=== PATIENT | female | born 1950 | race Caucasian/White ===

== ENCOUNTER → 2016-07-14 | Outpatient (REF) | payer OTHER ==
[2016-07-14 12:09] LABS: BASO # 0.3 K/mm3 (0.0-0.2); BASO % 2.5 % (0.0-1.0); EOS # 0.1 K/mm3 (0.0-0.50); EOS % 1.4 % (0.0-3.0); LARGE UNSTAINED CELL # 0.3 K/mm3 (0.0-0.4); LARGE UNSTAINED CELL % 2.6 % (0.0-4.0); LYMPH % 16.5 % (24.0-44.0); MEAN CORPUSCULAR HEMOGLOBIN 31.7 pg (27.0-33.0); MEAN CORPUSCULAR VOLUME 93.3 fl (80.0-96.0); MONO # 0.6 K/mm3 (0.0-0.8); MONO % 5.8 % (0.0-5.0); NEUTROPHILS # 7.5 K/mm3 (1.8-7.7); NEUTROPHILS % 71.2 % (36.0-66.0); PLATELET COUNT, AUTOMATED 248 k/mm3 (150-450); RED CELL DISTRIBUTION WIDTH 14.2 % (11.5-14.5); WHITE BLOOD COUNT 10.6 K/mm3 (4.0-10.0)
[2016-07-14 12:31] LABS: ANION GAP 11 MEQ/L (8-16); BLOOD UREA NITROGEN 12 MG/DL (7-18); CARBON DIOXIDE LEVEL 27 MEQ/L (21-32); CHLORIDE LEVEL 92 MEQ/L (98-107); CREATININE FOR GFR 0.74 MG/DL (0.55-1.02); GLOMERULAR FILTRATION RATE > 60.0 (>45); GLUCOSE, FASTING 101 MG/DL (80-110); POTASSIUM SERUM 4.3 MEQ/L (3.5-5.1); SODIUM LEVEL 130 MEQ/L (136-145)
== END ==
LOC: M SFHCPLAZ 09:40
PROVIDERS: ATTEND Physician Assistant Medical
DX: R07.81 Pleurodynia (principal)

== ENCOUNTER → 2016-07-20 | Outpatient (CLI) | payer OTHER ==
--- NOTE | 2016-07-20 11:31 | REP ---
MR CERVICAL SPINE WITHOUT CONTRAST: HISTORY: Neck pain and arm numbness. COMPARISON: 04/19/2009 A disc bulge is present at the C3-4 level. There is mild effacement of the thecal sac without spinal cord compression. Uncinate process and facet hypertrophy are present on the left. These findings produce moderate narrowing of the left C3 neural foramen. The right C3 neural foramen is patent. A disc bulge is present at the C4-5 level. There is mild effacement of the thecal sac without spinal cord compression. Facet hypertrophy is present on the left. This produces minimal narrowing of the left C4 neural foramen. The right C4 neural foramen is patent. A disc bulge is present at the C5-6 level. There is moderate effacement of the thecal sac without spinal cord compression. Bilateral uncinate process hypertrophy is present. This produces mild and minimal narrowing of the right and left C5 neural foramina respectively. A disc bulge with associated osteophyte formation is present at the C6-7 level. There is moderate effacement of the thecal sac without spinal cord compression. Bilateral uncinate process hypertrophy is present. This produces minimal and moderate narrowing of the right and the left C6 neural foramina respectively. There is no other disc bulge or herniation. The remaining neural foramina are patent. The spinal cord is normal in signal intensity. There is no intradural extramedullary lesion. The C5-6 and C6-7 intervertebral discs are decreased in height consistent with disc degeneration. Normal signal intensity is present in the cervical vertebral bodies. IMPRESSION: There is cervical spondylosis at the C3-4 through C6-7 levels without spinal cord compression. Findings at the C3-4 through C5-6 levels are new. Signed by Alexander Brandt MD 07/20/2016 11:35 A
== END ==
LOC: M RAD 09:25
PROVIDERS: ATTEND Physician Assistant Medical
DX: M47.892 Other spondylosis, cervical region (principal)

== ENCOUNTER → 2016-07-31 | Outpatient (CLI) | payer OTHER ==
[~2016-07-31] MED LIST: ISOVUE-370 76% 100ML VIAL (Q9967) As Ordered ONE
--- NOTE | 2016-08-01 05:43 | REP ---
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 Technique: Axial contrast enhanced images from the thoracic inlet to the upper abdomen using 100 ml Isovue 370 intravenous contrast material with coronal and sagittal re-formations. Comparison: 06/30/2016. Findings: Linear plate-like atelectasis in the left mid lung zone represents a change from prior examination. Mild stable chronic changes are identified. No acute pulmonary parenchymal consolidation, nodule, or mass lesion otherwise appreciated. A small 6 mm noncalcified nodule in the right lower lobe (image 56) remains unchanged compared to 2007. No pleural effusion/reaction. No pneumothorax. Tracheobronchial tree is patent. No axillary, hilar or mediastinal adenopathy. Mediastinum demonstrates relatively normal heart/pericardium, thoracic aorta and pulmonary vasculature. Surrounding musculoskeletal structures intact without focal osseous abnormality. Limited evaluation of the upper abdomen with small stable left adrenal adenoma measuring approximately 12 mm and unchanged compared to 2007. Impression: 1. Acute plate-like atelectasis in the left mid lung zone. 2. No further acute mediastinal or pleuroparenchymal process. 3. No adenopathy. Signed by Saad Flaherty MD 08/01/2016 05:35 A
== END ==
LOC: M RAD 12:40
PROVIDERS: ATTEND Physician Assistant Medical
DX: E22.2 Syndrome of inappropriate secretion of antidiuretic hormone (principal); R91.8 Other nonspecific abnormal finding of lung field
CPT/HCPCS: 71260; Q9967

== ENCOUNTER → 2016-11-08 | Outpatient (REF) | payer OTHER ==
[2016-11-08 13:47] LABS: BASO % 0.5 % (0.0-1.0); EOS # 0.1 K/mm3 (0.0-0.50); EOS % 1.3 % (0.0-3.0); LARGE UNSTAINED CELL # 0.2 K/mm3 (0.0-0.4); LARGE UNSTAINED CELL % 2.6 % (0.0-4.0); LYMPH # 2.5 K/mm3 (1.5-4.5); MEAN CORPUSCULAR HEMOGLOBIN 32.6 pg (27.0-33.0); MEAN CORPUSCULAR HGB CONC 33.5 g/dl (32.0-36.5); MEAN CORPUSCULAR VOLUME 97.1 fl (80.0-96.0); MONO # 0.6 K/mm3 (0.0-0.8); MONO % 6.2 % (0.0-5.0); NEUTROPHILS # 5.7 K/mm3 (1.8-7.7); NEUTROPHILS % 63.5 % (36.0-66.0); PLATELET COUNT, AUTOMATED 207 k/mm3 (150-450); RED CELL DISTRIBUTION WIDTH 13.1 % (11.5-14.5)
[2016-11-08 14:00] LABS: ANION GAP 9 MEQ/L (8-16); BLOOD UREA NITROGEN 14 MG/DL (7-18); CALCIUM LEVEL 8.9 MG/DL (8.8-10.2); CARBON DIOXIDE LEVEL 28 MEQ/L (21-32); CHLORIDE LEVEL 96 MEQ/L (98-107); CREATININE FOR GFR 0.74 MG/DL (0.55-1.02); GLOMERULAR FILTRATION RATE > 60.0 (>45); GLUCOSE, FASTING 97 MG/DL (80-110); POTASSIUM SERUM 4.9 MEQ/L (3.5-5.1); SODIUM LEVEL 133 MEQ/L (136-145)
== END ==
LOC: M SFHCPLAZ 10:45
PROVIDERS: ATTEND Physician Assistant Medical
DX: J40 Bronchitis, not specified as acute or chronic (principal)

== ENCOUNTER → 2016-11-22 | Outpatient (REF) | payer OTHER | LOC: M SFHCPLAZ 12:13 | PROVIDERS: ATTEND Physician Assistant Medical | DX: R07.89 Other chest pain (principal) ==

== ENCOUNTER → 2017-01-17 | Outpatient (REF) | payer OTHER ==
[2017-01-17 19:23] LABS: BASO % 0.7 % (0.0-1.0); EOS # 0.2 K/mm3 (0.0-0.50); EOS % 3.2 % (0.0-3.0); LARGE UNSTAINED CELL # 0.2 K/mm3 (0.0-0.4); LARGE UNSTAINED CELL % 2.6 % (0.0-4.0); LYMPH # 2.5 K/mm3 (1.5-4.5); LYMPH % 33.2 % (24.0-44.0); MEAN CORPUSCULAR HGB CONC 33.7 g/dl (32.0-36.5); MEAN CORPUSCULAR VOLUME 98.1 fl (80.0-96.0); MONO # 0.4 K/mm3 (0.0-0.8); MONO % 5.9 % (0.0-5.0); NEUTROPHILS # 3.8 K/mm3 (1.8-7.7); NEUTROPHILS % 54.4 % (36.0-66.0); PLATELET COUNT, AUTOMATED 216 k/mm3 (150-450); RED CELL DISTRIBUTION WIDTH 13.9 % (11.5-14.5)
[2017-01-17 19:29] LABS: ANION GAP 7 MEQ/L (8-16); BLOOD UREA NITROGEN 18 MG/DL (7-18); CARBON DIOXIDE LEVEL 28 MEQ/L (21-32); CHLORIDE LEVEL 99 MEQ/L (98-107); CREATININE FOR GFR 0.85 MG/DL (0.55-1.02); GLOMERULAR FILTRATION RATE > 60.0 (>45); GLUCOSE, FASTING 109 MG/DL (80-110); MAGNESIUM LEVEL 2.2 MG/DL (1.8-2.4); POTASSIUM SERUM 4.6 MEQ/L (3.5-5.1); SODIUM LEVEL 134 MEQ/L (136-145)
== END ==
LOC: M SFHCPLAZ 15:31
PROVIDERS: ATTEND Physician Assistant Medical
DX: M79.602 Pain in left arm (principal); E22.2 Syndrome of inappropriate secretion of antidiuretic hormone

== ENCOUNTER → 2017-04-06 | Outpatient (REF) | payer OTHER ==
[2017-04-06 14:53] LABS: ANION GAP 9 MEQ/L (8-16); BLOOD UREA NITROGEN 15 MG/DL (7-18); CALCIUM LEVEL 8.8 MG/DL (8.8-10.2); CARBON DIOXIDE LEVEL 27 MEQ/L (21-32); CHLORIDE LEVEL 93 MEQ/L (98-107); CREATININE FOR GFR 0.71 MG/DL (0.55-1.02); GLOMERULAR FILTRATION RATE > 60.0 (>45); GLUCOSE, FASTING 87 MG/DL (80-110); POTASSIUM SERUM 4.7 MEQ/L (3.5-5.1); SODIUM LEVEL 129 MEQ/L (136-145)
== END ==
LOC: M SFHCPLAZ 12:26
PROVIDERS: ATTEND Physician Assistant Medical
DX: E87.5 Hyperkalemia (principal); I10 Essential (primary) hypertension

== ENCOUNTER → 2017-04-19 | Outpatient (REF) | payer OTHER | LOC: M SFHCPLAZ 10:35 | PROVIDERS: ATTEND Physician Assistant Medical | DX: J02.9 Acute pharyngitis, unspecified (principal); K52.9 Noninfective gastroenteritis and colitis, unspecified; Z53.9 Procedure and treatment not carried out, unspecified reason ==

== ENCOUNTER → 2017-05-21 | Outpatient (REF) | payer OTHER ==
[2017-05-21 12:24] LABS: BASO # 0.1 10^3/uL (0.0-0.2); BASO % 0.8 % (0.0-1.0); EOS # 0.4 10^3/uL (0.0-0.50); EOS % 3.6 % (0.0-3.0); IMMATURE GRANULOCYTE % 0.7 % (0-0); LYMPH # 3.6 10^3/uL (1.5-4.5); LYMPH % 34.5 % (24.0-44.0); MEAN CORPUSCULAR HEMOGLOBIN 31.6 pg (27.0-33.0); MEAN CORPUSCULAR HGB CONC 32.9 g/dl (32.0-36.5); MONO % 9.2 % (0.0-5.0); NEUTROPHILS # 5.4 10^3/uL (1.8-7.7); NEUTROPHILS % 51.2 % (36.0-66.0); PLATELET COUNT, AUTOMATED 238 10^3/uL (150-450); RED CELL DISTRIBUTION WIDTH 13.2 % (11.5-14.5); WHITE BLOOD COUNT 10.5 10^3/uL (4.0-10.0)
[2017-05-21 13:43] LABS: ALBUMIN 3.2 GM/DL (3.2-5.2); ALBUMIN/GLOBULIN RATIO 1.14 (1.00-1.93); ALKALINE PHOSPHATASE 84 U/L (45-117); ALT/SGPT 16 U/L (12-78); ANION GAP 6 MEQ/L (8-16); AST/SGOT 9 U/L (7-37); BILIRUBIN,TOTAL 0.2 MG/DL (0.2-1.0); BLOOD UREA NITROGEN 15 MG/DL (7-18); CALCIUM LEVEL 8.8 MG/DL (8.8-10.2); CARBON DIOXIDE LEVEL 29 MEQ/L (21-32); CHLORIDE LEVEL 99 MEQ/L (98-107); CREATININE FOR GFR 0.72 MG/DL (0.55-1.02); GLOMERULAR FILTRATION RATE > 60.0 (>45); GLUCOSE, FASTING 99 MG/DL (80-110); POTASSIUM SERUM 4.6 MEQ/L (3.5-5.1); SODIUM LEVEL 134 MEQ/L (136-145)
== END ==
LOC: M SFHCPLAZ 10:47
PROVIDERS: ATTEND Physician Assistant Medical
DX: E78.00 Pure hypercholesterolemia, unspecified (principal); J18.9 Pneumonia, unspecified organism; E22.2 Syndrome of inappropriate secretion of antidiuretic hormone

== ENCOUNTER → 2017-06-27 | Outpatient (CLI) | payer OTHER ==
[~2017-06-27] MED LIST changes: +GASTROGRAFIN SOLUTION 30ML (Q9963) As Ordered; +ISOVUE-370 76% 100ML VIAL (Q9967) As Ordered; -ISOVUE-370 76% 100ML VIAL (Q9967) As Ordered ONE
== END ==
LOC: M RAD 12:32
DX: E22.2 Syndrome of inappropriate secretion of antidiuretic hormone (principal)
CPT/HCPCS: Q9963

== ENCOUNTER → 2017-07-05 | Outpatient (REF) | payer OTHER ==
[2017-07-05 16:17] LABS: ANION GAP 6 MEQ/L (8-16); BLOOD UREA NITROGEN 22 MG/DL (7-18); CALCIUM LEVEL 8.9 MG/DL (8.8-10.2); CARBON DIOXIDE LEVEL 30 MEQ/L (21-32); CHLORIDE LEVEL 99 MEQ/L (98-107); CREATININE FOR GFR 0.73 MG/DL (0.55-1.02); GLOMERULAR FILTRATION RATE > 60.0 (>45); GLUCOSE, FASTING 99 MG/DL (80-110); POTASSIUM SERUM 4.5 MEQ/L (3.5-5.1); SODIUM LEVEL 135 MEQ/L (136-145)
== END ==
LOC: M SFHCPLAZ 12:01
DX: E22.2 Syndrome of inappropriate secretion of antidiuretic hormone (principal)

== ENCOUNTER → 2017-07-19 | Outpatient (CLI) | payer OTHER | LOC: M RAD 12:10 | DX: I67.82 Cerebral ischemia (principal); G81.94 Hemiplegia, unspecified affecting left nondominant side | CPT/HCPCS: 70551 ==

== ENCOUNTER → 2017-09-18 | Outpatient (REF) | payer MEDICARE, MEDICAID ==
[2017-09-18 17:42] LABS: HEMATOCRIT 40.3 % (36.0-47.0)
[2017-09-18 17:42] LABS: BASO # 0.1 10^3/uL (0.0-0.2); BASO % 0.7 % (0.0-1.0); EOS # 0.2 10^3/uL (0.0-0.50); EOS % 1.8 % (0.0-3.0); HEMATOCRIT 40.8 % (36.0-47.0); HEMOGLOBIN 13.8 g/dl (12.0-16.0); IMMATURE GRANULOCYTE % 0.5 % (0-3.0); LYMPH # 2.2 10^3/uL (1.5-4.5); LYMPH % 24.8 % (24.0-44.0); MEAN CORPUSCULAR HEMOGLOBIN 32.2 pg (27.0-33.0); MEAN CORPUSCULAR HGB CONC 33.8 g/dl (32.0-36.5); MEAN CORPUSCULAR VOLUME 95.3 fl (80.0-96.0); MONO # 0.7 10^3/uL (0.0-0.8); MONO % 7.6 % (0.0-5.0); NEUTROPHILS # 5.7 10^3/uL (1.8-7.7); NEUTROPHILS % 64.6 % (36.0-66.0); PLATELET COUNT, AUTOMATED 260 10^3/uL (150-450); RED BLOOD COUNT 4.28 10^6/uL (4.00-5.40); RED CELL DISTRIBUTION WIDTH 12.6 % (11.5-14.5); RETIC HEMOGLOBIN EQUIVALENT 36.3 pg (24-36); RETICULOCYTE # 61.2 10^9/L (17-77); RETICULOCYTE % 1.4 % (0.5-1.5); WHITE BLOOD COUNT 8.7 10^3/uL (4.0-10.0)
[2017-09-18 17:50] LABS: PTH INTACT 29.9 PG/ML (18.5-88.0); TOTAL 25(OH) VITAMIN D 65.4 NG/ML (30.0-100.0)
[2017-09-18 17:52] LABS: C REACTIVE PROTEIN QUANTITATIV 1.68 MG/DL (0.00-0.30); CHOLESTEROL LEVEL 159 MG/DL (<200); CHOLESTEROL RISK RATIO 3.697 (<5); CPK CREATINE PHOSPHOKINASE 141 U/L (26-192); FREE T4 0.68 NG/DL (0.76-1.46); HDL CHOLESTEROL 43 MG/DL (>40); LDL CHOLESTEROL 60.2 MG/DL (<100); NON-HDL-C 116 MG/DL; TOTAL PROTEIN 7.3 GM/DL (6.4-8.2); TRIGLYCERIDES LEVEL 279 MG/DL (<150)
[2017-09-18 18:23] LABS: ESTIMATED AVERAGE GLUCOSE 120 MG/DL (60-110); HEMOGLOBIN A1c 5.8 %
[2017-09-18 18:26] LABS: VITAMIN B12 LEVEL 666 PG/ML (247-911)
[2017-09-20 11:23] LABS: ALBUMIN % 57.2 % (55.8-66.1); ALPHA-1-GLOBULIN % 5.5 % (2.9-4.9); ALPHA-2-GLOBULINS % 13.7 % (7.1-11.8); BETA-1-GLOBULINS 0.53 GM/DL (0.28-0.60); BETA-1-GLOBULINS % 7.2 % (4.7-7.2); BETA-2-GLOBULINS 0.44 GM/DL (0.19-0.55); GAMMA GLOBULIN % 10.4 % (11.1-18.8); GAMMA GLOBULINS 0.76 GM/DL (0.65-1.58)
[2017-09-20 11:30] LABS: ALBUMIN 4.18 GM/DL (3.29-5.55)
[2017-09-21 11:19] LABS: PRETREATED FOLATE FOR RBCFOL 6.5 NG/ML; RBC FOLATE 338.7 NG/ML (280-791)
== END ==
LOC: M SFHCPLAZ 15:31
DX: D75.89 Other specified diseases of blood and blood-forming organs (principal); R73.01 Impaired fasting glucose; E78.2 Mixed hyperlipidemia; E22.2 Syndrome of inappropriate secretion of antidiuretic hormone; E55.9 Vitamin D deficiency, unspecified
CPT/HCPCS: 82550

== ENCOUNTER → 2017-10-01 | Outpatient (CLI) | payer MEDICARE, MEDICAID | LOC: M SLEEP HO 13:20 | DX: G47.33 Obstructive sleep apnea (adult) (pediatric) (principal) | CPT/HCPCS: G0399 ==

== ENCOUNTER → 2017-10-17 | Outpatient (REF) | payer MEDICARE, MEDICAID ==
[2017-10-17 18:15] LABS: ALBUMIN 3.4 GM/DL (3.2-5.2); ALBUMIN/GLOBULIN RATIO 0.92 (1.00-1.93); ALKALINE PHOSPHATASE 110 U/L (45-117); ALT/SGPT 21 U/L (12-78); ANION GAP 8 MEQ/L (8-16); AST/SGOT 19 U/L (7-37); BILIRUBIN,TOTAL 0.2 MG/DL (0.2-1.0); BLOOD UREA NITROGEN 17 MG/DL (7-18); CALCIUM LEVEL 9.2 MG/DL (8.8-10.2); CARBON DIOXIDE LEVEL 26 MEQ/L (21-32); CHLORIDE LEVEL 101 MEQ/L (98-107); CREATININE FOR GFR 0.75 MG/DL (0.55-1.30); GLOMERULAR FILTRATION RATE > 60.0 (>45); GLUCOSE, FASTING 98 MG/DL (70-100); MAGNESIUM LEVEL 1.9 MG/DL (1.8-2.4); POTASSIUM SERUM 4.7 MEQ/L (3.5-5.1); SODIUM LEVEL 135 MEQ/L (136-145); TOTAL PROTEIN 7.1 GM/DL (6.4-8.2)
[2017-10-17 18:49] LABS: BASO # 0.1 10^3/uL (0.0-0.2); BASO % 0.9 % (0.0-1.0); EOS # 0.2 10^3/uL (0.0-0.50); EOS % 2.6 % (0.0-3.0); HEMATOCRIT 41.8 % (36.0-47.0); HEMOGLOBIN 13.7 g/dl (12.0-15.5); IMMATURE GRANULOCYTE % 0.5 % (0-3.0); LYMPH # 2.7 10^3/uL (1.5-4.5); LYMPH % 29.2 % (24.0-44.0); MEAN CORPUSCULAR HEMOGLOBIN 31.1 pg (27.0-33.0); MEAN CORPUSCULAR HGB CONC 32.8 g/dl (32.0-36.5); MEAN CORPUSCULAR VOLUME 94.8 fl (80.0-96.0); MONO # 0.9 10^3/uL (0.0-0.8); MONO % 9.9 % (0.0-5.0); NEUTROPHILS # 5.2 10^3/uL (1.8-7.7); NEUTROPHILS % 56.9 % (36.0-66.0); PLATELET COUNT, AUTOMATED 296 10^3/uL (150-450); RED BLOOD COUNT 4.41 10^6/uL (4.00-5.40); RED CELL DISTRIBUTION WIDTH 13.2 % (11.5-14.5); WHITE BLOOD COUNT 9.2 10^3/uL (4.0-10.0)
== END ==
LOC: M SFHCPLAZ 14:46
DX: K52.9 Noninfective gastroenteritis and colitis, unspecified (principal)
CPT/HCPCS: 83735

== ENCOUNTER → 2017-10-19 | Outpatient (CLI) | payer MEDICARE, MEDICAID | LOC: M RAD 10:18 | DX: Z12.2 Encounter for screening for malignant neoplasm of respiratory organs (principal); F17.210 Nicotine dependence, cigarettes, uncomplicated | CPT/HCPCS: G0297 ==

== ENCOUNTER → 2017-11-05 | Outpatient (REF) | payer MEDICARE, MEDICAID | LOC: M SFHCPLAZ 11:34 | DX: K52.9 Noninfective gastroenteritis and colitis, unspecified (principal) | CPT/HCPCS: 87507 ==

== ENCOUNTER → 2017-11-19 | Outpatient (REF) | payer MEDICARE, MEDICAID | LOC: M SFHCPLAZ 15:24 | DX: J02.9 Acute pharyngitis, unspecified (principal) | CPT/HCPCS: 87070 ==

== ENCOUNTER → 2018-01-23 | Outpatient (CLI) | payer MEDICARE, MEDICAID | LOC: M PAIN 13:45 | DX: M47.816 Spondylosis without myelopathy or radiculopathy, lumbar region (principal); M46.96 Unspecified inflammatory spondylopathy, lumbar region; L98.9 Disorder of the skin and subcutaneous tissue, unspecified; E11.9 Type 2 diabetes mellitus without complications; J44.9 Chronic obstructive pulmonary disease, unspecified; K21.9 Gastro-esophageal reflux disease without esophagitis; G47.33 Obstructive sleep apnea (adult) (pediatric); E78.5 Hyperlipidemia, unspecified; I10 Essential (primary) hypertension; I44.7 Left bundle-branch block, unspecified; F25.9 Schizoaffective disorder, unspecified; F17.210 Nicotine dependence, cigarettes, uncomplicated; Z79.01 Long term (current) use of anticoagulants; Z79.51 Long term (current) use of inhaled steroids; Z79.82 Long term (current) use of aspirin; Z79.899 Other long term (current) drug therapy; Z88.1 Allergy status to other antibiotic agents; Z88.5 Allergy status to narcotic agent; Z88.8 Allergy status to other drugs, medicaments and biological substances; Z86.79 Personal history of other diseases of the circulatory system | CPT/HCPCS: G0463 ==

== ENCOUNTER → 2018-01-26 | Outpatient (CLI) | payer MEDICARE, MEDICAID | LOC: M RAD 09:50 | DX: M75.51 Bursitis of right shoulder (principal); M19.011 Primary osteoarthritis, right shoulder; M25.711 Osteophyte, right shoulder; M94.211 Chondromalacia, right shoulder | CPT/HCPCS: 73221 ==

== ENCOUNTER → 2018-01-26 | Outpatient (CLI) | payer MEDICARE, MEDICAID | LOC: M RAD 11:30 | DX: M51.26 Other intervertebral disc displacement, lumbar region (principal); M51.27 Other intervertebral disc displacement, lumbosacral region; M43.16 Spondylolisthesis, lumbar region; M43.17 Spondylolisthesis, lumbosacral region; M99.53 Intervertebral disc stenosis of neural canal of lumbar region | CPT/HCPCS: 72148 ==

== ENCOUNTER → 2018-02-14 | Outpatient (REF) | payer MEDICARE, MEDICAID ==
[2018-02-14 12:18] LABS: BASO # 0.1 10^3/uL (0.0-0.2); BASO % 0.9 % (0.0-1.0); EOS # 0.1 10^3/uL (0.0-0.50); EOS % 1.6 % (0.0-3.0); HEMOGLOBIN 13.9 g/dl (12.0-15.5); IMMATURE GRANULOCYTE % 0.6 % (0-3.0); LYMPH # 2.1 10^3/uL (1.5-4.5); LYMPH % 25.8 % (24.0-44.0); MEAN CORPUSCULAR HEMOGLOBIN 31.6 pg (27.0-33.0); MEAN CORPUSCULAR HGB CONC 33.1 g/dl (32.0-36.5); MEAN CORPUSCULAR VOLUME 95.5 fl (80.0-96.0); MONO # 0.8 10^3/uL (0.0-0.8); MONO % 10.3 % (0.0-5.0); NEUTROPHILS % 60.8 % (36.0-66.0); PLATELET COUNT, AUTOMATED 223 10^3/uL (150-450); RED CELL DISTRIBUTION WIDTH 13.8 % (11.5-14.5); WHITE BLOOD COUNT 8.1 10^3/uL (4.0-10.0)
[2018-02-14 12:43] LABS: ALBUMIN 3.3 GM/DL (3.2-5.2); ALBUMIN/GLOBULIN RATIO 0.89 (1.00-1.93); ALKALINE PHOSPHATASE 88 U/L (45-117); ALT/SGPT 28 U/L (12-78); ANION GAP 8 MEQ/L (8-16); AST/SGOT 29 U/L (7-37); BILIRUBIN,TOTAL 0.3 MG/DL (0.2-1.0); BLOOD UREA NITROGEN 10 MG/DL (7-18); CALCIUM LEVEL 8.8 MG/DL (8.8-10.2); CARBON DIOXIDE LEVEL 29 MEQ/L (21-32); CHLORIDE LEVEL 99 MEQ/L (98-107); CREATININE FOR GFR 0.86 MG/DL (0.55-1.30); GLOMERULAR FILTRATION RATE > 60.0 (>45); GLUCOSE, FASTING 97 MG/DL (70-100); POTASSIUM SERUM 4.5 MEQ/L (3.5-5.1); SODIUM LEVEL 136 MEQ/L (136-145)
[2018-02-15 09:55] LABS: HEPATITIS B SURFACE ANTIGEN NEGATIVE (NEGATIVE)
[2018-02-15 10:16] LABS: HEPATITIS C VIRUS ABY INDEX 0.1 INDEX (<0.8); HIV 1&2 SCREEN CENTAUR NEGATIVE (NEGATIVE)
== END ==
LOC: M SFHCPLAZ 10:27
DX: R19.7 Diarrhea, unspecified (principal); L98.1 Factitial dermatitis; E22.2 Syndrome of inappropriate secretion of antidiuretic hormone; I10 Essential (primary) hypertension; K21.9 Gastro-esophageal reflux disease without esophagitis; F31.9 Bipolar disorder, unspecified; F20.9 Schizophrenia, unspecified; M47.816 Spondylosis without myelopathy or radiculopathy, lumbar region
CPT/HCPCS: 80053

== ENCOUNTER → 2018-03-19 | Outpatient (CLI) | payer MEDICARE, MEDICAID ==
[~2018-03-19] MED LIST changes: +BUPIVACAINE HCL 0.25% 30 ML VIAL As Ordered; -GASTROGRAFIN SOLUTION 30ML (Q9963) As Ordered; -ISOVUE-370 76% 100ML VIAL (Q9967) As Ordered; +ISOVUE-M 300 61% 15ML VIAL (Q9967) As Ordered; +LIDOCAINE 1% SDV INJ 30 ML VIAL As Ordered; +TRIAMCINOLONE ACETONIDE SUSP 40 MG/ML VIAL (J3301) As Ordered; +diazePAM 5 MG TAB As Ordered
== END ==
LOC: M PAIN 10:15
DX: M47.816 Spondylosis without myelopathy or radiculopathy, lumbar region (principal); M47.817 Spondylosis without myelopathy or radiculopathy, lumbosacral region; R73.01 Impaired fasting glucose; J44.9 Chronic obstructive pulmonary disease, unspecified; K21.9 Gastro-esophageal reflux disease without esophagitis; K59.00 Constipation, unspecified; J30.9 Allergic rhinitis, unspecified; G47.33 Obstructive sleep apnea (adult) (pediatric); I10 Essential (primary) hypertension; N39.46 Mixed incontinence; F20.5 Residual schizophrenia; E87.1 Hypo-osmolality and hyponatremia; Z87.891 Personal history of nicotine dependence; Z79.82 Long term (current) use of aspirin; Z79.899 Other long term (current) drug therapy; Z90.49 Acquired absence of other specified parts of digestive tract; Z90.710 Acquired absence of both cervix and uterus; Z88.1 Allergy status to other antibiotic agents; Z88.5 Allergy status to narcotic agent; Z88.8 Allergy status to other drugs, medicaments and biological substances
CPT/HCPCS: J3301

== ENCOUNTER → 2018-11-23 | Outpatient (REF) ==
[2018-11-23 13:28] LABS: ALBUMIN 2.4 GM/DL (3.2-5.2); BILIRUBIN,TOTAL 0.3 MG/DL (0.2-1.0); CALCIUM LEVEL 8.3 MG/DL (8.8-10.2); CREATININE FOR GFR 2.03 MG/DL (0.55-1.30); GLOMERULAR FILTRATION RATE 26.1 (>45); POTASSIUM SERUM 4.1 MEQ/L (3.5-5.1); TOTAL PROTEIN 5.1 GM/DL (6.4-8.2)
== END ==
LOC: M LAB REF 06:43
DX: Z00.00 Encounter for general adult medical examination without abnormal findings (principal)

== ENCOUNTER → 2018-12-05 | Outpatient (REF) | payer MEDICARE, MEDICAID ==
[2018-12-05 18:05] LABS: PERCENT SATURATION 17.7 % (13.2-45.0)
[2018-12-05 18:16] LABS: POTASSIUM RANDOM URINE 43.2 MEQ/L
[2018-12-05 18:32] LABS: FOLATE 4.7 NG/ML
[2018-12-10 00:06] LABS: Methylmalonic Acid 187 nmol/L (0-378)
== END ==
LOC: M LAB REF 17:03
PROVIDERS: ATTEND Internal Medicine Nephrology
DX: D64.9 Anemia, unspecified (principal); N18.4 Chronic kidney disease, stage 4 (severe); I10 Essential (primary) hypertension; E87.1 Hypo-osmolality and hyponatremia

== ENCOUNTER 2019-03-25 11:45 | Emergency (ER) | payer MEDICARE, MEDICAID ==
[~2019-03-25] VITALS: Ht 152.4 cm; Wt 85.9 kg
[2019-03-25 12:21] LABS: BASO # 0.1 10^3/uL (0.0-0.2); BASO % 0.3 % (0.0-1.0); EOS # 0.1 10^3/uL (0.0-0.5); EOS % 0.5 % (0.0-3.0); HEMATOCRIT 27.5 % (36.0-47.0); HEMOGLOBIN 9.1 g/dl (12.0-15.5); LYMPH % 13.5 % (24.0-44.0); MEAN CORPUSCULAR HEMOGLOBIN 31.2 pg (27.0-33.0); MEAN CORPUSCULAR HGB CONC 33.1 g/dl (32.0-36.5); MEAN CORPUSCULAR VOLUME 94.2 fl (80.0-96.0); MONO # 1.3 10^3/uL (0.0-0.8); MONO % 8.9 % (0.0-5.0); NEUTROPHILS # 11.5 10^3/uL (1.5-8.5); NEUTROPHILS % 76.5 % (36.0-66.0); PLATELET COUNT, AUTOMATED 336 10^3/uL (150-450); RED BLOOD COUNT 2.92 10^6/uL (4.00-5.40)
[2019-03-25 12:31] LABS: INR 1.13; PROTHROMBIN TIME 14.2 SECONDS (11.8-14.0)
[2019-03-25] MEDS ORDERED: NS 1,000 ML IV ONE (12:45)
[2019-03-25 13:01] LABS: ALBUMIN 3.2 GM/DL (3.2-5.2); ALT/SGPT 20 U/L (12-78); BILIRUBIN,DIRECT 0.1 MG/DL (0.0-0.2); BILIRUBIN,TOTAL 0.3 MG/DL (0.2-1.0); CK-MB VALUE MASS < 1.0 NG/ML (<3.6); CPK CREATINE PHOSPHOKINASE 46 U/L (26-192); LIPASE 37 U/L (73-393); MB/CK RELATIVE INDEX 2.17 (< OR =4); TOTAL PROTEIN 6.7 GM/DL (6.4-8.2); TROPONIN I < 0.02 NG/ML (< 0.10)
[2019-03-25] MEDS ORDERED: PANT40TA3 PO (13:11)
[2019-03-25] MEDS ORDERED: DIVA250T7 PO (13:11)
[2019-03-25] MEDS ORDERED: CARV6.25 PO (13:11)
[2019-03-25] MEDS ORDERED: SODI1TAB6 PO (13:11)
[2019-03-25] MEDS ORDERED: ZIPR20CA13 PO (13:11)
[2019-03-25] MEDS ORDERED: OXYB5TAB10 PO (13:11)
[2019-03-25] MEDS ORDERED: ALL10TAB29 PO (13:11)
[2019-03-25] MEDS ORDERED: CYCL5TAB PO (13:11)
--- NOTE | 2019-03-25 15:11 | REP ---
CHEST, SINGLE VIEW: There is no evidence of acute infiltrate. No pleural effusion is seen. The heart is normal in size. The mediastinal silhouette is unremarkable. The visualized osseous structures are intact. IMPRESSION: No acute pulmonary disease. Electronically Signed by Sukh Ochoa MD 03/25/2019 03:59 P
[2019-03-25] MEDS ORDERED: GI COCKTAIL 50ML BTL(HYOSCYAMINE/MAALOX/LIDOCAINE VISCOUS)(1:3:1) PO ONE (16:30)
--- NOTE | 2019-03-25 17:47 | ECGEPIP ---
[facility] - ED Test Date: 2019-03-25 Pat Name: CK BYRD Department: Room: - Gender: Female Tobacco Weigher: TC : 1950 Requested By: Jaswinder Latham Order Number: [id number] Reading MD: Jessica Garcia Measurements Intervals [place] Rate: 67 P: 17 [place]: 188 QRS: -22 QRSD: 137 T: 97 QT: 427 QTc: 453 Interpretive Statements SINUS RHYTHM LEFT BUNDLE BRANCH BLOCK LAD SIMILAR 03/22/16 Electronically Signed on 03-25-2019 17:47:35 EDT by Jessica Garcia
[2019-03-25 18:19] LABS: CK-MB VALUE MASS < 1.0 NG/ML (<3.6); CPK CREATINE PHOSPHOKINASE 35 U/L (26-192); MB/CK RELATIVE INDEX 2.86 (< OR =4); TROPONIN I < 0.02 NG/ML (< 0.10)
[2019-03-25 19:30] VITALS: BP 141/66
--- NOTE | 2019-03-25 23:29 | ECGEPIP ---
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
--- NOTE | 2019-03-26 06:04 | REP ---
CT ABDOMEN AND PELVIS WITHOUT IV OR ORAL CONTRAST: HISTORY: Left upper quadrant pain. The patient reports previous cholecystectomy, hysterectomy, and appendectomy. Comparison CT study June 27, 2017. CT FINDINGS: Digital preliminary banking supervisor radiograph demonstrate that the patient is status post lumbar spine fusion with transpedicle screw and interconnecting shirin fixation from L3-S1 bilaterally. There is considerable spray artifact on axial images through this region. There is dorsal postoperative edema and paraspinal soft tissue fluid collection is seen in the subcutaneous and dorsal paraspinal soft tissues associated with spine fusion. This dorsal extra spinal fluid collection measures up to 11 cm in craniocaudal span x 4-5 cm anterior to posterior x up to 7.4 cm medial to lateral. Lumbar spine alignment is normal and vertebral body heights are preserved. The lung bases are clear. There are granulomatous calcifications scattered about the spleen. No focal hepatic or splenic lesion is observed. No adrenal lesion is observed. The kidneys are morphologically intact. No stone disease is seen. Urinary bladder appears intact. There is left colonic diverticulosis without CT evidence of diverticulitis. No pancreatic abnormality is observed. The right colon appears to be mesenteric cecum in the right mid abdomen. Uterus is surgically absent as is the gallbladder. No abdominal wall defect is observed. IMPRESSION: Postoperative changes including cholecystectomy, hysterectomy and appendectomy as well as L3-S1 bilateral lumbar spine fusion. Postoperative extra spinal hematoma/seroma associated with the lumbar spine fusion hardware. Granulomatous calcifications in the spleen. Left colonic diverticulosis. No acute intra-abdominal abnormality. Electronically Signed by Darryl Graham MD 03/26/2019 08:10 A
--- NOTE | 2019-03-26 06:08 | REP ---
CT CHEST WITHOUT IV CONTRAST: CT chest performed without IV contrast. Sagittal and coronal reconstruction images are performed. There are mild scattered fibroatelectatic changes in the lungs. A 5 mm nodular density in the posterior right lower lobe has remained stable since the CT of the chest 10/19/2017. There is no infiltrate in either lung. No axillary or mediastinal adenopathy is seen. There is atherosclerotic calcification of the thoracic aorta without aneurysm. The heart is not enlarged. There is no pleural or pericardial effusion. There are degenerative changes of the spine. IMPRESSION: No acute findings. Electronically Signed by Sukh Ochoa MD 03/26/2019 11:25 A
[2019-06-13] MEDS ORDERED: ASPI81TA85 PO (08:42)
[2019-06-13] MEDS ORDERED: FOLI1TAB11 PO (08:42)
[2019-06-13] MEDS ORDERED: ATOR1TAB21 PO (08:53)
[2019-06-13] MEDS ORDERED: SPIR12.9 INH (08:53)
[2019-06-13] MEDS ORDERED: CYAN100050 PO (08:53)
[2019-06-13] MEDS ORDERED: ONDA4TAB6 PO (08:53)
[2019-06-13] MEDS ORDERED: PEGPOW PO (08:53)
[2019-06-13] MEDS ORDERED: ALBU83IN INH (08:53)
[2019-06-13] MEDS ORDERED: BREO1INH INH (08:53)
== END 2019-03-25 19:52 | disposition home or self-care (01) ==
LOC: M ED 11:45
DX: R07.89 Other chest pain (principal); E86.0 Dehydration; I44.0 Atrioventricular block, first degree; I44.7 Left bundle-branch block, unspecified; I25.10 Atherosclerotic heart disease of native coronary artery without angina pectoris; I10 Essential (primary) hypertension; J44.9 Chronic obstructive pulmonary disease, unspecified; K21.9 Gastro-esophageal reflux disease without esophagitis; M50.30 Other cervical disc degeneration, unspecified cervical region; Z87.448 Personal history of other diseases of urinary system; I27.0 Primary pulmonary hypertension; F17.200 Nicotine dependence, unspecified, uncomplicated; K57.30 Diverticulosis of large intestine without perforation or abscess without bleeding; M43.26 Fusion of spine, lumbar region; Z79.899 Other long term (current) drug therapy; Z88.0 Allergy status to penicillin; Z88.1 Allergy status to other antibiotic agents; Z88.8 Allergy status to other drugs, medicaments and biological substances

== ENCOUNTER → 2019-04-24 | Outpatient (REF) | payer MEDICARE, MEDICAID ==
[~2019-04-24] MED LIST changes: +ALL10TAB29 PO; -BUPIVACAINE HCL 0.25% 30 ML VIAL As Ordered; +CARV6.25 PO; +CYCL5TAB PO; +DIVA250T7 PO; -ISOVUE-M 300 61% 15ML VIAL (Q9967) As Ordered; -LIDOCAINE 1% SDV INJ 30 ML VIAL As Ordered; +OXYB5TAB10 PO; +PANT40TA3 PO; +SODI1TAB6 PO; -TRIAMCINOLONE ACETONIDE SUSP 40 MG/ML VIAL (J3301) As Ordered; +ZIPR20CA13 PO; -diazePAM 5 MG TAB As Ordered
[2019-04-24 14:02] LABS: PERCENT SATURATION 15.6 % (13.2-45.0)
== END ==
LOC: M LAB REF 12:51
PROVIDERS: ATTEND Internal Medicine Nephrology
DX: D50.9 Iron deficiency anemia, unspecified (principal)

== ENCOUNTER 2019-05-01 09:32 | Outpatient (CLI) | payer MEDICARE, MEDICAID ==
[~2019-05-01] VITALS: Ht 152.4 cm; Wt 84.6 kg
[2019-05-01 09:40] VITALS: BP 146/68
[2019-05-01] MEDS ORDERED: FERRIC CARBOXYMALTOSE INJ 750 MG in NS 250 ML IV ONE (10:00)
[2019-05-01 10:20] VITALS: BP 156/68
[2019-05-01 10:35] VITALS: BP 151/68
[2019-05-01 11:30] VITALS: BP 139/65
[2019-05-01 11:50] VITALS: BP 137/63
== END 2019-05-01 12:00 | disposition home or self-care (01) ==
LOC: M INFU 09:32
PROVIDERS: ATTEND Internal Medicine Nephrology
DX: D50.9 Iron deficiency anemia, unspecified (principal); Z79.899 Other long term (current) drug therapy; Z88.1 Allergy status to other antibiotic agents; Z88.5 Allergy status to narcotic agent; Z88.2 Allergy status to sulfonamides; Z88.8 Allergy status to other drugs, medicaments and biological substances
CPT/HCPCS: 96365; J1439

== ENCOUNTER 2019-05-08 09:47 | Outpatient (CLI) | payer MEDICARE, MEDICAID ==
[~2019-05-08] VITALS: Ht 152.4 cm; Wt 84.5 kg
[2019-05-08 09:50] VITALS: BP 101/53
[2019-05-08] MEDS ORDERED: FERRIC CARBOXYMALTOSE INJ 750 MG in NS 250 ML IV ONE (10:15)
[2019-05-08] MEDS ORDERED: ZIPR40CA11 PO (11:07)
[2019-05-08 11:15] VITALS: BP 107/47
[2019-05-08 12:15] VITALS: BP 121/58
[2019-05-08 13:00] VITALS: BP 119/61
== END 2019-05-08 13:00 | disposition home or self-care (01) ==
LOC: M INFU 09:47
PROVIDERS: ATTEND Internal Medicine Nephrology
DX: D50.9 Iron deficiency anemia, unspecified (principal); Z88.0 Allergy status to penicillin; Z88.1 Allergy status to other antibiotic agents; Z88.5 Allergy status to narcotic agent; Z88.2 Allergy status to sulfonamides
CPT/HCPCS: 96365; 96366; J1439

== ENCOUNTER → 2019-06-17 | Outpatient (CLI) | payer MEDICARE, MEDICAID ==
[~2019-06-17] MED LIST changes: +ALBU83IN INH; +ASPI81TA85 PO; +ATOR1TAB21 PO; +BREO1INH INH; +CYAN100050 PO; +FOLI1TAB11 PO; +ONDA4TAB6 PO; +PEGPOW PO; +SPIR12.9 INH; +ZIPR40CA11 PO
--- NOTE | 2019-06-17 11:35 | REP ---
COMPLETE ABDOMINAL SONOGRAPHY: HISTORY: Evaluate liver and spleen. Declining hemoglobin. Comparison CT study. March 25, 2019. SONOGRAPHIC FINDINGS: Scanning through the right upper quadrant of the abdomen demonstrates normal sized homogeneous liver. Common bile duct is normal post cholecystectomy 0.7 cm. No focal liver lesion is seen. The spleen is normal in size measuring 10.6 cm in greatest diameter. Multiple echogenic foci consistent with splenic granulomata are seen scattered throughout the spleen parenchyma. No pancreatic abnormality is observed. No splenic mass lesion is seen. Normal caliber aorta is seen, 2.9 cm in greatest AP diameter. Renal cortical echogenicity pattern is normal, and contours are smooth. Right kidney measures 10.6 x 5.4 x 4.6 cm. Left renal dimensions are 10.8 x 5.4 x 5.4 cm. No hydronephrosis is seen. No renal masses observed. IMPRESSION: Splenic granulomatous calcifications. Otherwise, negative complete abdominal sonography. Post cholecystectomy. Electronically Signed by Darryl Graham MD 06/17/2019 03:29 P
== END ==
LOC: M RAD 07:26
PROVIDERS: ATTEND Internal Medicine Hematology
DX: R71.0 Precipitous drop in hematocrit (principal); Z90.49 Acquired absence of other specified parts of digestive tract; D73.89 Other diseases of spleen

== ENCOUNTER 2019-10-18 15:53 | Inpatient (IN) | payer MEDICARE, MEDICAID ==
[~2019-10-18] VITALS: Ht 152.4 cm; Wt 76.9 kg
[2019-10-18 17:19] VITALS: BP 166/88
[2019-10-18] MEDS ORDERED: MOM 30ML SUSPENSION UDC PO PRN (18:00)
--- NOTE | 2019-10-18 18:36 | REP ---
Portable chest x-ray: Single view. History: Syncope/near syncope. Kel chest x-ray March 25, 2019. Findings: Monitoring electrodes overlie the chest. Heart is not enlarged. The aorta somewhat tortuous. The lungs are well inflated and clear. Pleural angles are sharp. Pulmonary vasculature is not increased. No significant bony abnormality is seen. Impression: No active disease. Electronically Signed by Darryl Graham MD 10/18/2019 06:27 P
[2019-10-18 19:48] LABS: BASO % 0.4 % (0.0-1.0); EOS # 0.1 10^3/uL (0.0-0.5); EOS % 0.7 % (0.0-3.0); HEMATOCRIT 36.9 % (36.0-47.0); HEMOGLOBIN 12.4 g/dl (12.0-15.5); LYMPH # 1.9 10^3/uL (1.5-5.0); LYMPH % 18.4 % (24.0-44.0); MEAN CORPUSCULAR HEMOGLOBIN 32.6 pg (27.0-33.0); MEAN CORPUSCULAR HGB CONC 33.6 g/dl (32.0-36.5); MEAN CORPUSCULAR VOLUME 97.1 fl (80.0-96.0); MONO # 0.6 10^3/uL (0.0-0.8); MONO % 5.5 % (0.0-5.0); NEUTROPHILS # 7.6 10^3/uL (1.5-8.5); NEUTROPHILS % 74.5 % (36.0-66.0); PLATELET COUNT, AUTOMATED 223 10^3/uL (150-450); WHITE BLOOD COUNT 10.2 10^3/uL (4.0-10.0)
--- NOTE | 2019-10-18 19:56 | HPEPDOC ---
General Date of Admission Oct 18, 2019 at 17:19 Date of Service: Oct 18, 2019 Other Providers Cardio: Dr. Mendoza Nephro: Dr. Zhou Attending Physician: AMY SALMON MD Chief Complaint The patient is a 69-year-old female admitted with a reason for visit of Cardiogenic Syncope. History of Present Illness HPI: This is a 69-year-old female transferred from [facility] due to syncope. States she had 1 episode of syncope earlier this week on Sunday that led her to [facility]. She is limited historian due to poor medical insight. She is unsure what she was diagnosed with, but per transfer records, she was treated for CHF, syncope, and UTI, discharged home from [facility] just today, and returned to the hospital one-two hours later due to another syncopal episode. She reports she was going from sitting to standing at home, and her daughter noted she had passed out and called EMS. Patient is unsure if she had any seizure-like activity, but denies any prior history of seizures. She is unsure how long she was out for. She only recalls afterwards waking up in the hospital being told she had passed out. Per transfer records, she had no seizure-like activity and had no preceding symptoms, and episode reportedly lasted more than 30 mins and she did not hit her head or sustain any injuries. Head CT & CXR were negative. Her only complaint upon presentation was that she felt weak. Per records, she has reportedly had syncopal episodes multiple times in the past, and noted to have multiple ER visits in the past 1 month due to dizziness and weakness. Upong initial workup at [place]: WBC 11.5, nml H&H, vitals stable besides HR in 50s. EKG reportedly found 1st degree block, LBBB, nonscpecific st/t wave changes, nml e'lytes. D-dimer 0.5, troponin 0.1. She was transferred to [facility] by for higher level of care, and possible a PPM placement. When examined at bedside, her only complaint is of continued weakness and left flank pain ongoing for the past few days. States her weakness is ongoing for months, and left flank pain is sharp, nonradiating, constantly present, but worsened by urination. Also endorses dysuria & urgency & frequency. Otherwise noted to be resting well and denies all other symptoms. PMH: COPD on room air at baseline Dyslipidemia/CAD ?prior CA Hypertension Overactive bladder Iron defic anemia DJD Grade 1 diastolic dysfxn Tobacco use disorder Schizophrenia Sciatica SIADH Past Surgical Hx: Cholecystectomy 2012 Hysterectomy 1975 Appendectomy Family Hx: Father 50 years old from stroke Mother 73 years old, had Crohns Brother age 43 of CA Sister with type 2 diabetes Social Hx: Current fpc smoker. 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 Admits chills HEENT: Denies headache, dysphagia, blurred vision or auditory change Skin: Denies any rashes or lesions Pulmonary: Denies dyspnea, cough, wheezing Cardiac: Denies chest pain, palpitations, orthopnea, PND, edema, lightheadedness. Admits general weakness GI: Denies nausea, vomiting, abdominal pain, diarrhea, constipation, melena, hematochezia : Admits dysuria & urgency frequency. Denies hematuria, retention MSK: Denies new pains or weakness Neurologic: Denies new numbness/tingling PHYSICAL: General exam: A&Ox3, NAD, resting comfortably, appears older than stated age HEENT: NCAT, EOMI, dry mucous membranes, neck supple, patent airway Cardiac: RRR, normal S1 & S2, 2/6 systolic murmur heard best left sternal border, 1+ b/l LE edema Respiratory: minimal bibasilar crackles, otherwise clear throughout with good air exchange, no wheezing or rhonchi. Breathing comfy on room air Abdomen: soft, NT, ND, normoactive bowel sounds. Left CVA tenderness Extremity: 2+ radial and dorsalis pedis pulses, no calf tenderness Skin: [place], warm, dry, no visible rash Msk: strength 5/5 x4, normal tone Neuro: normal speech, no focal deficits, mototor & sensation intact Psych: Normal mood and affect LABORATORY DATA, MICROBIOLOGY: Please see below. IMAGING STUDIES: CXR pending ASSESSMENT AND PLAN: This is a 69-yo F with extensive PMH as noted above, direct transfer from [facility] for a syncopal espiode. Pt has reportedly had multiple ER visits for similar complaints over the past 1-2 months and most recently was hospitalized this Sunday through earlier today when she was discharged after treated for CHF exacerbation, syncope, & UTI. She reportedly experienced another syncopal episode within 1-2 hours of going home, and returned back to [place], from where she was transferred due to possible PPM requirement. Pt denies ever having preceding symptoms to the syncopal episodes, and only complains of weakness. 1. Recurrent syncopal episodes - pt has reportedly had them for 1+ month, unclear what prior w/u has been done - reportedly follows with Dr. Mendoza, but pt unsure why. Will obtain o/p records - Head CT reportedly negative at [place] - cardiac vs neurogenic vs vasovagal - monitor on tele, trend cardiac markers, echo, EKG, orthostatics - work with PT/OT 2. Dysuria, frequency, urgency, left CVA tenderness - pt s/p recent UTI tx at [place] this week; no records of which abx or cultures - no systemic signs of infection - await repeat UA & culture For the remainder of her chronic medical conditions, home meds will be reviewed and resumed once reconciled. DVT prophylaxis: mechanical, heparin sc CODE STATUS: discussed with pt in depth, states she wants FULL CODE. Daughter is active in her care. DISPOSITION: admit to Hospital, direct transfer from [place]. W/u pending. Signed out to night team. Home Medications Scheduled Aspirin (Aspir 81) 81 Mg Tablet., 81 MG PO DAILY, (Reported) Atorvastatin Calcium (Atorvastatin Calcium) 20 Mg Tablet, 20 MG PO QHS, (Reported) Cetirizine HCl (Cetirizine HCl) 10 Mg Tablet, 10 MG PO DAILY, (Reported) Cyanocobalamin (Vitamin B-12) (Vitamin B-12) 1,000 Mcg Tablet, 1,000 MCG PO DAILY, (Reported) Doxycycline Hyclate (Doxycycline Hyclate) 100 Mg Tablet, 100 MG PO BID, (Reported) STARTED 10/18/2019 Fluticasone/Vilanterol (Breo Ellipta 100-25 Mcg INH) 1 Each Blst.w.dev, 1 PUFF INH DAILY, (Reported) Folic Acid (Folic Acid) 1 Mg Tablet, 1 MG PO DAILY, (Reported) Furosemide (Furosemide) 20 Mg Tablet, 20 MG PO DAILY, (Reported) Isosorbide Mononitrate (Isosorbide Mononitrate ER) 60 Mg Tab.er.24h, 60 MG PO DAILY, (Reported) Lisinopril (Lisinopril) 2.5 Mg Tablet, 2.5 MG PO DAILY, (Reported) Magnesium Oxide (Magnesium Oxide) 400 Mg Tablet, 400 MG PO DAILY for constipation, (Reported) Ondansetron (Ondansetron Odt) 4 Mg Tab.rapdis, 4 MG PO Q6HP, (Reported) Oxybutynin Chloride (Oxybutynin Chloride) 5 Mg Tablet, 5 MG PO TID, (Reported) Pantoprazole Sodium (Pantoprazole Sodium) 40 Mg Tablet.dr, 40 MG PO DAILY, (Reported) Polyethylene Glycol 3350 (Polyethylene Glycol 3350) 510 Gm Powder, 17 GM PO BID, (Reported) Potassium Chloride (Potassium Chloride) 10 Meq Capsule.er, 10 MEQ PO DAILY, (Reported) Sodium Chloride (Sodium Chloride) 1 Gm Tablet, 1 GM PO BID, (Reported) Tiotropium [place] (Spiriva Respimat) 4 Gm Mist.inhal, 2 PUFF INH DAILY, (Reported) Valbenazine Tosylate (Ingrezza) 80 Mg Capsule, 80 MG PO DAILY, (Reported) Ziprasidone HCl (Ziprasidone HCl) 20 Mg Capsule, 20 MG PO QAM, (Reported) Ziprasidone HCl (Ziprasidone HCl) 40 Mg Capsule, 40 MG PO QHS, (Reported) Scheduled PRN Gabapentin (Gabapentin) 300 Mg Capsule, 300 MG PO DAILY PRN for PAIN, (Reported) Hydroxyzine HCl (Hydroxyzine HCl) 50 Mg Tablet, 1-2 TAB PO QHS PRN for ANXIETY, (Reported) Allergies Coded Allergies: amoxicillin (Verified Allergy, Unknown, unknown, 01/10/19) clavulanic acid (Verified Allergy, Unknown, unknown, 01/10/19) moxifloxacin (Verified Allergy, Unknown, unknown, 01/10/19) nitrofurantoin (Verified Allergy, Unknown, unknown, 01/10/19) prednisolone (Verified Allergy, Unknown, flippy feeling, 01/10/19) GME ATTESTATION My faculty preceptor for this patient encounter was physically present during the encounter and was fully available. All aspects of the patient interview, examination, medical decision making process, and medical care plan development were reviewed and approved by the faculty preceptor. The faculty preceptor is aware and concurs with the plan as stated in the body of this note and will attest to such by his/her cosignature. ATTENDING NOTE I, Amy Salmon, have independently examined this patient and performed my own physical exam, as well as reviewed the documentation and edited where necessary. I have discussed in detail with the resident / student the findings and plan of treatment as documented by the resident / student and edited their note. I agree with their findings and treatment plan and have edited their documentation. A-FIB/CHADSVASC A-FIB History Current/History of A-Fib/PAF?: No Current PO Anticoag Therapy: No Vital Signs Vital Signs Date Time Temp Pulse Resp B/P (MAP) Pulse Ox O2 Delivery O2 Flow Rate FiO2 10/18/19 17:19 98.2 54 17 166/88 (114) 100 Room Air Plan / VTE VTE Prophylaxis Ordered?: Yes AMBER BROWNING DO Oct 18, 2019 19:56 AMY SALMON MD Oct 19, 2019 14:34
[2019-10-18 19:58] LABS: INR 0.97; PROTHROMBIN TIME 12.6 SECONDS (11.8-14.0)
[2019-10-18 19:59] LABS: ALBUMIN 3.5 GM/DL (3.2-5.2); ALT/SGPT 16 U/L (12-78); BILIRUBIN,TOTAL 0.3 MG/DL (0.2-1.0); BLOOD UREA NITROGEN 7 MG/DL (7-18); CALCIUM LEVEL 8.9 MG/DL (8.8-10.2); CARBON DIOXIDE LEVEL 26 MEQ/L (21-32); CHLORIDE LEVEL 100 MEQ/L (98-107); CREATININE FOR GFR 0.92 MG/DL (0.55-1.30); GLOMERULAR FILTRATION RATE > 60.0 (>45); GLUCOSE, FASTING 133 MG/DL (70-100); MAGNESIUM LEVEL 2.1 MG/DL (1.8-2.4); POTASSIUM SERUM 4.1 MEQ/L (3.5-5.1); SODIUM LEVEL 134 MEQ/L (136-145)
[2019-10-18 20:00] LABS: CK-MB VALUE MASS 1.3 NG/ML (<3.6); CPK CREATINE PHOSPHOKINASE 48 U/L (26-192); MB/CK RELATIVE INDEX 2.71 (< OR =4); TROPONIN I < 0.02 NG/ML (< 0.10)
[2019-10-18] MEDS ORDERED: ISOS60TA2 PO (20:44)
[2019-10-18] MEDS ORDERED: SODI1TAB6 PO (20:44)
[2019-10-18] MEDS ORDERED: MAGN400T2 PO (20:44)
[2019-10-18] MEDS ORDERED: PANT-23 PO (20:44)
[2019-10-18] MEDS ORDERED: POTA10CA32 PO (20:44)
[2019-10-18] MEDS ORDERED: HYDR50TA70 PO (20:44)
[2019-10-18] MEDS ORDERED: DOXY100T PO (20:44)
[2019-10-18] MEDS ORDERED: INGR80CA PO (20:44)
[2019-10-18] MEDS ORDERED: LISI-1046 PO (20:44)
[2019-10-18] MEDS ORDERED: FURO20TA2 PO (20:44)
[2019-10-18] MEDS ORDERED: GABA-843 PO (20:44)
[2019-10-18] MEDS ORDERED: hydrOXYzine 50 MG TAB PO PRN (20:45)
[2019-10-18] MEDS ORDERED: ONDANSETRON 4 MG ORAL DISINTEGRATING TAB (Q0162 PER 1MG) PO PRN (20:45)
[2019-10-18] MEDS ORDERED: POLYETHYLENE GLYCOL (MIRALAX) 238GM BOTTLE PO SCH (21:00)
[2019-10-18] MEDS ORDERED: BACTRIM 160MG/800MG DS TAB PO SCH (21:00)
[2019-10-18] MEDS: HEPARIN SOD (PORCINE) 5000UNITS/ML VIAL (J1644 PER 1000UNITS) SQ SCH (21:00)
[2019-10-18] MEDS: ATORVASTATIN 20 MG TAB PO SCH (21:18)
[2019-10-18] MEDS: GABAPENTIN 300 MG CAP PO PRN (21:18)
[2019-10-18] MEDS: oxyBUTYnin 5 MG TAB PO SCH (21:18)
[2019-10-18] MEDS: ZIPRASIDONE 20MG CAPSULE (GEODON) PO SCH (21:31)
[2019-10-18] MEDS: SODIUM CHLORIDE 1 GM TAB PO SCH (21:31)
[2019-10-18] MEDS: MIRALAX *UNIT DOSE* 17GM PACKET PO SCH (21:38)
[2019-10-18 22:00] VITALS: BP_SYST 125; BP_SYST 159; BP_SYST 163; BP_SYST 169; BP_DIAS 80; BP_DIAS 81; BP_DIAS 87
[2019-10-19 00:32] LABS: CK-MB VALUE MASS 1.2 NG/ML (<3.6); CPK CREATINE PHOSPHOKINASE 39 U/L (26-192); MB/CK RELATIVE INDEX 3.08 (< OR =4); TROPONIN I < 0.02 NG/ML (< 0.10)
[2019-10-19] MEDS: cefTRIAXone SOD 1 GM in D5W MINI-BAG PLUS 50 ML IV SCH (00:44)
[2019-10-19] MEDS: ACETAMINOPHEN TAB 650MG DOSE (2X325MG) PO PRN (05:22)
[2019-10-19 05:37] LABS: HEMATOCRIT 35.5 % (36.0-47.0); MEAN CORPUSCULAR HGB CONC 33.8 g/dl (32.0-36.5); MEAN CORPUSCULAR VOLUME 97.5 fl (80.0-96.0); PLATELET COUNT, AUTOMATED 212 10^3/uL (150-450); RED BLOOD COUNT 3.64 10^6/uL (4.00-5.40); WHITE BLOOD COUNT 9.9 10^3/uL (4.0-10.0)
[2019-10-19 06:00] VITALS: BP_SYST 132; BP_SYST 142; BP_SYST 147; BP_SYST 149; BP_DIAS 77; BP_DIAS 78; BP_DIAS 79
[2019-10-19 06:04] LABS: BLOOD UREA NITROGEN 8 MG/DL (7-18); CARBON DIOXIDE LEVEL 27 MEQ/L (21-32); CHLORIDE LEVEL 102 MEQ/L (98-107); CPK CREATINE PHOSPHOKINASE 56 U/L (26-192); CREATININE FOR GFR 0.87 MG/DL (0.55-1.30); GLOMERULAR FILTRATION RATE > 60.0 (>45); GLUCOSE, FASTING 93 MG/DL (70-100); MB/CK RELATIVE INDEX 1.79 (< OR =4); POTASSIUM SERUM 4.1 MEQ/L (3.5-5.1); SODIUM LEVEL 134 MEQ/L (136-145); TROPONIN I < 0.02 NG/ML (< 0.10)
[2019-10-19] MEDS: TIOTROPIUM INHALER/CAPSULE (SPIRIVA) INH SCH (07:11)
[2019-10-19] MEDS: HEPARIN SOD (PORCINE) 5000UNITS/ML VIAL (J1644 PER 1000UNITS) SQ SCH ×2 (07:41→20:59)
[2019-10-19] MEDS ORDERED: TIOTROPIUM INHALER/CAPSULE (SPIRIVA) INH SCH (08:00)
[2019-10-19] MEDS ORDERED: POTASSIUM CHLORIDE 10 MEQ SR TABLET PO SCH (09:00)
[2019-10-19] MEDS ORDERED: ENTER DRUG NAME HERE (PATIENT'S OWN MED) PO SCH (09:00)
[2019-10-19] MEDS ORDERED: FUROSEMIDE 20 MG TAB PO SCH (09:00)
[2019-10-19] MEDS: PANTOPRAZOLE 40MG TAB (PROTONIX) PO SCH (09:02)
[2019-10-19] MEDS: oxyBUTYnin 5 MG TAB PO SCH ×3 (09:02→20:59)
[2019-10-19] MEDS: MIRALAX *UNIT DOSE* 17GM PACKET PO SCH ×2 (09:02→21:00)
[2019-10-19] MEDS: CETIRIZINE (ZyrTEC) 10 MG TAB PO SCH (09:02)
[2019-10-19] MEDS: FOLIC ACID 1 MG TAB PO SCH (09:02)
[2019-10-19] MEDS: MAGNESIUM OXIDE 400 MG TAB (MAG-OX) PO SCH (09:02)
[2019-10-19] MEDS: ASPIRIN 81 MG ENTERIC TAB PO SCH (09:02)
[2019-10-19] MEDS: ZIPRASIDONE 20MG CAPSULE (GEODON) PO SCH ×2 (09:05→21:00)
[2019-10-19] MEDS: SODIUM CHLORIDE 1 GM TAB PO SCH ×2 (09:05→21:00)
[2019-10-19 14:00] VITALS: BP 134/65
--- NOTE | 2019-10-19 17:14 | IPNPDOC ---
Text Note Date of Service The patient was seen on 10/19/19. NOTE Subjective: -Feels ok this morning, however reports poor sleep and feels "funny" when she walked to the bathroom Objective General exam: A&Ox3, NAD, resting comfortably, appears much older than stated age HEENT: NCAT, EOMI, dry mucous membranes, neck supple Cardiac: RRR, normal S1 & S2, 2/6 systolic murmur heard best left sternal border, trace b/l LE edema Respiratory: trace bibasilar crackles, otherwise clear throughout without wheezing or rhonchi. Abdomen: soft, NT, ND, obese, normoactive bowel sounds, no CVA tenderness Extremity: 2+ radial and dorsalis pedis pulses, no calf tenderness Skin: [place], warm, dry, no rashes Msk: strength 5/5 x4, normal tone Neuro: normal speech, no focal deficits, motor & sensation intact, normal gait Psych: Normal mood and affect LABORATORY DATA: K and Mag wnl MICROBIOLOGY: Pending UCx and BCx IMAGING STUDIES: CXR wnl ASSESSMENT AND PLAN: 69-yo W with extensive history who was transferred from [facility] for a syncopal espiode a few hours after discharge from [place] where she had been admitted for CHF exacerbation, syncope, & UTI. She reportedly experienced a syncopal episode within 1-2 hours of getting home and w as returned back to [place], from where she was transferred to [facility] to evaluation for possible PPM after noted first degree heart block? with mild baseline bradycardia. 1. Recurrent syncopal episodes - pt has reportedly had them for 1+ month, unclear what prior w/u has been done - reportedly follows with Dr. Mendoza, but pt unsure why. Will speak with Dr. Mendoza tomorrow AM - Head CT was negative at [place] - cardiac vs neurogenic vs vasovagal - monitor on tele thus far remains in 1st degree HB with stable ekaterina to 50s, negative cardiac markers and orthostatics were negative - pending PT/OT -pending TTE 2. Dysuria, frequency, urgency, left CVA tenderness - pt s/p recent UTI tx at [place] this week; was discharged on doxy but culture data not available - no systemic signs of infection - repeat UA was positive, so empirically placed on ceftriaxone at this time, with pending culture Otherwise resumed home meds DVT prophylaxis: mechanical, heparin sc CODE STATUS: full code DISPOSITION: pending TTE, to speak with Dr. Mendoza about the degree of cardiac work up we should do without re-inventing the wheel. VS,Fishbone, I+O VS, Fishbone, I+O Laboratory Tests 10/18/19 19:28 10/19/19 05:26 Vital Signs Date Time Temp Pulse Resp B/P (MAP) Pulse Ox O2 Delivery O2 Flow Rate FiO2 10/19/19 14:00 97.3 55 18 134/65 (88) 100 Room Air I&O- Last 24 Hours up to 6 AM 10/19/19 06:00 Intake Total 350 ml Output Total 900 ml Balance -550 ml TILA SALMON MD Oct 19, 2019 17:14
[2019-10-19] MEDS: ATORVASTATIN 20 MG TAB PO SCH (20:59)
[2019-10-19 22:00] VITALS: BP 146/74
[2019-10-19 22:15] VITALS: BP_SYST 164; BP_SYST 177; BP_SYST 184; BP_DIAS 71; BP_DIAS 89; BP_DIAS 92
[2019-10-20] MEDS: cefTRIAXone SOD 1 GM in D5W MINI-BAG PLUS 50 ML IV SCH (00:47)
[2019-10-20 06:00] VITALS: BP_SYST 146; BP_SYST 176; BP_SYST 178; BP_SYST 182; BP_DIAS 68; BP_DIAS 74; BP_DIAS 93; BP_DIAS 97
[2019-10-20 06:09] LABS: HEMATOCRIT 35.3 % (36.0-47.0); HEMOGLOBIN 11.9 g/dl (12.0-15.5); MEAN CORPUSCULAR HEMOGLOBIN 32.6 pg (27.0-33.0); MEAN CORPUSCULAR HGB CONC 33.7 g/dl (32.0-36.5); MEAN CORPUSCULAR VOLUME 96.7 fl (80.0-96.0); PLATELET COUNT, AUTOMATED 186 10^3/uL (150-450); RED BLOOD COUNT 3.65 10^6/uL (4.00-5.40); WHITE BLOOD COUNT 9.4 10^3/uL (4.0-10.0)
[2019-10-20 06:29] LABS: BLOOD UREA NITROGEN 10 MG/DL (7-18); CALCIUM LEVEL 8.9 MG/DL (8.8-10.2); CARBON DIOXIDE LEVEL 26 MEQ/L (21-32); CHLORIDE LEVEL 98 MEQ/L (98-107); CREATININE FOR GFR 0.88 MG/DL (0.55-1.30); GLOMERULAR FILTRATION RATE > 60.0 (>45); GLUCOSE, FASTING 100 MG/DL (70-100); POTASSIUM SERUM 4.3 MEQ/L (3.5-5.1); SODIUM LEVEL 132 MEQ/L (136-145)
[2019-10-20] MEDS: GABAPENTIN 300 MG CAP PO PRN (06:31)
[2019-10-20 06:50] VITALS: BP 150/82
[2019-10-20] MEDS: TIOTROPIUM INHALER/CAPSULE (SPIRIVA) INH SCH (07:38)
--- NOTE | 2019-10-20 07:45 | ECGEPIP ---
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
[2019-10-20] MEDS: PANTOPRAZOLE 40MG TAB (PROTONIX) PO SCH (08:47)
[2019-10-20] MEDS: ZIPRASIDONE 20MG CAPSULE (GEODON) PO SCH ×2 (08:47→20:44)
[2019-10-20] MEDS: oxyBUTYnin 5 MG TAB PO SCH ×3 (08:47→20:44)
[2019-10-20] MEDS: MAGNESIUM OXIDE 400 MG TAB (MAG-OX) PO SCH (08:47)
[2019-10-20] MEDS: CETIRIZINE (ZyrTEC) 10 MG TAB PO SCH (08:47)
[2019-10-20] MEDS: FOLIC ACID 1 MG TAB PO SCH (08:47)
[2019-10-20] MEDS: ASPIRIN 81 MG ENTERIC TAB PO SCH (08:47)
[2019-10-20] MEDS: MIRALAX *UNIT DOSE* 17GM PACKET PO SCH ×2 (08:48→20:43)
[2019-10-20] MEDS: HEPARIN SOD (PORCINE) 5000UNITS/ML VIAL (J1644 PER 1000UNITS) SQ SCH ×2 (08:50→20:47)
[2019-10-20] MEDS: lisinopriL 5 MG TAB PO SCH ×2 (10:37→20:47)
[2019-10-20] MEDS: SODIUM CHLORIDE 1 GM TAB PO SCH ×2 (10:37→20:44)
--- NOTE | 2019-10-20 10:54 | IPNPDOC ---
Text Note Date of Service The patient was seen on 10/20/19. NOTE Subjective: -No complaints this morning Objective General exam: A&Ox3, NAD, appears much older than stated age, sitting up in chair, working with OT HEENT: NCAT, EOMI, dry mucous membranes, neck supple Cardiac: RRR, normal S1 & S2, 2/6 systolic murmur heard best left sternal border, trace b/l LE edema Respiratory: trace bibasilar crackles, otherwise clear throughout without wheezing or rhonchi. Abdomen: soft, NT, ND, obese, normoactive bowel sounds, no CVA tenderness Extremity: 2+ radial and dorsalis pedis pulses, no calf tenderness Skin: [place], warm, dry, no rashes Msk: strength 5/5 x4, normal tone Neuro: normal speech, no focal deficits, motor & sensation intact, normal gait Psych: Normal mood and affect LABORATORY DATA: Na 132, K 4.3, Cr 0.88, WBC 9.4, hgb 11.9 MICROBIOLOGY: Pending UCx and BCx IMAGING STUDIES: CXR wnl ASSESSMENT AND PLAN: 69-yo W with extensive history who was transferred from [facility] for a syncopal espiode a few hours after discharge from [place] where she had been admitted for CHF exacerbation, syncope, & UTI. She reportedly experienced a syncopal episode within 1-2 hours of getting home and was returned back to [place], from where she was transferred to [facility] to evaluation for possible PPM after noted first degree heart block? with mild asymptomatic baseline bradycardia. 1. Recurrent syncopal episodes - pt has reportedly had them for 1+ month - reportedly follows with Dr. Mendoza, but pt unsure why. On speaking with Dr. Mendoza she was on ACEi and no diuretics. Now she came in on ACEi, imdur, lasix. He is recommending stopping the diuretics and imdur and continuing her ACEi at 5mg BID from what had recently been 2.5 daily. Monitoring her today with these changes and if stable to discharge her home tomorrow with close cardiology follow up. There is no indication for treatment of her stable first degree heart block. - Head CT was negative at [place] - cardiac vs neurogenic vs vasovagal - monitor on tele thus far remains in 1st degree HB with stable ekaterina to 50s, negative cardiac markers and orthostatics were negative - follow up PT/OT recs - pending TTE 2. Dysuria, frequency, urgency, left CVA tenderness - pt s/p recent UTI tx at [place] this week; was discharged on doxy but culture data not available - no systemic signs of infection - repeat UA was positive, so empirically placed on ceftriaxone at this time, day 3, with pending culture Otherwise resumed home meds: with the following changes -stopped PRN gabapentin? and switched to 200mg at bedtime for neuropathy DVT prophylaxis: mechanical, heparin sc CODE STATUS: full code DISPOSITION: pending TTE, ongoing med optimization, likely discharge home tomorrow VS,Fishbone, I+O VS, Fishbone, I+O Laboratory Tests 10/20/19 05:24 Vital Signs Date Time Temp Pulse Resp B/P (MAP) Pulse Ox O2 Delivery O2 Flow Rate FiO2 10/20/19 06:50 150/82 (104) 10/20/19 06:00 50 54 61 10/20/19 06:00 97.0 16 99 Room Air I&O- Last 24 Hours up to 6 AM0 10/20/19 05:59 Intake Total 2070 ml Output Total 2150 ml Balance -80 ml TILA SALMON MD Oct 20, 2019 08:50
[2019-10-20] MEDS: ACETAMINOPHEN TAB 650MG DOSE (2X325MG) PO PRN (15:19)
[2019-10-20] MEDS: ATORVASTATIN 20 MG TAB PO SCH (20:44)
[2019-10-20] MEDS ORDERED: GABAPENTIN 300 MG CAP PO SCH (21:00)
[2019-10-20 22:00] VITALS: BP 160/72
[2019-10-21] MEDS: cefTRIAXone SOD 1 GM in D5W MINI-BAG PLUS 50 ML IV SCH (00:14)
[2019-10-21 06:00] VITALS: BP 152/73
[2019-10-21 06:42] LABS: HEMATOCRIT 36.1 % (36.0-47.0); HEMOGLOBIN 12.2 g/dl (12.0-15.5); MEAN CORPUSCULAR HEMOGLOBIN 33.1 pg (27.0-33.0); MEAN CORPUSCULAR HGB CONC 33.8 g/dl (32.0-36.5); MEAN CORPUSCULAR VOLUME 97.8 fl (80.0-96.0); PLATELET COUNT, AUTOMATED 212 10^3/uL (150-450); RED BLOOD COUNT 3.69 10^6/uL (4.00-5.40); WHITE BLOOD COUNT 8.7 10^3/uL (4.0-10.0)
[2019-10-21 07:04] LABS: BLOOD UREA NITROGEN 8 MG/DL (7-18); CALCIUM LEVEL 8.5 MG/DL (8.8-10.2); CARBON DIOXIDE LEVEL 27 MEQ/L (21-32); CHLORIDE LEVEL 99 MEQ/L (98-107); CREATININE FOR GFR 0.82 MG/DL (0.55-1.30); GLOMERULAR FILTRATION RATE > 60.0 (>45); GLUCOSE, FASTING 99 MG/DL (70-100); POTASSIUM SERUM 4.2 MEQ/L (3.5-5.1); SODIUM LEVEL 133 MEQ/L (136-145)
[2019-10-21] MEDS: TIOTROPIUM INHALER/CAPSULE (SPIRIVA) INH SCH (07:39)
[2019-10-21] MEDS: ASPIRIN 81 MG ENTERIC TAB PO SCH (08:06)
[2019-10-21] MEDS: ZIPRASIDONE 20MG CAPSULE (GEODON) PO SCH (08:06)
[2019-10-21] MEDS: SODIUM CHLORIDE 1 GM TAB PO SCH (08:06)
[2019-10-21 08:07] VITALS: BP 152/73
[2019-10-21] MEDS: PANTOPRAZOLE 40MG TAB (PROTONIX) PO SCH (08:07)
[2019-10-21] MEDS: FOLIC ACID 1 MG TAB PO SCH (08:07)
[2019-10-21] MEDS: oxyBUTYnin 5 MG TAB PO SCH (08:07)
[2019-10-21] MEDS: MAGNESIUM OXIDE 400 MG TAB (MAG-OX) PO SCH (08:07)
[2019-10-21] MEDS: CETIRIZINE (ZyrTEC) 10 MG TAB PO SCH (08:07)
[2019-10-21] MEDS: HEPARIN SOD (PORCINE) 5000UNITS/ML VIAL (J1644 PER 1000UNITS) SQ SCH (08:07)
[2019-10-21] MEDS: lisinopriL 5 MG TAB PO SCH (08:07)
[2019-10-21] MEDS: MIRALAX *UNIT DOSE* 17GM PACKET PO SCH (08:08)
[2019-10-21] MEDS ORDERED: LISI-542 PO (12:03)
--- NOTE | 2019-10-21 12:13 | DS.PDOC ---
Discharge Summary General Date of Admission Oct 18, 2019 at 17:19 Date of Discharge Discharge Summary PROCEDURES PERFORMED DURING STAY: [None]. ADMITTING DIAGNOSES: 1. Syncope DISCHARGE DIAGNOSES: 1. Syncope due to medication side effect (BP meds) COMPLICATIONS/CHIEF COMPLAINT: Cardiogenic Syncope. HISTORY OF PRESENT ILLNESS: This is a 69-year-old female transferred from [facility] due to syncope. States she had 1 episode of syncope earlier this week on Sunday that led her to [facility]. She is limited historian due to poor medical insight. She is unsure what she was diagnosed with, but per transfer records, she was treated for CHF, syncope, and UTI, discharged home from [facility] just today, and returned to the hospital one-two hours later due to another syncopal episode. She reports she was going from sitting to standing at home, and her daughter noted she had passed out and called EMS. Patient is unsure if she had any seizure-like activity, but denies any prior history of seizures. She is unsure how long she was out for. She only recalls afterwards waking up in the hospital being told she had passed out. Per transfer records, she had no seizure-like activity and had no preceding symptoms, and episode reportedly lasted more than 30 mins and she did not hit her head or sustain any injuries. Head CT & CXR were negative. Her only complaint upon presentation was that she felt weak. Per records, she has reportedly had syncopal episodes multiple times in the past, and noted to have multiple ER visits in the past 1 month due to dizziness and weakness. Upong initial workup at [place]: WBC 11.5, nml H&H, vitals stable besides HR in 50s. EKG reportedly found 1st degree block, LBBB, nonscpecific st/t wave changes, nml e'lytes. D-dimer 0.5, troponin 0.1. She was transferred to [facility] by for higher level of care, and possible a PPM placement. When examined at bedside, her only complaint is of continued weakness and left flank pain ongoing for the past few days. States her weakness is ongoing for months, and left fla nk pain is sharp, nonradiating, constantly present, but worsened by urination. Also endorses dysuria & urgency & frequency. Otherwise noted to be resting well and denies all other symptoms. HOSPITAL COURSE: Patient was admitted to the medical floor for further management. Upon review medications, patient was found to have been placed on multiple new blood pressure medications by her PCP. As per discussion with cardiology, syncope was likely due to medication side effect and medications were discontinued. Patient had her lisinopril dose increased to help with her blood pressure control. Blood pressure remained stable between 140s and 150s systolic during her stay. She had no further episodes of syncope and telemetrymonitoring did not reveal any new arrhythmias. Patient does have known first-degree heart block but is unlikely the cause of her syncope at this time. Appointment was made for outpatient follow-up with cardiology prior to discharge. Patient to follow-up on November 02 at 12:30 PM. DISCHARGE MEDICATIONS: Please see below. ALLERGIES: Please see below. General exam: A&Ox3, NAD, resting comfortably, appears older than stated age HEENT: NCAT, EOMI, dry mucous membranes, neck supple, patent airway Cardiac: RRR, normal S1 & S2, 2/6 systolic murmur heard best left sternal border, 1+ b/l LE edema Respiratory: minimal bibasilar crackles, otherwise clear throughout with good air exchange, no wheezing or rhonchi. Breathing comfy on room air Abdomen: soft, NT, ND, normoactive bowel sounds. Left CVA tenderness Extremity: 2+ radial and dorsalis pedis pulses, no calf tenderness Skin: [place], warm, dry, no visible rash Msk: strength 5/5 x4, normal tone Neuro: normal speech, no focal deficits, mototor & sensation intact Psych: Normal mood and affect LABORATORY DATA: Please see below. IMAGING: CXR - Findings: Monitoring electrodes overlie the chest. Heart is not enlarged. The aorta somewhat tortuous. The lungs are well inflated and clear. Pleural angles are sharp. Pulmonary vasculature is not increased. No significant bony abnormality is seen. Impression: No active disease. PROGNOSIS: good ACTIVITY: As tolerated. DIET: Cardiac diet DISCHARGE PLAN: Home no services. Patient instructed to follow-up with cardiology and discontinue her new medications. Only blood pressure medication should be lisinopril 5 mg twice a day. DISPOSITION: Home no services DISCHARGE INSTRUCTIONS: 1. Continue with lisinopril 5 mg twice a day. 2. Follow-up with cardiology appointment on November 02 at 12:30 PM 3. Discontinue Imdur, Coreg ITEMS TO FOLLOWUP ON ON OUTPATIENT: 1. Blood pressure DISCHARGE CONDITION: Is stable to discharge. TIME SPENT ON DISCHARGE: 30 minutes Vital Signs/I&Os Vital Signs Date Time Temp Pulse Resp B/P (MAP) Pulse Ox O2 Delivery O2 Flow Rate FiO2 10/21/19 08:07 152/73 10/21/19 06:00 97.1 50 18 99 Room Air I&O- Last 24 Hours up to 6 AM 10/21/19 06:00 Intake Total 890 ml Output Total 1172 ml Balance -282 ml Laboratory Data Labs 24H Laboratory Tests 2 10/21/19 05:39: Nucleated Red Blood Cells % (auto) 0.0, Anion Gap 7L, Glomerular Filtration Rate > 60.0, Calcium Level 8.5L CBC/BMP Laboratory Tests 10/21/19 05:39 Microbiology Microbiology 10/18/19 Urine Culture - Final, Complete Escherichia Coli 10/18/19 Blood Culture - Preliminary, Resulted No Growth after 48 hours. All Specime... 10/18/19 Blood Culture - Preliminary, Resulted No Growth after 48 hours. All Specime... Discharge Medications Scheduled Aspirin (Aspir 81) 81 Mg Tablet.dr, 81 MG PO DAILY, (Reported) Atorvastatin Calcium (Atorvastatin Calcium) 20 Mg Tablet, 20 MG PO QHS, (Reported) Cetirizine HCl (Cetirizine HCl) 10 Mg Tablet, 10 MG PO DAILY, (Reported) Cyanocobalamin (Vitamin B-12) (Vitamin B-12) 1,000 Mcg Tablet, 1,000 MCG PO DAILY, (Reported) Doxycycline Hyclate (Doxycycline Hyclate) 100 Mg Tablet, 100 MG PO BID, (Reported) STARTED 10/18/2019 Fluticasone/Vilanterol (Breo Ellipta 100-25 Mcg INH) 1 Each Blst.w.dev, 1 PUFF INH DAILY, (Reported) Folic Acid (Folic Acid) 1 Mg Tablet, 1 MG PO DAILY, (Reported) Lisinopril (Lisinopril) 5 Mg Tablet, 5 MG PO BID Ondansetron (Ondansetron Odt) 4 Mg Tab.rapdis, 4 MG PO Q6HP, (Reported) Oxybutynin Chloride (Oxybutynin Chloride) 5 Mg Tablet, 5 MG PO TID, (Reported) Pantoprazole Sodium (Pantoprazole Sodium) 40 Mg Tablet.dr, 40 MG PO DAILY, (Reported) Polyethylene Glycol 3350 (Polyethylene Glycol 3350) 510 Gm Powder, 17 GM PO BID, (Reported) Potassium Chloride (Potassium Chloride) 10 Meq Capsule.er, 10 MEQ PO DAILY, (Reported) Tiotropium [place] (Spiriva Respimat) 4 Gm Mist.inhal, 2 PUFF INH DAILY, (Reported) Valbenazine Tosylate (Ingrezza) 80 Mg Capsule, 80 MG PO DAILY, (Reported) Ziprasidone HCl (Ziprasidone HCl) 20 Mg Capsule, 20 MG PO QAM, (Reported) Ziprasidone HCl (Ziprasidone HCl) 40 Mg Capsule, 40 MG PO QHS, (Reported) Scheduled PRN Gabapentin (Gabapentin) 300 Mg Capsule, 300 MG PO DAILY PRN for PAIN, (Reported) Hydroxyzine HCl (Hydroxyzine HCl) 50 Mg Tablet, 1-2 TAB PO QHS PRN for ANXIETY, (Reported) Allergies Coded Allergies: amoxicillin (Verified Allergy, Unknown, unknown, 01/10/19) clavulanic acid (Verified Allergy, Unknown, unknown, 01/10/19) moxifloxacin (Verified Allergy, Unknown, unknown, 01/10/19) nitrofurantoin (Verified Allergy, Unknown, unknown, 01/10/19) prednisolone (Verified Allergy, Unknown, flippy feeling, 01/10/19) ANAY MCKENZIE MD Oct 21, 2019 12:13
--- NOTE | 2019-10-21 20:09 | ECHO ---
DATE OF PROCEDURE: 10/20/2019 Date of : 1950 Age: 69 Gender: Female Height: 60 inches Weight: 169 pounds Body surface area: 1.74 meters squared Inpatient: [address] [place] [id number], room 4233 REFERRING PHYSICIAN: Dr. Loki Oconnor INDICATION: Syncope. MEASUREMENTS: 2D Measurements: RV: 3.2 cm LV: 4.7 cm Septum: 1.2 cm Posterior wall: 1.2 cm Aortic root: 3.1 cm LA: 3.8 cm LVEF: 45% Doppler Measurements: AV: 2.15 meters per second LVOT: 0.81 meters per second LVOT diameter: 1.9 cm Mean AV systolic gradient: 10 mmHg Dimensionless index: 0.38 MV-E: 94, A: 110, E/A ratio: 0.9 Early mitral deceleration time: 235 milliseconds E prime medial: 5.8, A prime medial: 7.7, E prime lateral: 7.2. Average E/E prime ratio: 14.5 Pulmonary capillary wedge pressure: 19.8 mmHg PV: 0.8 meters per second PASP: 28 mmHg IVC: 1.3 cm COMMENTS: Sinus bradycardia at 52 beats per minute (bpm) with first-degree atrioventricular (AV) block and left bundle branch block. M-mode and two-dimensional echocardiography was performed with pulsed, continuous wave, color flow and tissue Doppler studies. Borderline left ventricular hypertrophy with septal and apical akinesis associated with left bundle branch block and at least mild impairment of global resting systolic function. Left atrial size upper limits of normal to slightly dilated with grade 1 left ventricular (LV) diastolic dysfunction and at least mildly elevated estimated mean left atrial pressure. Normal right heart chamber sizes and motion and estimated pulmonary arterial pressure. Normal inferior vena cava (IVC) size and collapse against an elevated central venous pressure. Normal aortic dimensions. Mild calcific aortic stenosis with trace insufficiency. Mild degenerative changes of the mitral valvular apparatus with normal leaflet excursion and no posterior systolic buckling. No more than trace mitral insufficiency. Normal appearing tricuspid valve with trace insufficiency. No apparent intracardiac mass or pericardial effusion.
== END 2019-10-21 13:40 | disposition home or self-care (01) | DRG 312 ==
LOC: M MSPAV 17:19
PROVIDERS: ADMIT Internal Medicine; ATTEND Internal Medicine
DX: R55 Syncope and collapse (principal); I44.0 Atrioventricular block, first degree; R00.1 Bradycardia, unspecified; Z79.82 Long term (current) use of aspirin; Z79.899 Other long term (current) drug therapy; Z88.0 Allergy status to penicillin; Z88.8 Allergy status to other drugs, medicaments and biological substances; I50.9 Heart failure, unspecified; J44.9 Chronic obstructive pulmonary disease, unspecified; E78.5 Hyperlipidemia, unspecified; I25.2 Old myocardial infarction; D50.9 Iron deficiency anemia, unspecified; F17.200 Nicotine dependence, unspecified, uncomplicated; F20.9 Schizophrenia, unspecified

== ENCOUNTER 2019-11-01 14:48 | Emergency (ER) | payer MEDICARE, MEDICAID ==
[~2019-11-01] VITALS: Ht 152.4 cm; Wt 73.8 kg
[~2019-11-01 14:48] MED LIST changes: +DOXY100T PO; +FURO20TA2 PO; +GABA-843 PO; +HYDR50TA70 PO; +INGR80CA PO; +ISOS60TA2 PO; +LISI-542 PO; +LISI2.5T2 PO; +MAGN400T2 PO; +PANT-23 PO; +POTA10CA32 PO
[2019-11-01 16:42] LABS: HEMATOCRIT 38.6 % (36.0-47.0); HEMOGLOBIN 13.9 g/dl (12.0-15.5); MEAN CORPUSCULAR HEMOGLOBIN 33.9 pg (27.0-33.0); MEAN CORPUSCULAR VOLUME 94.1 fl (80.0-96.0); PLATELET COUNT, AUTOMATED 273 10^3/uL (150-450); WHITE BLOOD COUNT 15.2 10^3/uL (4.0-10.0)
[2019-11-01 17:14] LABS: ACETAMINOPHEN LEVEL < 2.0 UG/ML (10.0-30.0); ALBUMIN 3.9 GM/DL (3.2-5.2); ALT/SGPT 24 U/L (12-78); BILIRUBIN,DIRECT 0.1 MG/DL (0.0-0.2); BILIRUBIN,TOTAL 0.4 MG/DL (0.2-1.0); BLOOD UREA NITROGEN 12 MG/DL (7-18); CALCIUM LEVEL 9.2 MG/DL (8.8-10.2); CARBON DIOXIDE LEVEL 23 MEQ/L (21-32); CHLORIDE LEVEL 95 MEQ/L (98-107); CREATININE FOR GFR 0.94 MG/DL (0.55-1.30); ETHYL ALCOHOL (ETHANOL) < 0.003 % (0.000-0.010); GLOMERULAR FILTRATION RATE > 60.0 (>45); GLUCOSE, FASTING 131 MG/DL (70-100); POTASSIUM SERUM 4.5 MEQ/L (3.5-5.1); SALICYLATE LEVEL 2.7 MG/DL (5.0-30.0); SODIUM LEVEL 127 MEQ/L (136-145); THYROID STIMULATING HORMONE 0.974 uIU/ML (0.358-3.740)
[2019-11-01 18:20] LABS: AMPHETAMINES LEVEL URINE NEGATIVE (NEGATIVE); BARBITURATES URINE NEGATIVE (NEGATIVE); BENZODIAZEPINES URINE NEGATIVE (NEGATIVE); CANNABINOIDS URINE NEGATIVE (NEGATIVE); COCAINE METABOLITE URINE NEGATIVE (NEGATIVE); METHADONE URINE NEGATIVE (NEGATIVE); OPIATES URINE NEGATIVE (NEGATIVE); PHENCYCLIDINE URINE NEGATIVE (NEGATIVE)
[2019-11-01] MEDS ORDERED: GI COCKTAIL 50ML BTL(HYOSCYAMINE/MAALOX/LIDOCAINE VISCOUS)(1:3:1) PO ONE (19:15)
[2019-11-01] MEDS ORDERED: NAPROXEN 250 MG TAB PO ONE (19:15)
--- NOTE | 2019-11-01 19:42 | ECGEPIP ---
[facility] - ED Test Date: 2019-11-01 Pat Name: CK BYRD Department: Room: - Gender: Female Acid Cutter: : 1950 Requested By: BRY DORANTES Order Number: [id number] Reading MD: Sierra Dumas Measurements Intervals [place] Rate: 79 P: 64 [place]: 185 QRS: 24 QRSD: 141 T: 126 QT: 425 QTc: 488 Interpretive Statements SINUS RHYTHM POSSIBLE LEFT ATRIAL ENLARGEMENT LEFT BUNDLE BRANCH BLOCK NONSPECIFIC ST T WAVE CHANGES CW 10/18/[address] T WAVE CHANGES - TO CONSIDER ISCHEMIA Electronically Signed on 11-01-2019 19:41:41 EDT by Sierra Dumas
[2019-11-01] MEDS ORDERED: LevoFLOXacin 500 MG TABLET PO ONE (20:45)
[2019-11-01] MEDS ORDERED: FOSFOMYCIN TROMETHAMINE 3 GM POWDER PACKET (MONUROL) PO ONE (20:45)
[2019-11-01] MEDS ORDERED: hydrOXYzine 50 MG TAB PO STA (22:49)
[2019-11-02] MEDS ORDERED: PANTOPRAZOLE 40MG TAB (PROTONIX) PO ONE (03:00)
[2019-11-02] MEDS ORDERED: SUCRALFATE 1 GM TAB PO ONE (05:15)
[2019-11-02] MEDS ORDERED: hydrOXYzine 25 MG TAB PO ONE (06:30)
[2019-11-02 06:45] VITALS: BP 190/96
[2019-11-02] MEDS ORDERED: IBUPROFEN 600 MG TAB PO ONE (06:45)
[2019-11-02] MEDS ORDERED: lisinopriL 5 MG TAB PO ONE (06:45)
[2019-11-02] MEDS ORDERED: LISI-542 PO (07:46)
[2019-11-02] MEDS ORDERED: ONDA-195 PO (07:46)
[2019-11-02] MEDS ORDERED: GABAPENTIN 300 MG CAP PO ONE (08:30)
[2019-11-02] MEDS ORDERED: TIOTROPIUM INHALER/CAPSULE (SPIRIVA) INH ONE (08:30)
[2019-11-02] MEDS ORDERED: FOLIC ACID 1 MG TAB PO ONE (08:30)
[2019-11-02] MEDS ORDERED: ATORVASTATIN 20 MG TAB PO ONE (08:30)
[2019-11-02] MEDS ORDERED: oxyBUTYnin 5 MG TAB PO ONE (08:30)
[2019-11-02] MEDS ORDERED: POTASSIUM CHLORIDE 10 MEQ SR TABLET PO ONE (08:30)
[2019-11-02] MEDS ORDERED: CETIRIZINE (ZyrTEC) 10 MG TAB PO ONE (08:30)
[2019-11-02] MEDS ORDERED: ASPIRIN 81 MG CHEW TABLET PO ONE (08:30)
[2019-11-02] MEDS ORDERED: ONDANSETRON 4 MG TAB PO ONE (08:30)
[2019-11-02 08:47] VITALS: BP 180/82
== END 2019-11-02 08:50 ==
LOC: M ED 14:48
DX: F25.9 Schizoaffective disorder, unspecified (principal); E87.1 Hypo-osmolality and hyponatremia; G47.00 Insomnia, unspecified; R63.0 Anorexia; R51 Headache; R12 Heartburn; I10 Essential (primary) hypertension; J44.9 Chronic obstructive pulmonary disease, unspecified; E78.00 Pure hypercholesterolemia, unspecified; D64.9 Anemia, unspecified; Z87.440 Personal history of urinary (tract) infections; F17.200 Nicotine dependence, unspecified, uncomplicated
CPT/HCPCS: 80048; 80076; 81001; 84443; 85027; 93005; 99284; G0480

== ENCOUNTER 2020-01-16 20:35 | Emergency (ER) | payer OTHER, MEDICAID ==
[~2020-01-16] VITALS: Ht 152.4 cm; Wt 69.5 kg
[~2020-01-16 20:35] MED LIST changes: +ONDA-195 PO
[2020-01-16] MEDS ORDERED: CARV6.25 PO (20:52)
[2020-01-16] MEDS ORDERED: AMAN100T PO (20:52)
[2020-01-16] MEDS ORDERED: QUET1TAB10 PO (20:52)
[2020-01-16] MEDS ORDERED: ATIV1TAB10 PO (20:52)
[2020-01-16] MEDS ORDERED: FLUO20CA22 PO (20:52)
[2020-01-16 21:25] LABS: BASO # 0.1 10^3/uL (0.0-0.2); BASO % 0.6 % (0.0-1.0); EOS # 0.2 10^3/uL (0.0-0.5); EOS % 1.6 % (0.0-3.0); HEMATOCRIT 40.5 % (36.0-47.0); HEMOGLOBIN 13.5 g/dl (12.0-15.5); LYMPH # 2.4 10^3/uL (1.5-5.0); LYMPH % 19.7 % (24.0-44.0); MEAN CORPUSCULAR HEMOGLOBIN 32.5 pg (27.0-33.0); MEAN CORPUSCULAR HGB CONC 33.3 g/dl (32.0-36.5); MEAN CORPUSCULAR VOLUME 97.4 fl (80.0-96.0); MONO # 0.8 10^3/uL (0.0-0.8); MONO % 6.6 % (0.0-5.0); NEUTROPHILS # 8.7 10^3/uL (1.5-8.5); NEUTROPHILS % 71.2 % (36.0-66.0); PLATELET COUNT, AUTOMATED 221 10^3/uL (150-450); RED BLOOD COUNT 4.16 10^6/uL (4.00-5.40); WHITE BLOOD COUNT 12.2 10^3/uL (4.0-10.0)
[2020-01-16 21:41] LABS: INR 0.88; PROTHROMBIN TIME 11.6 SECONDS (11.8-14.0)
[2020-01-16 21:42] LABS: PARTIAL THROMBOPLASTIN TIME 28.1 SECONDS (25.0-38.4)
[2020-01-16 21:59] LABS: BLOOD UREA NITROGEN 9 MG/DL (7-18); CALCIUM LEVEL 8.5 MG/DL (8.8-10.2); CARBON DIOXIDE LEVEL 27 MEQ/L (21-32); CHLORIDE LEVEL 99 MEQ/L (98-107); CK-MB VALUE MASS < 1.0 NG/ML (<3.6); CPK CREATINE PHOSPHOKINASE 73 U/L (26-192); CREATININE FOR GFR 1.05 MG/DL (0.55-1.30); GLOMERULAR FILTRATION RATE 55.7 (>45); GLUCOSE, FASTING 115 MG/DL (70-100); MAGNESIUM LEVEL 2.3 MG/DL (1.8-2.4); MB/CK RELATIVE INDEX 1.36 (< OR =4); POTASSIUM SERUM 4.5 MEQ/L (3.5-5.1); SODIUM LEVEL 133 MEQ/L (136-145); TROPONIN I < 0.02 NG/ML (< 0.10)
[2020-01-16] MEDS ORDERED: ISOVUE-370 76% 100ML VIAL As Ordered ONE (22:07)
[2020-01-16] MEDS ORDERED: NS 500 ML IV ONE (22:15)
[2020-01-16] MEDS ORDERED: CARVedilol 6.25 MG TAB PO ONE (22:30)
--- NOTE | 2020-01-16 22:44 | REPVR ---
PROCEDURE INFORMATION: Exam: CT Angiography Chest With Contrast Exam date and time: 01/16/2020 10:19 PM Age: 69 years old Clinical indication: Chest pain; Additional info: Cp TECHNIQUE: Imaging protocol: Computed tomographic angiography of the chest with intravenous contrast. 3D rendering: MIP and/or 3D reconstructed images were created by the technologist. Radiation optimization: All CT scans at this facility use at least one of these dose optimization techniques: automated exposure control; mA and/or kV adjustment per patient size (includes targeted exams where dose is matched to clinical indication); or iterative reconstruction. Contrast material: ISOVUE 370; Contrast volume: 75 ml; Contrast route: INTRAVENOUS (IV); COMPARISON: CT ANGIO CHEST 2016-03-22 09:19 FINDINGS: Pulmonary arteries: No filling defects in the pulmonary arteries to suggest pulmonary emboli. Aorta: Unremarkable. No aortic aneurysm. No aortic dissection. Lungs: Minimal patchy lung opacities, most prominent in the right lower lobe, correlate for infection. Pleural space: Unremarkable. No pneumothorax. No pleural effusion. Heart: Unremarkable. No cardiomegaly. No pericardial effusion. Lymph nodes: Unremarkable. No enlarged lymph nodes. Liver: There is a mild, expected degree of intrahepatic and common bile duct dilation. Gallbladder and bile ducts: Cholecystectomy clips in the right upper quadrant. Spleen: The spleen demonstrates punctate calcifications, consistent with remote granulomatous organism exposure. Adrenals: 1 cm unchanged left adrenal adenoma. Bones/joints: Unremarkable. No acute fracture. Soft tissues: Unremarkable. IMPRESSION: 1. No filling defects in the pulmonary arteries to suggest pulmonary emboli. 2. Minimal patchy lung opacities, most prominent in the right lower lobe, correlate for infection. Electronically signed by: Kunal Oliva On 01/16/2020 22:43:48 PM
[2020-01-16] MEDS ORDERED: KETOROLAC 30 MG/ML 1ML VIAL IV ONE (23:00)
[2020-01-16] MEDS ORDERED: cloNIDine 0.2 MG TAB PO ONE (23:30)
[2020-01-17] MEDS ORDERED: hydrALAZINE 20MG/ML 1ML VIAL (J0360 PER 20MG) IV STA (00:25)
[2020-01-17 00:31] VITALS: BP 210/95
[2020-01-17 00:36] LABS: CK-MB VALUE MASS 1.2 NG/ML (<3.6); MB/CK RELATIVE INDEX 2.61 (< OR =4); TROPONIN I 0.03 NG/ML (< 0.10)
[2020-01-17 01:00] VITALS: BP 148/66
--- NOTE | 2020-01-17 09:36 | REP ---
CHEST: REASON: Chest pain. COMPARISON: 10/18/2019 FINDINGS: The technique utilized in obtaining the radiograph has magnified the cardiac silhouette and accentuated the interstitial markings. The superior mediastinal structures are midline. The cardiac silhouette is unremarkable in size, shape, and position. The diaphragmatic surfaces of the lungs are regular, and the costophrenic angles are clear. The pulmonary sosa are clear. The imaged osseous structures are intact. IMPRESSION: There is no acute cardiopulmonary disease. No significant change. Electronically Signed by Erick Paulson DO 01/17/2020 09:57 A
--- NOTE | 2020-01-17 09:48 | ECGEPIP ---
[facility] - ED Test Date: 2020-01-16 Pat Name: CK BYRD Department: Room: - Gender: Female Aboriginal Liaison Officer: ramona : 1950 Requested By: YESSY UGALDE Order Number: [id number] Reading MD: Jaswinder Arechiga Measurements Intervals [place] Rate: 60 P: 58 NE: 194 QRS: -30 QRSD: 146 T: 137 QT: 484 QTc: 485 Interpretive Statements SINUS RHYTHM LEFT BUNDLE BRANCH BLOCK SIMILAR TO PRIOR ON SAME DATE Electronically Signed on 01-17-2020 9:48:52 EDT by Jaswinder Arechiga
--- NOTE | 2020-01-17 09:48 | ECGEPIP ---
[facility] - ED Test Date: 2020-01-16 Pat Name: CK BYRD Department: Room: - Gender: Female Accounting Advisory Services Manager: ramona : 1950 Requested By: YESSY UGALDE Order Number: [id number] Reading MD: Jaswinder Arechiga Measurements Intervals [place] Rate: 73 P: 42 MA: 170 QRS: -33 QRSD: 140 T: 104 QT: 468 QTc: 519 Interpretive Statements SINUS RHYTHM LEFT AXIS DEVIATION LEFT BUNDLE BRANCH BLOCK SIMILAR TO 11/01/19 Electronically Signed on 01-17-2020 9:48:09 EDT by Jaswinder Arechiga
== END 2020-01-17 01:39 | disposition home or self-care (01) ==
LOC: M ED 20:35
DX: R07.89 Other chest pain (principal); I10 Essential (primary) hypertension; I44.7 Left bundle-branch block, unspecified; J44.9 Chronic obstructive pulmonary disease, unspecified; D50.9 Iron deficiency anemia, unspecified; G89.29 Other chronic pain; M54.5 Low back pain; M19.90 Unspecified osteoarthritis, unspecified site; F20.81 Schizophreniform disorder; Z72.0 Tobacco use; Z79.899 Other long term (current) drug therapy; Z88.8 Allergy status to other drugs, medicaments and biological substances; Z88.2 Allergy status to sulfonamides; Z88.6 Allergy status to analgesic agent; Z88.0 Allergy status to penicillin; Z88.5 Allergy status to narcotic agent

== ENCOUNTER 2020-01-18 22:31 | Emergency (ER) | payer OTHER, MEDICAID ==
[~2020-01-18] VITALS: Ht 152.4 cm; Wt 70.5 kg
[~2020-01-18 22:31] MED LIST changes: +AMAN100T PO; +ATIV1TAB10 PO; +FLUO20CA22 PO; +QUET1TAB10 PO
[2020-01-18 23:39] LABS: HEMATOCRIT 39.8 % (36.0-47.0); HEMOGLOBIN 13.5 g/dl (12.0-15.5); MEAN CORPUSCULAR HEMOGLOBIN 32.8 pg (27.0-33.0); MEAN CORPUSCULAR HGB CONC 33.9 g/dl (32.0-36.5); MEAN CORPUSCULAR VOLUME 96.6 fl (80.0-96.0); PLATELET COUNT, AUTOMATED 213 10^3/uL (150-450); RED BLOOD COUNT 4.12 10^6/uL (4.00-5.40)
--- NOTE | 2020-01-18 23:54 | REPVR ---
PROCEDURE INFORMATION: Exam: CT Cervical Spine Without Contrast Exam date and time: 01/18/2020 11:45 PM Age: 69 years old Clinical indication: Injury or trauma; Fall; Initial encounter; Blunt trauma TECHNIQUE: Imaging protocol: Computed tomography images of the cervical spine without contrast. Radiation optimization: All CT scans at this facility use at least one of these dose optimization techniques: automated exposure control; mA and/or kV adjustment per patient size (includes targeted exams where dose is matched to clinical indication); or iterative reconstruction. COMPARISON: MRI-Spine,Cervical without con 2016-07-20 10:03 FINDINGS: Vertebrae: Minimal degenerative alignment abnormalities with minimal C2-C3 and C4-C5 anterolisthesis. Mild motion artifact limitation. Discs/Spinal canal/Neural foramina: Diffuse degenerative disc space loss with degenerative disc osteophyte complexes, facet arthropathy, and ligamentum flavum thickening causes up to moderate spinal and foraminal stenosis greatest at C4-C6. Soft tissues: Unremarkable. Lungs: Lung apices are normal. IMPRESSION: No acute findings. Electronically signed by: Kunal Oliva On 01/18/2020 23:53:52 PM
--- NOTE | 2020-01-18 23:55 | REPVR ---
PROCEDURE INFORMATION: Exam: CT Head Without Contrast Exam date and time: 01/18/2020 11:45 PM Age: 69 years old Clinical indication: Injury or trauma; Fall; Initial encounter; Blunt trauma (contusions or hematomas) TECHNIQUE: Imaging protocol: Computed tomography of the head without contrast. Radiation optimization: All CT scans at this facility use at least one of these dose optimization techniques: automated exposure control; mA and/or kV adjustment per patient size (includes targeted exams where dose is matched to clinical indication); or iterative reconstruction. COMPARISON: MRI-Brain without Contrast 2017-07-19 13:33 FINDINGS: Brain: Diffuse moderate cerebral age related volume loss. Moderate patchy low attenuation in the white matter compatible with moderate chronic small vessel ischemic disease. No midline shift, mass, fluid collection, or evidence of hemorrhage. Ventricles: Ventricular enlargement proportional to volume loss. Bones/joints: Unremarkable. No acute fracture. Sinuses: Visualized sinuses are unremarkable. No fluid levels. Mastoid air cells: Visualized mastoid air cells are well aerated. Soft tissues: Unremarkable. IMPRESSION: Moderate involutional changes, no acute intracranial abnormality. Electronically signed by: Kunal Oliva On 01/18/2020 23:55:36 PM
[2020-01-19 00:22] LABS: ALBUMIN 3.2 GM/DL (3.2-5.2); ALT/SGPT 20 U/L (12-78); BILIRUBIN,DIRECT 0.1 MG/DL (0.0-0.2); BILIRUBIN,TOTAL 0.3 MG/DL (0.2-1.0); BLOOD UREA NITROGEN 12 MG/DL (7-18); CALCIUM LEVEL 8.8 MG/DL (8.8-10.2); CARBON DIOXIDE LEVEL 25 MEQ/L (21-32); CHLORIDE LEVEL 101 MEQ/L (98-107); CK-MB VALUE MASS 1.4 NG/ML (<3.6); CPK CREATINE PHOSPHOKINASE 69 U/L (26-192); CREATININE FOR GFR 0.97 MG/DL (0.55-1.30); GLOMERULAR FILTRATION RATE > 60.0 (>45); GLUCOSE, FASTING 123 MG/DL (70-100); MB/CK RELATIVE INDEX 2.03 (< OR =4); POTASSIUM SERUM 4.3 MEQ/L (3.5-5.1); SODIUM LEVEL 136 MEQ/L (136-145); TOTAL PROTEIN 6.8 GM/DL (6.4-8.2); TROPONIN I 0.02 NG/ML (< 0.10)
[2020-01-19 01:00] VITALS: BP 180/82
--- NOTE | 2020-01-19 08:30 | REP ---
Clinical: Trauma. Fall. Technique: AP, lateral, swimmers views of the thoracic spine. Findings: Age-related osteopenia and moderate multilevel degenerative changes. Alignment and kyphosis maintained. No acute fracture / compression injury or subluxation. Impression: Osteopenia and degenerative changes. No acute fracture. Electronically Signed by Saad Flaherty MD 01/19/2020 08:22 A
--- NOTE | 2020-01-19 08:33 | REP ---
Clinical: Trauma. Fall. Technique: AP, lateral, bilateral oblique and coned-down views of the lumbosacral spine. Findings: Evidence of prior laminectomy and posterior fixation spanning L3 - S1. Chronic-appearing anterolisthesis at L5-L1 is suggested. Underlying osteopenia and multilevel degenerative changes noted. No acute fracture / compression injury or acute subluxation identified. Extensive atherosclerotic changes to the visualized aorta and iliac arteries noted. Impression: Chronic and postsurgical changes along with osteopenia and degenerative change. No obvious acute fracture / compression injury or acute subluxation. Electronically Signed by Saad Flaherty MD 01/19/2020 08:23 A
[2020-01-19] MEDS ORDERED: OXYB-54 PO (17:19)
[2020-01-19] MEDS ORDERED: SODI1TAB12 PO (17:21)
--- NOTE | 2020-01-20 07:03 | ECGEPIP ---
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
[2020-01-20] MEDS ORDERED: CARA1TAB6 PO (17:06)
== END 2020-01-19 01:36 | disposition home or self-care (01) ==
LOC: M ED 22:31
DX: I44.7 Left bundle-branch block, unspecified (principal); S09.90XA Unspecified injury of head, initial encounter; W01.10XA Fall on same level from slipping, tripping and stumbling with subsequent striking against unspecified object, initial encounter; Y92.099 Unspecified place in other non-institutional residence as the place of occurrence of the external cause; Y93.9 Activity, unspecified; Y99.9 Unspecified external cause status; I51.9 Heart disease, unspecified; I10 Essential (primary) hypertension; J44.9 Chronic obstructive pulmonary disease, unspecified; Z72.0 Tobacco use; M85.88 Other specified disorders of bone density and structure, other site; M51.34 Other intervertebral disc degeneration, thoracic region; Z79.899 Other long term (current) drug therapy; Z88.2 Allergy status to sulfonamides; Z88.6 Allergy status to analgesic agent; Z88.0 Allergy status to penicillin; Z88.5 Allergy status to narcotic agent; Z88.8 Allergy status to other drugs, medicaments and biological substances

== ENCOUNTER 2020-01-19 10:43 | Inpatient (IN) | payer OTHER, MEDICAID ==
[~2020-01-19] VITALS: Ht 152.4 cm; Wt 69.8 kg
--- NOTE | 2020-01-19 13:12 | REP ---
Clinical: Weakness. Chest pain . Comparison: 01/16/2020 . Findings: The mediastinum and cardiac silhouette are stable and within normal limits for portable technique. The lung sosa are clear without acute consolidation, effusion, or pneumothorax. Skeletal structures are intact. Impression: No acute cardiopulmonary process appreciated. Electronically Signed by Saad Flaherty MD 01/19/2020 01:03 P
[2020-01-19 13:20] LABS: HEMATOCRIT 32.2 % (36.0-47.0); HEMOGLOBIN 10.1 g/dl (12.0-15.5); MEAN CORPUSCULAR HEMOGLOBIN 29.4 pg (27.0-33.0); MEAN CORPUSCULAR HGB CONC 31.4 g/dl (32.0-36.5); MEAN CORPUSCULAR VOLUME 93.6 fl (80.0-96.0); PLATELET COUNT, AUTOMATED 193 10^3/uL (150-450); RED BLOOD COUNT 3.44 10^6/uL (4.00-5.40); WHITE BLOOD COUNT 3.6 10^3/uL (4.0-10.0)
[2020-01-19 13:52] LABS: ACETAMINOPHEN LEVEL 10.1 UG/ML (10.0-30.0); ALBUMIN 3.7 GM/DL (3.2-5.2); ALT/SGPT 21 U/L (12-78); BILIRUBIN,DIRECT < 0.1 MG/DL (0.0-0.2); BILIRUBIN,TOTAL 0.4 MG/DL (0.2-1.0); BLOOD UREA NITROGEN 31 MG/DL (7-18); CALCIUM LEVEL 8.9 MG/DL (8.8-10.2); CARBON DIOXIDE LEVEL 27 MEQ/L (21-32); CHLORIDE LEVEL 109 MEQ/L (98-107); CREATININE FOR GFR 1.14 MG/DL (0.55-1.30); ETHYL ALCOHOL (ETHANOL) < 0.003 % (0.000-0.010); GLOMERULAR FILTRATION RATE 50.6 (>45); GLUCOSE, FASTING 67 MG/DL (70-100); POTASSIUM SERUM 4.7 MEQ/L (3.5-5.1); SALICYLATE LEVEL < 1.7 MG/DL (5.0-30.0); SODIUM LEVEL 142 MEQ/L (136-145); TOTAL PROTEIN 7.3 GM/DL (6.4-8.2)
[2020-01-19] MEDS ORDERED: ISOVUE-370 76% 100ML VIAL As Ordered ONE (14:26)
--- NOTE | 2020-01-19 15:48 | REP ---
Clinical: Left-sided abdominal pain. Technique: Axial contrast enhanced images from the lung bases to the pubic symphysis using oral (per protocol) and 100 ml Isovue 370 intravenous contrast material with coronal and sagittal re-formations. Comparison: 03/25/2019. Findings: Lung bases are clear. Visualized heart and pericardium normal. Liver, spleen, pancreas, right adrenal gland and bilateral kidneys are normal. Splenic calcifications consistent with prior granulomas disease. 1.2 cm low density left adrenal nodule consistent with adenoma. Evidence of prior cholecystectomy noted. The enteric system is without obstruction or acute inflammatory process. Scattered colonic and sigmoid diverticula noted without acute diverticulitis. Pelvis demonstrates normal bladder and evidence for prior hysterectomy. No pelvic fluid or ascites. No free air. No adenopathy. Abdominal aorta without aneurysm or dissection. Musculoskeletal structures demonstrate prior lumbar laminectomy and posterior fixation without acute osseous process. Impression: 1. No acute abdominopelvic pathology appreciated. 2. Stable left adrenal adenoma. 3. Scattered colonic diverticula without acute diverticulitis. 4. Evidence of prior cholecystectomy, hysterectomy, and lumbar laminectomy/posterior fixation. Electronically Signed by Saad Flaherty MD 01/19/2020 03:40 P
[2020-01-19] MEDS ORDERED: oxyBUTYnin 5 MG TAB PO SCH (16:00)
[2020-01-19] MEDS ORDERED: PANTOPRAZOLE 40MG VIAL (C9113 PER 1) IV ONE (16:00)
[2020-01-19] MEDS ORDERED: OXYB-54 PO (17:19)
[2020-01-19] MEDS ORDERED: SODI1TAB12 PO (17:21)
[2020-01-19] MEDS: PANTOPRAZOLE SODIUM 40 MG in D5W 50 ML IV SCH ×2 (17:22→20:38)
[2020-01-19 17:30] VITALS: BP 160/98
[2020-01-19] MEDS ORDERED: MIRALAX *UNIT DOSE* 17GM PACKET PO PRN (17:45)
[2020-01-19] MEDS ORDERED: ALBUTEROL SULFATE 2.5 MG/0.5 ML INH NEB SOLN NEB PRN (18:00)
[2020-01-19] MEDS: SUCRALFATE SUSP 1GM/10ML UD PO SCH ×2 (18:10→20:31)
[2020-01-19 18:42] LABS: HEMATOCRIT 39.2 % (36.0-47.0)
[2020-01-19 18:49] LABS: HEMOGLOBIN 13.1 g/dl (12.0-15.5)
[2020-01-19] MEDS: amLODIPine 5 MG TAB PO SCH (18:49)
[2020-01-19 19:50] VITALS: BP_SYST 176; BP_SYST 178; BP_SYST 200; BP_DIAS 92; BP_DIAS 94
--- NOTE | 2020-01-19 20:07 | HPE ---
DATE OF ADMISSION: 01/19/2020 CHIEF COMPLAINT: "I'm hearing voices." HISTORY OF PRESENTING ILLNESS: Obtained from both the patient and her daughter, Jenn, . This is a 69-year-old female with a history of schizophrenia, on chronic psychiatric medications managed by her outpatient psychiatrist, coronary artery disease, myocardial infarction (KS), dyslipidemia, chronic obstructive pulmonary disease (COPD), on room air at baseline, not oxygen or steroid dependent, overactive bladder, hypertension, iron deficiency anemia, congestive heart failure with grade 1 diastolic dysfunction, degenerative joint disease, tobacco abuse, schizophrenia, sciatica, and syndrome of inappropriate secretion of antidiuretic hormone (SIADH). She was in her usual state of health until October, according to the daughter, when she was admitted to the [facility] for depression and her medications were changed. At that time, she was then sent to [facility] for followup, who has done telemedicine all the way through December and has changed her medications from last Sunday to this weekend. Patient has been increasingly weak and has had significant gait imbalance, had a fall twice at home that was evaluated at [facility] Room where she presented with weakness and dizziness, and felt faint. At that time, she was transferred to [facility] for further evaluation, was admitted under hospitalist service and admitted for cardiogenic syncope. Workup at that time included head CT and chest x-ray, which were all negative. She has had multiple visits for dizziness and weakness. She has a chronic first-degree atrioventricular (AV) block on EKG, and chronic left bundle branch block, and nonspecific changes. She follows with Dr. Palafox as an outpatient, hob grinder. She has had no seizure-like activity and was subsequently discharged home. Her syncope was mostly likely related to her medications; her lisinopril dose was changed. She was supposed to followup 11/03/2019 with her hob grinder for further changes. This time around on Sunday, the patient had another fall at home where she felt faint and dizzy. She was walking, and she felt like her legs went out from under her, and she landed on a wooden floor and hit the back of her head on the left side on the air conditioner as she fell backwards. She had no loss of consciousness, no laceration. Her grandson helped her to go downstairs and present to the emergency room at [facility]. On 01/18/2020, evaluation included cervical spine CT, CT of the head, lumbar and thoracic x-rays, which were all negative. She was subsequently then sent home. She then presents today because "my mind won't calm down." Patient says that she has to get her medications back "It's not fair, I have to sit here for 3 days. I need to shut my eyes and go to sleep and the voices won't let me." Patient was brought into the emergency room today with complaint of worsening schizophrenic voices without any suicidal or homicidal tendency. On evaluation, CBC showed a drop in hemoglobin from 13 on Sunday to 10 today with heme positive stool, Hospitalist was asked to admit the patient for possible gastrointestinal (GI) bleed. Her aspirin has been held and otherwise she is hemodynamically stable. According to the daughter, Jenn, they have not noticed any hematemesis, bright red blood per rectum, melena, black tarry stools or coffee-ground emesis. No prior history of upper or lower gastrointestinal (GI) bleed in the past, and no history of recent nonsteroidal anti-inflammatory drug (NSAID) use aside from the aspirin. The patient had a known history of reflux with prior esophagogastroduodenoscopy (EGD) by Dr. Vinson in 2002 showing gastroesophageal reflux and acute on chronic gastritis with ulceration, and rare H. pylori like microorganisms were seen on Giemsa stain. Patient is admitted to the medical service for possible acute GI bleed from gastritis and possible H. pylori infection. Psychiatrist, Dr. Nelson, has been consulted for adjustment of her schizophrenic medications and Dr. Sukh Oates, General Surgery, has been alerted that should the patient have any overt GI bleeding into the night, he will know the case, but he is currently not formally consulted. PAST MEDICAL HISTORY: Schizophrenia. Tardive dyskinesia with lip smacking. Recurrent falls. Cardiogenic syncope. Coronary artery disease. Myocardial infarction (KS). Dyslipidemia. Hypertension. COPD, not oxygen or steroid dependent. Overactive bladder. Iron deficiency anemia. Degenerative joint disease. Grade 1 diastolic dysfunction. Tobacco abuse. Sciatica. SIADH. Acute on chronic gastritis with H. pylori like organism on Giemsa stain, [address] Vinson. Left adrenal adenoma. Diverticulosis. PAST SURGICAL HISTORY: Cholecystectomy 2011. Hysterectomy in 1974. Appendectomy. section. Lumbar laminectomy and posterior fixation. FAMILY HISTORY: Father from CVA, mother from Crohn's, brother with coronary artery disease/KS at the age of 43, sister with type 2 diabetes. SOCIAL HISTORY: Previously smoked cigarettes. 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 Daughter is the healthcare proxy, name is Jenn; phone number is [phone]. She would like to be informed of all medical changes, procedures that need to be done. HOME MEDICATIONS: - amantadine 100 mg nightly - aspirin 81 mg daily - Lipitor 20 mg nightly - cetirizine 10 mg daily - fluoxetine 20 mg three times a day - folic acid 1 mg daily - Ativan 0.5 mg nightly - oxybutynin 5 mg daily - Protonix 40 mg daily - polyethylene glycol 17 grams daily as needed for constipation - potassium 10 mEq daily - Seroquel 300 mg nightly - Spiriva two puffs inhaled daily - sodium chloride one gram by mouth twice a day ALLERGIES: QUINOLONES, SULFA, ACETAMINOPHEN, AMOXICILLIN, CEPHALEXIN, CLAVULANIC, MOXIFLOXACIN, NITROFURANTOIN, OXYCODONE, PREDNISOLONE. SOCIAL HISTORY: Lives at home with her children. Healthcare proxy is Jenn; phone number is [phone]. No alcohol or recreational drug use. REVIEW OF SYSTEMS: Per history of the present illness. Twelve point system otherwise negative. PHYSICAL EXAMINATION: Temperature 97.2, pulse 63, respiratory rate 18, blood pressure 177/88, 100% on room air. Generally, patient is awake, alert, oriented to herself, answers questions appropriately. She has significant tardive dyskinesia with lip smacking. Appears older than her stated age. Moist mucous membranes. Neck is supple. No jugular venous distention (JVD), thyromegaly, or cervical lymphadenopathy. Lungs are clear to auscultation. No wheezing, rales or rhonchi. Heart: S1, S2, sinus bradycardia, displaced point of maximum impulse. No dry heaves. No pericardial friction rub noted. No murmurs or gallops. Abdomen is soft, nontender, nondistended. Positive bowel sounds. Extremities: No cyanosis or clubbing. Skin: Warm, dry, well perfused. Patient has areas of white patches of skin bilateral upper and lower extremities, chest. EKG: Sinus rhythm, ventricular rate of 66, left axis deviation, and chronic left bundle branch block, P interval 186, premature ventricular complexes, QT of 458, QTc of 472. LABORATORY DATA: White count 3.6, hemoglobin 10, hematocrit 32, platelet count of 193. Sodium 142, potassium 4.7, chloride 109, bicarbonate 27, BUN 31, creatinine 1.14, glucose 67, calcium 8.9, total bilirubin 0.4, direct bilirubin less than 0.1, AST 26, ALT 21, alkaline phosphatase 108, total protein 7.3, albumin 3.7, TSH 5.35. IMAGING STUDY: Chest x-ray: No acute cardiopulmonary process. CT abdomen and pelvis: No acute abdominopelvic pathology, stable left adrenal adenoma, scattered colonic diverticula without acute diverticulitis, evidence of prior cholecystectomy, hysterectomy, lumbar laminectomy, and posterior fixation. ASSESSMENT AND PLAN: This is a 69-year-old female with a history of schizophrenia, chronic obstructive pulmonary disease, not oxygen or steroid dependent, coronary artery disease, myocardial infarction, dyslipidemia, hypertension, overactive bladder, iron deficiency anemia, degenerative joint disease, grade 1 diastolic dysfunction, tobacco abuse, schizophrenia, sciatica, and SIADH, on chronic sodium tablets twice a day, cardiogenic syncope, chronic left bundle branch block, first-degree AV block, left axis deviation. Latest echo read by Dr. Woody Mendoza on 10/21/2019. IMPRESSION: 1. Schizophrenia, uncontrolled. Patient's chief complaint is hearing voices, unable to sleep. Dr. Nelson has been consulted to adjust the patient's psychiatric medications. She is resumed on her home medications. Defer to psychiatrist to adjust accordingly. 2. Recurrent falls. May be due to symptomatic anemia, although patient has not had any overt GI bleed. Denies hematemesis, coffee-ground emesis, bright red blood per rectum, melena or black tarry stools. She did have a heme positive stool with drop in hemoglobin from 13 on Sunday to 10 today on Sunday. Both the patient and the patient's daughter, Jenn, have not noticed any blood at home, but she did have an EGD done in [address] Sergio Vinson showing a history of acute on chronic gastritis and is chronically on aspirin. She denies any other nonsteroidal anti-inflammatory use, but at that time, she also had possible H. pylori on Giemsa stain. Therefore, the patient will be kept on clear liquids. General surgery has been alerted. Should the patient have an active GI bleed, he will know her case but not formally consulted as she is currently hemodynamically stable. Her hemoglobin is stable, not requiring any blood transfusion. She tells me that she is not lightheaded, dizzy, short of breath. She denies any chest pain, pressure, tightness. She is, however, weak on her legs and says that on Sunday, she had left arm pain. At this time, her aspirin will be held. She has been placed on a clear liquid diet with Protonix intravenous drip, as well as Carafate. We will check serology for H. pylori. If stable over the next 24-48 hours with stable hemoglobin and no signs of active GI bleed, patient will be sent to GI or general surgery for EGD as outpatient. If the patient should have a decrease in hemoglobin, she will be scoped during this admission either by general surgery or, if available, gastroenterology. Avoid NSAIDs and continue with hemoglobin and hematocrit monitoring every 6 hours. 3. Overactive bladder. Resume home dose of oxybutynin. 4. History of coronary artery disease, KS and dyslipidemia. Resume home dose of Lipitor, Coreg. Will hold off on aspirin due to heme positive stool and anemia. 5. COPD. Currently has no shortness of breath. Will give DuoNebs as needed. No active wheezing on examination. Saturating 100% on room air. 6. History of cardiogenic syncope. Patient follows up with her hob grinder. Monitor for fall precautions. Check orthostasis and assistive ambulation only. 7. Deep vein thrombosis (DVT) prophylaxis with compression stockings. 8. Hypertension. Resume on home dose of Coreg. Add Norvasc, if needed, 5 mg twice a day for better blood pressure control. Patient's healthcare proxy is Jenn, patient's daughter. She would like to be informed of all changes in management. Phone number is [phone]. Patient is currently a FULL CODE.
[2020-01-19] MEDS: FLUoxetine 20 MG CAP PO SCH (20:30)
[2020-01-19] MEDS: CARVedilol 6.25 MG TAB PO SCH (20:31)
[2020-01-19] MEDS ORDERED: ATORVASTATIN 20 MG TAB PO SCH (21:00)
[2020-01-19] MEDS ORDERED: AMANTADINE 100MG TABLET PO SCH (21:00)
[2020-01-19] MEDS ORDERED: QUEtiapine FUMARATE 100 MG TAB PO SCH (21:00)
[2020-01-19] MEDS ORDERED: LORazepam 0.5 MG TAB PO SCH (21:00)
[2020-01-19] MEDS ORDERED: SODIUM CHLORIDE 1 GM TAB PO SCH (21:00)
[2020-01-19] MEDS ORDERED: LIDOCAINE 5% (LIDODERM) PATCH TD SCH (21:00)
[2020-01-19] MEDS: IPRATROPIUM 0.5MG/ALBUTEROL 2.5MG INH SOL UD 3ML (DUONEB) NEB SCH ×2 (21:11→23:24)
[2020-01-19 21:35] VITALS: BP 172/88
[2020-01-20 00:08] LABS: HEMATOCRIT 36.4 % (36.0-47.0); HEMOGLOBIN 12.1 g/dl (12.0-15.5)
[2020-01-20] MEDS: PANTOPRAZOLE SODIUM 40 MG in D5W 50 ML IV SCH ×2 (02:03→06:41)
[2020-01-20] MEDS: IPRATROPIUM 0.5MG/ALBUTEROL 2.5MG INH SOL UD 3ML (DUONEB) NEB SCH ×3 (04:00→11:16)
[2020-01-20 06:00] VITALS: BP 135/68
[2020-01-20 06:06] LABS: HEMOGLOBIN 11.9 g/dl (12.0-15.5); MEAN CORPUSCULAR HEMOGLOBIN 32.9 pg (27.0-33.0); MEAN CORPUSCULAR HGB CONC 33.1 g/dl (32.0-36.5); MEAN CORPUSCULAR VOLUME 99.4 fl (80.0-96.0); PLATELET COUNT, AUTOMATED 184 10^3/uL (150-450); RED BLOOD COUNT 3.62 10^6/uL (4.00-5.40); WHITE BLOOD COUNT 8.9 10^3/uL (4.0-10.0)
[2020-01-20 06:44] LABS: BLOOD UREA NITROGEN 8 MG/DL (7-18); CALCIUM LEVEL 8.4 MG/DL (8.8-10.2); CARBON DIOXIDE LEVEL 26 MEQ/L (21-32); CHLORIDE LEVEL 100 MEQ/L (98-107); CREATININE FOR GFR 0.83 MG/DL (0.55-1.30); FREE THYROXINE INDEX 1.8 % (1.3-4.8); GLOMERULAR FILTRATION RATE > 60.0 (>45); GLUCOSE, FASTING 98 MG/DL (70-100); POTASSIUM SERUM 4.1 MEQ/L (3.5-5.1); SODIUM LEVEL 130 MEQ/L (136-145); T UPTAKE 36 % (30-39); THYROXINE (T4) 5.1 UG/DL (4.5-12.0)
--- NOTE | 2020-01-20 07:50 | ECGEPIP ---
[facility] - ED Test Date: 2020-01-19 Pat Name: CK YBRD Department: Room: - Gender: Female Drawer Maker: bill marie : 1950 Requested By: KUNAL DORANTES Order Number: [id number] Reading MD: Kunal Hall Measurements Intervals [place] Rate: 66 P: 22 NH: 186 QRS: -44 QRSD: 142 T: 107 QT: 458 QTc: 483 Interpretive Statements SINUS RHYTHM WITH OCCASIONAL VENTRICULAR PREMATURE COMPLEXES LEFT BUNDLE BRANCH BLOCK Similar to tracing done 01-19-20 at 00:19 Electronically Signed on 01-20-2020 7:49:47 EDT by Kunal Hall
--- NOTE | 2020-01-20 08:13 | MHCRPDOC ---
[facility] Consultation Consultation DATE OF CONSULTATION: 01/20/20 HPI: Pamela, who has a history of schizophrenia, presents today for concerns regarding issues with her head. Patient states that she is experiencing some type of auditory hallucinations. She reports that she has gone a week without sleeping. Pamela denies engagement in impulsive activities. She admits to having some suicidal tendencies by overdoing on medications. MEDICATIONS: She is currently taking Seroquel. Pamela reports that she is also taking Prozac. MEDICAL HISTORY: Patient was previously checked for Gastrointestinal bleeding. FAMILY HISTORY: She reports that her older sister also has a history history of depression. SOCIAL HISTORY - LIVING SITUATION: Patient lives with her grandson. SOCIAL HISTORY - SUBSTANCE USE: She admits to occasional alcohol consumption. Objective Appearance: Well groomed. Appears to be stated age. Well nourished. appearing to talk to unseen others when entering the room. Mood:depressed, restricted Speech: Normal volume. Normal rate. Spontaneous and Fluid. Insight: Fair insight. Assessment F33.3 Major depressive disorder, recurrent, severe with psychotic symptoms Plan Admit to in-patient unit once a bed is available. Vital Signs Vital Signs Date Time Temp Pulse Resp B/P (MAP) Pulse Ox O2 Delivery O2 Flow Rate FiO2 01/20/20 06:00 98.0 56 18 135/68 (90) 100 Room Air Laboratory Data 24H Labs Laboratory Tests 2 01/19/20 11:21: Nucleated Red Blood Cells % (auto) 0.0, Anion Gap 6L, Glomerular Filtration Rate 50.6, Calcium Level 8.9, Total Bilirubin 0.4, Direct Bilirubin < 0.1, Aspartate Amino Transf (AST/SGOT) 26, Alanine Aminotransferase (ALT/SGPT) 21, Alkaline Phosphatase 108, Total Protein 7.3, Albumin 3.7, Albumin/Globulin Ratio 1.0L, Thyroid Stimulating Hormone (TSH) 5.350H, Salicylates Level < 1.7L, Acetaminophen Level 10.1, Ethyl Alcohol Level < 0.003 01/19/20 18:17: 01/20/20 05:47: Nucleated Red Blood Cells % (auto) 0.0, Anion Gap 4L, Glomerular Filtration Rate > 60.0, Calcium Level 8.4L, Thyroid Stimulating Hormone (TSH) 3.110, Free Thyroxine Index 1.8, Thyroxine (T4) 5.1, Triiodothyronine (T3) Uptake 36 Home Medications Current Medications Current Medications Medications (Trade) Dose Ordered Sig/Sonia Route PRN Reason Start Time Stop Time Status Last Admin Dose Admin Albuterol Sulfate (Proventil Neb) 2.5 mg Q2HP PRN NEB SOB/WHEEZING 01/19/20 18:00 Albuterol/ Ipratropium (Duoneb (Ipr 0.5mg/Alb 2.5mg)) 3 ml RQ4H NEB 01/19/20 20:00 01/20/20 07:32 Amantadine HCl (Symmetrel) 100 mg QHS PO 01/19/20 21:00 01/19/20 20:31 Amlodipine Besylate (Norvasc) 5 mg BID PO 01/19/20 18:15 01/19/20 18:49 Atorvastatin Calcium (Lipitor) 20 mg QHS PO 01/19/20 21:00 01/19/20 20:31 Carvedilol (COReg) 6.25 mg BID PO 01/19/20 21:00 01/19/20 20:31 Carvedilol (COReg) 6.25 mg DAILY PO 01/20/20 09:00 01/19/20 17:36 DC Cetirizine HCl (ZyrTEC) 10 mg DAILY PO 01/20/20 09:00 Fluoxetine HCl (PROzac) 20 mg DAILY PO 01/20/20 09:00 01/19/20 17:46 DC Fluoxetine HCl (PROzac) 20 mg TID PO 01/19/20 21:00 01/19/20 20:30 Folic Acid (Folic Acid) 1 mg DAILY PO 01/20/20 09:00 Home Med (Med Rec Complete!) ASDIRECTED XX 01/19/20 17:30 01/19/20 17:32 DC Lidocaine (Lidoderm Patch) 1 patch QHS TD 01/19/20 21:00 01/19/20 22:10 Lorazepam (Ativan) 0.5 mg QHS PO 01/19/20 21:00 01/19/20 20:31 Non-Formulary Medication ( See Comment Field Below ) REMOVE LIDODERM PATCH DAILY@0900 XX 01/20/20 09:00 Oxybutynin Chloride (Ditropan Xl) 5 mg DAILY PO 01/20/20 09:00 Oxybutynin Chloride (Ditropan) 5 mg TID PO 01/19/20 16:00 01/19/20 17:46 DC Pantoprazole Sodium 40 mg/ Dextrose 50 ml @ 10 mls/hr Q5H IV 01/19/20 16:00 01/20/20 07:00 DC 01/20/20 06:41 Polyethylene Glycol (Miralax) 1 pkt DAILY PRN PO CONSTIPATION 01/19/20 17:45 Potassium Chloride (Micro-K Extencaps) 10 meq DAILY PO 01/20/20 09:00 Quetiapine Fumarate (SEROquel) 300 mg QHS PO 01/19/20 21:00 01/19/20 20:30 Sodium Chloride (Sodium Chloride) 1 gm BID PO 01/19/20 21:00 01/19/20 18:03 DC Sucralfate (Carafate Suspension) 1 gm ACHS PO 01/19/20 17:30 01/19/20 20:31 Scheduled Amantadine HCl (Amantadine) 100 Mg Tablet, 100 MG PO QHS, (Reported) Atorvastatin Calcium (Atorvastatin Calcium) 20 Mg Tablet, 20 MG PO QHS, (Reported) Carvedilol (Carvedilol) 6.25 Mg Tablet, 6.25 MG PO BID, (Reported) Cetirizine HCl (Cetirizine HCl) 10 Mg Tablet, 10 MG PO DAILY, (Reported) Fluoxetine Hcl (Fluoxetine HCl) 20 Mg Capsule, 20 MG PO TID, (Reported) Folic Acid (Folic Acid) 1 Mg Tablet, 1 MG PO DAILY, (Reported) Lorazepam (Ativan) 0.5 Mg Tablet, 0.5 MG PO QHS, (Reported) Oxybutynin Chloride (Oxybutynin Chloride ER) 5 Mg Tab.er.24, 5 MG PO DAILY, (Reported) DAUGHTER STATES THAT DUE TO INTOLERANCE, THE OXYBUTYNIN HAS BEEN ADJUSTED AT HOME FROM TID, TO BID, AND NOW DAILY Pantoprazole Sodium (Pantoprazole Sodium) 40 Mg Tablet.dr, 40 MG PO DAILY, (Reported) Potassium Chloride (Potassium Chloride) 10 Meq Capsule.er, 10 MEQ PO DAILY, (Reported) Quetiapine Fumarate (Quetiapine Fumarate) 300 Mg Tablet, 300 MG PO QHS, (Reported) Sodium Chloride (Sodium Chloride) 1 Gm Tablet, 1 GM PO BID, (Reported) DAUGHTER STATES PT HAS BEEN ON 1GM BID SINCE OCTOBER'S DISCHARGE FROM [facility]. PCP DIDN'T WANT TO CONTINUE; SO SINCE 01/15 HAS BEEN TAKING 0.5MG DAILY. RECENTLY EXHAUSTED SUPPLY Tiotropium Java (Spiriva Respimat) 4 Gm Mist.inhal, 2 PUFF INH DAILY, (Reported) Scheduled PRN Polyethylene Glycol 3350 (Polyethylene Glycol 3350) 510 Gm Powder, 17 GM PO DAILY PRN for CONSTIPATION, (Reported) Allergies Coded Allergies: cephalexin (Verified Allergy, Mild, HIVES, 11/02/19) Quinolones (Verified Allergy, Unknown, 11/01/19) hives Sulfa (Sulfonamide Antibiotics) (Verified Allergy, Unknown, 11/01/19) anaph acetaminophen (Verified Allergy, Unknown, 11/01/19) amoxicillin (Verified Allergy, Unknown, unknown, 01/10/19) clavulanic acid (Verified Allergy, Unknown, unknown, 01/10/19) moxifloxacin (Verified Allergy, Unknown, unknown, 01/10/19) nitrofurantoin (Verified Allergy, Unknown, unknown, 01/10/19) oxycodone (Verified Allergy, Unknown, AMS, 11/02/19) prednisolone (Verified Allergy, Unknown, flippy feeling, 01/10/19) BROCK WOLF DO Jan 20, 2020 08:13
[2020-01-20] MEDS: SUCRALFATE SUSP 1GM/10ML UD PO SCH ×2 (08:38→13:01)
[2020-01-20 08:40] VITALS: BP 150/68
[2020-01-20] MEDS: CARVedilol 6.25 MG TAB PO SCH (08:40)
[2020-01-20] MEDS: FLUoxetine 20 MG CAP PO SCH (08:40)
[2020-01-20] MEDS: amLODIPine 5 MG TAB PO SCH (08:41)
[2020-01-20] MEDS ORDERED: FLUoxetine 20 MG CAP PO SCH (09:00)
[2020-01-20] MEDS ORDERED: FOLIC ACID 1 MG TAB PO SCH (09:00)
[2020-01-20] MEDS ORDERED: POTASSIUM CHLORIDE 10 MEQ SR TABLET PO SCH (09:00)
[2020-01-20] MEDS ORDERED: CETIRIZINE (ZyrTEC) 10 MG TAB PO SCH (09:00)
[2020-01-20] MEDS ORDERED: oxyBUTYnin *DITROPAN XL* 5 MG TABCR PO SCH (09:00)
[2020-01-20] MEDS ORDERED: **NOTE PATIENT COMMENT** MISC XX SCH (09:00)
[2020-01-20] MEDS ORDERED: CARVedilol 6.25 MG TAB PO SCH (09:00)
[2020-01-20] MEDS ORDERED: IBUPROFEN 400 MG TAB PO PRN (12:30)
[2020-01-20] MEDS ORDERED: IBUPROFEN 400 MG TAB PO ONE (12:30)
[2020-01-20] MEDS ORDERED: ANALGESIC BALM CRM 120 GM TOP SCH (13:00)
[2020-01-20 13:12] LABS: H PYLORI QUALITATIVE IgG NEGATIVE (NEGATIVE)
[2020-01-20 14:00] VITALS: BP 120/82
[2020-01-20] MEDS ORDERED: CARA1TAB6 PO (17:06)
[2020-01-21 17:07] LABS: H PYLORI SERUM QUANT IGA <9.0 units (0.0-8.9); H PYLORI SERUM QUANT IGM <9.0 units (0.0-8.9)
== END 2020-01-20 14:41 | DRG 812 ==
LOC: M ED 10:43 → M ED INP 15:54 → ENRESERV 16:33 → M MSPAV 17:31
PROVIDERS: ADMIT General Practice; ATTEND General Practice
DX: D50.9 Iron deficiency anemia, unspecified (principal); F33.3 Major depressive disorder, recurrent, severe with psychotic symptoms; I50.32 Chronic diastolic (congestive) heart failure; I11.0 Hypertensive heart disease with heart failure; J44.9 Chronic obstructive pulmonary disease, unspecified; Z79.899 Other long term (current) drug therapy; Z88.8 Allergy status to other drugs, medicaments and biological substances; Z88.2 Allergy status to sulfonamides; Z88.5 Allergy status to narcotic agent; M51.34 Other intervertebral disc degeneration, thoracic region; R29.6 Repeated falls; F20.9 Schizophrenia, unspecified; I25.10 Atherosclerotic heart disease of native coronary artery without angina pectoris; I25.2 Old myocardial infarction; E78.5 Hyperlipidemia, unspecified; F17.200 Nicotine dependence, unspecified, uncomplicated; Z79.82 Long term (current) use of aspirin; I44.0 Atrioventricular block, first degree

== ENCOUNTER 2020-01-30 10:30 | Inpatient (IN) | payer OTHER, MEDICAID ==
[~2020-01-30 10:30] MED LIST changes: -ALL10TAB29 PO; -ASPI81TA85 PO; +ASPI81TA86 PO; +CARA1TAB6 PO; +CETI-24 PO; +OXYB-54 PO; +PANT40TA29 PO; -PANT40TA3 PO; +SODI1TAB12 PO
[2020-01-30] MEDS ORDERED: MEROPENEM 1GM IN NACL 0.9% 50ML IVBAG (J2185 PER 100MG) ONE (12:59)
[2020-01-30] MEDS ORDERED: MEROPENEM 1GM IN NACL 0.9% 50ML IVBAG (J2185 PER 100MG) As Ordered ONE (12:59)
[2020-01-30] MEDS ORDERED: methylPREDNISolone 125MG 2ML VIAL As Ordered ONE (12:59)
[2020-01-30] MEDS ORDERED: methylPREDNISolone 125MG 2ML VIAL ONE (12:59)
[2020-01-30] MEDS ORDERED: QUEtiapine FUMARATE 100 MG TAB ONE (21:00)
[2020-01-30] MEDS ORDERED: AMANTADINE 100MG TABLET ONE (21:00)
[2020-01-31] MEDS ORDERED: DOCUSATE SODIUM 100 MG CAP ONE ×6 (02:02→20:51)
[2020-01-31] MEDS ORDERED: ATORVASTATIN 20 MG TAB As Ordered ONE ×2 (02:02→20:51)
[2020-01-31] MEDS ORDERED: MIRALAX *UNIT DOSE* 17GM PACKET ONE ×6 (02:02→20:51)
[2020-01-31] MEDS ORDERED: DOCUSATE SODIUM 100 MG CAP As Ordered ONE ×3 (02:02→20:51)
[2020-01-31] MEDS ORDERED: DOXYCYCLINE HYCLATE 100MG TABLET ONE ×4 (02:02→08:41)
[2020-01-31] MEDS ORDERED: CARVedilol 6.25 MG TAB ONE ×6 (02:02→20:51)
[2020-01-31] MEDS ORDERED: ATORVASTATIN 20 MG TAB ONE ×4 (02:02→20:51)
[2020-01-31] MEDS ORDERED: CARVedilol 6.25 MG TAB As Ordered ONE ×3 (02:03→20:52)
[2020-01-31] MEDS ORDERED: MIRALAX *UNIT DOSE* 17GM PACKET As Ordered ONE ×3 (02:03→20:52)
[2020-01-31] MEDS ORDERED: DOXYCYCLINE HYCLATE 100MG TABLET As Ordered ONE ×2 (02:04→08:45)
[2020-01-31] MEDS ORDERED: FLUoxetine 20 MG CAP As Ordered ONE ×3 (04:32→20:52)
[2020-01-31] MEDS ORDERED: oxyBUTYnin 5 MG TAB ONE ×6 (04:32→20:51)
[2020-01-31] MEDS ORDERED: oxyBUTYnin 5 MG TAB As Ordered ONE ×3 (04:32→20:52)
[2020-01-31] MEDS ORDERED: FLUoxetine 20 MG CAP ONE ×6 (04:32→20:51)
[2020-01-31] MEDS ORDERED: MEROPENEM 1GM IN NACL 0.9% 50ML IVBAG (J2185 PER 100MG) ONE ×2 (05:07→19:12)
[2020-01-31] MEDS ORDERED: MEROPENEM 1GM IN NACL 0.9% 50ML IVBAG (J2185 PER 100MG) As Ordered ONE ×2 (05:07→19:12)
[2020-01-31] MEDS ORDERED: NICOTINE 21MG/24HR 1 EA TRANSDERMAL ONE ×2 (08:41)
[2020-01-31] MEDS ORDERED: PANTOPRAZOLE 40MG TAB (PROTONIX) As Ordered ONE (08:41)
[2020-01-31] MEDS ORDERED: ASPIRIN 81 MG ENTERIC TAB ONE ×2 (08:41)
[2020-01-31] MEDS ORDERED: FOLIC ACID 1 MG TAB ONE ×2 (08:41)
[2020-01-31] MEDS ORDERED: PANTOPRAZOLE 40MG TAB (PROTONIX) ONE ×2 (08:41)
[2020-01-31] MEDS ORDERED: ENOXAPARIN 40MG/0.4ML SYRINGE (J1650 PER 10MG) ONE ×2 (08:41)
[2020-01-31] MEDS ORDERED: GABAPENTIN 300 MG CAP ONE ×2 (08:41)
[2020-01-31] MEDS ORDERED: CYANOCOBALAMIN 500 MCG TAB ONE ×2 (08:41)
[2020-01-31] MEDS ORDERED: GABAPENTIN 300 MG CAP As Ordered ONE (08:42)
[2020-01-31] MEDS ORDERED: NICOTINE 21MG/24HR 1 EA TRANSDERMAL As Ordered ONE (08:43)
[2020-01-31] MEDS ORDERED: FOLIC ACID 1 MG TAB As Ordered ONE (08:43)
[2020-01-31] MEDS ORDERED: ENOXAPARIN 40MG/0.4ML SYRINGE (J1650 PER 10MG) As Ordered ONE (08:43)
[2020-01-31] MEDS ORDERED: ASPIRIN 81 MG ENTERIC TAB As Ordered ONE (08:44)
[2020-01-31] MEDS ORDERED: CYANOCOBALAMIN 500 MCG TAB As Ordered ONE (08:44)
[2020-01-31] MEDS ORDERED: TIOTROPIUM INHALER/CAPSULE (SPIRIVA) ONE (09:00)
[2020-01-31] MEDS ORDERED: ADVAIR HFA 115/21MCG INHALER ONE (09:00)
[2020-01-31] MEDS ORDERED: VANCOMYCIN 1000MG/20ML VIAL ONE ×2 (17:39)
[2020-01-31] MEDS ORDERED: POTASSIUM CHLORIDE 10% LIQ 20 MEQ/15 ML UDC ONE (17:39)
[2020-01-31] MEDS ORDERED: POTASSIUM CHLORIDE 10 MEQ SR TABLET ONE (17:39)
[2020-01-31] MEDS ORDERED: VANCOMYCIN 1000MG/20ML VIAL As Ordered ONE (17:39)
[2020-01-31] MEDS ORDERED: POTASSIUM CHLORIDE 10 MEQ SR TABLET As Ordered ONE (17:40)
[2020-02-01] MEDS ORDERED: FLUoxetine 20 MG CAP ONE ×6 (04:54→22:55)
[2020-02-01] MEDS ORDERED: MEROPENEM 1GM IN NACL 0.9% 50ML IVBAG (J2185 PER 100MG) ONE ×3 (04:54→18:09)
[2020-02-01] MEDS ORDERED: oxyBUTYnin 5 MG TAB As Ordered ONE ×3 (04:54→22:56)
[2020-02-01] MEDS ORDERED: FLUoxetine 20 MG CAP As Ordered ONE ×3 (04:54→22:56)
[2020-02-01] MEDS ORDERED: oxyBUTYnin 5 MG TAB ONE ×6 (04:54→22:55)
[2020-02-01] MEDS ORDERED: MEROPENEM 1GM IN NACL 0.9% 50ML IVBAG (J2185 PER 100MG) As Ordered ONE ×2 (04:58→18:09)
[2020-02-01] MEDS ORDERED: ADVAIR HFA 115/21MCG INHALER ONE (09:00)
[2020-02-01] MEDS ORDERED: AMANTADINE 100MG TABLET ONE (09:00)
[2020-02-01] MEDS ORDERED: TIOTROPIUM INHALER/CAPSULE (SPIRIVA) ONE (09:00)
[2020-02-01] MEDS ORDERED: GABAPENTIN 300 MG CAP ONE ×2 (09:14)
[2020-02-01] MEDS ORDERED: CYANOCOBALAMIN 500 MCG TAB ONE ×2 (09:14)
[2020-02-01] MEDS ORDERED: DOCUSATE SODIUM 100 MG CAP ONE ×4 (09:14→22:55)
[2020-02-01] MEDS ORDERED: CARVedilol 6.25 MG TAB ONE ×4 (09:14→22:55)
[2020-02-01] MEDS ORDERED: FOLIC ACID 1 MG TAB ONE ×2 (09:14)
[2020-02-01] MEDS ORDERED: DOCUSATE SODIUM 100 MG CAP As Ordered ONE ×2 (09:14→22:55)
[2020-02-01] MEDS ORDERED: CARVedilol 6.25 MG TAB As Ordered ONE ×2 (09:14→22:56)
[2020-02-01] MEDS ORDERED: MIRALAX *UNIT DOSE* 17GM PACKET ONE ×4 (09:14→22:55)
[2020-02-01] MEDS ORDERED: ASPIRIN 81 MG ENTERIC TAB ONE ×2 (09:14)
[2020-02-01] MEDS ORDERED: ENOXAPARIN 40MG/0.4ML SYRINGE (J1650 PER 10MG) ONE ×2 (09:14)
[2020-02-01] MEDS ORDERED: PANTOPRAZOLE 40MG TAB (PROTONIX) ONE ×2 (09:14)
[2020-02-01] MEDS ORDERED: PANTOPRAZOLE 40MG TAB (PROTONIX) As Ordered ONE (09:14)
[2020-02-01] MEDS ORDERED: ENOXAPARIN 40MG/0.4ML SYRINGE (J1650 PER 10MG) As Ordered ONE (09:15)
[2020-02-01] MEDS ORDERED: FOLIC ACID 1 MG TAB As Ordered ONE (09:15)
[2020-02-01] MEDS ORDERED: GABAPENTIN 300 MG CAP As Ordered ONE (09:15)
[2020-02-01] MEDS ORDERED: CYANOCOBALAMIN 500 MCG TAB As Ordered ONE (09:16)
[2020-02-01] MEDS ORDERED: MIRALAX *UNIT DOSE* 17GM PACKET As Ordered ONE ×2 (09:16→22:55)
[2020-02-01] MEDS ORDERED: ASPIRIN 81 MG ENTERIC TAB As Ordered ONE (09:17)
[2020-02-01] MEDS ORDERED: VANCOMYCIN 750MG/25ML VIAL ONE (18:09)
[2020-02-01] MEDS ORDERED: VANCOMYCIN 750MG/25ML VIAL As Ordered ONE (18:18)
[2020-02-01] MEDS ORDERED: QUEtiapine FUMARATE 50 MG TAB ONE ×2 (22:55)
[2020-02-01] MEDS ORDERED: ATORVASTATIN 20 MG TAB ONE ×2 (22:55)
[2020-02-01] MEDS ORDERED: ATORVASTATIN 20 MG TAB As Ordered ONE (22:55)
[2020-02-01] MEDS ORDERED: QUEtiapine FUMARATE 50 MG TAB As Ordered ONE (22:56)
[2020-02-02] MEDS ORDERED: LORazepam 2 MG/ML VIAL ONE ×2 (00:43→21:50)
[2020-02-02] MEDS ORDERED: MEROPENEM 1GM IN NACL 0.9% 50ML IVBAG (J2185 PER 100MG) As Ordered ONE ×3 (06:25→16:54)
[2020-02-02] MEDS ORDERED: MEROPENEM 1GM IN NACL 0.9% 50ML IVBAG (J2185 PER 100MG) ONE ×5 (06:25→18:25)
[2020-02-02] MEDS ORDERED: ENOXAPARIN 40MG/0.4ML SYRINGE (J1650 PER 10MG) ONE ×2 (08:47→20:47)
[2020-02-02] MEDS ORDERED: PANTOPRAZOLE 40MG TAB (PROTONIX) ONE ×2 (08:47→20:47)
[2020-02-02] MEDS ORDERED: DOCUSATE SODIUM 100 MG CAP As Ordered ONE ×2 (08:47→20:59)
[2020-02-02] MEDS ORDERED: NICOTINE 21MG/24HR 1 EA TRANSDERMAL ONE ×2 (08:47→20:47)
[2020-02-02] MEDS ORDERED: MIRALAX *UNIT DOSE* 17GM PACKET As Ordered ONE ×2 (08:47→21:44)
[2020-02-02] MEDS ORDERED: CYANOCOBALAMIN 500 MCG TAB ONE ×2 (08:47→20:47)
[2020-02-02] MEDS ORDERED: DOCUSATE SODIUM 100 MG CAP ONE ×4 (08:47→20:59)
[2020-02-02] MEDS ORDERED: NICOTINE 21MG/24HR 1 EA TRANSDERMAL As Ordered ONE (08:47)
[2020-02-02] MEDS ORDERED: ASPIRIN 81 MG ENTERIC TAB ONE (08:47)
[2020-02-02] MEDS ORDERED: FLUoxetine 20 MG CAP ONE ×6 (08:47→20:59)
[2020-02-02] MEDS ORDERED: CARVedilol 6.25 MG TAB ONE ×4 (08:47→20:59)
[2020-02-02] MEDS ORDERED: oxyBUTYnin 5 MG TAB ONE ×6 (08:47→20:59)
[2020-02-02] MEDS ORDERED: FOLIC ACID 1 MG TAB ONE ×2 (08:47→20:47)
[2020-02-02] MEDS ORDERED: MIRALAX *UNIT DOSE* 17GM PACKET ONE ×4 (08:47→21:44)
[2020-02-02] MEDS ORDERED: GABAPENTIN 300 MG CAP ONE ×2 (08:47→20:47)
[2020-02-02] MEDS ORDERED: PANTOPRAZOLE 40MG TAB (PROTONIX) As Ordered ONE (08:48)
[2020-02-02] MEDS ORDERED: ASPIRIN 81 MG CHEW TABLET As Ordered ONE (08:48)
[2020-02-02] MEDS ORDERED: CARVedilol 6.25 MG TAB As Ordered ONE ×2 (08:49→20:59)
[2020-02-02] MEDS ORDERED: FOLIC ACID 1 MG TAB As Ordered ONE (08:49)
[2020-02-02] MEDS ORDERED: CYANOCOBALAMIN 500 MCG TAB As Ordered ONE (08:49)
[2020-02-02] MEDS ORDERED: GABAPENTIN 300 MG CAP As Ordered ONE (08:49)
[2020-02-02] MEDS ORDERED: FLUoxetine 20 MG CAP As Ordered ONE ×3 (08:49→20:59)
[2020-02-02] MEDS ORDERED: oxyBUTYnin 5 MG TAB As Ordered ONE ×3 (08:49→20:59)
[2020-02-02] MEDS ORDERED: ENOXAPARIN 40MG/0.4ML SYRINGE (J1650 PER 10MG) As Ordered ONE (08:50)
[2020-02-02] MEDS ORDERED: TIOTROPIUM INHALER/CAPSULE (SPIRIVA) ONE (09:00)
[2020-02-02] MEDS ORDERED: ADVAIR HFA 115/21MCG INHALER ONE (09:00)
[2020-02-02] MEDS ORDERED: AMANTADINE 100MG TABLET ONE (13:00)
[2020-02-02] MEDS ORDERED: QUEtiapine FUMARATE 100 MG TAB ONE (13:00)
[2020-02-02] MEDS ORDERED: VANCOMYCIN 750MG/25ML VIAL As Ordered ONE (18:09)
[2020-02-02] MEDS ORDERED: VANCOMYCIN 750MG/25ML VIAL ONE ×2 (18:09)
[2020-02-02] MEDS ORDERED: ASPIRIN 81 MG CHEW TABLET ONE (20:47)
[2020-02-02] MEDS ORDERED: ATORVASTATIN 20 MG TAB ONE ×2 (20:59)
[2020-02-02] MEDS ORDERED: QUEtiapine FUMARATE 50 MG TAB ONE ×2 (20:59)
[2020-02-02] MEDS ORDERED: QUEtiapine FUMARATE 50 MG TAB As Ordered ONE (20:59)
[2020-02-02] MEDS ORDERED: ATORVASTATIN 20 MG TAB As Ordered ONE (20:59)
[2020-02-02] MEDS ORDERED: LORazepam 2 MG/ML VIAL As Ordered ONE (21:50)
[2020-02-02] MEDS ORDERED: ISOVUE-370 76% 100ML VIAL ONE ×2 (23:33)
[2020-02-02] MEDS ORDERED: ISOVUE-370 76% 100ML VIAL As Ordered ONE (23:33)
[2020-02-03] MEDS ORDERED: CARVedilol 6.25 MG TAB ONE ×6 (01:21→20:50)
[2020-02-03] MEDS ORDERED: CARVedilol 6.25 MG TAB As Ordered ONE ×3 (01:21→20:50)
[2020-02-03] MEDS ORDERED: POTASSIUM CHLORIDE 10% LIQ 20 MEQ/15 ML UDC As Ordered ONE (01:50)
[2020-02-03] MEDS ORDERED: MAGNESIUM SULFATE 1GM/100ML D5W BAG (10MG/ML) ONE ×2 (01:50)
[2020-02-03] MEDS ORDERED: MAGNESIUM SULFATE 1GM/100ML D5W BAG (10MG/ML) As Ordered ONE (01:50)
[2020-02-03] MEDS ORDERED: POTASSIUM CHLORIDE 10% LIQ 20 MEQ/15 ML UDC ONE ×2 (01:50)
[2020-02-03] MEDS ORDERED: ATORVASTATIN 20 MG TAB ONE ×4 (08:57→20:50)
[2020-02-03] MEDS ORDERED: NICOTINE 21MG/24HR 1 EA TRANSDERMAL ONE ×2 (08:57)
[2020-02-03] MEDS ORDERED: DOCUSATE SODIUM 100 MG CAP ONE ×4 (08:57→20:50)
[2020-02-03] MEDS ORDERED: PANTOPRAZOLE 40MG TAB (PROTONIX) ONE ×2 (08:57)
[2020-02-03] MEDS ORDERED: FLUoxetine 20 MG CAP ONE ×6 (08:57→20:50)
[2020-02-03] MEDS ORDERED: ASPIRIN 81 MG ENTERIC TAB ONE ×2 (08:57)
[2020-02-03] MEDS ORDERED: CYANOCOBALAMIN 500 MCG TAB ONE ×2 (08:57)
[2020-02-03] MEDS ORDERED: MIRALAX *UNIT DOSE* 17GM PACKET As Ordered ONE (08:57)
[2020-02-03] MEDS ORDERED: GABAPENTIN 300 MG CAP ONE ×2 (08:57)
[2020-02-03] MEDS ORDERED: ENOXAPARIN 40MG/0.4ML SYRINGE (J1650 PER 10MG) ONE ×2 (08:57)
[2020-02-03] MEDS ORDERED: MIRALAX *UNIT DOSE* 17GM PACKET ONE ×2 (08:57)
[2020-02-03] MEDS ORDERED: PANTOPRAZOLE 40MG TAB (PROTONIX) As Ordered ONE (08:57)
[2020-02-03] MEDS ORDERED: FOLIC ACID 1 MG TAB ONE ×2 (08:57)
[2020-02-03] MEDS ORDERED: ATORVASTATIN 20 MG TAB As Ordered ONE ×2 (08:57→20:50)
[2020-02-03] MEDS ORDERED: DOCUSATE SODIUM 100 MG CAP As Ordered ONE ×2 (08:57→20:50)
[2020-02-03] MEDS ORDERED: NICOTINE 21MG/24HR 1 EA TRANSDERMAL As Ordered ONE (08:57)
[2020-02-03] MEDS ORDERED: GABAPENTIN 300 MG CAP As Ordered ONE (08:58)
[2020-02-03] MEDS ORDERED: ENOXAPARIN 40MG/0.4ML SYRINGE (J1650 PER 10MG) As Ordered ONE (08:58)
[2020-02-03] MEDS ORDERED: CYANOCOBALAMIN 500 MCG TAB As Ordered ONE (08:58)
[2020-02-03] MEDS ORDERED: FLUoxetine 20 MG CAP As Ordered ONE ×3 (08:58→20:51)
[2020-02-03] MEDS ORDERED: FOLIC ACID 1 MG TAB As Ordered ONE (08:59)
[2020-02-03] MEDS ORDERED: ASPIRIN 81 MG ENTERIC TAB As Ordered ONE (08:59)
[2020-02-03] MEDS ORDERED: TIOTROPIUM INHALER/CAPSULE (SPIRIVA) ONE (09:00)
[2020-02-03] MEDS ORDERED: ADVAIR HFA 115/21MCG INHALER ONE (09:00)
[2020-02-03] MEDS ORDERED: AMANTADINE 100MG TABLET ONE (13:00)
[2020-02-03] MEDS ORDERED: oxyBUTYnin *DITROPAN XL* 5 MG TABCR ONE (13:00)
[2020-02-03] MEDS ORDERED: VANCOMYCIN 750MG/25ML VIAL As Ordered ONE (13:43)
[2020-02-03] MEDS ORDERED: VANCOMYCIN 750MG/25ML VIAL ONE ×2 (13:43)
[2020-02-03] MEDS ORDERED: oxyBUTYnin 5 MG TAB ONE ×4 (15:50→20:50)
[2020-02-03] MEDS ORDERED: levETIRAcetam 500 MG/5 ML VIAL (KEPPRA IV)(J1953) ONE ×2 (15:50)
[2020-02-03] MEDS ORDERED: levETIRAcetam 500 MG/5 ML VIAL (KEPPRA IV)(J1953) As Ordered ONE (15:50)
[2020-02-03] MEDS ORDERED: oxyBUTYnin 5 MG TAB As Ordered ONE ×2 (15:56→20:51)
[2020-02-03] MEDS ORDERED: QUEtiapine FUMARATE 100 MG TAB ONE ×2 (20:50)
[2020-02-03] MEDS ORDERED: QUEtiapine FUMARATE 100 MG TAB As Ordered ONE (20:51)
[2020-02-04] MEDS ORDERED: VANCOMYCIN 750MG/25ML VIAL As Ordered ONE ×2 (00:02→12:59)
[2020-02-04] MEDS ORDERED: levETIRAcetam 250MG TABLET (KEPPRA) As Ordered ONE ×2 (00:07→13:45)
[2020-02-04] MEDS ORDERED: ADVAIR HFA 115/21MCG INHALER ONE (09:00)
[2020-02-04] MEDS ORDERED: TIOTROPIUM INHALER/CAPSULE (SPIRIVA) ONE (09:00)
[2020-02-04] MEDS ORDERED: ASCORBIC ACID 500 MG TAB ONE ×3 (10:11→22:47)
[2020-02-04] MEDS ORDERED: GABAPENTIN 300 MG CAP As Ordered ONE (10:11)
[2020-02-04] MEDS ORDERED: FOLIC ACID 1 MG TAB ONE ×2 (10:11→22:11)
[2020-02-04] MEDS ORDERED: oxyBUTYnin 5 MG TAB ONE ×4 (10:11→22:11)
[2020-02-04] MEDS ORDERED: DOCUSATE SODIUM 100 MG CAP As Ordered ONE ×2 (10:11→20:39)
[2020-02-04] MEDS ORDERED: MIRALAX *UNIT DOSE* 17GM PACKET ONE ×4 (10:11→22:11)
[2020-02-04] MEDS ORDERED: CARVedilol 6.25 MG TAB ONE ×4 (10:11→22:11)
[2020-02-04] MEDS ORDERED: GABAPENTIN 300 MG CAP ONE ×2 (10:11→22:11)
[2020-02-04] MEDS ORDERED: ASPIRIN 81 MG ENTERIC TAB ONE ×2 (10:11→22:11)
[2020-02-04] MEDS ORDERED: NICOTINE 21MG/24HR 1 EA TRANSDERMAL As Ordered ONE (10:11)
[2020-02-04] MEDS ORDERED: ENOXAPARIN 40MG/0.4ML SYRINGE (J1650 PER 10MG) ONE ×2 (10:11→22:11)
[2020-02-04] MEDS ORDERED: DOCUSATE SODIUM 100 MG CAP ONE ×4 (10:11→22:11)
[2020-02-04] MEDS ORDERED: PANTOPRAZOLE 40MG TAB (PROTONIX) ONE ×2 (10:11→22:11)
[2020-02-04] MEDS ORDERED: NICOTINE 21MG/24HR 1 EA TRANSDERMAL ONE ×2 (10:11→22:11)
[2020-02-04] MEDS ORDERED: FLUoxetine 20 MG CAP ONE ×6 (10:11→22:11)
[2020-02-04] MEDS ORDERED: oxyBUTYnin 5 MG TAB As Ordered ONE ×2 (10:12→17:47)
[2020-02-04] MEDS ORDERED: PANTOPRAZOLE 40MG TAB (PROTONIX) As Ordered ONE (10:12)
[2020-02-04] MEDS ORDERED: ASCORBIC ACID 500 MG TAB As Ordered ONE (10:12)
[2020-02-04] MEDS ORDERED: CARVedilol 6.25 MG TAB As Ordered ONE ×2 (10:12→20:42)
[2020-02-04] MEDS ORDERED: FOLIC ACID 1 MG TAB As Ordered ONE (10:12)
[2020-02-04] MEDS ORDERED: ENOXAPARIN 40MG/0.4ML SYRINGE (J1650 PER 10MG) As Ordered ONE (10:13)
[2020-02-04] MEDS ORDERED: ASPIRIN 81 MG ENTERIC TAB As Ordered ONE (10:13)
[2020-02-04] MEDS ORDERED: FLUoxetine 20 MG CAP As Ordered ONE ×3 (10:13→20:42)
[2020-02-04] MEDS ORDERED: MIRALAX *UNIT DOSE* 17GM PACKET As Ordered ONE ×2 (10:17→20:42)
[2020-02-04] MEDS ORDERED: CYANOCOBALAMIN 500 MCG TAB As Ordered ONE (10:48)
[2020-02-04] MEDS ORDERED: CYANOCOBALAMIN 500 MCG TAB ONE ×2 (10:48→22:47)
[2020-02-04] MEDS ORDERED: VANCOMYCIN 750MG/25ML VIAL ONE ×4 (12:02→22:11)
[2020-02-04] MEDS ORDERED: levETIRAcetam 250MG TABLET (KEPPRA) ONE ×4 (12:02→22:11)
[2020-02-04] MEDS ORDERED: AMANTADINE 100MG TABLET ONE (13:00)
[2020-02-04] MEDS ORDERED: ATORVASTATIN 20 MG TAB ONE ×2 (20:53)
[2020-02-04] MEDS ORDERED: ATORVASTATIN 20 MG TAB As Ordered ONE (20:53)
[2020-02-05] MEDS ORDERED: CEPHALEXIN 500 MG CAP As Ordered ONE (00:25)
[2020-02-05] MEDS ORDERED: CEPHALEXIN 500 MG CAP ONE (00:25)
[2020-02-05] MEDS ORDERED: LevoFLOXacin 750 MG TABLET ONE ×2 (06:11)
[2020-02-05] MEDS ORDERED: LevoFLOXacin 750 MG TABLET As Ordered ONE (06:11)
[2020-02-05] MEDS ORDERED: CARVedilol 6.25 MG TAB ONE ×2 (08:13)
[2020-02-05] MEDS ORDERED: NICOTINE 21MG/24HR 1 EA TRANSDERMAL As Ordered ONE (08:13)
[2020-02-05] MEDS ORDERED: oxyBUTYnin 5 MG TAB ONE ×3 (08:13→16:09)
[2020-02-05] MEDS ORDERED: ASPIRIN 81 MG ENTERIC TAB ONE ×2 (08:13)
[2020-02-05] MEDS ORDERED: MIRALAX *UNIT DOSE* 17GM PACKET ONE ×3 (08:13→19:32)
[2020-02-05] MEDS ORDERED: PANTOPRAZOLE 40MG TAB (PROTONIX) ONE ×2 (08:13)
[2020-02-05] MEDS ORDERED: GABAPENTIN 300 MG CAP ONE ×2 (08:13)
[2020-02-05] MEDS ORDERED: FLUoxetine 20 MG CAP ONE ×4 (08:13→16:10)
[2020-02-05] MEDS ORDERED: ENOXAPARIN 40MG/0.4ML SYRINGE (J1650 PER 10MG) ONE ×2 (08:13→08:16)
[2020-02-05] MEDS ORDERED: CYANOCOBALAMIN 500 MCG TAB ONE ×2 (08:13)
[2020-02-05] MEDS ORDERED: FOLIC ACID 1 MG TAB ONE ×2 (08:13)
[2020-02-05] MEDS ORDERED: oxyBUTYnin *DITROPAN XL* 5 MG TABCR ONE (08:13)
[2020-02-05] MEDS ORDERED: NICOTINE 21MG/24HR 1 EA TRANSDERMAL ONE ×2 (08:13)
[2020-02-05] MEDS ORDERED: DOCUSATE SODIUM 100 MG CAP ONE ×2 (08:13)
[2020-02-05] MEDS ORDERED: GABAPENTIN 300 MG CAP As Ordered ONE (08:14)
[2020-02-05] MEDS ORDERED: MIRALAX *UNIT DOSE* 17GM PACKET As Ordered ONE ×2 (08:14→19:32)
[2020-02-05] MEDS ORDERED: DOCUSATE SODIUM 100 MG CAP As Ordered ONE (08:14)
[2020-02-05] MEDS ORDERED: PANTOPRAZOLE 40MG TAB (PROTONIX) As Ordered ONE (08:14)
[2020-02-05] MEDS ORDERED: CARVedilol 6.25 MG TAB As Ordered ONE (08:15)
[2020-02-05] MEDS ORDERED: CYANOCOBALAMIN 500 MCG TAB As Ordered ONE (08:15)
[2020-02-05] MEDS ORDERED: oxyBUTYnin 5 MG TAB As Ordered ONE ×2 (08:15→16:09)
[2020-02-05] MEDS ORDERED: FOLIC ACID 1 MG TAB As Ordered ONE (08:15)
[2020-02-05] MEDS ORDERED: FLUoxetine 20 MG CAP As Ordered ONE ×2 (08:16→16:10)
[2020-02-05] MEDS ORDERED: ASPIRIN 81 MG ENTERIC TAB As Ordered ONE (08:16)
[2020-02-05] MEDS ORDERED: ENOXAPARIN 40MG/0.4ML SYRINGE (J1650 PER 10MG) As Ordered ONE (08:16)
[2020-02-05] MEDS ORDERED: ADVAIR HFA 115/21MCG INHALER ONE (09:00)
[2020-02-05] MEDS ORDERED: TIOTROPIUM INHALER/CAPSULE (SPIRIVA) ONE (09:00)
[2020-02-05] MEDS ORDERED: levETIRAcetam 250MG TABLET (KEPPRA) ONE ×2 (12:39)
[2020-02-05] MEDS ORDERED: levETIRAcetam 250MG TABLET (KEPPRA) As Ordered ONE (12:39)
--- NOTE | 2020-03-04 08:16 | MHCR ---
DATE: 01/31/2020 The entire [facility] system is down. There are no records that are available to us on this patient. REASON FOR CONSULTATION: I was asked to see this patient by the hospitalist, and I was informed that this a 69-year-old lady with a history of schizophrenia who see in [facility], and she was sent to the hospital and appears to be pretty psychotic. HISTORY OF PRESENT ILLNESS: I was told that the patient stated that she had arrived in a jet, that birds were kicking her butt. So basically, that she appeared to be pretty psychotic. The patient was found to have bilateral pneumonia, but apparently the white count is only minimally elevated. She had a CT scan of her head, which was normal. When I went to see the patient today, I was able to see a history and physical exam that was dictated on 01/19/2020, at [facility]. Apparently, she was admitted that day and the chief complaint was that she was hearing voices. According to that record, the patient in October, according to the daughter, was admitted to [facility] for depression and her medications were changed. Then in her outpatient, apparently all the way through December, she had some further medication changes. Then, the patient was admitted on 01/19/2020, complaining of hearing voices. Apparently, her medications have been changed and she was psychotic again. It says that she was seen by the psychiatrist, Dr. Nelson, at the time of that consult to help adjust her psychiatric medications, but I do not have access to that record. Currently, the patient is on Seroquel 300 mg at bedtime, Prozac 20 mg b.i.d., and amantadine 100 mg at bedtime. Today when I went to see the patient I saw the Hospitalist, Dr. Powell, who advised me that the patient did appear to be less confused today. She no longer thought that she arrived to the hospital in an airplane for example, but that she came in an ambulance, but she is still confused. When I went to see the patient for example, she tended to ramble on about her family. I would ask her some questions and she would go off on a tangent on something else. I asked her for example for the date, she was able to tell me January, and then it looked like she was trying to look at what the date was in the hospital chart; but then, she would not even tell me what the year was. She was able to tell me that this was [facility]. The patient was difficult to interview because as I said, she tended to just ramble on. She told me that she was not hearing voices at one point, but it just was not clear. PAST PSYCHIATRIC HISTORY: Other than the fact that she has been admitted to the psychiatric unit before, I am not really able to obtain any information on this patient. Therefore, I do not know if there is any history of suicidal attempts; although when I asked the patient, she denied it; but I do not know how reliable she is. FAMILY HISTORY: Unable to obtain. REVIEW OF SYSTEMS: Unable to obtain. SOCIAL HISTORY: Unable to obtain. PAST MEDICAL HISTORY: Patient does have a lot of significant medical problems, including a history of coronary artery disease, myocardial infarction, dyslipidemia, hypertension, COPD, overactive bladder, iron deficiency anemia, degenerative joint disease. MENTAL STATUS EXAMINATION: The patient is alert and oriented to person and place, but not to time. Eye contact was very good. Psychomotor activity was decreased. She does tend to ramble on about different topics and family, at times difficult to redirect her. She says her mood is not good. Affect is appropriate. She is not suicidal or homicidal. It seems that she is possibly still having some delusions since the patient was noted to be talking about coming in a jet for example yesterday. The patients insight and judgment are poor. Concentration is poor. She would not cooperate with a mental status exam. DIAGNOSES: Schizophrenia. Tardive dyskinesia (lip smacking). TREATMENT PLAN: At this point, we will further evaluate this patient. My recommendation at this point is that the patient be continued on all of her same psychiatric medications of Seroquel 300 mg at bedtime, Prozac 20 mg t.i.d., and amantadine 10 mg at bedtime; as it seems as though patient possibly may not have been taking her medications. BRIANNAD
[2020-03-05 03:31] LABS: BASO # 0.1 10^3/uL (0.0-0.2); BASO % 0.5 % (0.0-1.0); EOS % 0.2 % (0.0-3.0); HEMATOCRIT 34.6 % (36.0-47.0); HEMOGLOBIN 11.2 g/dl (12.0-15.5); LYMPH # 1.1 10^3/uL (1.5-5.0); LYMPH % 8.4 % (24.0-44.0); MEAN CORPUSCULAR HEMOGLOBIN 32.7 pg (27.0-33.0); MEAN CORPUSCULAR HGB CONC 32.4 g/dl (32.0-36.5); MEAN CORPUSCULAR VOLUME 101.2 fl (80.0-96.0); MONO # 0.7 10^3/uL (0.0-0.8); MONO % 5.5 % (0.0-5.0); NEUTROPHILS # 11.1 10^3/uL (1.5-8.5); NEUTROPHILS % 84.9 % (36.0-66.0); PLATELET COUNT, AUTOMATED 235 10^3/uL (150-450); RED BLOOD COUNT 3.42 10^6/uL (4.00-5.40)
--- NOTE | 2020-03-18 17:38 | ECGEPIP ---
SINUS RHYTHM WITH OCCASIONAL PVC LAD LBBB SEE SCANNED DOWNTIME REPORT MTDD
--- NOTE | 2020-03-19 07:49 | REP ---
CT OF THE HEAD WITHOUT CONTRAST: HISTORY: Change in mental status. TECHNIQUE: Axial noncontrast images from the skull base to the vertex with coronal reformations. FINDINGS: The ventricles, sulci and cisterns are prominent, suggesting mild age related atrophy. Ochoa-white differentiation is maintained. No acute intracranial hemorrhage, mass or mass effect. No extra-axial fluid collection. The calvarium is intact. The paranasal sinuses and mastoid air cells are clear. IMPRESSION: Age related atrophy. No acute intracranial pathology or trauma/injury. MTDD
--- NOTE | 2020-03-19 07:55 | REP ---
SINGLE-VIEW CHEST X-RAY: HISTORY: Change in mental status. COMPARISON: Chest x-ray 01/30/2020. This report was delayed due to a malware attack on this facility. FINDINGS: Monitoring electrode is seen. There are clips in the right upper quadrant of the abdomen. There are scattered bilateral upper lobe distribution perihilar infiltrates. The right upper lobe infiltrate appears a little more prominent than on the 01/30/2020 study. The left upper lobe infiltrates are new. Cardiomediastinal silhouette is unchanged. IMPRESSION: Patchy bilateral infiltrates. MTDD
--- NOTE | 2020-03-19 08:30 | EEG ---
DATE OF STUDY: 02/03/2020 DIAGNOSIS: Altered mental status. EEG# [id number]. REFERRING PHYSICIAN: Dr. Kirkpatrick. HISTORY: Patient is a 69-year-old man who was admitted at [facility] due to altered mental status. She has a history of schizophrenia, bipolar disorder, congestive heart failure, chronic obstructive pulmonary disease (COPD), etc. A list of her current medications was not provided. TECHNICAL DESCRIPTION: This baseline EEG was recorded by a 21-scalp, ear, and two EKG electrodes and was reviewed in bipolar and referential montages following reformatting in 10-20 international electrode placement system. INTERPRETATION: Patient was noted to be in awake and drowsy states during this EEG. Resting and awake background rhythm consisted of well-formed posterior dominant rhythm with anterior-posterior gradient comprising of 10 Hz alpha activity measuring 15-40 microvolts in amplitude, which was symmetric and reactive to eye opening. Attenuation of posterior dominant rhythm was seen during transition to drowsiness. Stage 1 and 2 sleep were reviewed and were symmetric bilaterally. Hyperventilation could not be performed. Photic stimulation remained unremarkable. EKG revealed a left bundle branch block pattern with sinus rhythm, No focal, lateralizing, or epileptiform abnormalities were seen. No relevant clinical activity was noted. CONCLUSION: This EEG in awake, drowsy states, stage 1 and 2 sleep is within normal limits. [facility]
[2020-03-21 21:12] LABS: ALBUMIN 3.2 GM/DL (3.2-5.2); ALT/SGPT 26 U/L (12-78); AMPHETAMINES LEVEL URINE NEGATIVE (NEGATIVE); BARBITURATES URINE NEGATIVE (NEGATIVE); BENZODIAZEPINES URINE NEGATIVE (NEGATIVE); BILIRUBIN,DIRECT 0.2 MG/DL (0.0-0.2); BILIRUBIN,TOTAL 0.6 MG/DL (0.2-1.0); BLOOD UREA NITROGEN 29 MG/DL (7-18); CALCIUM LEVEL 8.9 MG/DL (8.8-10.2); CANNABINOIDS URINE NEGATIVE (NEGATIVE); CARBON DIOXIDE LEVEL 23 MEQ/L (21-32); CHLORIDE LEVEL 109 MEQ/L (98-107); COCAINE METABOLITE URINE NEGATIVE (NEGATIVE); CPK CREATINE PHOSPHOKINASE 398 U/L (26-192); CREATININE FOR GFR 1.14 MG/DL (0.55-1.30); ETHYL ALCOHOL (ETHANOL) < 0.003 % (0.000-0.010); GLOMERULAR FILTRATION RATE 50.6 (>45); GLUCOSE, FASTING 105 MG/DL (70-100); MB/CK RELATIVE INDEX 1.26 (< OR =4); METHADONE URINE NEGATIVE (NEGATIVE); OPIATES URINE NEGATIVE (NEGATIVE); PHENCYCLIDINE URINE NEGATIVE (NEGATIVE); POTASSIUM SERUM 3.5 MEQ/L (3.5-5.1); SALICYLATE LEVEL 3.2 MG/DL (5.0-30.0); SODIUM LEVEL 143 MEQ/L (136-145); TOTAL PROTEIN 6.7 GM/DL (6.4-8.2)
[2020-03-22 14:27] LABS: HEMATOCRIT 33.3 % (36.0-47.0); MEAN CORPUSCULAR HEMOGLOBIN 32.9 pg (27.0-33.0); MEAN CORPUSCULAR VOLUME 99.7 fl (80.0-96.0); PLATELET COUNT, AUTOMATED 232 10^3/uL (150-450); RED BLOOD COUNT 3.34 10^6/uL (4.00-5.40); WHITE BLOOD COUNT 10.7 10^3/uL (4.0-10.0)
[2020-03-23 11:08] LABS: NT-PRO BNP 1747 PG/ML (<125); TROPONIN I < 0.02 NG/ML (< 0.10)
[2020-03-24 08:47] LABS: APPEARANCE, URINE CLEAR (CLEAR); BACTERIA, URINE AUTO 1+ (NEGATIVE); BILIRUBIN, URINE AUTO NEGATIVE (NEGATIVE); BLOOD, URINE BLOOD NEGATIVE (NEGATIVE); COLOR, URINE YELLOW (YELLOW); GLUCOSE, URINE (UA) AUTO NEGATIVE (NEGATIVE); KETONE, URINE AUTO NEGATIVE (NEGATIVE); LEUKOCYTE ESTERASE, URINE AUTO NEGATIVE (NEGATIVE); MUCUS, URINE SMALL (NEGATIVE); NITRITE, URINE AUTO NEGATIVE (NEGATIVE); PROTEIN, URINE AUTO NEGATIVE (NEGATIVE); RBC, URINE AUTO 3 /HPF (0-3); SQUAMOUS EPITHELIAL CELL UR AU 2 /HPF (0-6); WBC, URINE AUTO 4 /HPF (0-3)
[2020-03-24 09:14] LABS: HEMOGLOBIN 10.6 g/dl (12.0-15.5); MEAN CORPUSCULAR HEMOGLOBIN 33.3 pg (27.0-33.0); MEAN CORPUSCULAR HGB CONC 33.1 g/dl (32.0-36.5); MEAN CORPUSCULAR VOLUME 100.6 fl (80.0-96.0); PLATELET COUNT, AUTOMATED 222 10^3/uL (150-450); RED BLOOD COUNT 3.18 10^6/uL (4.00-5.40)
[2020-03-24 09:35] LABS: HEMATOCRIT 32.2 % (36.0-47.0); HEMOGLOBIN 10.4 g/dl (12.0-15.5); MEAN CORPUSCULAR HEMOGLOBIN 32.7 pg (27.0-33.0); MEAN CORPUSCULAR HGB CONC 32.3 g/dl (32.0-36.5); MEAN CORPUSCULAR VOLUME 101.3 fl (80.0-96.0); PLATELET COUNT, AUTOMATED 216 10^3/uL (150-450); RED BLOOD COUNT 3.18 10^6/uL (4.00-5.40); WHITE BLOOD COUNT 8.1 10^3/uL (4.0-10.0)
[2020-03-24 20:44] LABS: HEMOGLOBIN 10.2 g/dl (12.0-15.5); RED BLOOD COUNT 3.12 10^6/uL (4.00-5.40); WHITE BLOOD COUNT 10.1 10^3/uL (4.0-10.0)
[2020-03-24 20:45] LABS: HEMATOCRIT 31.4 % (36.0-47.0); MEAN CORPUSCULAR HEMOGLOBIN 32.7 pg (27.0-33.0); MEAN CORPUSCULAR HGB CONC 32.5 g/dl (32.0-36.5); MEAN CORPUSCULAR VOLUME 100.6 fl (80.0-96.0); PLATELET COUNT, AUTOMATED 274 10^3/uL (150-450)
--- NOTE | 2020-03-25 13:46 | ECGEPIP ---
[facility] Test Date: 2020-02-03 Pat Name: CK BYRD Department: Room: [place] [address] Gender: Female Stroke Coordinator: MALU : 1950 Requested By: KRISTEN LOGAN Order Number: [id number] Reading MD: David Franklin Measurements Intervals [place] Rate: 81 P: 17 WA: 176 QRS: 0 QRSD: 145 T: 62 QT: 456 QTc: 531 Interpretive Statements NORMAL SINUS RHYTHM WITH PVC'S INCLUDING COUPLET LEFT BUNDLE BRANCH BLOCK INCREASED ECTOPY VS 01:43 THIS DATE. SEE SCANNED DOWNTIME REPORT
--- NOTE | 2020-03-30 12:17 | ECGEPIP ---
NORMAL SINUS RHYTHM WITH PVCS LBBB COMPARISON NOT AVAILABLE SEE SCANNED DOWNTIME REPORT MTDD
[2020-04-03 08:47] LABS: HEMATOCRIT 34.2 % (36.0-47.0); MEAN CORPUSCULAR HEMOGLOBIN 32.8 pg (27.0-33.0); MEAN CORPUSCULAR HGB CONC 32.2 g/dl (32.0-36.5); MEAN CORPUSCULAR VOLUME 102.1 fl (80.0-96.0); PLATELET COUNT, AUTOMATED 230 10^3/uL (150-450); RED BLOOD COUNT 3.35 10^6/uL (4.00-5.40); WHITE BLOOD COUNT 9.2 10^3/uL (4.0-10.0)
[2020-04-03 11:17] LABS: HEMATOCRIT 29.3 % (36.0-47.0); HEMOGLOBIN 9.5 g/dl (12.0-15.5); MEAN CORPUSCULAR HEMOGLOBIN 32.8 pg (27.0-33.0); MEAN CORPUSCULAR HGB CONC 32.4 g/dl (32.0-36.5); PLATELET COUNT, AUTOMATED 220 10^3/uL (150-450)
[2020-04-10 11:11] LABS: ABG BASE EXCESS -3.3 (-2.0-2.0); ABG HCO3 19.3 MEQ/L (22.0-26.0); ABG O2 SATURATION 97.4 % (95.0-99.0); ABG PARTIAL PRESSURE CO2 27.5 mmHg (35.0-45.0); ABG PARTIAL PRESSURE O2 90.5 mmHg (75.0-100.0); ABG STANDARD HCO3 21.7 MEQ/L (22.0-26.0); ABG TOTAL CO2 20.2 MEQ/L (23.0-31.0); ABG pH (ARTERIAL) 7.465 UNITS (7.350-7.450)
[2020-04-10 11:14] LABS: NT-PRO BNP 1747 PG/ML (<125); TROPONIN I < 0.02 NG/ML (< 0.10)
[2020-04-11 14:35] LABS: HEMATOCRIT 32.5 % (36.0-47.0); HEMOGLOBIN 10.7 g/dl (12.0-15.5); MEAN CORPUSCULAR HEMOGLOBIN 32.4 pg (27.0-33.0); MEAN CORPUSCULAR HGB CONC 32.9 g/dl (32.0-36.5); MEAN CORPUSCULAR VOLUME 98.5 fl (80.0-96.0); PLATELET COUNT, AUTOMATED 214 10^3/uL (150-450); WHITE BLOOD COUNT 8.7 10^3/uL (4.0-10.0)
[2020-04-25 13:35] LABS: ALBUMIN 2.7 GM/DL (3.2-5.2); ALT/SGPT 22 U/L (12-78); BILIRUBIN,TOTAL 0.4 MG/DL (0.2-1.0); BLOOD UREA NITROGEN 25 MG/DL (7-18); CALCIUM LEVEL 8.7 MG/DL (8.8-10.2); CARBON DIOXIDE LEVEL 25 MEQ/L (21-32); CHLORIDE LEVEL 107 MEQ/L (98-107); CREATININE FOR GFR 0.91 MG/DL (0.55-1.30); GLOMERULAR FILTRATION RATE > 60.0 (>45); GLUCOSE, FASTING 190 MG/DL (70-100); POTASSIUM SERUM 3.3 MEQ/L (3.5-5.1); SODIUM LEVEL 140 MEQ/L (136-145); TOTAL PROTEIN 6.3 GM/DL (6.4-8.2)
[2020-04-26 16:41] LABS: ALBUMIN 2.3 GM/DL (3.2-5.2); ALT/SGPT 15 U/L (12-78); BILIRUBIN,TOTAL 0.2 MG/DL (0.2-1.0); BLOOD UREA NITROGEN 7 MG/DL (7-18); CALCIUM LEVEL 8.5 MG/DL (8.8-10.2); CARBON DIOXIDE LEVEL 30 MEQ/L (21-32); CHLORIDE LEVEL 104 MEQ/L (98-107); CREATININE FOR GFR 0.74 MG/DL (0.55-1.30); GLOMERULAR FILTRATION RATE > 60.0 (>45); GLUCOSE, FASTING 115 MG/DL (70-100); POTASSIUM SERUM 3.9 MEQ/L (3.5-5.1); SODIUM LEVEL 139 MEQ/L (136-145); TOTAL PROTEIN 5.5 GM/DL (6.4-8.2)
[2020-04-27 10:02] LABS: BLOOD UREA NITROGEN 17 MG/DL (7-18); GLUCOSE, FASTING 102 MG/DL (70-100)
[2020-04-27 10:03] LABS: ALBUMIN 2.5 GM/DL (3.2-5.2); ALT/SGPT 21 U/L (12-78); BILIRUBIN,TOTAL 0.4 MG/DL (0.2-1.0); CALCIUM LEVEL 8.8 MG/DL (8.8-10.2); CARBON DIOXIDE LEVEL 28 MEQ/L (21-32); CHLORIDE LEVEL 106 MEQ/L (98-107); CREATININE FOR GFR 0.76 MG/DL (0.55-1.30); GLOMERULAR FILTRATION RATE > 60.0 (>45); POTASSIUM SERUM 3.7 MEQ/L (3.5-5.1); SODIUM LEVEL 139 MEQ/L (136-145); TOTAL PROTEIN 5.9 GM/DL (6.4-8.2)
[2020-04-27 10:03] LABS: ALT/SGPT 24 U/L (12-78); BILIRUBIN,TOTAL 0.5 MG/DL (0.2-1.0); BLOOD UREA NITROGEN 12 MG/DL (7-18); CARBON DIOXIDE LEVEL 20 MEQ/L (21-32); CHLORIDE LEVEL 102 MEQ/L (98-107); CK-MB VALUE MASS 1.5 NG/ML (<3.6); CPK CREATINE PHOSPHOKINASE 72 U/L (26-192); CREATININE FOR GFR 0.98 MG/DL (0.55-1.30); GLOMERULAR FILTRATION RATE > 60.0 (>45); GLUCOSE, FASTING 118 MG/DL (70-100); MAGNESIUM LEVEL 1.7 MG/DL (1.8-2.4); MB/CK RELATIVE INDEX 2.08 (< OR =4); PHOSPHORUS LEVEL 3.2 MG/DL (2.5-4.9); POTASSIUM SERUM 3.7 MEQ/L (3.5-5.1); SODIUM LEVEL 138 MEQ/L (136-145); TOTAL PROTEIN 7.1 GM/DL (6.4-8.2)
[2020-04-27 10:24] LABS: VENOUS BASE EXCESS -12.1 (-2.0-2.0); VENOUS HCO3 16.4 MEQ/L (23.0-27.0); VENOUS O2 SATURATION 94.6 % (60.0-80.0); VENOUS PARTIAL PRESSURE CO2 47.2 mmHg (38.0-50.0); VENOUS PARTIAL PRESSURE O2 90.3 mmHg (30.0-50.0); VENOUS PH 7.158 UNITS (7.330-7.430); VENOUS TOTAL CO2 17.8 MEQ/L (24.0-28.0); VENOUS VENT MODE R/A
[2020-04-27 11:08] LABS: CALCIUM LEVEL 7.7 MG/DL (8.8-10.2); FREE T4 1.03 NG/DL (0.76-1.46); MAGNESIUM LEVEL 1.8 MG/DL (1.8-2.4); PHOSPHORUS LEVEL 2.4 MG/DL (2.5-4.9); POTASSIUM SERUM 3.8 MEQ/L (3.5-5.1); TROPONIN I < 0.02 NG/ML (< 0.10)
[2020-04-27 11:08] LABS: ALBUMIN 2.5 GM/DL (3.2-5.2); ALT/SGPT 17 U/L (12-78); BILIRUBIN,TOTAL 0.3 MG/DL (0.2-1.0); BLOOD UREA NITROGEN 8 MG/DL (7-18); CALCIUM LEVEL 8.3 MG/DL (8.8-10.2); CARBON DIOXIDE LEVEL 28 MEQ/L (21-32); CHLORIDE LEVEL 106 MEQ/L (98-107); GLOMERULAR FILTRATION RATE > 60.0 (>45); GLUCOSE, FASTING 99 MG/DL (70-100); MAGNESIUM LEVEL 2.2 MG/DL (1.8-2.4); NT-PRO BNP 3047 PG/ML (<125); POTASSIUM SERUM 4.7 MEQ/L (3.5-5.1); SODIUM LEVEL 139 MEQ/L (136-145); TOTAL PROTEIN 5.9 GM/DL (6.4-8.2)
[2020-04-28 20:46] LABS: BLOOD UREA NITROGEN 7 MG/DL (7-18); CALCIUM LEVEL 8.5 MG/DL (8.8-10.2); CARBON DIOXIDE LEVEL 27 MEQ/L (21-32); CHLORIDE LEVEL 105 MEQ/L (98-107); CREATININE FOR GFR 0.62 MG/DL (0.55-1.30); GLOMERULAR FILTRATION RATE > 60.0 (>45); GLUCOSE, FASTING 80 MG/DL (70-100); POTASSIUM SERUM 4.1 MEQ/L (3.5-5.1); SODIUM LEVEL 136 MEQ/L (136-145)
[2020-04-28 20:47] LABS: ALBUMIN 2.4 GM/DL (3.2-5.2); ALT/SGPT 21 U/L (12-78); BILIRUBIN,TOTAL 0.3 MG/DL (0.2-1.0); TOTAL PROTEIN 5.8 GM/DL (6.4-8.2)
[2020-04-29 23:01] LABS: BASO # 0.1 10^3/uL (0.0-0.2); BASO % 0.6 % (0.0-1.0); EOS # 0.3 10^3/uL (0.0-0.5); EOS % 2.5 % (0.0-3.0); HEMATOCRIT 38.3 % (36.0-47.0); HEMOGLOBIN 12.1 g/dl (12.0-15.5); LYMPH # 3.5 10^3/uL (1.5-5.0); LYMPH % 26.6 % (24.0-44.0); MEAN CORPUSCULAR HEMOGLOBIN 32.6 pg (27.0-33.0); MEAN CORPUSCULAR HGB CONC 31.6 g/dl (32.0-36.5); MEAN CORPUSCULAR VOLUME 103.2 fl (80.0-96.0); MONO # 1.1 10^3/uL (0.0-0.8); MONO % 8.3 % (0.0-5.0); NEUTROPHILS # 8.1 10^3/uL (1.5-8.5); NEUTROPHILS % 61.4 % (36.0-66.0); PLATELET COUNT, AUTOMATED 306 10^3/uL (150-450); RED BLOOD COUNT 3.71 10^6/uL (4.00-5.40); WHITE BLOOD COUNT 13.3 10^3/uL (4.0-10.0)
[2020-04-30 06:50] LABS: ALBUMIN 2.4 GM/DL (3.2-5.2); BILIRUBIN,TOTAL 0.5 MG/DL (0.2-1.0); CALCIUM LEVEL 8.3 MG/DL (8.8-10.2); CREATININE FOR GFR 1.01 MG/DL (0.55-1.30); GLOMERULAR FILTRATION RATE 58.2 (>45); TOTAL PROTEIN 5.7 GM/DL (6.4-8.2)
== END 2020-02-05 16:20 | DRG 194 ==
LOC: M ED 10:30 → UNDOADMOB 10:31 → M PCU 10:31 → M MS5PR 14:28 → M MSPAV 14:28 → UNDOADMIN 14:28 → M MS5PR 14:28 → UNDOADMOB 14:28 → INTOOBSV 23:30 → OBSVTOIN 23:30 → INTOOBSV 01-31 11:30 → OBSVTOIN 01-31 11:30 → M MSPAV 01-31 11:30 → M ED 02-01 10:30 → M ICU 02-02 22:39 → M 4MAIN 02-03 11:40 → M MS5PR 02-03 15:46 → M PCU 02-03 15:46 → UNDODISIN 02-05 16:20 → UNDODISOB 02-05 16:20
PROVIDERS: ADMIT Internal Medicine; ATTEND Internal Medicine
DX: J18.9 Pneumonia, unspecified organism (principal); I50.32 Chronic diastolic (congestive) heart failure; R78.81 Bacteremia; R41.82 Altered mental status, unspecified; Z91.14 Patient's other noncompliance with medication regimen; F20.9 Schizophrenia, unspecified; F31.9 Bipolar disorder, unspecified; E87.6 Hypokalemia; I11.0 Hypertensive heart disease with heart failure; J44.9 Chronic obstructive pulmonary disease, unspecified; K21.9 Gastro-esophageal reflux disease without esophagitis; R56.9 Unspecified convulsions; Z79.899 Other long term (current) drug therapy; Z88.2 Allergy status to sulfonamides; Z88.8 Allergy status to other drugs, medicaments and biological substances; Z79.82 Long term (current) use of aspirin; G24.01 Drug induced subacute dyskinesia

== ENCOUNTER 2020-02-09 19:25 | Inpatient (IN) | payer OTHER, MEDICAID ==
[~2020-02-09] VITALS: Ht 154.9 cm; Wt 66.8 kg
[~2020-02-09 19:25] MED LIST changes: +AMANTADINE 100MG TABLET ONE; +ASPIRIN 81 MG ENTERIC TAB ONE; +CARVedilol 6.25 MG TAB ONE; +CYANOCOBALAMIN 500 MCG TAB ONE; +DOXYCYCLINE HYCLATE 100MG TABLET ONE; +ENOXAPARIN 40MG/0.4ML SYRINGE (J1650 PER 10MG) ONE; +FLUoxetine 20 MG CAP ONE; +FOLIC ACID 1 MG TAB ONE; +GABAPENTIN 300 MG CAP ONE; +HALOPERIDOL 5MG/ML VIAL (J1630 PER 1) ONE; +LORazepam 2 MG/ML VIAL ONE; +METOPROLOL TART 25 MG TABLET ONE; +MIRALAX *UNIT DOSE* 17GM PACKET ONE; +PANTOPRAZOLE 40MG TAB (PROTONIX) ONE; +levETIRAcetam 250MG TABLET (KEPPRA) ONE; +oxyBUTYnin 5 MG TAB ONE
[2020-02-09] MEDS ORDERED: QUEtiapine FUMARATE 100 MG TAB ONE (22:36)
[2020-02-09] MEDS ORDERED: levETIRAcetam 250MG TABLET (KEPPRA) ONE (22:36)
[2020-02-09] MEDS ORDERED: FLUoxetine 20 MG CAP ONE (22:36)
[2020-02-09] MEDS ORDERED: ATORVASTATIN 20 MG TAB ONE (22:36)
[2020-02-09] MEDS ORDERED: QUEtiapine FUMARATE 200 MG TAB ONE (22:36)
[2020-02-09] MEDS ORDERED: METOPROLOL TART 25 MG TABLET ONE (22:36)
[2020-02-09] MEDS ORDERED: traZODone 50 MG TAB ONE (22:36)
[2020-02-09] MEDS ORDERED: DOXYCYCLINE HYCLATE 100MG TABLET ONE (22:42)
[2020-02-10] MEDS ORDERED: METOPROLOL TART 25 MG TABLET ONE ×2 (09:18→21:20)
[2020-02-10] MEDS ORDERED: DOXYCYCLINE HYCLATE 100MG TABLET ONE ×2 (09:18→21:20)
[2020-02-10] MEDS ORDERED: FOLIC ACID 1 MG TAB ONE (09:18)
[2020-02-10] MEDS ORDERED: MIRALAX *UNIT DOSE* 17GM PACKET ONE (09:18)
[2020-02-10] MEDS ORDERED: GABAPENTIN 300 MG CAP ONE (09:18)
[2020-02-10] MEDS ORDERED: ASPIRIN 81 MG ENTERIC TAB ONE (09:18)
[2020-02-10] MEDS ORDERED: DOCUSATE SODIUM 100 MG CAP ONE ×2 (09:18→21:20)
[2020-02-10] MEDS ORDERED: PANTOPRAZOLE 20 MG TAB ONE (09:18)
[2020-02-10] MEDS ORDERED: FLUoxetine 20 MG CAP ONE ×2 (09:18→21:20)
[2020-02-10] MEDS ORDERED: levETIRAcetam 250MG TABLET (KEPPRA) ONE ×2 (09:18→21:21)
[2020-02-10] MEDS ORDERED: CYANOCOBALAMIN 500 MCG TAB ONE ×2 (09:18→21:33)
[2020-02-10] MEDS ORDERED: QUEtiapine FUMARATE 100 MG TAB ONE (21:20)
[2020-02-10] MEDS ORDERED: ATORVASTATIN 20 MG TAB ONE (21:20)
[2020-02-10] MEDS ORDERED: traZODone 50 MG TAB ONE (21:33)
[2020-02-11] MEDS ORDERED: CYANOCOBALAMIN 500 MCG TAB ONE (09:45)
[2020-02-11] MEDS ORDERED: GABAPENTIN 300 MG CAP ONE (10:02)
[2020-02-11] MEDS ORDERED: FOLIC ACID 1 MG TAB ONE (10:02)
[2020-02-11] MEDS ORDERED: ASPIRIN 81 MG CHEW TABLET ONE (10:02)
[2020-02-11] MEDS ORDERED: PANTOPRAZOLE 40MG TAB (PROTONIX) ONE (10:02)
[2020-02-11] MEDS ORDERED: levETIRAcetam 250MG TABLET (KEPPRA) ONE ×2 (10:02→20:13)
[2020-02-11] MEDS ORDERED: MIRALAX *UNIT DOSE* 17GM PACKET ONE (10:02)
[2020-02-11] MEDS ORDERED: FLUoxetine 20 MG CAP ONE ×3 (10:02→20:14)
[2020-02-11] MEDS ORDERED: DOCUSATE SODIUM 100 MG CAP ONE (10:02)
[2020-02-11] MEDS ORDERED: DOXYCYCLINE HYCLATE 100MG TABLET ONE ×3 (10:02→20:13)
[2020-02-11] MEDS ORDERED: oxyBUTYnin 5 MG TAB ONE (13:00)
[2020-02-11] MEDS ORDERED: CARVedilol 6.25 MG TAB ONE (13:00)
[2020-02-11] MEDS ORDERED: AMANTADINE 100MG TABLET ONE (13:00)
[2020-02-11] MEDS ORDERED: METOPROLOL TART 25 MG TABLET ONE ×2 (20:13→20:14)
[2020-02-11] MEDS ORDERED: QUEtiapine FUMARATE 100 MG TAB ONE (20:13)
[2020-02-11] MEDS ORDERED: ATORVASTATIN 20 MG TAB ONE (20:14)
[2020-02-12] MEDS ORDERED: ACETAMINOPHEN TAB 650MG DOSE (2X325MG) ONE (04:38)
[2020-02-12] MEDS ORDERED: FLUoxetine 20 MG CAP ONE ×2 (08:20→20:48)
[2020-02-12] MEDS ORDERED: CYANOCOBALAMIN 500 MCG TAB ONE (08:20)
[2020-02-12] MEDS ORDERED: GABAPENTIN 300 MG CAP ONE (08:20)
[2020-02-12] MEDS ORDERED: MIRALAX *UNIT DOSE* 17GM PACKET ONE (08:20)
[2020-02-12] MEDS ORDERED: levETIRAcetam 250MG TABLET (KEPPRA) ONE ×2 (08:20→20:48)
[2020-02-12] MEDS ORDERED: PANTOPRAZOLE 40MG TAB (PROTONIX) ONE (08:20)
[2020-02-12] MEDS ORDERED: DOCUSATE SODIUM 100 MG CAP ONE ×2 (08:20→20:48)
[2020-02-12] MEDS ORDERED: FOLIC ACID 1 MG TAB ONE (08:20)
[2020-02-12] MEDS ORDERED: METOPROLOL TART 25 MG TABLET ONE ×2 (08:20→20:48)
[2020-02-12] MEDS ORDERED: ASPIRIN 81 MG CHEW TABLET ONE (08:33)
[2020-02-12] MEDS ORDERED: risperiDONE 0.25 MG TAB ONE (20:48)
[2020-02-12] MEDS ORDERED: ATORVASTATIN 20 MG TAB ONE (20:48)
[2020-02-13] MEDS ORDERED: traZODone 50 MG TAB ONE ×2 (02:28→21:04)
[2020-02-13] MEDS ORDERED: OLANZapine ORAL DISINTEGRATING TAB 5MG ONE ×2 (03:02→03:45)
[2020-02-13] MEDS ORDERED: ASPIRIN 81 MG ENTERIC TAB ONE (09:04)
[2020-02-13] MEDS ORDERED: FOLIC ACID 1 MG TAB ONE (09:10)
[2020-02-13] MEDS ORDERED: DOCUSATE SODIUM 100 MG CAP ONE ×2 (09:10→21:04)
[2020-02-13] MEDS ORDERED: FLUoxetine 20 MG CAP ONE ×2 (09:10→21:04)
[2020-02-13] MEDS ORDERED: MIRALAX *UNIT DOSE* 17GM PACKET ONE (09:10)
[2020-02-13] MEDS ORDERED: levETIRAcetam 250MG TABLET (KEPPRA) ONE ×2 (09:10→21:04)
[2020-02-13] MEDS ORDERED: risperiDONE 0.25 MG TAB ONE ×2 (09:10→21:04)
[2020-02-13] MEDS ORDERED: PANTOPRAZOLE 40MG TAB (PROTONIX) ONE (09:10)
[2020-02-13] MEDS ORDERED: GABAPENTIN 300 MG CAP ONE (09:10)
[2020-02-13] MEDS ORDERED: CYANOCOBALAMIN 500 MCG TAB ONE (09:10)
[2020-02-13] MEDS ORDERED: ATORVASTATIN 20 MG TAB ONE (21:04)
[2020-02-14] MEDS ORDERED: amLODIPine 10 MG TAB ONE (00:02)
[2020-02-14] MEDS ORDERED: CYANOCOBALAMIN 500 MCG TAB ONE (08:58)
[2020-02-14] MEDS ORDERED: MIRALAX *UNIT DOSE* 17GM PACKET ONE (08:58)
[2020-02-14] MEDS ORDERED: risperiDONE 0.25 MG TAB ONE ×2 (08:58→22:17)
[2020-02-14] MEDS ORDERED: GABAPENTIN 300 MG CAP ONE (08:58)
[2020-02-14] MEDS ORDERED: levETIRAcetam 250MG TABLET (KEPPRA) ONE ×2 (08:58→23:48)
[2020-02-14] MEDS ORDERED: FLUoxetine 20 MG CAP ONE ×3 (08:59→22:19)
[2020-02-14] MEDS ORDERED: DOCUSATE SODIUM 100 MG CAP ONE ×2 (08:59→22:19)
[2020-02-14] MEDS ORDERED: PANTOPRAZOLE 40MG TAB (PROTONIX) ONE (08:59)
[2020-02-14] MEDS ORDERED: ASPIRIN 81 MG ENTERIC TAB ONE (08:59)
[2020-02-14] MEDS ORDERED: FOLIC ACID 1 MG TAB ONE (08:59)
[2020-02-14] MEDS ORDERED: ACETAMINOPHEN 500 MG TAB ONE (15:11)
[2020-02-14] MEDS ORDERED: TOPIRAMATE (TopAMAX) 25 MG TAB ONE (15:48)
[2020-02-14] MEDS ORDERED: traMADol 50 MG TAB ONE (22:17)
[2020-02-14] MEDS ORDERED: GABAPENTIN 100 MG CAP ONE (22:17)
[2020-02-14] MEDS ORDERED: ATORVASTATIN 20 MG TAB ONE (22:17)
[2020-02-14] MEDS ORDERED: traZODone 50 MG TAB ONE (22:19)
[2020-02-15] MEDS ORDERED: CYANOCOBALAMIN 500 MCG TAB ONE (08:44)
[2020-02-15] MEDS ORDERED: levETIRAcetam 250MG TABLET (KEPPRA) ONE ×2 (08:44→21:31)
[2020-02-15] MEDS ORDERED: traMADol 50 MG TAB ONE ×3 (08:44→21:31)
[2020-02-15] MEDS ORDERED: FLUoxetine 20 MG CAP ONE ×3 (08:45→21:32)
[2020-02-15] MEDS ORDERED: GABAPENTIN 300 MG CAP ONE (08:45)
[2020-02-15] MEDS ORDERED: amLODIPine 5 MG TAB ONE ×2 (08:45→21:32)
[2020-02-15] MEDS ORDERED: PANTOPRAZOLE 40MG TAB (PROTONIX) ONE (08:45)
[2020-02-15] MEDS ORDERED: ASPIRIN 81 MG ENTERIC TAB ONE (08:45)
[2020-02-15] MEDS ORDERED: ACETAMINOPHEN 500 MG TAB ONE ×2 (08:45→21:31)
[2020-02-15] MEDS ORDERED: DOCUSATE SODIUM 100 MG CAP ONE ×2 (08:45→21:32)
[2020-02-15] MEDS ORDERED: risperiDONE 0.25 MG TAB ONE ×2 (08:45→21:31)
[2020-02-15] MEDS ORDERED: FOLIC ACID 1 MG TAB ONE (08:45)
[2020-02-15] MEDS ORDERED: GABAPENTIN 100 MG CAP ONE (21:32)
[2020-02-15] MEDS ORDERED: ATORVASTATIN 20 MG TAB ONE (21:32)
[2020-02-15] MEDS ORDERED: traZODone 50 MG TAB ONE (23:09)
[2020-02-16] MEDS ORDERED: traMADol 50 MG TAB ONE (09:45)
[2020-02-16] MEDS ORDERED: CYANOCOBALAMIN 500 MCG TAB ONE (09:45)
[2020-02-16] MEDS ORDERED: risperiDONE 0.25 MG TAB ONE (09:45)
[2020-02-16] MEDS ORDERED: ACETAMINOPHEN 500 MG TAB ONE ×2 (09:45→19:45)
[2020-02-16] MEDS ORDERED: levETIRAcetam 250MG TABLET (KEPPRA) ONE ×2 (09:45→19:45)
[2020-02-16] MEDS ORDERED: GABAPENTIN 300 MG CAP ONE (09:47)
[2020-02-16] MEDS ORDERED: DOCUSATE SODIUM 100 MG CAP ONE ×2 (09:47→19:45)
[2020-02-16] MEDS ORDERED: FOLIC ACID 1 MG TAB ONE (09:47)
[2020-02-16] MEDS ORDERED: MIRALAX *UNIT DOSE* 17GM PACKET ONE (09:47)
[2020-02-16] MEDS ORDERED: ASPIRIN 81 MG CHEW TABLET ONE (09:47)
[2020-02-16] MEDS ORDERED: FLUoxetine 20 MG CAP ONE (09:47)
[2020-02-16] MEDS ORDERED: PANTOPRAZOLE 40MG TAB (PROTONIX) ONE (09:47)
[2020-02-16] MEDS ORDERED: amLODIPine 5 MG TAB ONE ×2 (10:05→19:45)
[2020-02-16] MEDS ORDERED: risperiDONE 1 MG TAB ONE ×2 (11:42→19:45)
[2020-02-16] MEDS ORDERED: AMANTADINE 100MG TABLET ONE (13:00)
[2020-02-16] MEDS ORDERED: oxyBUTYnin *DITROPAN XL* 5 MG TABCR ONE (13:00)
[2020-02-16] MEDS ORDERED: ATORVASTATIN 20 MG TAB ONE (19:45)
[2020-02-16] MEDS ORDERED: GABAPENTIN 100 MG CAP ONE (19:45)
[2020-02-16] MEDS ORDERED: traZODone 50 MG TAB ONE (19:45)
[2020-02-17] MEDS ORDERED: DOCUSATE SODIUM 100 MG CAP ONE (09:06)
[2020-02-17] MEDS ORDERED: amLODIPine 5 MG TAB ONE (09:06)
[2020-02-17] MEDS ORDERED: GABAPENTIN 300 MG CAP ONE (09:06)
[2020-02-17] MEDS ORDERED: PANTOPRAZOLE 40MG TAB (PROTONIX) ONE (09:06)
[2020-02-17] MEDS ORDERED: FOLIC ACID 1 MG TAB ONE (09:06)
[2020-02-17] MEDS ORDERED: ACETAMINOPHEN 500 MG TAB ONE ×2 (09:06→21:07)
[2020-02-17] MEDS ORDERED: levETIRAcetam 250MG TABLET (KEPPRA) ONE (09:06)
[2020-02-17] MEDS ORDERED: CYANOCOBALAMIN 500 MCG TAB ONE (09:06)
[2020-02-17] MEDS ORDERED: MIRALAX *UNIT DOSE* 17GM PACKET ONE (09:06)
[2020-02-17] MEDS ORDERED: LORazepam 0.5 MG TAB ONE ×2 (09:06→17:15)
[2020-02-17] MEDS ORDERED: ASPIRIN 81 MG CHEW TABLET ONE (09:09)
[2020-02-17] MEDS ORDERED: ACETAMINOPHEN TAB 650MG DOSE (2X325MG) PO PRN ×2 (17:45→18:55)
[2020-02-17] MEDS ORDERED: MAALOX 30 ML SUSP *UDC PO PRN (17:45)
[2020-02-17] MEDS ORDERED: MOM 30ML SUSPENSION UDC PO PRN (17:45)
[2020-02-17] MEDS ORDERED: OMEP-221 PO (19:18)
[2020-02-17] MEDS ORDERED: AMLO1TAB24 PO (19:18)
[2020-02-17] MEDS ORDERED: ASPI81TA27 PO (19:18)
[2020-02-17] MEDS ORDERED: CYAN100050 PO (19:18)
[2020-02-17] MEDS ORDERED: OXYB5TAB10 PO (19:18)
[2020-02-17] MEDS ORDERED: ABIL10TA9 PO (19:18)
[2020-02-17] MEDS ORDERED: HYDR10TAB PO (19:18)
[2020-02-17] MEDS: ADVAIR HFA 115/21MCG INHALER INH SCH (20:00)
[2020-02-17] MEDS ORDERED: risperiDONE 1 MG TAB PO SCH (21:00)
[2020-02-17] MEDS: DOCUSATE SODIUM 100 MG CAP PO SCH (21:00)
[2020-02-17] MEDS: levETIRAcetam 250MG TABLET (KEPPRA) PO SCH (21:08)
[2020-02-17] MEDS: oxyBUTYnin 5 MG TAB PO SCH (21:08)
[2020-02-17] MEDS: amLODIPine 5 MG TAB PO SCH (21:09)
[2020-02-17] MEDS: ATORVASTATIN 20 MG TAB PO SCH (21:09)
[2020-02-17] MEDS: ACETAMINOPHEN 500 MG TAB PO SCH (21:09)
[2020-02-17] MEDS: traZODone 50 MG TAB PO PRN (21:10)
[2020-02-17] MEDS: GABAPENTIN 100 MG CAP PO SCH (21:10)
[2020-02-18] MEDS: OLANZapine ORAL DISINTEGRATING TAB 5MG SL PRN (02:44)
[2020-02-18] MEDS: TIOTROPIUM INHALER/CAPSULE (SPIRIVA) INH SCH (07:59)
[2020-02-18] MEDS: ADVAIR HFA 115/21MCG INHALER INH SCH ×2 (07:59→20:00)
--- NOTE | 2020-02-18 08:40 | MHIPNPDOC ---
[facility] Progress Note Progress Note DATE OF SERVICE: 02/17/20 Subjective HPI: The patient was attempted to be met with, however, shes quite bizarre, walking in and around of her room, making unusual gestures, stating shes naked while being fully clothed. Shes been on a one-to-one sitter, bizarre and increasingly problematic. Objective Behavior: Multiple stereotypical motions back and forth in a bizarre fashion. Speech: Incoherent. mumbling about various different things. 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 Im curious to see whether the increased Risperidone is actually making her worse which would be considered Catatonia. If she gets worse with the Ativan, that would likely lead to delirium being present. However, an EEG can be arranged, however, medicine is involved, will likely need an urinalysis as she could have a UTI that could be causing delirium. Its unclear. However, will monitor closely. Continue 1-to-1. Vital Signs Vital Signs Date Time Temp Pulse Resp B/P (MAP) Pulse Ox O2 Delivery O2 Flow Rate FiO2 02/17/20 21:09 88 134/75 Laboratory Data 24H Labs Laboratory Tests 2 02/17/20 15:05: Urine Color YELLOW, Urine Appearance CLOUDYH, Urine pH 6.0, Urine Specific [place] 1.005, Urine Protein NEGATIVE, Urine Glucose (UA) NEGATIVE, Urine Ketones NEGATIVE, Urine Blood 1+H, Urine Nitrite NEGATIVE, Urine Bilirubin NEGATIVE, Urine Urobilinogen 0.2, Urine Leukocyte Esterase 2+H, Urine WBC (Auto) 16H, Urine RBC (Auto) 8H, Urine Hyaline Casts (Auto) 0, Urine Bacteria (Auto) 1+H, Urine Squamous Epithelial Cells 10, Urine Mucus (Auto) SMALL, Urine Yeast- Like Cells (Auto) MODERATEH, Urine Sperm (Auto) Current Medications Current Medications Medications (Trade) Dose Ordered Sig/Sonia Route PRN Reason Start Time Stop Time Status Last Admin Dose Admin Acetaminophen (Tylenol Tab) 650 mg Q4HP PRN PO HEADACHE/DISCOMFORT 02/17/20 17:45 02/17/20 18:55 DC Acetaminophen (Tylenol Tab) 650 mg Q6HP PRN PO HEADACHE/DISCOMFORT 02/17/20 18:55 Acetaminophen (Tylenol Tab) 1,000 mg BID PO 02/17/20 21:00 02/17/20 21:09 Al Hydrox/Mg Hydrox/Simethicone (Mylanta) 30 ml Q4HP PRN PO HEARTBURN/INDIGESTION 02/17/20 17:45 Amantadine HCl (Symmetrel) 100 mg DAILY PO 02/18/20 09:00 Amlodipine Besylate (Norvasc) 5 mg BID PO 02/17/20 21:00 02/17/20 21:09 Aspirin (Aspirin Chewable) 81 mg DAILY PO 02/18/20 09:00 Atorvastatin Calcium (Lipitor) 20 mg QHS PO 02/17/20 21:00 02/17/20 21:09 Cyanocobalamin (Vitamin B12) 1,000 mcg DAILY PO 02/18/20 09:00 Docusate Sodium (Colace) 100 mg BID PO 02/17/20 21:00 Folic Acid (Folic Acid) 1 mg DAILY PO 02/18/20 09:00 Gabapentin (Neurontin) 200 mg QHS PO 02/17/20 21:00 02/17/20 21:10 Gabapentin (Neurontin) 300 mg DAILY PO 02/18/20 09:00 Home Med (Med Rec Complete!) ASDIRECTED XX 02/17/20 19:30 02/17/20 19:19 DC Levetiracetam (Keppra) 500 mg BID PO 02/17/20 21:00 02/17/20 21:08 Lorazepam (Ativan) 0.25 mg BID@0900,1800 PO 02/18/20 09:00 Magnesium Hydroxide (Milk Of Magnesia) 30 ml DAILYPRN PRN PO CONSTIPATION 02/17/20 17:45 Olanzapine (ZyPREXA ZYDIS) 5 mg Q4HP PRN SL ANXIETY/AGITATION 02/17/20 17:45 02/18/20 02:44 Oxybutynin Chloride (Ditropan) 5 mg BID PO 02/17/20 21:00 02/17/20 21:08 Pantoprazole Sodium (Protonix) 40 mg DAILY PO 02/18/20 09:00 Polyethylene Glycol (Miralax) 1 pkt DAILY PO 02/18/20 09:00 Risperidone (RisperDAL) 1 mg BID PO 02/17/20 21:00 02/17/20 18:54 DC Salmeterol Xinafoate/ Fluticasone (Advair Hfa 115/ 21) 1 puff RBID INH 02/17/20 20:00 02/18/20 07:59 Tiotropium Matheny (Spiriva Handihaler) 1 inhalation DAILY@08 INH 02/18/20 08:00 02/18/20 07:59 Tramadol HCl (Ultram) 25 mg TIDP PRN PO PAIN 02/17/20 17:45 Trazodone HCl (Desyrel) 50 mg QHS PRN PO INSOMNIA 02/17/20 17:45 02/17/20 21:10 Allergies Coded Allergies: Sulfa (Sulfonamide Antibiotics) (Verified Allergy, Severe, ANAPYLAXIS, 01/20/20) Quinolones (Verified Allergy, Intermediate, HIVES, 01/20/20) cephalexin (Verified Allergy, Mild, HIVES, 11/02/19) amoxicillin (Verified Allergy, Unknown, unknown, 01/10/19) clavulanic acid (Verified Allergy, Unknown, unknown, 01/10/19) moxifloxacin (Verified Allergy, Unknown, unknown, 01/10/19) nitrofurantoin (Verified Allergy, Unknown, unknown, 01/10/19) oxycodone (Verified Adverse Reaction, Intermediate, AMS, 01/20/20) prednisolone (Verified Adverse Reaction, Mild, flippy feeling, 01/20/20) BROCK OWLF DO Feb 18, 2020 08:40
--- NOTE | 2020-02-18 08:44 | MHIPNPDOC ---
[facility] Progress Note Progress Note DATE OF SERVICE: 02/18/20 Subjective HPI: Pamela presents today for concerns regarding her current hospitalization.She is still acting very bizarre and unable to have any conversation, she is generally incoherent LABS: Urine tests show UTI. Objective Speech: Repetitive statements with stereotypical actions. Normal volume. Normal rate. Cognition: Confused. Judgement: Poor judgement. Insight: Poor insight. 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 Urine test came back positive so defer to hospital for further treatment Discuss potential need for EEG if patients condition does not improve significantly. Continue one-to-one interaction. Vital Signs Vital Signs Date Time Temp Pulse Resp B/P (MAP) Pulse Ox O2 Delivery O2 Flow Rate FiO2 02/17/20 21:09 88 134/75 Laboratory Data 24H Labs Laboratory Tests 2 02/17/20 15:05: Urine Color YELLOW, Urine Appearance CLOUDYH, Urine pH 6.0, Urine Specific [place] 1.005, Urine Protein NEGATIVE, Urine Glucose (UA) NEGATIVE, Urine Ketones NEGATIVE, Urine Blood 1+H, Urine Nitrite NEGATIVE, Urine Bilirubin NEGATIVE, Urine Urobilinogen 0.2, Urine Leukocyte Esterase 2+H, Urine WBC (Auto) 16H, Urine RBC (Auto) 8H, Urine Hyaline Casts (Auto) 0, Urine Bacteria (Auto) 1+H, Urine Squamous Epithelial Cells 10, Urine Mucus (Auto) SMALL, Urine Yeast- Like Cells (Auto) MODERATEH, Urine Sperm (Auto) Current Medications Current Medications Medications (Trade) Dose Ordered Sig/Sonia Route PRN Reason Start Time Stop Time Status Last Admin Dose Admin Acetaminophen (Tylenol Tab) 650 mg Q4HP PRN PO HEADACHE/DISCOMFORT 02/17/20 17:45 02/17/20 18:55 DC Acetaminophen (Tylenol Tab) 650 mg Q6HP PRN PO HEADACHE/DISCOMFORT 02/17/20 18:55 Acetaminophen (Tylenol Tab) 1,000 mg BID PO 02/17/20 21:00 02/17/20 21:09 Al Hydrox/Mg Hydrox/Simethicone (Mylanta) 30 ml Q4HP PRN PO HEARTBURN/INDIGESTION 02/17/20 17:45 Amantadine HCl (Symmetrel) 100 mg DAILY PO 02/18/20 09:00 Amlodipine Besylate (Norvasc) 5 mg BID PO 02/17/20 21:00 02/17/20 21:09 Aspirin (Aspirin Chewable) 81 mg DAILY PO 02/18/20 09:00 Atorvastatin Calcium (Lipitor) 20 mg QHS PO 02/17/20 21:00 02/17/20 21:09 Cyanocobalamin (Vitamin B12) 1,000 mcg DAILY PO 02/18/20 09:00 Docusate Sodium (Colace) 100 mg BID PO 02/17/20 21:00 Folic Acid (Folic Acid) 1 mg DAILY PO 02/18/20 09:00 Gabapentin (Neurontin) 200 mg QHS PO 02/17/20 21:00 02/17/20 21:10 Gabapentin (Neurontin) 300 mg DAILY PO 02/18/20 09:00 Home Med (Med Rec Complete!) ASDIRECTED XX 02/17/20 19:30 02/17/20 19:19 DC Levetiracetam (Keppra) 500 mg BID PO 02/17/20 21:00 02/17/20 21:08 Lorazepam (Ativan) 0.25 mg BID@0900,1800 PO 02/18/20 09:00 Magnesium Hydroxide (Milk Of Magnesia) 30 ml DAILYPRN PRN PO CONSTIPATION 02/17/20 17:45 Olanzapine (ZyPREXA ZYDIS) 5 mg Q4HP PRN SL ANXIETY/AGITATION 02/17/20 17:45 02/18/20 02:44 Oxybutynin Chloride (Ditropan) 5 mg BID PO 02/17/20 21:00 02/17/20 21:08 Pantoprazole Sodium (Protonix) 40 mg DAILY PO 02/18/20 09:00 Polyethylene Glycol (Miralax) 1 pkt DAILY PO 02/18/20 09:00 Risperidone (RisperDAL) 1 mg BID PO 02/17/20 21:00 02/17/20 18:54 DC Salmeterol Xinafoate/ Fluticasone (Advair Hfa 115/ 21) 1 puff RBID INH 02/17/20 20:00 02/18/20 07:59 Tiotropium [place] (Spiriva Handihaler) 1 inhalation DAILY@08 INH 02/18/20 08:00 02/18/20 07:59 Tramadol HCl (Ultram) 25 mg TIDP PRN PO PAIN 02/17/20 17:45 Trazodone HCl (Desyrel) 50 mg QHS PRN PO INSOMNIA 02/17/20 17:45 02/17/20 21:10 Allergies Coded Allergies: Sulfa (Sulfonamide Antibiotics) (Verified Allergy, Severe, ANAPYLAXIS, 01/20/20) Quinolones (Verified Allergy, Intermediate, HIVES, 01/20/20) cephalexin (Verified Allergy, Mild, HIVES, 11/02/19) amoxicillin (Verified Allergy, Unknown, unknown, 01/10/19) clavulanic acid (Verified Allergy, Unknown, unknown, 01/10/19) moxifloxacin (Verified Allergy, Unknown, unknown, 01/10/19) nitrofurantoin (Verified Allergy, Unknown, unknown, 01/10/19) oxycodone (Verified Adverse Reaction, Intermediate, AMS, 01/20/20) prednisolone (Verified Adverse Reaction, Mild, flippy feeling, 01/20/20) BROCK WOLF DO Feb 18, 2020 08:44
[2020-02-18] MEDS: MIRALAX *UNIT DOSE* 17GM PACKET PO SCH (09:00)
[2020-02-18] MEDS: DOCUSATE SODIUM 100 MG CAP PO SCH ×2 (09:43→20:00)
[2020-02-18] MEDS: ASPIRIN 81 MG CHEW TABLET PO SCH (09:43)
[2020-02-18] MEDS: CYANOCOBALAMIN 500 MCG TAB PO SCH (09:44)
[2020-02-18] MEDS: amLODIPine 5 MG TAB PO SCH ×2 (09:44→20:12)
[2020-02-18] MEDS: GABAPENTIN 300 MG CAP PO SCH (09:44)
[2020-02-18] MEDS: PANTOPRAZOLE 40MG TAB (PROTONIX) PO SCH (09:44)
[2020-02-18] MEDS: FOLIC ACID 1 MG TAB PO SCH (09:44)
[2020-02-18] MEDS: AMANTADINE 100MG TABLET PO SCH (09:45)
[2020-02-18] MEDS: oxyBUTYnin 5 MG TAB PO SCH ×2 (09:45→20:01)
[2020-02-18] MEDS: levETIRAcetam 250MG TABLET (KEPPRA) PO SCH ×2 (09:45→20:01)
[2020-02-18] MEDS: ACETAMINOPHEN 500 MG TAB PO SCH ×2 (09:45→20:00)
[2020-02-18] MEDS: LORazepam 0.5 MG TAB PO SCH ×2 (09:46→17:19)
[2020-02-18 09:55] VITALS: BP 150/70
[2020-02-18 16:52] VITALS: BP 126/70
[2020-02-18] MEDS: PILL CUTTER 1 EACH XX PRN (17:20)
[2020-02-18] MEDS: ATORVASTATIN 20 MG TAB PO SCH (20:01)
[2020-02-18] MEDS: GABAPENTIN 100 MG CAP PO SCH (20:01)
[2020-02-19] MEDS: ADVAIR HFA 115/21MCG INHALER INH SCH ×2 (08:00→23:34)
[2020-02-19] MEDS: TIOTROPIUM INHALER/CAPSULE (SPIRIVA) INH SCH (08:00)
[2020-02-19] MEDS: ASPIRIN 81 MG CHEW TABLET PO SCH (09:00)
[2020-02-19] MEDS: levETIRAcetam 250MG TABLET (KEPPRA) PO SCH ×2 (09:00→23:35)
[2020-02-19] MEDS: DOCUSATE SODIUM 100 MG CAP PO SCH ×2 (09:00→23:35)
[2020-02-19] MEDS: ACETAMINOPHEN 500 MG TAB PO SCH ×2 (09:00→21:00)
[2020-02-19] MEDS: oxyBUTYnin 5 MG TAB PO SCH ×2 (09:00→23:34)
[2020-02-19] MEDS: PANTOPRAZOLE 40MG TAB (PROTONIX) PO SCH (09:00)
[2020-02-19] MEDS: amLODIPine 5 MG TAB PO SCH ×2 (09:00→23:35)
[2020-02-19] MEDS: AMANTADINE 100MG TABLET PO SCH (09:00)
[2020-02-19] MEDS: CYANOCOBALAMIN 500 MCG TAB PO SCH (09:00)
[2020-02-19] MEDS: MIRALAX *UNIT DOSE* 17GM PACKET PO SCH (09:00)
[2020-02-19] MEDS: FOLIC ACID 1 MG TAB PO SCH (09:00)
[2020-02-19] MEDS: GABAPENTIN 300 MG CAP PO SCH (09:00)
--- NOTE | 2020-02-19 11:33 | HPEPDOC ---
[facility] Medical History & Physical Date of Admission Feb 18, 2020 Date of Service: Feb 19, 2020 History and Physical CHIEF COMPLAINT: Medical H&P for [facility]. HISTORY OF PRESENT ILLNESS: Patient seen at bedside. Refuses examination. Not co-operative with questioning. PAST MEDICAL HISTORY: Schizophrenia. Tardive dyskinesia with lip smacking. Recurrent falls. Cardiogenic syncope. Coronary artery disease. Myocardial infarction (NM). Dyslipidemia. Hypertension. COPD, not oxygen or steroid dependent. Overactive bladder. Iron deficiency anemia. Degenerative joint disease. Grade 1 diastolic dysfunction. Tobacco abuse. Sciatica. SIADH. Acute on chronic gastritis with H. pylori like organism on Giemsa stain, [address] Vinson. Left adrenal adenoma. Diverticulosis. ALLERGIES: Please see below. REVIEW OF SYSTEMS: Unable to assess. HOME MEDICATIONS: Please see below. PHYSICAL EXAMINATION: Refuses. LABORATORY DATA: See below. MICROBIOLOGY: Please see below. ASSESSMENT: 69 yo female admitted to [facility], patient is not co-operative, refusing examination, and not answering questions with any useful information. Nursing staff report poor oral intake. #AMS? - check labs - consider imaging - likely related to underlying psych pathology Vital Signs Vital Signs Date Time Temp Pulse Resp B/P (MAP) Pulse Ox O2 Delivery O2 Flow Rate FiO2 02/18/20 20:12 67 158/84 02/18/20 16:52 97.8 18 Laboratory Data Microbiology Microbiology 02/17/20 Urine Culture - Final, Complete Home Medications Scheduled Amantadine HCl (Amantadine) 100 Mg Tablet, 100 MG PO BID for . Amlodipine Besylate (Amlodipine Besylate) 5 Mg Tablet, 5 MG PO BID for . Aripiprazole (Abilify) 10 Mg Tablet, 10 MG PO QHS for . Aspirin (Aspirin EC) 81 Mg Tablet.dr, 81 MG PO DAILY for . Atorvastatin Calcium (Atorvastatin Calcium) 20 Mg Tablet, 20 MG PO DAILY for . Carvedilol (Carvedilol) 6.25 Mg Tablet, 6.25 MG PO BID for . Cetirizine HCl (Cetirizine HCl) 10 Mg Tablet, 10 MG PO DAILY for . Cyanocobalamin (Vitamin B-12) (Vitamin B-12) 1,000 Mcg Tablet, 1,000 MCG PO CELSA LY for . Fluoxetine Hcl (Fluoxetine HCl) 20 Mg Capsule, 20 MG PO TID for . Folic Acid (Folic Acid) 1 Mg Tablet, 1 MG PO DAILY for . Hydralazine HCl (Hydralazine HCl) 10 Mg Tablet, 10 MG PO TID for . Omeprazole (Omeprazole) 40 Mg Capsule.dr, 40 MG PO DAILY for . Oxybutynin Chloride (Oxybutynin Chloride) 5 Mg Tablet, 5 MG PO TID for . Potassium Chloride (Potassium Chloride) 10 Meq Capsule.er, 10 MEQ PO DAILY for . Quetiapine Fumarate (Quetiapine Fumarate) 300 Mg Tablet, 300 MG PO QHS for . Tiotropium [place] (Spiriva Respimat) 4 Gm Mist.inhal, 2 PUFF INH DAILY for . Scheduled PRN Lorazepam (Ativan) 0.5 Mg Tablet, 0.5 MG PO QHS PRN for SLEEP/ANXIETY Allergies Coded Allergies: Sulfa (Sulfonamide Antibiotics) (Verified Allergy, Severe, ANAPYLAXIS, 01/20/20) Quinolones (Verified Allergy, Intermediate, HIVES, 01/20/20) cephalexin (Verified Allergy, Mild, HIVES, 11/02/19) amoxicillin (Verified Allergy, Unknown, unknown, 01/10/19) clavulanic acid (Verified Allergy, Unknown, unknown, 01/10/19) moxifloxacin (Verified Allergy, Unknown, unknown, 01/10/19) nitrofurantoin (Verified Allergy, Unknown, unknown, 01/10/19) oxycodone (Verified Adverse Reaction, Intermediate, AMS, 01/20/20) prednisolone (Verified Adverse Reaction, Mild, flippy feeling, 01/20/20) A-FIB/CHADSVASC A-FIB History Current/History of A-Fib/PAF?: No DALE COLON MD Feb 19, 2020 11:33
--- NOTE | 2020-02-19 11:49 | MHIPNPDOC ---
[facility] Progress Note Progress Note DATE OF SERVICE: 02/19/20 Subjective HPI: Pamela presents today for concerns regarding her treatment. The patients met with today, however, she is highly disorganized and unable to reason any parts of her treatment. Shes incoherent, babbling, does not appear to be improving on the Ativan and continues to need a one-to-one sitter as she is nearly delirious. Medicine is currently following. Objective confused and agitated, speech incoherent Assessment delirium Plan Medicine to follow up, will reach out as I'm very concerned for a medical cause for her current state Vital Signs Vital Signs Date Time Temp Pulse Resp B/P (MAP) Pulse Ox O2 Delivery O2 Flow Rate FiO2 02/18/20 20:12 67 158/84 02/18/20 16:52 97.8 18 Current Medications Current Medications Medications (Trade) Dose Ordered Sig/Sonia Route PRN Reason Start Time Stop Time Status Last Admin Dose Admin Acetaminophen (Tylenol Tab) 650 mg Q4HP PRN PO HEADACHE/DISCOMFORT 02/17/20 17:45 02/17/20 18:55 DC Acetaminophen (Tylenol Tab) 650 mg Q6HP PRN PO HEADACHE/DISCOMFORT 02/17/20 18:55 Acetaminophen (Tylenol Tab) 1,000 mg BID PO 02/17/20 21:00 02/18/20 20:00 Al Hydrox/Mg Hydrox/Simethicone (Mylanta) 30 ml Q4HP PRN PO HEARTBURN/INDIGESTION 02/17/20 17:45 Amantadine HCl (Symmetrel) 100 mg DAILY PO 02/18/20 09:00 02/18/20 09:45 Amlodipine Besylate (Norvasc) 5 mg BID PO 02/17/20 21:00 02/18/20 20:12 Aspirin (Aspirin Chewable) 81 mg DAILY PO 02/18/20 09:00 02/18/20 09:43 Atorvastatin Calcium (Lipitor) 20 mg QHS PO 02/17/20 21:00 02/18/20 20:01 Cyanocobalamin (Vitamin B12) 1,000 mcg DAILY PO 02/18/20 09:00 02/18/20 09:44 Docusate Sodium (Colace) 100 mg BID PO 02/17/20 21:00 02/18/20 20:00 Folic Acid (Folic Acid) 1 mg DAILY PO 02/18/20 09:00 02/18/20 09:44 Gabapentin (Neurontin) 200 mg QHS PO 02/17/20 21:00 02/18/20 20:01 Gabapentin (Neurontin) 300 mg DAILY PO 02/18/20 09:00 02/18/20 09:44 Home Med (Med Rec Complete!) ASDIRECTED XX 02/17/20 19:30 02/17/20 19:19 DC Levetiracetam (Keppra) 500 mg BID PO 02/17/20 21:00 02/18/20 20:01 Lorazepam (Ativan) 0.25 mg BID@0900,1800 PO 02/18/20 09:00 02/18/20 17:19 Magnesium Hydroxide (Milk Of Magnesia) 30 ml DAILYPRN PRN PO CONSTIPATION 02/17/20 17:45 Olanzapine (ZyPREXA ZYDIS) 5 mg Q4HP PRN SL ANXIETY/AGITATION 02/17/20 17:45 02/18/20 02:44 Oxybutynin Chloride (Ditropan) 5 mg BID PO 02/17/20 21:00 02/18/20 20:01 Pantoprazole Sodium (Protonix) 40 mg DAILY PO 02/18/20 09:00 02/18/20 09:44 Polyethylene Glycol (Miralax) 1 pkt DAILY PO 02/18/20 09:00 Risperidone (RisperDAL) 1 mg BID PO 02/17/20 21:00 02/17/20 18:54 DC Salmeterol Xinafoate/ Fluticasone (Advair Hfa 115/ 21) 1 puff RBID INH 02/17/20 20:00 02/18/20 20:00 Tiotropium [place] (Spiriva Handihaler) 1 inhalation DAILY@08 INH 02/18/20 08:00 02/18/20 07:59 Tramadol HCl (Ultram) 25 mg TIDP PRN PO PAIN 02/17/20 17:45 Trazodone HCl (Desyrel) 50 mg QHS PRN PO INSOMNIA 02/17/20 17:45 02/17/20 21:10 Allergies Coded Allergies: Sulfa (Sulfonamide Antibiotics) (Verified Allergy, Severe, ANAPYLAXIS, 01/20/20) Quinolones (Verified Allergy, Intermediate, HIVES, 01/20/20) cephalexin (Verified Allergy, Mild, HIVES, 11/02/19) amoxicillin (Verified Allergy, Unknown, unknown, 01/10/19) clavulanic acid (Verified Allergy, Unknown, unknown, 01/10/19) moxifloxacin (Verified Allergy, Unknown, unknown, 01/10/19) nitrofurantoin (Verified Allergy, Unknown, unknown, 01/10/19) oxycodone (Verified Adverse Reaction, Intermediate, AMS, 01/20/20) prednisolone (Verified Adverse Reaction, Mild, flippy feeling, 01/20/20) BROCK WOLF DO Feb 19, 2020 11:49
[2020-02-19 13:01] LABS: BASO # 0.1 10^3/uL (0.0-0.2); EOS # 0.2 10^3/uL (0.0-0.5); EOS % 1.8 % (0.0-3.0); HEMATOCRIT 29.3 % (36.0-47.0); HEMOGLOBIN 9.6 g/dl (12.0-15.5); LYMPH # 2.4 10^3/uL (1.5-5.0); LYMPH % 22.8 % (24.0-44.0); MEAN CORPUSCULAR HEMOGLOBIN 33.1 pg (27.0-33.0); MEAN CORPUSCULAR HGB CONC 32.8 g/dl (32.0-36.5); MONO # 0.9 10^3/uL (0.0-0.8); MONO % 8.8 % (0.0-5.0); NEUTROPHILS # 6.8 10^3/uL (1.5-8.5); NEUTROPHILS % 65.4 % (36.0-66.0); PLATELET COUNT, AUTOMATED 247 10^3/uL (150-450); WHITE BLOOD COUNT 10.4 10^3/uL (4.0-10.0)
[2020-02-19 15:43] LABS: BASO # 0.1 10^3/uL (0.0-0.2); BASO % 0.8 % (0.0-1.0); EOS # 0.3 10^3/uL (0.0-0.5); EOS % 2.7 % (0.0-3.0); HEMATOCRIT 27.9 % (36.0-47.0); HEMOGLOBIN 9.2 g/dl (12.0-15.5); LYMPH # 1.9 10^3/uL (1.5-5.0); LYMPH % 20.2 % (24.0-44.0); MONO # 0.6 10^3/uL (0.0-0.8); MONO % 6.6 % (0.0-5.0); NEUTROPHILS # 6.4 10^3/uL (1.5-8.5); NEUTROPHILS % 69.4 % (36.0-66.0); PLATELET COUNT, AUTOMATED 171 10^3/uL (150-450); RED BLOOD COUNT 2.79 10^6/uL (4.00-5.40); WHITE BLOOD COUNT 9.2 10^3/uL (4.0-10.0)
[2020-02-19 16:15] LABS: ALT/SGPT 28 U/L (12-78); BILIRUBIN,TOTAL 0.7 MG/DL (0.2-1.0); BLOOD UREA NITROGEN 14 MG/DL (7-18); CALCIUM LEVEL 8.9 MG/DL (8.8-10.2); CARBON DIOXIDE LEVEL 29 MEQ/L (21-32); CHLORIDE LEVEL 106 MEQ/L (98-107); FREE THYROXINE INDEX 2.4 % (1.3-4.8); GLOMERULAR FILTRATION RATE > 60.0 (>45); GLUCOSE, FASTING 68 MG/DL (70-100); POTASSIUM SERUM 4.1 MEQ/L (3.5-5.1); SODIUM LEVEL 140 MEQ/L (136-145); T UPTAKE 33 % (30-39); THYROXINE (T4) 7.3 UG/DL (4.5-12.0); TOTAL PROTEIN 5.9 GM/DL (6.4-8.2)
[2020-02-19] MEDS: GABAPENTIN 100 MG CAP PO SCH (23:34)
[2020-02-19] MEDS: ATORVASTATIN 20 MG TAB PO SCH (23:35)
[2020-02-19] MEDS: OLANZapine ORAL DISINTEGRATING TAB 5MG SL PRN (23:38)
[2020-02-20 07:27] VITALS: BP 170/73
[2020-02-20] MEDS: ADVAIR HFA 115/21MCG INHALER INH SCH ×2 (08:00→20:38)
[2020-02-20] MEDS: TIOTROPIUM INHALER/CAPSULE (SPIRIVA) INH SCH (08:00)
--- NOTE | 2020-02-20 08:04 | MHIPNPDOC ---
[facility] Progress Note Progress Note DATE OF SERVICE: 02/20/20 Subjective HPI: The patient is attempting to be met with, however, she still thinks its 1974 and is quite distorted, confused. Medicine has seen the patient, however, she has not been taking much by mouth and has been increasingly unable to eat. Takes significant prompting, but she appears to be increasingly problematic laying in bed for most part. Highly confused. Medicine reportedly will try an antibiotic, however, they are concerned that she is delirious. Objective Cognition: Confused. Delirious. Thought Form: Tangential and incoherent. Judgement: Poor. Insight: Poor. 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 Continue to advocate for medicine to perhaps take her for rehydration and treatment as she increasingly seems to have an inability to feed herself, of which Im concerned is not a psychotic process but a delirious process in nature as she is confused, which is not common across psychotic disorders. Well convert her to PC as shes approaching day 12 at this time. Vital Signs Vital Signs Date Time Temp Pulse Resp B/P (MAP) Pulse Ox O2 Delivery O2 Flow Rate FiO2 02/20/20 07:27 97.7 72 18 170/73 (105) 98 Room Air Laboratory Data 24H Labs Laboratory Tests 2 02/19/20 14:35: Immature Granulocyte % (Auto) 0.3, Neutrophils (%) (Auto) 69.4H, Lymphocytes (%) (Auto) 20.2L, Monocytes (%) (Auto) 6.6H, Eosinophils (%) (Auto) 2.7, Basophils (%) (Auto) 0.8, Neutrophils # (Auto) 6.4, Lymphocytes # (Auto) 1.9, Monocytes # (Auto) 0.6, Eosinophils # (Auto) 0.3, Basophils # (Auto) 0.1, Nucleated Red Blood Cells % (auto) 0.0, Anion Gap 5L, Glomerular Filtration Rate > 60.0, Calcium Level 8.9, Total Bilirubin 0.7, Aspartate Amino Transf (AST/SGOT) 32, Alanine Aminotransferase (ALT/SGPT) 28, Alkaline Phosphatase 130H, Total Protein 5.9L, Albumin 3.0L, Albumin/Globulin Ratio 1.0L, Thyroid Stimulating Hormone (TSH) 1.360, Free Thyroxine Index 2.4, Thyroxine (T4) 7.3, Triiodothyronine (T3) Uptake 33 02/19/20 15:00: Urine Color YELLOW, Urine Appearance CLOUDYH, Urine pH 5.0, Urine Specific [place] 1.012, Urine Protein NEGATIVE, Urine Glucose (UA) NEGATIVE, Urine K etones TRACEH, Urine Blood 1+H, Urine Nitrite NEGATIVE, Urine Bilirubin NEGATIVE, Urine Urobilinogen 0.2, Urine Leukocyte Esterase 2+H, Urine WBC (Auto) 49H, Urine RBC (Auto) 9H, Urine Hyaline Casts (Auto) 2, Urine Bacteria (Auto) 2+H, Urine Squamous Epithelial Cells 7, Urine Mucus (Auto) SMALL, Urine Yeast- Like Cells (Auto) LARGEH, Urine Sperm (Auto) CBC/BMP Laboratory Tests 02/19/20 14:35 Current Medications Current Medications Medications (Trade) Dose Ordered Sig/Sonia Route PRN Reason Start Time Stop Time Status Last Admin Dose Admin Acetaminophen (Tylenol Tab) 650 mg Q4HP PRN PO HEADACHE/DISCOMFORT 02/17/20 17:45 02/17/20 18:55 DC Acetaminophen (Tylenol Tab) 650 mg Q6HP PRN PO HEADACHE/DISCOMFORT 02/17/20 18:55 02/19/20 23:37 Acetaminophen (Tylenol Tab) 1,000 mg BID PO 02/17/20 21:00 02/18/20 20:00 Al Hydrox/Mg Hydrox/Simethicone (Mylanta) 30 ml Q4HP PRN PO HEARTBURN/INDIGESTION 02/17/20 17:45 Amantadine HCl (Symmetrel) 100 mg DAILY PO 02/18/20 09:00 02/18/20 09:45 Amlodipine Besylate (Norvasc) 5 mg BID PO 02/17/20 21:00 02/19/20 23:35 Aspirin (Aspirin Chewable) 81 mg DAILY PO 02/18/20 09:00 02/18/20 09:43 Atorvastatin Calcium (Lipitor) 20 mg QHS PO 02/17/20 21:00 02/19/20 23:35 Cyanocobalamin (Vitamin B12) 1,000 mcg DAILY PO 02/18/20 09:00 02/18/20 09:44 Docusate Sodium (Colace) 100 mg BID PO 02/17/20 21:00 02/19/20 23:35 Ferrous Sulfate (Ferrous Sulfate) 325 mg DAILY PO 02/20/20 09:00 Folic Acid (Folic Acid) 1 mg DAILY PO 02/18/20 09:00 02/18/20 09:44 Gabapentin (Neurontin) 200 mg QHS PO 02/17/20 21:00 02/19/20 23:34 Gabapentin (Neurontin) 300 mg DAILY PO 02/18/20 09:00 02/18/20 09:44 Home Med (Med Rec Complete!) ASDIRECTED XX 02/17/20 19:30 02/17/20 19:19 DC Levetiracetam (Keppra) 500 mg BID PO 02/17/20 21:00 02/19/20 23:35 Lorazepam (Ativan) 0.25 mg BID@0900,1800 PO 02/18/20 09:00 02/19/20 12:51 DC 02/18/20 17:19 Magnesium Hydroxide (Milk Of Magnesia) 30 ml DAILYPRN PRN PO CONSTIPATION 02/17/20 17:45 Olanzapine (ZyPREXA ZYDIS) 5 mg Q4HP PRN SL ANXIETY/AGITATION 02/17/20 17:45 02/19/20 23:38 Oxybutynin Chloride (Ditropan) 5 mg BID PO 02/17/20 21:00 02/19/20 23:34 Pantoprazole Sodium (Protonix) 40 mg DAILY PO 02/18/20 09:00 02/18/20 09:44 Polyethylene Glycol (Miralax) 1 pkt DAILY PO 02/18/20 09:00 Risperidone (RisperDAL) 1 mg BID PO 02/17/20 21:00 02/17/20 18:54 DC Salmeterol Xinafoate/ Fluticasone (Advair Hfa 115/ 21) 1 puff RBID INH 02/17/20 20:00 02/19/20 23:34 Tiotropium [place] (Spiriva Handihaler) 1 inhalation DAILY@08 INH 02/18/20 08:00 02/18/20 07:59 Tramadol HCl (Ultram) 25 mg TIDP PRN PO PAIN 02/17/20 17:45 Trazodone HCl (Desyrel) 50 mg QHS PRN PO INSOMNIA 02/17/20 17:45 02/17/20 21:10 Allergies Coded Allergies: Sulfa (Sulfonamide Antibiotics) (Verified Allergy, Severe, ANAPYLAXIS, 01/20/20) Quinolones (Verified Allergy, Intermediate, HIVES, 01/20/20) cephalexin (Verified Allergy, Mild, HIVES, 11/02/19) amoxicillin (Verified Allergy, Unknown, unknown, 01/10/19) clavulanic acid (Verified Allergy, Unknown, unknown, 01/10/19) moxifloxacin (Verified Allergy, Unknown, unknown, 01/10/19) nitrofurantoin (Verified Allergy, Unknown, unknown, 01/10/19) oxycodone (Verified Adverse Reaction, Intermediate, AMS, 01/20/20) prednisolone (Verified Adverse Reaction, Mild, flippy feeling, 01/20/20) BROCK WOLF DO Feb 20, 2020 08:04
[2020-02-20] MEDS: AMANTADINE 100MG TABLET PO SCH (09:00)
[2020-02-20] MEDS: DOCUSATE SODIUM 100 MG CAP PO SCH ×2 (09:00→20:40)
[2020-02-20] MEDS: levETIRAcetam 250MG TABLET (KEPPRA) PO SCH ×3 (09:00→20:39)
[2020-02-20] MEDS: FERROUS SULFATE 325MG TAB PO SCH (09:00)
[2020-02-20] MEDS: amLODIPine 5 MG TAB PO SCH ×3 (09:00→20:41)
[2020-02-20] MEDS: ASPIRIN 81 MG CHEW TABLET PO SCH (09:00)
[2020-02-20] MEDS: CYANOCOBALAMIN 500 MCG TAB PO SCH (09:00)
[2020-02-20] MEDS: FOLIC ACID 1 MG TAB PO SCH (09:00)
[2020-02-20] MEDS: GABAPENTIN 300 MG CAP PO SCH (09:00)
[2020-02-20] MEDS: MIRALAX *UNIT DOSE* 17GM PACKET PO SCH (09:00)
[2020-02-20] MEDS: PANTOPRAZOLE 40MG TAB (PROTONIX) PO SCH (09:00)
[2020-02-20] MEDS: ACETAMINOPHEN 500 MG TAB PO SCH ×2 (09:00→20:51)
[2020-02-20] MEDS: oxyBUTYnin 5 MG TAB PO SCH ×2 (09:00→20:39)
[2020-02-20 16:00] VITALS: BP 141/63
[2020-02-20] MEDS ORDERED: FOSFOMYCIN TROMETHAMINE 3 GM POWDER PACKET (MONUROL) PO ONE (17:00)
[2020-02-20] MEDS: ATORVASTATIN 20 MG TAB PO SCH (20:40)
[2020-02-20] MEDS: GABAPENTIN 100 MG CAP PO SCH (20:41)
[2020-02-20] MEDS: traZODone 50 MG TAB PO PRN (20:41)
[2020-02-21 06:33] VITALS: BP 139/73
[2020-02-21] MEDS: TIOTROPIUM INHALER/CAPSULE (SPIRIVA) INH SCH (08:08)
[2020-02-21] MEDS: ADVAIR HFA 115/21MCG INHALER INH SCH ×2 (08:08→20:00)
[2020-02-21] MEDS: MIRALAX *UNIT DOSE* 17GM PACKET PO SCH (09:00)
[2020-02-21] MEDS: FERROUS SULFATE 325MG TAB PO SCH (09:26)
[2020-02-21] MEDS: levETIRAcetam 250MG TABLET (KEPPRA) PO SCH ×2 (09:26→22:59)
[2020-02-21] MEDS: DOCUSATE SODIUM 100 MG CAP PO SCH (09:26)
[2020-02-21] MEDS: AMANTADINE 100MG TABLET PO SCH (09:26)
[2020-02-21] MEDS: CYANOCOBALAMIN 500 MCG TAB PO SCH (09:26)
[2020-02-21] MEDS: amLODIPine 5 MG TAB PO SCH ×2 (09:27→23:00)
[2020-02-21] MEDS: GABAPENTIN 300 MG CAP PO SCH (09:27)
[2020-02-21] MEDS: FOLIC ACID 1 MG TAB PO SCH (09:27)
[2020-02-21] MEDS: oxyBUTYnin 5 MG TAB PO SCH ×2 (09:27→22:59)
[2020-02-21] MEDS: PANTOPRAZOLE 40MG TAB (PROTONIX) PO SCH (09:27)
[2020-02-21] MEDS: ASPIRIN 81 MG CHEW TABLET PO SCH (09:27)
[2020-02-21] MEDS: ACETAMINOPHEN 500 MG TAB PO SCH ×2 (09:28→20:16)
[2020-02-21 16:15] VITALS: BP 118/56
[2020-02-21 20:10] VITALS: BP 162/72
--- NOTE | 2020-02-21 21:02 | IPNPDOC ---
Date Seen The patient was seen on 02/21/20. Progress Note Called regarding patient's complaint of chest pain in the evening. On arrival, patient complains of pain everywhere. Does not want to be touched and states that it hurts when she is touch anywhere on her body even with light touch. Does not answer majority of questions. tardive dyskinesia. Patient does have history of schizophrenia but may have a hard time getting her to take her medications. Mental status hard to ascertain whether psychiatric or medical in etiology. Do not appreciate any obvious signs of infection based on vital signs and previous blood work. I ordered a troponin and EKG stat. Based on presentation, looks like her pain is diffuse and not localized to her chest. I ordered repeat CMP and CBC to screen for any potential changes. If suspicious, I may consider doing a infectious workup including repeating UA and blood cultures, although I do not have a suspicion for a medical cause leading to her current mental status at this time. VS, I&O, 24H, Fishbone Vital Signs/I&O Vital Signs Date Time Temp Pulse Resp B/P (MAP) Pulse Ox O2 Delivery O2 Flow Rate FiO2 02/21/20 16:15 98.0 67 16 118/56 (76) 02/21/20 06:33 Room Air 02/20/20 07:27 98 Laboratory Data 24H LABS Laboratory Tests 2 02/21/20 20:30: Microbiology Microbiology 02/19/20 Urine Culture, Received Pending 02/17/20 Urine Culture - Final, Complete ZHANNA FISH MD Feb 21, 2020 21:02
[2020-02-21] MEDS: GABAPENTIN 100 MG CAP PO SCH (22:59)
[2020-02-21] MEDS: ATORVASTATIN 20 MG TAB PO SCH (22:59)
[2020-02-21] MEDS: PILL CUTTER 1 EACH XX PRN (23:00)
[2020-02-21] MEDS: traMADol 50 MG TAB PO PRN (23:01)
[2020-02-22 06:40] VITALS: BP 128/72
[2020-02-22] MEDS: ADVAIR HFA 115/21MCG INHALER INH SCH ×2 (08:00→20:00)
[2020-02-22] MEDS: amLODIPine 5 MG TAB PO SCH ×2 (09:00→22:30)
[2020-02-22] MEDS: TIOTROPIUM INHALER/CAPSULE (SPIRIVA) INH SCH (09:02)
[2020-02-22] MEDS: CYANOCOBALAMIN 500 MCG TAB PO SCH (09:03)
[2020-02-22] MEDS: FERROUS SULFATE 325MG TAB PO SCH (09:03)
[2020-02-22] MEDS: ASPIRIN 81 MG CHEW TABLET PO SCH (09:03)
[2020-02-22] MEDS: levETIRAcetam 250MG TABLET (KEPPRA) PO SCH ×2 (09:03→22:13)
[2020-02-22] MEDS: ACETAMINOPHEN 500 MG TAB PO SCH ×2 (09:03→22:14)
[2020-02-22] MEDS: GABAPENTIN 300 MG CAP PO SCH (09:04)
[2020-02-22] MEDS: PANTOPRAZOLE 40MG TAB (PROTONIX) PO SCH (09:04)
[2020-02-22] MEDS: FOLIC ACID 1 MG TAB PO SCH (09:04)
[2020-02-22] MEDS: AMANTADINE 100MG TABLET PO SCH (09:04)
[2020-02-22] MEDS: oxyBUTYnin 5 MG TAB PO SCH ×2 (09:04→22:14)
[2020-02-22 10:18] LABS: HEMATOCRIT 31.4 % (36.0-47.0); HEMOGLOBIN 10.1 g/dl (12.0-15.5); MEAN CORPUSCULAR HEMOGLOBIN 32.5 pg (27.0-33.0); MEAN CORPUSCULAR HGB CONC 32.2 g/dl (32.0-36.5); PLATELET COUNT, AUTOMATED 177 10^3/uL (150-450); RED BLOOD COUNT 3.11 10^6/uL (4.00-5.40); WHITE BLOOD COUNT 6.4 10^3/uL (4.0-10.0)
[2020-02-22 10:27] LABS: ALBUMIN 2.7 GM/DL (3.2-5.2); ALT/SGPT 24 U/L (12-78); BILIRUBIN,TOTAL 0.4 MG/DL (0.2-1.0); BLOOD UREA NITROGEN 21 MG/DL (7-18); CALCIUM LEVEL 8.5 MG/DL (8.8-10.2); CARBON DIOXIDE LEVEL 28 MEQ/L (21-32); CHLORIDE LEVEL 108 MEQ/L (98-107); CREATININE FOR GFR 0.95 MG/DL (0.55-1.30); GLOMERULAR FILTRATION RATE > 60.0 (>45); GLUCOSE, FASTING 87 MG/DL (70-100); SODIUM LEVEL 142 MEQ/L (136-145); TOTAL PROTEIN 5.6 GM/DL (6.4-8.2)
[2020-02-22 16:32] VITALS: BP 110/58
--- NOTE | 2020-02-22 19:25 | IPNPDOC ---
Date Seen The patient was seen on 02/22/20. Progress Note SUBJECTIVE: called to assess patient on [facility] by RN. Concern over 2 days of diarrhea and a shallow wound on lateral surface of R leg. Patient was seen yesterday for chest pain, and refused exam. Trop < 0.02. Today, she refuses exam as well. OBJECTIVE PHYSICAL EXAMINATION: VITAL SIGNS: Please see below. GENERAL: not in acute distress HEENT: [place]ERRLA CARDIOVASCULAR: not examined, patient refused RESPIRATORY: not examined patient refused. ABDOMINAL: refused EXTREMITIES: no deformities SKIN: shallow 1.5 x 1.5 excoriated area on R lateral leg. Healing. No weeping. No wheals. NEUROLOGICAL: no focal neuro deficits, tardive dyskinesia noted PSYCHOLOGICAL: withdrawn, refused exam LABORATORY DATA, IMAGING STUDIES, MICROBIOLOGY: Please see below. ASSESSMENT AND PLAN: This is a 69 yo F with a hx of schizophrenia, admitted to [facility]. Hospitalist service recently consulted for recent UTI, treated with fosfomycin. Repeat urine cultures are pending. Re-consulted for 2 days hx of diarrhea and reduced fluid intake, as well as a R leg excoriation. PROBLEMS: 1. Diarrhea: ~5-7 times per day, non foul smelling loose stools. No hx of prolonged abx use. Received one dose of fosfomycin on 02/20/20. Low suspicion for c diff. Likely diarrhea induced by antibiotic itself. Monitor. Encourage PO intake. 2. UTI: treated on 02/19 with fosfomycin. Repeat cultures pending. 3. R leg excoriation/abrasion: unclear if due to prior infection, injury or self inflicted. Per sitter, patient has not agitated the area. Apply bacitracin/polymixin BID, dry dressing. Thank you for the consult. Please re-consult if diarrhea does not improve or patient continues to have reduced PO intake. VS, I&O, 24H, Maxbone Vital Signs/I&O Vital Signs Date Time Temp Pulse Resp B/P (MAP) Pulse Ox O2 Delivery O2 Flow Rate FiO2 02/22/20 16:32 98.4 54 16 110/58 (75) 02/21/20 20:10 96 Room Air Laboratory Data 24H LABS Laboratory Tests 2 02/21/20 20:30: Troponin I < 0.02 02/22/20 09:48: Nucleated Red Blood Cells % (auto) 0.0, Anion Gap 6L, Glomerular Filtration Rate > 60.0, Calcium Level 8.5L, Total Bilirubin 0.4, Aspartate Amino Transf (AST/SGOT) 21, Alanine Aminotransferase (ALT/SGPT) 24, Alkaline Phosphatase 115, Total Protein 5.6L, Albumin 2.7L, Albumin/Globulin Ratio 0.9L CBC/BMP Laboratory Tests 02/22/20 09:48 Microbiology Microbiology 02/19/20 Urine Culture, Received Pending 02/17/20 Urine Culture - Final, Complete XENIA HAAS MD Feb 22, 2020 19:25
[2020-02-22] MEDS: ATORVASTATIN 20 MG TAB PO SCH (22:12)
[2020-02-22] MEDS: GABAPENTIN 100 MG CAP PO SCH (22:15)
[2020-02-22] MEDS: POLYSPORIN TOPICAL OINTMENT 15GM TOP SCH (22:15)
[2020-02-22 23:30] VITALS: BP 150/72
[2020-02-23] MEDS: traMADol 50 MG TAB PO PRN ×2 (00:27→09:40)
[2020-02-23] MEDS: traZODone 50 MG TAB PO PRN (00:28)
[2020-02-23 06:21] VITALS: BP 138/86
[2020-02-23] MEDS: GABAPENTIN 300 MG CAP PO SCH (08:41)
[2020-02-23] MEDS: AMANTADINE 100MG TABLET PO SCH (08:41)
[2020-02-23] MEDS: CYANOCOBALAMIN 500 MCG TAB PO SCH (08:41)
[2020-02-23] MEDS: ADVAIR HFA 115/21MCG INHALER INH SCH (08:41)
[2020-02-23] MEDS: oxyBUTYnin 5 MG TAB PO SCH (08:41)
[2020-02-23] MEDS: FERROUS SULFATE 325MG TAB PO SCH (08:41)
[2020-02-23] MEDS: TIOTROPIUM INHALER/CAPSULE (SPIRIVA) INH SCH (08:41)
[2020-02-23 08:42] VITALS: BP 138/86
[2020-02-23] MEDS: amLODIPine 5 MG TAB PO SCH (08:42)
[2020-02-23] MEDS: PANTOPRAZOLE 40MG TAB (PROTONIX) PO SCH (08:43)
[2020-02-23] MEDS: levETIRAcetam 250MG TABLET (KEPPRA) PO SCH (08:43)
[2020-02-23] MEDS: FOLIC ACID 1 MG TAB PO SCH (08:43)
[2020-02-23] MEDS: ACETAMINOPHEN 500 MG TAB PO SCH (08:43)
[2020-02-23] MEDS: POLYSPORIN TOPICAL OINTMENT 15GM TOP SCH (08:43)
[2020-02-23] MEDS: ASPIRIN 81 MG CHEW TABLET PO SCH (08:44)
--- NOTE | 2020-02-23 11:42 | MHIPNPDOC ---
[facility] Progress Note Progress Note DATE OF SERVICE: 02/23/20 HISTORY: . VITAL SIGNS: See below. NEW TEST RESULTS: . CURRENT MEDICATIONS: See below. MENTAL STATUS EXAMINATION: Patient is a -year old female, who is . Speech: Is . Language skills are . Thought processes including: . Thought content: . Abstract reasoning, and computation: . Description of asso ciations: . Description of abnormal or psychotic thoughts: . Judgment: . Insight: [very limited, good, fair. poor]. Orientation: . Recent and remote memory: . Attention span and concentration: . Language: . Fund of knowledge: . Mood: . Affect: . DIAGNOSES: 1. . 2. . 3. . ASSESSMENT: MANAGEMENT PLAN: . TIME SPENT: minutes. Vital Signs Vital Signs Date Time Temp Pulse Resp B/P (MAP) Pulse Ox O2 Delivery O2 Flow Rate FiO2 02/23/20 10:10 20 02/23/20 08:42 63 138/86 02/23/20 06:21 96.7 02/21/20 20:10 96 Room Air Current Medications Current Medications Medications (Trade) Dose Ordered Sig/Sonia Route PRN Reason Start Time Stop Time Status Last Admin Dose Admin Acetaminophen (Tylenol Tab) 650 mg Q4HP PRN PO HEADACHE/DISCOMFORT 02/17/20 17:45 02/17/20 18:55 DC Acetaminophen (Tylenol Tab) 650 mg Q6HP PRN PO HEADACHE/DISCOMFORT 02/17/20 18:55 02/19/20 23:37 Acetaminophen (Tylenol Tab) 1,000 mg BID PO 02/17/20 21:00 02/23/20 08:43 Al Hydrox/Mg Hydrox/Simethicone (Mylanta) 30 ml Q4HP PRN PO HEARTBURN/INDIGESTION 02/17/20 17:45 Amantadine HCl (Symmetrel) 100 mg DAILY PO 02/18/20 09:00 02/23/20 08:41 Amlodipine Besylate (Norvasc) 5 mg BID PO 02/17/20 21:00 02/23/20 08:42 Aspirin (Aspirin Chewable) 81 mg DAILY PO 02/18/20 09:00 02/23/20 08:44 Atorvastatin Calcium (Lipitor) 20 mg QHS PO 02/17/20 21:00 02/22/20 22:12 Bacitracin/ Polymyxin B Sulfate (Polysporin Top Oint) APPLY TO RIGHT LEG WOUND BID TOP 02/22/20 21:00 02/23/20 08:43 Cyanocobalamin (Vitamin B12) 1,000 mcg DAILY PO 02/18/20 09:00 02/23/20 08:41 Docusate Sodium (Colace) 100 mg BID PO 02/17/20 21:00 02/21/20 22:29 DC 02/21/20 09:26 Ferrous Sulfate (Ferrous Sulfate) 325 mg DAILY PO 02/20/20 09:00 02/23/20 08:41 Folic Acid (Folic Acid) 1 mg DAILY PO 02/18/20 09:00 02/23/20 08:43 Gabapentin (Neurontin) 200 mg QHS PO 02/17/20 21:00 02/22/20 22:15 Gabapentin (Neurontin) 300 mg DAILY PO 02/18/20 09:00 02/23/20 08:41 Home Med (Med Rec Complete!) ASDIRECTED XX 02/17/20 19:30 02/17/20 19:19 DC Levetiracetam (Keppra) 500 mg BID PO 02/17/20 21:00 02/23/20 08:43 Lorazepam (Ativan) 0.25 mg BID@0900,1800 PO 02/18/20 09:00 02/19/20 12:51 DC 02/18/20 17:19 Magnesium Hydroxide (Milk Of Magnesia) 30 ml DAILYPRN PRN PO CONSTIPATION 02/17/20 17:45 02/22/20 19:14 DC Olanzapine (ZyPREXA ZYDIS) 5 mg Q4HP PRN SL ANXIETY/AGITATION 02/17/20 17:45 02/19/20 23:38 Oxybutynin Chloride (Ditropan) 5 mg BID PO 02/17/20 21:00 02/23/20 08:41 Pantoprazole Sodium (Protonix) 40 mg DAILY PO 02/18/20 09:00 02/23/20 08:43 Polyethylene Glycol (Miralax) 1 pkt DAILY PO 02/18/20 09:00 02/21/20 22:29 DC Risperidone (RisperDAL) 1 mg BID PO 02/17/20 21:00 02/17/20 18:54 DC Salmeterol Xinafoate/ Fluticasone (Advair Hfa 115/ 21) 1 puff RBID INH 02/17/20 20:00 02/23/20 08:41 Tiotropium [place] (Spiriva Handihaler) 1 inhalation DAILY@08 INH 02/18/20 08:00 02/23/20 08:41 Tramadol HCl (Ultram) 25 mg TIDP PRN PO PAIN 02/17/20 17:45 02/23/20 09:40 Trazodone HCl (Desyrel) 50 mg QHS PRN PO INSOMNIA 02/17/20 17:45 02/23/20 00:28 Allergies Coded Allergies: Sulfa (Sulfonamide Antibiotics) (Verified Allergy, Severe, ANAPYLAXIS, 01/20/20) Quinolones (Verified Allergy, Intermediate, HIVES, 01/20/20) cephalexin (Verified Allergy, Mild, HIVES, 11/02/19) amoxicillin (Verified Allergy, Unknown, unknown, 01/10/19) clavulanic acid (Verified Allergy, Unknown, unknown, 01/10/19) moxifloxacin (Verified Allergy, Unknown, unknown, 01/10/19) nitrofurantoin (Verified Allergy, Unknown, unknown, 01/10/19) oxycodone (Verified Adverse Reaction, Intermediate, AMS, 01/20/20) prednisolone (Verified Adverse Reaction, Mild, flippy feeling, 01/20/20) BROCK WOLF DO Feb 23, 2020 11:42
[2020-02-23] MEDS ORDERED: NS 1,000 ML IV ONE (12:30)
--- NOTE | 2020-02-23 12:34 | HPEPDOC ---
[facility] Medical History & Physical History and Physical CHIEF COMPLAINT: HISTORY OF PRESENT ILLNESS: PAST MEDICAL HISTORY: 1. . 2. . 3. . PAST SURGICAL HISTORY: 1. . 2. . 3. . SOCIAL HISTORY: Marital status: . Resides in: Children: Employment: Tobacco use: ETOH: Illicit drug use: Tattoos done unprofessionally: . IV drug use: Other relevant social factors: FAMILY HISTORY: Father: Mother: Siblings: Children: Hereditary Diseases: Unexpected deaths due to medical reasons: ALLERGIES: Please see below. REVIEW OF SYSTEMS: CONSTITUTIONAL: . HEENT: . CARDIOVASCULAR: . RESPIRATORY: . GASTROINTESTINAL: . GENITOURINARY: . SKIN: . MUSCULOSKELETAL: . NEUROLOGICAL: . PSYCHIATRIC: . ENDOCRINE: . HEMATOLOGIC/LYMPHATIC: . HOME MEDICATIONS: Please see below. PHYSICAL EXAMINATION: VITAL SIGNS: Temperature , pulse , respiratory rate , blood pressure , pulse oximetry % on room air. GENERAL APPEARANCE: . HEENT: . CARDIOVASCULAR: . LUNGS: . ABDOMEN: . MUSCULOSKELETAL: . EXTREMITIES: . NEUROLOGICAL: . PSYCHIATRIC: . LABORATORY DATA: See below. IMAGING: MICROBIOLOGY: Please see below. ASSESSMENT: . . PLAN: 1. . Vital Signs Vital Signs Date Time Temp Pulse Resp B/P (MAP) Pulse Ox O2 Delivery O2 Flow Rate FiO2 02/23/20 10:10 20 02/23/20 08:42 63 138/86 02/23/20 06:21 96.7 02/21/20 20:10 96 Room Air Laboratory Data Microbiology Microbiology 02/19/20 Urine Culture, Received Pending 02/17/20 Urine Culture - Final, Complete Home Medications Scheduled Amantadine HCl (Amantadine) 100 Mg Tablet, 100 MG PO BID for . Amlodipine Besylate (Amlodipine Besylate) 5 Mg Tablet, 5 MG PO BID for . Aspirin (Aspirin EC) 81 Mg Tablet.dr, 81 MG PO DAILY for . Atorvastatin Calcium (Atorvastatin Calcium) 20 Mg Tablet, 20 MG PO DAILY for . Carvedilol (Carvedilol) 6.25 Mg Tablet, 6.25 MG PO BID for . Cetirizine HCl (Cetirizine HCl) 10 Mg Tablet, 10 MG PO DAILY for . Cyanocobalamin (Vitamin B-12) (Vitamin B-12) 1,000 Mcg Tablet, 1,000 MCG PO DAILY for . Folic Acid (Folic Acid) 1 Mg Tablet, 1 MG PO DAILY for . Hydralazine HCl (Hydralazine HCl) 10 Mg Tablet, 10 MG PO TID for . Omeprazole (Omeprazole) 40 Mg Capsule.dr, 40 MG PO DAILY for . Oxybutynin Chloride (Oxybutynin Chloride) 5 Mg Tablet, 5 MG PO TID for . Potassium Chloride (Potassium Chloride) 10 Meq Capsule.er, 10 MEQ PO DAILY for . Tiotropium [place] (Spiriva Respimat) 4 Gm Mist.inhal, 2 PUFF INH DAILY for . Allergies Coded Allergies: Sulfa (Sulfonamide Antibiotics) (Verified Allergy, Severe, ANAPYLAXIS, 01/20/20) Quinolones (Verified Allergy, Intermediate, HIVES, 01/20/20) cephalexin (Verified Allergy, Mild, HIVES, 11/02/19) amoxicillin (Verified Allergy, Unknown, unknown, 01/10/19) clavulanic acid (Verified Allergy, Unknown, unknown, 01/10/19) moxifloxacin (Verified Allergy, Unknown, unknown, 01/10/19) nitrofurantoin (Verified Allergy, Unknown, unknown, 01/10/19) oxycodone (Verified Adverse Reaction, Intermediate, AMS, 01/20/20) prednisolone (Verified Adverse Reaction, Mild, flippy feeling, 01/20/20) XENIA HAAS MD Feb 23, 2020 12:34
--- NOTE | 2020-02-23 12:35 | MHDSPDOC ---
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 She was distorted and reportedly psychotic. She presented quite b izarre and unusual. She was tried on some neuroleptics increased to 1 mg Risperidone BID with little to no effect. She was confused and delirious. She was tried on a small dose of Ativan to see if this might improve as she could have been catatonic. However, this only made the situation worse. She continued to have increasing medical problems and poor PO intake. She was found to have a UTI and treated with one dose of Fosfomycin 3 g with some mild improvement. She continued to have hydration problems and lowering blood cell count. She was transferred to medicine for medical treatment and stabilization before being released and getting reassessed by psychiatry. Patient will need a psychiatry consult when she is medically stable. DISCHARGE ASSESSMENT[unchanged] MENTAL STATUS EXAMINATION ON DISCHARGE: distorted and tangential, nearly incoherent, not oritentated to time or place PLAN/FOLLOWUP ARRANGEMENTS: Follow up psychiatry consult The amount of time spent in the coordination of care for this patient was approximately 30 minutes. Vital Signs/I&Os Vital Signs Date Time Temp Pulse Resp B/P (MAP) Pulse Ox O2 Delivery O2 Flow Rate FiO2 02/23/20 10:10 20 02/23/20 08:42 63 138/86 02/23/20 06:21 96.7 02/21/20 20:10 96 Room Air I&O- Last 24 Hours up to 6 AM 02/23/20 06:00 Intake Total 300 ml Balance 300 ml Laboratory Data Microbiology Microbiology 02/19/20 Urine Culture, Received Pending 02/17/20 Urine Culture - Final, Complete Medications Scheduled Acetaminophen (Acetaminophen) 500 Mg Tablet, 1,000 MG PO BID, #30 Amantadine HCl (Amantadine) 100 Mg Tablet, 100 MG PO BID for . , (Reported) Amlodipine Besylate (Amlodipine Besylate) 5 Mg Tablet, 5 MG PO BID for . , (Reported) Aspirin (Aspirin EC) 81 Mg Tablet.dr, 81 MG PO DAILY for . , (Reported) Atorvastatin Calcium (Atorvastatin Calcium) 20 Mg Tablet, 20 MG PO DAILY for . , (Reported) Carvedilol (Carvedilol) 6.25 Mg Tablet, 6.25 MG PO BID for . , (Reported) Cetirizine HCl (Cetirizine HCl) 10 Mg Tablet, 10 MG PO DAILY for . , (Reported) Cyanocobalamin (Vitamin B-12) (Vitamin B-12) 1,000 Mcg Tablet, 1,000 MCG PO DAILY for . , (Reported) Folic Acid (Folic Acid) 1 Mg Tablet, 1 MG PO DAILY for . , (Reported) Levetiracetam (Keppra) 250 Mg Tablet, 500 MG PO BID, #30 Omeprazole (Omeprazole) 40 Mg Capsule.dr, 40 MG PO DAILY for . , (Reported) Oxybutynin Chloride (Oxybutynin Chloride) 5 Mg Tablet, 5 MG PO BID, #30 Potassium Chloride (Potassium Chloride) 10 Meq Capsule.er, 10 MEQ PO DAILY for . , (Reported) Tiotropium [place] (Spiriva Respimat) 4 Gm Mist.inhal, 2 PUFF INH DAILY for . , (Reported) Allergies Coded Allergies: Sulfa (Sulfonamide Antibiotics) (Verified Allergy, Severe, ANAPYLAXIS, 01/20/20) Quinolones (Verified Allergy, Intermediate, HIVES, 01/20/20) cephalexin (Verified Allergy, Mild, HIVES, 11/02/19) amoxicillin (Verified Allergy, Unknown, unknown, 01/10/19) clavulanic acid (Verified Allergy, Unknown, unknown, 01/10/19) moxifloxacin (Verified Allergy, Unknown, unknown, 01/10/19) nitrofurantoin (Verified Allergy, Unknown, unknown, 01/10/19) oxycodone (Verified Adverse Reaction, Intermediate, AMS, 01/20/20) prednisolone (Verified Adverse Reaction, Mild, flippy feeling, 01/20/20) BROCK WOLF DO Feb 23, 2020 12:35
[2020-02-23] MEDS ORDERED: NS 1,000 ML IV SCH (14:00)
[2020-02-23] MEDS ORDERED: traZODone 50 MG TAB ONE (22:17)
[2020-02-23] MEDS ORDERED: risperiDONE 0.25 MG TAB ONE (22:17)
[2020-02-23] MEDS ORDERED: DOCUSATE SODIUM 100 MG CAP ONE (22:17)
[2020-02-23] MEDS ORDERED: traMADol 50 MG TAB ONE (22:17)
[2020-02-23] MEDS ORDERED: amLODIPine 5 MG TAB ONE (22:17)
[2020-02-23] MEDS ORDERED: GABAPENTIN 300 MG CAP ONE (22:17)
[2020-02-23] MEDS ORDERED: ATORVASTATIN 20 MG TAB ONE (22:17)
[2020-02-23] MEDS ORDERED: ACETAMINOPHEN 500 MG TAB ONE (22:17)
[2020-02-23] MEDS ORDERED: FLUoxetine 20 MG CAP ONE (22:17)
[2020-02-24] MEDS ORDERED: ENOXAPARIN 40MG/0.4ML SYRINGE (J1650 PER 10MG) SC SCH (09:00)
[2020-02-24] MEDS ORDERED: OXYB5TAB10 PO (15:54)
[2020-02-24] MEDS ORDERED: KEPP250T5 PO (15:54)
[2020-02-24] MEDS ORDERED: ACET-683 PO (15:54)
--- NOTE | 2020-03-18 14:04 | ECGEPIP ---
[facility] Test Date: 2020-02-21 Pat Name: CK BYRD Department: Room: [place] [address] Gender: Female Collar Runner: MALU RYDER : 1950 Requested By: ZHANNA Chung Order Number: [id number] Reading MD: Wodoy Mendoza Measurements Intervals [place] Rate: 63 P: 64 LA: 193 QRS: -10 QRSD: 142 T: 74 QT: 479 QTc: 493 Interpretive Statements SINUS RHYTHM, LA CONDUCTION DISTURBANCE LEFT BUNDLE BRANCH BLOCK ABNORMAL ECG SEE SCANNED DOWNTIME REPORT
--- NOTE | 2020-04-05 13:28 | MHHPE ---
DATE OF ADMISSION: 02/09/2020 DATE OF EVALUATION: 02/10/2020 HISTORY OF PRESENT ILLNESS: The patient is a 63-year-old woman who was transferred from the medical service. Apparently, the patient had been in the Inpatient Mental Health Unit at [facility] but then she had some complaint of chest pain and she was transferred to the medical service. She was medically cleared. The patient apparently became verbally aggressive and they had to call a code and she was given some Haldol and Ativan by the hospitalist. When I went to see her, the patient was fast asleep, she would awaken only momentarily. Today, the patient is noted to be rambling on, thoughts are very disorganized, I am not able to get any further history from the patient. I do want to clarify that the entire computer system at [facility] is down and so I am not able to access any prior records. I cannot see the records from when she was just in the inpatient mental health unit and why she was admitted then. PAST PSYCHIATRIC HISTORY: Unable to obtain. FAMILY HISTORY: Unable to obtain. MEDICAL HISTORY: According to the medical chart, the patient has a history of coronary artery disease, myocardial infarction, dyslipidemia, hypertension, chronic obstructive pulmonary disease (COPD), iron deficiency anemia, degenerative joint disease, grade 1 diastolic dysfunction. MENTAL STATUS EXAMINATION: Unable to complete. DIAGNOSIS: Schizophrenia. TREATMENT PLAN: At this point, we will continue to monitor the patient for acute psychotic symptoms. We will titrate her medications as indicated. We will continue her Prozac 20 mg twice a day, Seroquel 300 mg nightly, and we may need to further adjust this, and she is on amantadine 100 mg twice a day. [facility]
--- NOTE | 2020-04-07 11:44 | MHCR ---
DATE: 02/09/2020 NOTE: The entire computer system at [facility] has been down and so I am not able to add any records from this patient. HISTORY OF PRESENT ILLNESS: I was advised by the hospitalist that the patient had been in [facility] inpatient mental health unit complaining of some chest pain and was transferred to the medical service. She has been medically cleared now; however, she became agitated and verbally aggressive, and she was given some Haldol 5 mg and Ativan 0.5 mg IV and when I went to see the patient, she was fast asleep. She would arouse briefly, but fall right back asleep. I am not able to obtain any information from the patient. PAST PSYCHIATRIC HISTORY: I do seem to recall because I had seen the patient, I believe sometime last week, that she has a history of schizophrenia, but she was very psychotic and not able to give much history either. It seems that this patient has been on Seroquel 300 mg at bedtime, amantadine 100 mg b.i.d., and Prozac 20 mg t.i.d. Past psychiatric history unable to obtain any further information. FAMILY HISTORY: Unknown. PAST MEDICAL HISTORY: The patient has a history of coronary artery disease, myocardial infarction, dyslipidemia, hypertension, chronic obstructive pulmonary disease (COPD), iron deficiency anemia, degenerative joint disease. All this information is obtained from the medical chart. PAST MEDICAL HISTORY: Unknown. SUBSTANCE ABUSE HISTORY Unknown. MENTAL STATUS EXAMINATION: Unable to complete. DIAGNOSIS: Schizophrenia. TREATMENT PLAN: At this point, we are going to transfer the patient back to [facility] inpatient mental health unit for further evaluation and treatment. DANNA
--- NOTE | 2020-04-10 07:13 | MHIPN ---
DATE: 02/11/2020 NOTE: The entire [facility] computer system is down. HISTORY: Staff report that the patient is noted to be talking to herself most of the time, but seems to be less irritable today. The patient just rambled on when I saw her and no matter what I asked her, she just continued to ramble on. MENTAL STATUS EXAMINATION: Unable to complete. DIAGNOSIS: Schizophrenia. TREATMENT PLAN: At this point, we will continue to monitor the patient for psychotic symptoms and to titrate her medications as indicated. DANNA
--- NOTE | 2020-04-10 07:15 | MHIPN ---
DATE: 02/22/2020 SUBJECTIVE: She is on one-on-one observation, does not interact much, but possibly a bit more than yesterday. Says slept well. Is lying down. A bit more engaged, but cannot hold her attention for long. Oriented to self, unclear if she is oriented to time or place. Initially thought that she was in her own apartment. Affect is very restricted in range. Insight and judgment are poor. The possibility of delirium needs to be considered, given her presentation. Is being seen by the hospitalist and I understand urine cultures awaited. Meanwhile, continue current care and observation. It is possible she may require further medical intervention or transfer to the medical floor depending on the clinical situation. She will be seen by the assigned clinician tomorrow. VITAL SIGNS: Blood pressure 108/72, pulse 56, temperature 97.7. MTDD
--- NOTE | 2020-04-10 11:40 | MHIPN ---
DATE: 02/16/2020 The patient was not seen today. The patient was too agitated and uncooperative at the time. It seems that according to the nursing the patient has continued to become increasingly disorganized and has admitted that she hears voices, has voiced some homicidal thoughts towards her . The Hospitalist did see the patient today and ordered some blood tests to rule out any underlying medical condition. MENTAL STATUS EXAM: UNABLE TO COMPLETE DID NOT SEE PATIENT DIAGNOSIS: Schizophrenia. TREATMENT PLAN: I did want to clarify that I decided to discontinue the Prozac 20 mg three times a day that apparently the patient has been reported being on for awhile now since admission. I want to try cut back on as much medications as possible to see if this helps her thinking to become clear again. In the meantime it seems that she has been placed on Risperdal 0.25 mg twice a day. I am going to go ahead and increase the dose to 1 mg twice a day. The Seroquel 300 mg was apparently discontinued by the other provider. MTDD
[2020-04-21 16:20] LABS: CK-MB VALUE MASS 1.3 NG/ML (<3.6); CPK CREATINE PHOSPHOKINASE 70 U/L (26-192); MB/CK RELATIVE INDEX 1.86 (< OR =4); TROPONIN I < 0.02 NG/ML (< 0.10)
[2020-05-09 05:00] LABS: CK-MB VALUE MASS 1.3 NG/ML (<3.6); CPK CREATINE PHOSPHOKINASE 70 U/L (26-192); MB/CK RELATIVE INDEX 1.86 (< OR =4); TROPONIN I < 0.02 NG/ML (< 0.10)
[2020-05-09 13:02] LABS: ALBUMIN 3.1 GM/DL (3.2-5.2); BILIRUBIN,TOTAL 0.3 MG/DL (0.2-1.0); CALCIUM LEVEL 9.1 MG/DL (8.8-10.2); CREATININE FOR GFR 1.22 MG/DL (0.55-1.30); GLOMERULAR FILTRATION RATE 46.8 (>45); POTASSIUM SERUM 4.5 MEQ/L (3.5-5.1); TOTAL PROTEIN 6.3 GM/DL (6.4-8.2)
== END 2020-02-23 14:00 | disposition short-term general hospital (02) | DRG 948 ==
LOC: M PSY 19:25
PROVIDERS: ADMIT Psychiatry & Neurology Psychiatry; ATTEND Psychiatry & Neurology Addiction Medicine
DX: R41.0 Disorientation, unspecified (principal); F06.2 Psychotic disorder with delusions due to known physiological condition; F33.9 Major depressive disorder, recurrent, unspecified; E22.2 Syndrome of inappropriate secretion of antidiuretic hormone; N39.0 Urinary tract infection, site not specified; I10 Essential (primary) hypertension; D50.9 Iron deficiency anemia, unspecified; F17.200 Nicotine dependence, unspecified, uncomplicated; I25.2 Old myocardial infarction; E78.5 Hyperlipidemia, unspecified; R19.7 Diarrhea, unspecified; R29.6 Repeated falls; I25.10 Atherosclerotic heart disease of native coronary artery without angina pectoris; N32.81 Overactive bladder; J44.9 Chronic obstructive pulmonary disease, unspecified; G24.01 Drug induced subacute dyskinesia; Z79.899 Other long term (current) drug therapy; Z88.2 Allergy status to sulfonamides; Z88.1 Allergy status to other antibiotic agents; Z88.0 Allergy status to penicillin; Z88.5 Allergy status to narcotic agent; Z88.8 Allergy status to other drugs, medicaments and biological substances

== ENCOUNTER 2020-02-23 11:47 | Inpatient (IN) | payer OTHER, MEDICAID ==
[~2020-02-23] VITALS: Ht 162.6 cm; Wt 32.7 kg
[~2020-02-23 11:47] MED LIST changes: +ABIL10TA9 PO; -AMANTADINE 100MG TABLET ONE; +AMLO1TAB24 PO; +ASPI81TA27 PO; -ASPIRIN 81 MG ENTERIC TAB ONE; -CARVedilol 6.25 MG TAB ONE; -CYANOCOBALAMIN 500 MCG TAB ONE; -DOXYCYCLINE HYCLATE 100MG TABLET ONE; -ENOXAPARIN 40MG/0.4ML SYRINGE (J1650 PER 10MG) ONE; -FLUoxetine 20 MG CAP ONE; -FOLIC ACID 1 MG TAB ONE; -GABAPENTIN 300 MG CAP ONE; -HALOPERIDOL 5MG/ML VIAL (J1630 PER 1) ONE; +HYDR10TAB PO; -LORazepam 2 MG/ML VIAL ONE; -METOPROLOL TART 25 MG TABLET ONE; -MIRALAX *UNIT DOSE* 17GM PACKET ONE; +OMEP-221 PO; -PANTOPRAZOLE 40MG TAB (PROTONIX) ONE; -levETIRAcetam 250MG TABLET (KEPPRA) ONE; -oxyBUTYnin 5 MG TAB ONE
[2020-02-23] MEDS: NS 1,000 ML IV SCH ×2 (12:45→21:31)
[2020-02-23] MEDS ORDERED: NS 1,000 ML IV ONE (12:45)
[2020-02-23] MEDS ORDERED: ACETAMINOPHEN 500 MG TAB PO PRN (13:00)
[2020-02-23] MEDS ORDERED: traZODone 50 MG TAB PO PRN (13:00)
--- NOTE | 2020-02-23 13:23 | HPEPDOC ---
[facility] Medical History & Physical Date of Admission Feb 23, 2020 Date of Service: Feb 23, 2020 Primary Care Physician: Raquel Matson Attending Physician: XENIA HAAS MD History and Physical CHIEF COMPLAINT: Reduced PO intake HISTORY OF PRESENT ILLNESS: 69 yo F with a history of depression, admitted to [facility], with reduced PO intake. She was recently treated for a UTI with fosfomycin on 02/21/20. She subsequently developed diarrhea for 2 days, having approximately 5 loose non foul smelling stools per day. Staff became concerned for dehydration, as patient took in only ~1500 mL of water in 2 and a half days. Patient is calm during examination but is not forthcoming with history and ROS. She further permitted a limited exam. Collateral records used for medical history and medication recrods. PAST MEDICAL HISTORY: Depression. HTN HLD COPD Seizure disorder Schizophrenia Tardive dyskinesia with lip smacking Recurrent falls Cardiogenic syncope Coronary artery disease Myocardial infarction (VA) Dyslipidemia Hypertension COPD, not oxygen or steroid dependent Overactive bladder Iron deficiency anemia Degenerative joint disease Grade 1 diastolic dysfunction Tobacco abuse Sciatica SIADH Acute on chronic gastritis with H. pylori like organism on Giemsa stain, [address] Vinson. Left adrenal adenoma Diverticulosis PAST SURGICAL HISTORY: Unknown, patient unable to share. SOCIAL HISTORY: smoker ALLERGIES: Please see below. REVIEW OF SYSTEMS: unable to assess. HOME MEDICATIONS: Please see below. PHYSICAL EXAMINATION: VITAL SIGNS: please see below GENERAL APPEARANCE: alert, lip smacking, not forthcoming. HEENT: dry mucous membranes. CARDIOVASCULAR: RRR, normal S1, S2 LUNGS: . ABDOMEN: not examined. MUSCULOSKELETAL: not examined SKIN: dry skin, mild reduced skin turgor. EXTREMITIES: Cap refill ~3 sec NEUROLOGICAL: no focal neuro deficits identified PSYCHIATRIC: tangential, calm, cooperative LABORATORY DATA: See below MICROBIOLOGY: Please see below. ASSESSMENT: 69 yo F admitted from [facility] due to reduced PO intake leading to dehydration. Admitted to Med/Surg unit for IV hydration. . PLAN: 1. Reduced PO intake: to give 1L NS bolus. Maintenance fluids at 125 cc/hr of NS. Encourage PO hydration to 2L/day. Check CBC, CMP. Check ekg. 2. Diarrhea: improved, no BM today per sitter 3. UTI: UA suggestive on 02/19/20. Patient was treated with one time fosfomycin. Repeat cultures pending. 2. HTN: obtain vitals, hold BP meds if SBP< 110 mmHg. Amlodipine 5 mg daily if BP permits. 3. COPD: spiriva, advair 4. neuropathy: gabapentin 200 mg qhs 5. Schizophrenia: sitter. C/w psychiatric medications. Olanzapine 5 mg q4h prn SL, Trazodone 50 mg qhs prn. Will hold olanzapine given tardive dyskinesia. 6. Overactive bladder: home med oxybutinin 7. Tardive dyskenesia: amantadine 8. CAD: ASA/lipitor DVT PPX: sil kent Dispo: transfer to [facility] once medically cleared. Home Medications Scheduled Amantadine HCl (Amantadine) 100 Mg Tablet, 100 MG PO BID for . Amlodipine Besylate (Amlodipine Besylate) 5 Mg Tablet, 5 MG PO BID for . Aspirin (Aspirin EC) 81 Mg Tablet.dr, 81 MG PO DAILY for . Atorvastatin Calcium (Atorvastatin Calcium) 20 Mg Tablet, 20 MG PO DAILY for . Carvedilol (Carvedilol) 6.25 Mg Tablet, 6.25 MG PO BID for . Cetirizine HCl (Cetirizine HCl) 10 Mg Tablet, 10 MG PO DAILY for . Cyanocobalamin (Vitamin B-12) (Vitamin B-12) 1,000 Mcg Tablet, 1,000 MCG PO SYD Y for . Folic Acid (Folic Acid) 1 Mg Tablet, 1 MG PO DAILY for . Hydralazine HCl (Hydralazine HCl) 10 Mg Tablet, 10 MG PO TID for . Omeprazole (Omeprazole) 40 Mg Capsule.dr, 40 MG PO DAILY for . Oxybutynin Chloride (Oxybutynin Chloride) 5 Mg Tablet, 5 MG PO TID for . Potassium Chloride (Potassium Chloride) 10 Meq Capsule.er, 10 MEQ PO DAILY for . Tiotropium [place] (Spiriva Respimat) 4 Gm Mist.inhal, 2 PUFF INH DAILY for . Allergies Coded Allergies: Sulfa (Sulfonamide Antibiotics) (Verified Allergy, Severe, ANAPYLAXIS, 01/20/20) Quinolones (Verified Allergy, Intermediate, HIVES, 01/20/20) cephalexin (Verified Allergy, Mild, HIVES, 11/02/19) amoxicillin (Verified Allergy, Unknown, unknown, 01/10/19) clavulanic acid (Verified Allergy, Unknown, unknown, 01/10/19) moxifloxacin (Verified Allergy, Unknown, unknown, 01/10/19) nitrofurantoin (Verified Allergy, Unknown, unknown, 01/10/19) oxycodone (Verified Adverse Reaction, Intermediate, AMS, 01/20/20) prednisolone (Verified Adverse Reaction, Mild, flippy feeling, 01/20/20) A-FIB/CHADSVASC A-FIB History Current/History of A-Fib/PAF?: No Current PO Anticoag Therapy: No XENIA HAAS MD Feb 23, 2020 13:23
[2020-02-23 14:00] VITALS: BP 124/80
[2020-02-23] MEDS ORDERED: OLANZapine ORAL DISINTEGRATING TAB 5MG PO PRN (14:00)
[2020-02-23] MEDS ORDERED: ATORVASTATIN 20 MG TAB PO SCH (21:00)
[2020-02-23] MEDS: levETIRAcetam 250MG TABLET (KEPPRA) PO SCH (21:30)
[2020-02-23] MEDS: oxyBUTYnin 5 MG TAB PO SCH (21:31)
[2020-02-23 22:00] VITALS: BP 145/70
[2020-02-24] MEDS: NS 1,000 ML IV SCH (05:44)
[2020-02-24 06:00] VITALS: BP 149/83
[2020-02-24 06:41] LABS: BASO % 0.7 % (0.0-1.0); EOS # 0.3 10^3/uL (0.0-0.5); EOS % 5.2 % (0.0-3.0); HEMATOCRIT 30.7 % (36.0-47.0); HEMOGLOBIN 10.3 g/dl (12.0-15.5); LYMPH # 1.6 10^3/uL (1.5-5.0); LYMPH % 29.5 % (24.0-44.0); MEAN CORPUSCULAR HEMOGLOBIN 33.4 pg (27.0-33.0); MEAN CORPUSCULAR HGB CONC 33.6 g/dl (32.0-36.5); MEAN CORPUSCULAR VOLUME 99.7 fl (80.0-96.0); MONO # 0.5 10^3/uL (0.0-0.8); MONO % 9.1 % (0.0-5.0); NEUTROPHILS % 55.3 % (36.0-66.0); PLATELET COUNT, AUTOMATED 168 10^3/uL (150-450); RED BLOOD COUNT 3.08 10^6/uL (4.00-5.40); WHITE BLOOD COUNT 5.4 10^3/uL (4.0-10.0)
[2020-02-24 07:19] LABS: ALBUMIN 2.9 GM/DL (3.2-5.2); ALT/SGPT 22 U/L (12-78); BILIRUBIN,TOTAL 0.4 MG/DL (0.2-1.0); BLOOD UREA NITROGEN 10 MG/DL (7-18); CALCIUM LEVEL 8.3 MG/DL (8.8-10.2); CARBON DIOXIDE LEVEL 28 MEQ/L (21-32); CHLORIDE LEVEL 109 MEQ/L (98-107); CREATININE FOR GFR 0.67 MG/DL (0.55-1.30); GLOMERULAR FILTRATION RATE > 60.0 (>45); GLUCOSE, FASTING 88 MG/DL (70-100); POTASSIUM SERUM 3.7 MEQ/L (3.5-5.1); SODIUM LEVEL 141 MEQ/L (136-145); TOTAL PROTEIN 5.7 GM/DL (6.4-8.2)
[2020-02-24] MEDS: oxyBUTYnin 5 MG TAB PO SCH (08:00)
[2020-02-24] MEDS ORDERED: TIOTROPIUM INHALER/CAPSULE (SPIRIVA) INH SCH (08:00)
[2020-02-24] MEDS: levETIRAcetam 250MG TABLET (KEPPRA) PO SCH (08:00)
[2020-02-24] MEDS ORDERED: AMANTADINE 100MG TABLET PO SCH (09:00)
[2020-02-24] MEDS ORDERED: ASPIRIN 81 MG ENTERIC TAB PO SCH (09:00)
[2020-02-24] MEDS ORDERED: LORazepam 0.5 MG TAB PO SCH (09:00)
[2020-02-24] MEDS ORDERED: FOLIC ACID 1 MG TAB PO SCH (09:00)
[2020-02-24] MEDS ORDERED: ENOXAPARIN 40MG/0.4ML SYRINGE (J1650 PER 10MG) SC SCH (09:00)
[2020-02-24] MEDS ORDERED: CETIRIZINE (ZyrTEC) 10 MG TAB PO SCH (09:00)
[2020-02-24] MEDS ORDERED: CARVedilol 6.25 MG TAB PO SCH (09:00)
[2020-02-24 09:41] VITALS: BP 149/83
[2020-02-24] MEDS ORDERED: ACETAMINOPHEN 500 MG TAB PO PRN (12:30)
[2020-02-24 14:00] VITALS: BP 161/90
[2020-02-24] MEDS ORDERED: OXYB5TAB10 PO (15:54)
[2020-02-24] MEDS ORDERED: ACET-683 PO (15:54)
[2020-02-24] MEDS ORDERED: KEPP250T5 PO (15:54)
[2020-02-24] MEDS ORDERED: NS 1,000 ML IV SCH (17:30)
--- NOTE | 2020-02-25 11:39 | DS.PDOC ---
Discharge Summary General Date of Admission Feb 23, 2020 at 14:00 Date of Discharge 02/24/20 Discharge Summary PROCEDURES PERFORMED DURING STAY: [None]. DISCHARGE DIAGNOSES: Dehydration Musculoskeletal chest pain Uncontrolled schizophrenia Secondary diagnosis: COPD Seizure disorder New diagnosed in January 2020 Schizophrenia Tardive dyskinesia with lip smacking Recurrent falls Coronary artery disease Myocardial infarction (VA) Dyslipidemia Hypertension Overactive bladder Iron deficiency anemia Degenerative joint disease Grade 1 diastolic dysfunction Sciatica SIADH Acute on chronic gastritis with H. pylori like organism on Giemsa stain, [address] Vinson. Left adrenal adenoma Diverticulosis COMPLICATIONS/CHIEF COMPLAINT: Dehydration. HOSPITAL COURSE: 69 year old female with schizophrenia, chronic chest pain has been worked up several times in the past month for ACS which has been negative felt to be musculoskeletal in nature has been in the hospital from January 18 has been bouncing back and forth from Inpatient medicine to [facility] for different complaints. Initially she was admitted on January 18 for GIB due to drop in HH with negative work up , then she went to [facility] for control of her schizophrenia, Came back to medicine for possible Seizure was started on antiepileptic med and had chest pain/ ACS work up which was negative was sent back to [facility] for continued uncontrolled schizophrenia symptoms. She was readmitted to Medicine on 02/23/20 for dehydration as patient was not eating or drinking much for 2 to 3 days and had one day of diarrhea after treatment with fosphomycin for Possible UTI as UA was dirty. However urine culture was negative. It just showed contamin ation so she did not have UTI so further antibiotics were not given. She received IVF, her labs were within normal limits. She continued to have severe schizophrenia symptoms not sleeping constantly talking to herself however she was drinking fluids appropriately and did eat part of her meals. She was discharged back to [facility] for control of her schizophrenia. All her psych meds wer e stopped as per the recommendation of the psychiatrist. DISCHARGE MEDICATIONS: Please see below. ALLERGIES: Please see below. PHYSICAL EXAMINATION ON DISCHARGE: VITAL SIGNS: Please see below. GENERAL APPEARANCE: alert, lip smacking, not forthcoming, talking to herself tangentially. HEENT: Normocephalic, atruamatic ,moist mucous membranes, anicteric eyes. CARDIOVASCULAR: RRR, normal S1, S2 LUNGS: Clear to auscultation, diminished air entry. ABDOMEN: Soft nontender, BS normal EXTREMITIES: Cap refill ~3 sec, no edema NEUROLOGICAL: no focal neuro deficits identified PSYCHIATRIC: tangential, constantly talking cannot sit still. LABORATORY DATA: Please see below. ACTIVITY: [As tolerated]. DIET: Regular DISPOSITION: 67 [facility]. DISCHARGE CONDITION: [Stable]. TIME SPENT ON DISCHARGE:35 minutes. Vital Signs/I&Os Vital Signs Date Time Temp Pulse Resp B/P (MAP) Pulse Ox O2 Delivery O2 Flow Rate FiO2 02/24/20 14:00 98.2 64 20 161/90 (113) 100 Room Air I&O- Last 24 Hours up to 6 AM 02/25/20 06:00 Intake Total 1270 ml Balance 1270 ml Discharge Medications Scheduled Acetaminophen (Acetaminophen) 500 Mg Tablet, 1,000 MG PO BID Amantadine HCl (Amantadine) 100 Mg Tablet, 100 MG PO BID for . , (Reported) Amlodipine Besylate (Amlodipine Besylate) 5 Mg Tablet, 5 MG PO BID for . , (Reported) Aspirin (Aspirin EC) 81 Mg Tablet.dr, 81 MG PO DAILY for . , (Reported) Atorvastatin Calcium (Atorvastatin Calcium) 20 Mg Tablet, 20 MG PO DAILY for . , (Reported) Carvedilol (Carvedilol) 6.25 Mg Tablet, 6.25 MG PO BID for . , (Reported) Cetirizine HCl (Cetirizine HCl) 10 Mg Tablet, 10 MG PO DAILY for . , (Reported) Cyanocobalamin (Vitamin B-12) (Vitamin B-12) 1,000 Mcg Tablet, 1,000 MCG PO DAILY for . , (Reported) Folic Acid (Folic Acid) 1 Mg Tablet, 1 MG PO DAILY for . , (Reported) Levetiracetam (Keppra) 250 Mg Tablet, 500 MG PO BID Omeprazole (Omeprazole) 40 Mg Capsule.dr, 40 MG PO DAILY for . , (Reported) Oxybutynin Chloride (Oxybutynin Chloride) 5 Mg Tablet, 5 MG PO BID Potassium Chloride (Potassium Chloride) 10 Meq Capsule.er, 10 MEQ PO DAILY for . , (Reported) Tiotropium [place] (Spiriva Respimat) 4 Gm Mist.inhal, 2 PUFF INH DAILY for . , (Reported) Allergies Coded Allergies: Sulfa (Sulfonamide Antibiotics) (Verified Allergy, Severe, ANAPYLAXIS, 01/20/20) Quinolones (Verified Allergy, Intermediate, HIVES, 01/20/20) cephalexin (Verified Allergy, Mild, HIVES, 11/02/19) amoxicillin (Verified Allergy, Unknown, unknown, 01/10/19) clavulanic acid (Verified Allergy, Unknown, unknown, 01/10/19) moxifloxacin (Verified Allergy, Unknown, unknown, 01/10/19) nitrofurantoin (Verified Allergy, Unknown, unknown, 01/10/19) oxycodone (Verified Adverse Reaction, Intermediate, AMS, 01/20/20) prednisolone (Verified Adverse Reaction, Mild, flippy feeling, 01/20/20) BERE LEA MD Feb 25, 2020 11:39
--- NOTE | 2020-03-19 17:18 | ECGEPIP ---
[facility] Test Date: 2020-02-23 Pat Name: CK BYRD Department: Room: [place] [address] Gender: Female Data Control Assistant: : 1950 Requested By: XENIA HAAS Order Number: [id number] Reading MD: Shawna Head Measurements Intervals [place] Rate: 57 P: 53 MS: 202 QRS: -24 QRSD: 149 T: 103 QT: 509 QTc: 496 Interpretive Statements SINUS BRADYCARDIA FIRST DEGREE BLOCK LEFT BUNDLE BRANCH BLOCK ABNORMAL ECG PROLONGED QTC SEE SCANNED DOWNTIME REPORT
== END 2020-02-24 18:28 | DRG 641 ==
LOC: M MS5PR 14:00
PROVIDERS: ADMIT Family Medicine; ATTEND Internal Medicine Nephrology
DX: E86.0 Dehydration (principal); E22.2 Syndrome of inappropriate secretion of antidiuretic hormone; G40.909 Epilepsy, unspecified, not intractable, without status epilepticus; J44.9 Chronic obstructive pulmonary disease, unspecified; R29.6 Repeated falls; I25.2 Old myocardial infarction; E78.5 Hyperlipidemia, unspecified; I10 Essential (primary) hypertension; G24.01 Drug induced subacute dyskinesia; D50.9 Iron deficiency anemia, unspecified; N32.81 Overactive bladder; I25.10 Atherosclerotic heart disease of native coronary artery without angina pectoris; K57.30 Diverticulosis of large intestine without perforation or abscess without bleeding; F20.9 Schizophrenia, unspecified; Z79.899 Other long term (current) drug therapy; Z79.82 Long term (current) use of aspirin; Z88.2 Allergy status to sulfonamides; Z88.0 Allergy status to penicillin; Z88.8 Allergy status to other drugs, medicaments and biological substances; Z88.5 Allergy status to narcotic agent; F25.1 Schizoaffective disorder, depressive type; H02.402 Unspecified ptosis of left eyelid

== ENCOUNTER 2020-02-24 18:30 | Inpatient (IN) | payer OTHER, MEDICAID ==
[~2020-02-24] VITALS: Ht 162.6 cm; Wt 63.8 kg
[~2020-02-24 18:30] MED LIST changes: +ACET-683 PO; +KEPP250T5 PO
[2020-02-24 18:40] VITALS: BP 182/96
[2020-02-24] MEDS ORDERED: MAALOX 30 ML SUSP *UDC PO PRN (20:15)
[2020-02-24] MEDS ORDERED: MOM 30ML SUSPENSION UDC PO PRN (20:15)
[2020-02-24] MEDS ORDERED: CARVedilol 6.25 MG TAB PO SCH (21:00)
[2020-02-24] MEDS ORDERED: amLODIPine 5 MG TAB PO SCH (21:00)
[2020-02-24] MEDS: ACETAMINOPHEN TAB 650MG DOSE (2X325MG) PO PRN (21:02)
[2020-02-24] MEDS: amLODIPine 5 MG TAB PO SCH (21:02)
[2020-02-24] MEDS: CARVedilol 6.25 MG TAB PO SCH (21:03)
[2020-02-25 06:38] VITALS: BP 166/81
[2020-02-25] MEDS: CETIRIZINE (ZyrTEC) 10 MG TAB PO SCH (09:00)
[2020-02-25] MEDS ORDERED: ASPIRIN 81 MG ENTERIC TAB PO SCH (09:00)
[2020-02-25] MEDS: TIOTROPIUM INHALER/CAPSULE (SPIRIVA) INH SCH (09:25)
[2020-02-25] MEDS: ASPIRIN 81 MG ENTERIC TAB PO SCH (09:26)
[2020-02-25] MEDS: CARVedilol 6.25 MG TAB PO SCH ×2 (09:26→21:23)
[2020-02-25] MEDS: amLODIPine 5 MG TAB PO SCH ×2 (09:26→21:24)
--- NOTE | 2020-02-25 11:48 | MHHPEPDOC ---
[facility] History & Physical History and Physical DATE OF ADMISSION: Feb 24, 2020 at 18:30 Subjective HPI: Pamela presents today after admittance and was attempted to be met with today, however, she is still quite disturbed and is repeating the same phrase over and over. She recently came back from the medical floor where she was rehydrated and was treated for a UTI. She appears to be much more engaged and can engage in basic ADLs, and is less confused than previously. She is unable to participate in any reasonable interview. MEDICATIONS: She was previously treated with Abilify and SSRI. MEDICAL HISTORY: Previously admitted to inpatient mental health unit several months ago with a diagnosis of major depressive disorder with psychotic features. No known history of suicide attempts. Complex history of hypertension and age-related metabolic problems. FAMILY HISTORY: Family history is unknown. SOCIAL HISTORY - LIVING SITUATION: She lives with her . Occupation is unknown, assumed to be retired. SOCIAL HISTORY - SUBSTANCE USE: No notable substance abuse history in chart. Objective Appearance: Well nourished. Appears to be stated age. Well groomed. Mood: Appropriately reactive. Generally good. Speech: Repeating the same phrase over and over. Spontaneous and Fluid. Normal volume. Normal rate. Thought Form: Tangential. Little ability to engage in any discussion. Judgement: Poor. Insight: Poor. Assessment F05 Delirium due to known physiological condition F29 Unspecified psychosis not due to a substance or known physiological condition F33.9 Major depressive disorder, recurrent, unspecified Plan Two main priorities are: Altered thoughts, currently on a 9.27 legal status potential. Transfer to long-term care as she will take quite some time to improve. We will start patient on Prozac 10 mg daily as potential Catatonia and will see if this improves symptoms. Concerns about trying Ativan due to patients encephalopathy that is resolving. Vital Signs Vital Signs Date Time Temp Pulse Resp B/P (MAP) Pulse Ox O2 Delivery O2 Flow Rate FiO2 02/25/20 09:26 71 166/81 02/25/20 06:38 97.7 16 99 Room Air Medications Scheduled Acetaminophen (Acetaminophen) 500 Mg Tablet, 1,000 MG PO BID Amantadine HCl (Amantadine) 100 Mg Tablet, 100 MG PO BID for . , (Reported) Amlodipine Besylate (Amlodipine Besylate) 5 Mg Tablet, 5 MG PO BID for . , (Reported) Aspirin (Aspirin EC) 81 Mg Tablet.dr, 81 MG PO DAILY for . , (Reported) Atorvastatin Calcium (Atorvastatin Calcium) 20 Mg Tablet, 20 MG PO DAILY for . , (Reported) Carvedilol (Carvedilol) 6.25 Mg Tablet, 6.25 MG PO BID for . , (Reported) Cetirizine HCl (Cetirizine HCl) 10 Mg Tablet, 10 MG PO DAILY for . , (Reported) Cyanocobalamin (Vitamin B-12) (Vitamin B-12) 1,000 Mcg Tablet, 1,000 MCG PO DAILY for . , (Reported) Folic Acid (Folic Acid) 1 Mg Tablet, 1 MG PO DAILY for . , (Reported) Levetiracetam (Keppra) 250 Mg Tablet, 500 MG PO BID Omeprazole (Omeprazole) 40 Mg Capsule.dr, 40 MG PO DAILY for . , (Reported) Oxybutynin Chloride (Oxybutynin Chloride) 5 Mg Tablet, 5 MG PO BID Potassium Chloride (Potassium Chloride) 10 Meq Capsule.er, 10 MEQ PO DAILY for . , (Reported) Tiotropium [place] (Spiriva Respimat) 4 Gm Mist.inhal, 2 PUFF INH DAILY for . , (Reported) Allergies Coded Allergies: Sulfa (Sulfonamide Antibiotics) (Verified Allergy, Severe, ANAPYLAXIS, 01/20/20) Quinolones (Verified Allergy, Intermediate, HIVES, 01/20/20) cephalexin (Verified Allergy, Mild, HIVES, 11/02/19) amoxicillin (Verified Allergy, Unknown, unknown, 01/10/19) clavulanic acid (Verified Allergy, Unknown, unknown, 01/10/19) moxifloxacin (Verified Allergy, Unknown, unknown, 01/10/19) nitrofurantoin (Verified Allergy, Unknown, unknown, 01/10/19) oxycodone (Verified Adverse Reaction, Intermediate, AMS, 01/20/20) prednisolone (Verified Adverse Reaction, Mild, flippy feeling, 01/20/20) BROCK WOLF DO Feb 25, 2020 11:48
[2020-02-25] MEDS: SUCRALFATE 1 GM TAB PO SCH ×2 (12:00→16:29)
[2020-02-25 16:11] VITALS: BP 160/82
[2020-02-25] MEDS ORDERED: FLUoxetine 10 MG CAP PO ONE (18:45)
[2020-02-25] MEDS: PANTOPRAZOLE 40MG TAB (PROTONIX) PO SCH (21:23)
[2020-02-25] MEDS: oxyBUTYnin 5 MG TAB PO SCH (21:23)
[2020-02-25] MEDS: levETIRAcetam 250MG TABLET (KEPPRA) PO SCH (21:24)
[2020-02-25] MEDS: ATORVASTATIN 20 MG TAB PO SCH (21:24)
[2020-02-25] MEDS: traZODone 50 MG TAB PO PRN (21:54)
--- NOTE | 2020-02-26 02:43 | HPEPDOC ---
General Date of Admission Feb 24, 2020 at 18:30 Date of Service: Feb 25, 2020 Chief Complaint The patient is a 69-year-old female admitted with a reason for visit of Unspecified Depressive Disorder. History of Present Illness 69 year old female with schizophrenia, chronic chest pain has been worked up several times in the past month for ACS which has been negative felt to be musculoskeletal in nature has been in the hospital from January 18 has been bouncing back and forth from Inpatient medicine [facility] for different complaints. Initially she was admitted on January 18 for GIB due to drop in HH with heme positive stools started on PPI and carafate with plans for follow up with GI for EGD and Colonoscopy after discharge, then she went [facility] for control of her schizophrenia, Came back to medicine for Seizures and started on keppra. Then came back for chest pain/ ACS work up which was negative was sent back to [facility] for continued uncontrolled schizophrenia symptoms. She was readmitted to Medicine on 02/23/20 for dehydration as patient was not eating or drinking much for 2 to 3 days. She received IVF, her labs were within normal limits, she also had chest pain , EKG and cardiac enzymes were done and ACS ruled out. She continued to have severe schizophrenia symptoms so was [facility]. Today i am seeing the patient for medical history and physical. She is seen siting in the sofa and refused to go to the exam room and wanted to be examined there. She was cooperative but constantly talking to what seemed like voices that she is hearing. She would mumble an answer to my question then go back to talking to herself. She again complained of chest pain and shoulder pain but could not characterize any more. Home Medications Scheduled Acetaminophen (Acetaminophen) 500 Mg Tablet, 1,000 MG PO BID Amantadine HCl (Amantadine) 100 Mg Tablet, 100 MG PO BID for . , (Reported) Amlodipine Besylate (Amlodipine Besylate) 5 Mg Tablet, 5 MG PO BID for . , (Reported) Aspirin (Aspirin EC) 81 Mg Tablet.dr, 81 MG PO DAILY for . , (Reported) Atorvastatin Calcium (Atorvastatin Calcium) 20 Mg Tablet, 20 MG PO DAILY for . , (Reported) Carvedilol (Carvedilol) 6.25 Mg Tablet, 6.25 MG PO BID for . , (Reported) Cetirizine HCl (Cetirizine HCl) 10 Mg Tablet, 10 MG PO DAILY for . , (Reported) Cyanocobalamin (Vitamin B-12) (Vitamin B-12) 1,000 Mcg Tablet, 1,000 MCG PO DAILY for . , (Reported) Folic Acid (Folic Acid) 1 Mg Tablet, 1 MG PO DAILY for . , (Reported) Levetiracetam (Keppra) 250 Mg Tablet, 500 MG PO BID Omeprazole (Omeprazole) 40 Mg Capsule.dr, 40 MG PO DAILY for . , (Reported) Oxybutynin Chloride (Oxybutynin Chloride) 5 Mg Tablet, 5 MG PO BID Potassium Chloride (Potassium Chloride) 10 Meq Capsule.er, 10 MEQ PO DAILY for . , (Reported) Tiotropium [place] (Spiriva Respimat) 4 Gm Mist.inhal, 2 PUFF INH DAILY for . , (Reported) Allergies Coded Allergies: Sulfa (Sulfonamide Antibiotics) (Verified Allergy, Severe, ANAPYLAXIS, 01/20/20) Quinolones (Verified Allergy, Intermediate, HIVES, 01/20/20) cephalexin (Verified Allergy, Mild, HIVES, 11/02/19) amoxicillin (Verified Allergy, Unknown, unknown, 01/10/19) clavulanic acid (Verified Allergy, Unknown, unknown, 01/10/19) moxifloxacin (Verified Allergy, Unknown, unknown, 01/10/19) nitrofurantoin (Verified Allergy, Unknown, unknown, 01/10/19) oxycodone (Verified Adverse Reaction, Intermediate, AMS, 01/20/20) prednisolone (Verified Adverse Reaction, Mild, flippy feeling, 01/20/20) Past Medical History Medical History Newly diagnosed Seizure disorder Chronic musculoskeletal chest pain Schizophrenia. Tardive dyskinesia with lip smacking. Coronary artery disease. Myocardial infarction ([place]). Dyslipidemia. Hypertension. COPD, not oxygen or steroid dependent. Overactive bladder. Iron deficiency anemia. Degenerative joint disease. Grade 1 diastolic dysfunction. Sciatica SIADH. H/o Gastritis with H pylori infection Left adrenal adenoma. Diverticulosis. Surgical History Cholecystectomy 2011. Hysterectomy in 1974. Appendectomy. section. Lumbar laminectomy and posterior fixation. Family History Father from CVA, mother from Crohn's, brother with coronary artery disease/[place] at the age of 43, sister with type 2 diabetes. Social History * Smoker: former Smoker Alcohol: Denies Drugs: denies A-FIB/CHADSVASC A-FIB History Current/History of A-Fib/PAF?: No Review of Systems Other systems As per HPI Physical Examination General Exam: Positive: Alert, Cooperative, No Acute Distress Eye Exam: Positive: PERRLA, Conjunctiva & lids normal, EOMI; Negative: Sclera icteric ENT Exam: Positive: Atraumatic, Mucous membr. moist/pink, Pharynx Normal Neck Exam: Positive: Supple; Negative: JVD, thyromegaly Chest Exam: Positive: Diminished, Other (tenderness to palpation of chest wall bilateally); Negative: Rales, Rhonchi, Wheezing Heart Exam: Positive: Rate Normal, Regular Rhythm, Normal S1, Normal S2; Negative: Murmurs, Rubs Abdomen Exam: Positive: Normal bowel sounds, Soft; Negative: Tenderness Extremity Exam: Positive: Normal pulses; Negative: Clubbing, Cyanosis, Edema Vital Signs Vital Signs Date Time Temp Pulse Resp B/P (MAP) Pulse Ox O2 Delivery O2 Flow Rate FiO2 02/25/20 09:26 71 166/81 02/25/20 06:38 97.7 16 99 Room Air Assessment/Plan 69 year old female with schizophrenia, chronic chest pain has been worked up several times in the past month for ACS which has been negative felt to be musculoskeletal in nature has been in the hospital from January 18 has been bouncing back and forth from Inpatient medicine to [facility] for different complaints. Initially she was admitted on January 18 for GIB due to drop in HH with heme positive stools started on PPI and carafate with plans for follow up with GI for EGD and Colonoscopy after discharge, then she went [facility] for control of her schizophrenia, Came back to medicine for Seizures and started on keppra. Then came back for chest pain/ ACS work up which was negative was sent back to [facility] for continued uncontrolled schizophrenia symptoms. She was readmitted to Medicine on 02/23/20 for dehydration as patient was not eating or drinking much for 2 to 3 days and had a day of diarrhea after she received fosfomycin for presumed UTI as she had a dirty UA . UA was sent due to her persistent delirium and concern whether she was having an UTI causing her to be so confused. Urine culture was negative so UTi was ruled out. She received IVF, her labs were within normal limits, she also had chest pain , EKG and cardiac enzymes were done and ACS ruled out. She continued to have severe schizophrenia symptoms so was [facility]. Today i am seeing the patient for medical history and physical. Chest pain chronic musculoskeletal in nature worked up for ACS multiple times int he past 2 weeks all negative continue tylenol 1000mg bid. Dirty UA culture negative No UTI. Newly diagnosed Seizure disorder this admission started on keppra. Schizophrenia./Tardive dyskinesia with lip smacking. as per psychiatry Coronary artery disease/Myocardial infarction ([place]). Asa, coreg, statin Dyslipidemia. statin Hypertension/ grade 1 diastolic dysfunction coreg and amlodipine COPD, not oxygen or steroid dependent. spiriva, Overactive bladder. oxybutinin Degenerative joint disease/ sciatica tylenol NSAIDS prn SIADH. Sodium in normal range at present. H/o Gastritis with H pylori infection with recent possible GIB PPI and carafate. Plan / VTE VTE Prophylaxis Ordered?: No (freely ambulatory) BERE LEA MD Feb 25, 2020 11:00
[2020-02-26] MEDS ORDERED: QUEtiapine FUMARATE 50 MG TAB PO ONE (03:30)
[2020-02-26 05:52] VITALS: BP 98/51
[2020-02-26] MEDS: SUCRALFATE 1 GM TAB PO SCH ×3 (07:30→17:08)
--- NOTE | 2020-02-26 07:38 | MHIPNPDOC ---
[facility] Progress Note Progress Note DATE OF SERVICE: 02/26/20 Subjective HPI: Patient was attempted to be met with today, however she is soundly asleep. The patient has been notably less confused, but still has difficulty with po intake. She has notably been psychotic over the evening per sitter and nursing staff. Objective Behavior: Patient is sleeping comfortable without any signs of distress. Assessment F29 Unspecified psychosis not due to a substance or known physiological condition R41.0 Disorientation, unspecified F33.9 Major depressive disorder, recurrent, unspecified Plan We will continue Prozac 10 mg daily, as this is potentially a good treatment for underlying depression, perhaps relating to catatonia or psychotic depression. Well order EEG as Im still concerned of a medical cause and this would be the most effective way of parsing out whether a medical cause is causing the major issues. Her resolution is quite extensive, and she might need long-term treatment. Vital Signs Vital Signs Date Time Temp Pulse Resp B/P (MAP) Pulse Ox O2 Delivery O2 Flow Rate FiO2 02/26/20 05:52 98.2 66 16 98/51 (67) Room Air 02/25/20 16:11 97 Current Medications Current Medications Medications (Trade) Dose Ordered Sig/Sonia Route PRN Reason Start Time Stop Time Status Last Admin Dose Admin Acetaminophen (Tylenol Tab) 650 mg Q6HP PRN PO HEADACHE or DISCOMFORT 02/24/20 20:15 02/24/20 21:02 Al Hydrox/Mg Hydrox/Simethicone (Mylanta) 30 ml Q4HP PRN PO HEARTBURN/INDIGESTION 02/24/20 20:15 Amlodipine Besylate (Norvasc) 5 mg BID PO 02/24/20 21:00 02/25/20 21:24 Amlodipine Besylate (Norvasc) 5 mg BID PO 02/24/20 21:00 UNV Aspirin (Ecotrin) 81 mg DAILY PO 02/25/20 09:00 02/25/20 09:26 Aspirin (Ecotrin) 81 mg DAILY PO 02/25/20 09:00 UNV Atorvastatin Calcium (Lipitor) 20 mg QHS PO 02/25/20 21:00 02/25/20 21:24 Carvedilol (COReg) 6.25 mg BID PO 02/24/20 21:00 02/25/20 21:23 Carvedilol (COReg) 6.25 mg BID PO 02/24/20 21:00 UNV Cetirizine HCl (ZyrTEC) 10 mg DAILY PO 02/25/20 09:00 Fluoxetine HCl (PROzac) 10 mg DAILY PO 02/26/20 09:00 Folic Acid (Folic Acid) 1 mg DAILY PO 02/26/20 09:00 Home Med (Med Rec Complete!) ASDIRECTED XX 02/24/20 19:30 02/24/20 19:21 DC Levetiracetam (Keppra) 500 mg BID PO 02/25/20 21:00 02/25/20 21:24 Magnesium Hydroxide (Milk Of Magnesia) 30 ml DAILYPRN PRN PO CONSTIPATION 02/24/20 20:15 Oxybutynin Chloride (Ditropan) 5 mg BID PO 02/25/20 21:00 02/25/20 21:23 Pantoprazole Sodium (Protonix) 40 mg QHS PO 02/25/20 21:00 02/25/20 21:23 Sucralfate (Carafate) 1 gm AC PO 02/25/20 12:00 02/25/20 16:29 Tiotropium [place] (Spiriva Handihaler) 1 inhalation DAILY@08 INH 02/25/20 08:00 02/25/20 09:25 Trazodone HCl (Desyrel) 50 mg QHSP PRN PO INSOMNIA 02/24/20 20:15 02/25/20 21:54 Allergies Coded Allergies: Sulfa (Sulfonamide Antibiotics) (Verified Allergy, Severe, ANAPYLAXIS, 01/20/20) Quinolones (Verified Allergy, Intermediate, HIVES, 01/20/20) cephalexin (Verified Allergy, Mild, HIVES, 11/02/19) amoxicillin (Verified Allergy, Unknown, unknown, 01/10/19) clavulanic acid (Verified Allergy, Unknown, unknown, 01/10/19) moxifloxacin (Verified Allergy, Unknown, unknown, 01/10/19) nitrofurantoin (Verified Allergy, Unknown, unknown, 01/10/19) oxycodone (Verified Adverse Reaction, Intermediate, AMS, 01/20/20) prednisolone (Verified Adverse Reaction, Mild, flippy feeling, 01/20/20) BROCK WOLF DO Feb 26, 2020 07:38
[2020-02-26] MEDS: TIOTROPIUM INHALER/CAPSULE (SPIRIVA) INH SCH (08:00)
[2020-02-26] MEDS: amLODIPine 5 MG TAB PO SCH ×2 (09:00→20:55)
[2020-02-26] MEDS: ASPIRIN 81 MG ENTERIC TAB PO SCH (09:00)
[2020-02-26] MEDS: CARVedilol 6.25 MG TAB PO SCH ×2 (09:00→20:54)
[2020-02-26] MEDS: CETIRIZINE (ZyrTEC) 10 MG TAB PO SCH (09:00)
[2020-02-26] MEDS: levETIRAcetam 250MG TABLET (KEPPRA) PO SCH ×2 (09:00→20:55)
[2020-02-26] MEDS: oxyBUTYnin 5 MG TAB PO SCH ×2 (09:00→20:54)
[2020-02-26] MEDS: FOLIC ACID 1 MG TAB PO SCH (09:00)
[2020-02-26] MEDS: FLUoxetine 10 MG CAP PO SCH (09:00)
[2020-02-26 16:43] LABS: BLOOD UREA NITROGEN 17 MG/DL (7-18); CALCIUM LEVEL 8.4 MG/DL (8.8-10.2); CARBON DIOXIDE LEVEL 27 MEQ/L (21-32); CHLORIDE LEVEL 108 MEQ/L (98-107); CREATININE FOR GFR 0.97 MG/DL (0.55-1.30); GLOMERULAR FILTRATION RATE > 60.0 (>45); GLUCOSE, FASTING 81 MG/DL (70-100); POTASSIUM SERUM 3.7 MEQ/L (3.5-5.1); SODIUM LEVEL 140 MEQ/L (136-145)
[2020-02-26 17:22] VITALS: BP 116/62
[2020-02-26] MEDS: ATORVASTATIN 20 MG TAB PO SCH (20:55)
[2020-02-26] MEDS: PANTOPRAZOLE 40MG TAB (PROTONIX) PO SCH (20:55)
--- NOTE | 2020-02-27 08:21 | MHIPNPDOC ---
[facility] Progress Note Progress Note DATE OF SERVICE: 02/27/20 Subjective HPI: Pamela presents today for a a regular recheck. Patient was met today. However, the only thing she can say in response to how she is doing is not. She is unable to describe anything further and generally does not engage in any further interview with this provider. The patient appears to continue to act bizarrely. However, it is unclear whether the patients presentation is signifi cantly different. Hopefully, we can get an EEG. Objective Appearance: Poor hygeine. Behavior: Patient is laying in bed comfortable, says not but refuses to answer otherwise. Speech: Speech is garbled, current condition is unable to be determined. Judgement: Poor judgement. Insight: Poor insight. Assessment R41.0 Disorientation, unspecified F29 Unspecified psychosis not due to a substance or known physiological condition F33.9 Major depressive disorder, recurrent, unspecified Plan EEG will hopefully shed more light onto her current situation. Antipsychotics did not appear to improve her condition on last presentation, making a hard diagnostic situation more of a conundrum. Continue to take Prozac. Vital Signs Vital Signs Date Time Temp Pulse Resp B/P (MAP) Pulse Ox O2 Delivery O2 Flow Rate FiO2 02/26/20 17:22 98.6 63 14 116/62 (80) 02/26/20 05:52 Room Air 02/25/20 16:11 97 Laboratory Data 24H Labs Laboratory Tests 2 02/26/20 15:11: Anion Gap 5L, Glomerular Filtration Rate > 60.0, Calcium Level 8.4L CBC/BMP Laboratory Tests 02/26/20 15:11 Current Medications Current Medications Medications (Trade) Dose Ordered Sig/Sonia Route PRN Reason Start Time Stop Time Status Last Admin Dose Admin Acetaminophen (Tylenol Tab) 650 mg Q6HP PRN PO HEADACHE or DISCOMFORT 02/24/20 20:15 02/24/20 21:02 Al Hydrox/Mg Hydrox/Simethicone (Mylanta) 30 ml Q4HP PRN PO HEARTBURN/INDIGESTION 02/24/20 20:15 Amlodipine Besylate (Norvasc) 5 mg BID PO 02/24/20 21:00 02/25/20 21:24 Amlodipine Besylate (Norvasc) 5 mg BID PO 02/24/20 21:00 UNV Aspirin (Ecotrin) 81 mg DAILY PO 02/25/20 09:00 02/25/20 09:26 Aspirin (Ecotrin) 81 mg DAILY PO 02/25/20 09:00 UNV Atorvastatin Calcium (Lipitor) 20 mg QHS PO 02/25/20 21:00 02/25/20 21:24 Carvedilol (COReg) 6.25 mg BID PO 02/24/20 21:00 02/25/20 21:23 Carvedilol (COReg) 6.25 mg BID PO 02/24/20 21:00 UNV Cetirizine HCl (ZyrTEC) 10 mg DAILY PO 02/25/20 09:00 Fluoxetine HCl (PROzac) 10 mg DAILY PO 02/26/20 09:00 Folic Acid (Folic Acid) 1 mg DAILY PO 02/26/20 09:00 Home Med (Med Rec Complete!) ASDIRECTED XX 02/24/20 19:30 02/24/20 19:21 DC Levetiracetam (Keppra) 500 mg BID PO 02/25/20 21:00 02/25/20 21:24 Magnesium Hydroxide (Milk Of Magnesia) 30 ml DAILYPRN PRN PO CONSTIPATION 02/24/20 20:15 Oxybutynin Chloride (Ditropan) 5 mg BID PO 02/25/20 21:00 02/25/20 21:23 Pantoprazole Sodium (Protonix) 40 mg QHS PO 02/25/20 21:00 02/25/20 21:23 Sucralfate (Carafate) 1 gm AC PO 02/25/20 12:00 02/26/20 17:08 Tiotropium [place] (Spiriva Handihaler) 1 inhalation DAILY@08 INH 02/25/20 08:00 02/25/20 09:25 Trazodone HCl (Desyrel) 50 mg QHSP PRN PO INSOMNIA 02/24/20 20:15 02/25/20 21:54 Allergies Coded Allergies: Sulfa (Sulfonamide Antibiotics) (Verified Allergy, Severe, ANAPYLAXIS, 01/20/20) Quinolones (Verified Allergy, Intermediate, HIVES, 01/20/20) cephalexin (Verified Allergy, Mild, HIVES, 11/02/19) amoxicillin (Verified Allergy, Unknown, unknown, 01/10/19) clavulanic acid (Verified Allergy, Unknown, unknown, 01/10/19) moxifloxacin (Verified Allergy, Unknown, unknown, 01/10/19) nitrofurantoin (Verified Allergy, Unknown, unknown, 01/10/19) oxycodone (Verified Adverse Reaction, Intermediate, AMS, 01/20/20) prednisolone (Verified Adverse Reaction, Mild, flippy feeling, 01/20/20) BROCK WOLF DO Feb 27, 2020 08:21
[2020-02-27] MEDS: FLUoxetine 10 MG CAP PO SCH (09:04)
[2020-02-27] MEDS: ASPIRIN 81 MG ENTERIC TAB PO SCH (09:05)
[2020-02-27] MEDS: oxyBUTYnin 5 MG TAB PO SCH ×3 (09:05→22:30)
[2020-02-27] MEDS: FOLIC ACID 1 MG TAB PO SCH (09:05)
[2020-02-27] MEDS: SUCRALFATE 1 GM TAB PO SCH ×3 (09:05→17:18)
[2020-02-27] MEDS: TIOTROPIUM INHALER/CAPSULE (SPIRIVA) INH SCH (09:06)
[2020-02-27] MEDS: CETIRIZINE (ZyrTEC) 10 MG TAB PO SCH (09:06)
[2020-02-27] MEDS: levETIRAcetam 250MG TABLET (KEPPRA) PO SCH ×3 (09:06→22:30)
[2020-02-27] MEDS: CARVedilol 6.25 MG TAB PO SCH ×3 (09:19→22:30)
[2020-02-27] MEDS: amLODIPine 5 MG TAB PO SCH ×3 (09:20→22:30)
[2020-02-27 17:01] VITALS: BP 133/74
[2020-02-27] MEDS: PANTOPRAZOLE 40MG TAB (PROTONIX) PO SCH ×2 (21:08→22:30)
[2020-02-27] MEDS: ATORVASTATIN 20 MG TAB PO SCH ×2 (21:08→22:30)
[2020-02-27] MEDS: traZODone 50 MG TAB PO PRN (21:13)
[2020-02-27] MEDS ORDERED: HALOPERIDOL 5MG/ML VIAL (J1630 PER 1) IM STA (21:36)
[2020-02-27] MEDS ORDERED: LORazepam 2 MG/ML VIAL IM STA (21:36)
[2020-02-27 21:50] VITALS: BP 136/61
[2020-02-28 06:32] VITALS: BP 125/60
[2020-02-28] MEDS: SUCRALFATE 1 GM TAB PO SCH ×3 (07:03→17:01)
[2020-02-28] MEDS: TIOTROPIUM INHALER/CAPSULE (SPIRIVA) INH SCH (08:00)
[2020-02-28] MEDS: CETIRIZINE (ZyrTEC) 10 MG TAB PO SCH (09:00)
[2020-02-28] MEDS: ASPIRIN 81 MG ENTERIC TAB PO SCH (09:52)
[2020-02-28] MEDS: CARVedilol 6.25 MG TAB PO SCH ×2 (09:52→23:11)
[2020-02-28] MEDS: oxyBUTYnin 5 MG TAB PO SCH ×2 (09:52→23:00)
[2020-02-28] MEDS: FOLIC ACID 1 MG TAB PO SCH (09:53)
[2020-02-28] MEDS: levETIRAcetam 250MG TABLET (KEPPRA) PO SCH ×2 (09:53→22:59)
[2020-02-28] MEDS: amLODIPine 5 MG TAB PO SCH ×2 (09:53→23:11)
[2020-02-28] MEDS: FLUoxetine 10 MG CAP PO SCH (09:53)
[2020-02-28 14:00] VITALS: BP 133/77
[2020-02-28] MEDS: PANTOPRAZOLE 40MG TAB (PROTONIX) PO SCH (22:59)
[2020-02-28] MEDS: ATORVASTATIN 20 MG TAB PO SCH (22:59)
[2020-02-29] MEDS: SUCRALFATE 1 GM TAB PO SCH ×3 (07:54→16:41)
[2020-02-29] MEDS: TIOTROPIUM INHALER/CAPSULE (SPIRIVA) INH SCH (07:55)
[2020-02-29] MEDS: CETIRIZINE (ZyrTEC) 10 MG TAB PO SCH (09:18)
[2020-02-29] MEDS: amLODIPine 5 MG TAB PO SCH ×2 (09:18→21:50)
[2020-02-29] MEDS: CARVedilol 6.25 MG TAB PO SCH ×2 (09:18→21:49)
[2020-02-29] MEDS: ASPIRIN 81 MG ENTERIC TAB PO SCH (09:18)
[2020-02-29] MEDS: FOLIC ACID 1 MG TAB PO SCH (09:19)
[2020-02-29] MEDS: levETIRAcetam 250MG TABLET (KEPPRA) PO SCH ×2 (09:19→21:50)
[2020-02-29] MEDS: oxyBUTYnin 5 MG TAB PO SCH ×2 (09:19→21:49)
[2020-02-29] MEDS: FLUoxetine 10 MG CAP PO SCH (09:19)
[2020-02-29 18:39] VITALS: BP 149/81
[2020-02-29] MEDS: PANTOPRAZOLE 40MG TAB (PROTONIX) PO SCH (21:50)
[2020-02-29] MEDS: ATORVASTATIN 20 MG TAB PO SCH (21:51)
[2020-02-29] MEDS: traZODone 50 MG TAB PO PRN (21:51)
[2020-02-29] MEDS ORDERED: QUEtiapine FUMARATE 25 MG TAB PO ONE (22:35)
--- NOTE | 2020-03-01 07:50 | MHIPNPDOC ---
[facility] Progress Note Progress Note DATE OF SERVICE: 03/01/20 Subjective HPI: Pamela is met with today, still bizarre, talking to people that arent there, staring off on a one-to-one sitter, and doesnt engage with the interviewer. Objective Appearance: Hygiene poor. Behavior: No engagement, sitting on bed. Cognition: Stares off. Thought Form: Mouths various words. Judgement: Poor. Insight: Poor. Assessment F29 Unspecified psychosis not due to a substance or known physiological condition F33.9 Major depressive disorder, recurrent, unspecified Plan Continue Prozac 10 mg, will augment with, Haldol 2.5 mg BID, as it appears the psychotic process needs to be treated and appears that her aggression over the weekend has been enhanced. Still not clear if medical is more likely than psychiatric, however, will treat with a low-risk neuroleptic that has less potential orthostatic problems, given her old age and fall risk. Vital Signs Vital Signs Date Time Temp Pulse Resp B/P (MAP) Pulse Ox O2 Delivery O2 Flow Rate FiO2 02/29/20 21:50 67 149/81 02/29/20 18:39 97.4 12 100 Room Air Current Medications Current Medications Medications (Trade) Dose Ordered Sig/Sonia Route PRN Reason Start Time Stop Time Status Last Admin Dose Admin Acetaminophen (Tylenol Tab) 650 mg Q6HP PRN PO HEADACHE or DISCOMFORT 02/24/20 20:15 02/24/20 21:02 Al Hydrox/Mg Hydrox/Simethicone (Mylanta) 30 ml Q4HP PRN PO HEARTBURN/INDIGESTION 02/24/20 20:15 Amlodipine Besylate (Norvasc) 5 mg BID PO 02/24/20 21:00 02/29/20 21:50 Amlodipine Besylate (Norvasc) 5 mg BID PO 02/24/20 21:00 UNV Aspirin (Ecotrin) 81 mg DAILY PO 02/25/20 09:00 02/29/20 09:18 Aspirin (Ecotrin) 81 mg DAILY PO 02/25/20 09:00 UNV Atorvastatin Calcium (Lipitor) 20 mg QHS PO 02/25/20 21:00 02/29/20 21:51 Carvedilol (COReg) 6.25 mg BID PO 02/24/20 21:00 02/29/20 21:49 Carvedilol (COReg) 6.25 mg BID PO 02/24/20 21:00 UNV Cetirizine HCl (ZyrTEC) 10 mg DAILY PO 02/25/20 09:00 02/29/20 09:18 Fluoxetine HCl (PROzac) 10 mg DAILY PO 02/26/20 09:00 02/29/20 09:19 Folic Acid (Folic Acid) 1 mg DAILY PO 02/26/20 09:00 02/29/20 09:19 Haloperidol (Haldol) 5 mg STAT STAT IM 02/27/20 21:36 02/27/20 21:38 DC 02/27/20 21:51 Home Med (Med Rec Complete!) ASDIRECTED XX 02/24/20 19:30 02/24/20 19:21 DC Levetiracetam (Keppra) 500 mg BID PO 02/25/20 21:00 02/29/20 21:50 Lorazepam (Ativan) 2 mg STAT STAT IM 02/27/20 21:36 02/27/20 21:38 DC 02/27/20 21:51 Magnesium Hydroxide (Milk Of Magnesia) 30 ml DAILYPRN PRN PO CONSTIPATION 02/24/20 20:15 Oxybutynin Chloride (Ditropan) 5 mg BID PO 02/25/20 21:00 02/29/20 21:49 Pantoprazole Sodium (Protonix) 40 mg QHS PO 02/25/20 21:00 02/29/20 21:50 Sucralfate (Carafate) 1 gm AC PO 02/25/20 12:00 02/29/20 16:41 Tiotropium [place] (Spiriva Handihaler) 1 inhalation DAILY@08 INH 02/25/20 08:00 02/29/20 07:55 Trazodone HCl (Desyrel) 50 mg QHSP PRN PO INSOMNIA 02/24/20 20:15 02/29/20 21:51 Allergies Coded Allergies: Sulfa (Sulfonamide Antibiotics) (Verified Allergy, Severe, ANAPYLAXIS, 01/20/20) Quinolones (Verified Allergy, Intermediate, HIVES, 01/20/20) cephalexin (Verified Allergy, Mild, HIVES, 11/02/19) amoxicillin (Verified Allergy, Unknown, unknown, 01/10/19) clavulanic acid (Verified Allergy, Unknown, unknown, 01/10/19) moxifloxacin (Verified Allergy, Unknown, unknown, 01/10/19) nitrofurantoin (Verified Allergy, Unknown, unknown, 01/10/19) oxycodone (Verified Adverse Reaction, Intermediate, AMS, 01/20/20) prednisolone (Verified Adverse Reaction, Mild, flippy feeling, 01/20/20) BROCK WOLF DO Mar 01, 2020 07:50
[2020-03-01] MEDS: CETIRIZINE (ZyrTEC) 10 MG TAB PO SCH ×2 (09:21→13:33)
[2020-03-01] MEDS: FLUoxetine 10 MG CAP PO SCH ×2 (09:21→13:33)
[2020-03-01] MEDS: ASPIRIN 81 MG ENTERIC TAB PO SCH ×2 (09:21→13:33)
[2020-03-01] MEDS: CARVedilol 6.25 MG TAB PO SCH ×3 (09:21→20:01)
[2020-03-01] MEDS: levETIRAcetam 250MG TABLET (KEPPRA) PO SCH ×3 (09:21→20:01)
[2020-03-01] MEDS: amLODIPine 5 MG TAB PO SCH ×3 (09:21→20:01)
[2020-03-01] MEDS: ACETAMINOPHEN TAB 650MG DOSE (2X325MG) PO PRN ×3 (09:22→20:00)
[2020-03-01] MEDS: TIOTROPIUM INHALER/CAPSULE (SPIRIVA) INH SCH (09:22)
[2020-03-01] MEDS: oxyBUTYnin 5 MG TAB PO SCH ×3 (09:22→20:01)
[2020-03-01] MEDS: FOLIC ACID 1 MG TAB PO SCH ×2 (09:22→13:33)
[2020-03-01] MEDS: SUCRALFATE 1 GM TAB PO SCH ×3 (09:22→17:06)
[2020-03-01] MEDS: haloperidoL 1 MG TAB PO SCH ×2 (13:33→20:02)
[2020-03-01] MEDS: ATORVASTATIN 20 MG TAB PO SCH (20:01)
[2020-03-01] MEDS: PANTOPRAZOLE 40MG TAB (PROTONIX) PO SCH (20:01)
[2020-03-01] MEDS: traZODone 50 MG TAB PO PRN (20:27)
[2020-03-01] MEDS: traMADol 50 MG TAB PO PRN (22:44)
[2020-03-02] MEDS: CETIRIZINE (ZyrTEC) 10 MG TAB PO SCH (07:53)
[2020-03-02] MEDS: oxyBUTYnin 5 MG TAB PO SCH ×2 (07:53→21:11)
[2020-03-02] MEDS: haloperidoL 1 MG TAB PO SCH ×2 (07:53→21:11)
[2020-03-02] MEDS: SUCRALFATE 1 GM TAB PO SCH ×3 (07:53→17:28)
[2020-03-02] MEDS: levETIRAcetam 250MG TABLET (KEPPRA) PO SCH ×2 (07:53→21:13)
[2020-03-02] MEDS: TIOTROPIUM INHALER/CAPSULE (SPIRIVA) INH SCH (07:53)
[2020-03-02] MEDS: amLODIPine 5 MG TAB PO SCH ×2 (07:54→21:13)
[2020-03-02] MEDS: ASPIRIN 81 MG ENTERIC TAB PO SCH (07:54)
[2020-03-02] MEDS: CARVedilol 6.25 MG TAB PO SCH ×2 (07:54→21:11)
[2020-03-02] MEDS: FOLIC ACID 1 MG TAB PO SCH (07:54)
[2020-03-02] MEDS: FLUoxetine 10 MG CAP PO SCH (07:54)
[2020-03-02] MEDS: ACETAMINOPHEN TAB 650MG DOSE (2X325MG) PO PRN ×3 (07:55→21:14)
--- NOTE | 2020-03-02 11:03 | MHIPNPDOC ---
[facility] Progress Note Progress Note DATE OF SERVICE: 03/02/20 Subjective HPI: Gera presents today for the refusal of meeting and notably unusual on the psychotic/nursing staff. Objective Behavior: Sitting uncomfortably on chair, looking at various objects. Motor: No gross motor abnormalities. Judgement: Poor. Insight: Poor. 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 It appears she is manifesting an overt psychotic disorder. She does reportedly have a history of schizophrenia. Its unclear, however, appears delirium is no longer part of the picture. She is oriented and corrosive and will remain on a one-to-one as she is quite violent when she wants to be. Vital Signs Vital Signs Date Time Temp Pulse Resp B/P (MAP) Pulse Ox O2 Delivery O2 Flow Rate FiO2 03/02/20 07:54 67 149/81 03/01/20 23:41 16 02/29/20 18:39 97.4 100 Room Air Current Medications Current Medications Medications (Trade) Dose Ordered Sig/Sonia Route PRN Reason Start Time Stop Time Status Last Admin Dose Admin Acetaminophen (Tylenol Tab) 650 mg Q6HP PRN PO HEADACHE or DISCOMFORT 02/24/20 20:15 03/02/20 07:55 Al Hydrox/Mg Hydrox/Simethicone (Mylanta) 30 ml Q4HP PRN PO HEARTBURN/INDIGESTION 02/24/20 20:15 Amlodipine Besylate (Norvasc) 5 mg BID PO 02/24/20 21:00 03/02/20 07:54 Amlodipine Besylate (Norvasc) 5 mg BID PO 02/24/20 21:00 UNV Aripiprazole (AbiLIFY) 5 mg QHS PO 03/01/20 21:00 03/01/20 08:23 DC Aspirin (Ecotrin) 81 mg DAILY PO 02/25/20 09:00 03/02/20 07:54 Aspirin (Ecotrin) 81 mg DAILY PO 02/25/20 09:00 UNV Atorvastatin Calcium (Lipitor) 20 mg QHS PO 02/25/20 21:00 03/01/20 20:01 Carvedilol (COReg) 6.25 mg BID PO 02/24/20 21:00 9/1/20 07:54 Carvedilol (COReg) 6.25 mg BID PO 02/24/20 21:00 UNV Cetirizine HCl (ZyrTEC) 10 mg DAILY PO 02/25/20 09:00 03/02/20 07:53 Fluoxetine HCl (PROzac) 10 mg DAILY PO 02/26/20 09:00 03/02/20 07:54 Folic Acid (Folic Acid) 1 mg DAILY PO 02/26/20 09:00 03/02/20 07:54 Haloperidol (Haldol) 2.5 mg BID PO 03/01/20 09:00 03/02/20 07:53 Haloperidol (Haldol) 5 mg STAT STAT IM 02/27/20 21:36 02/27/20 21:38 DC 02/27/20 21:51 Home Med (Med Rec Complete!) ASDIRECTED XX 02/24/20 19:30 02/24/20 19:21 DC Levetiracetam (Keppra) 500 mg BID PO 02/25/20 21:00 03/02/20 07:53 Lorazepam (Ativan) 2 mg STAT STAT IM 02/27/20 21:36 02/27/20 21:38 DC 02/27/20 21:51 Magnesium Hydroxide (Milk Of Magnesia) 30 ml DAILYPRN PRN PO CONSTIPATION 02/24/20 20:15 Oxybutynin Chloride (Ditropan) 5 mg BID PO 02/25/20 21:00 03/02/20 07:53 Pantoprazole Sodium (Protonix) 40 mg QHS PO 02/25/20 21:00 03/01/20 20:01 Sucralfate (Carafate) 1 gm AC PO 02/25/20 12:00 03/02/20 07:53 Tiotropium [place] (Spiriva Handihaler) 1 inhalation DAILY@08 INH 02/25/20 08:00 03/02/20 07:53 Tramadol HCl (Ultram) 25 mg TIDP PRN PO PAIN 03/01/20 22:00 03/01/20 22:44 Trazodone HCl (Desyrel) 50 mg QHSP PRN PO INSOMNIA 02/24/20 20:15 03/01/20 20:27 Allergies Coded Allergies: Sulfa (Sulfonamide Antibiotics) (Verified Allergy, Severe, ANAPYLAXIS, 01/20/20) Quinolones (Verified Allergy, Intermediate, HIVES, 01/20/20) cephalexin (Verified Allergy, Mild, HIVES, 11/02/19) amoxicillin (Verified Allergy, Unknown, unknown, 01/10/19) clavulanic acid (Verified Allergy, Unknown, unknown, 01/10/19) moxifloxacin (Verified Allergy, Unknown, unknown, 01/10/19) nitrofurantoin (Verified Allergy, Unknown, unknown, 01/10/19) oxycodone (Verified Adverse Reaction, Intermediate, AMS, 01/20/20) prednisolone (Verified Adverse Reaction, Mild, flippy feeling, 01/20/20) BROCK WOLF DO Mar 02, 2020 11:03
[2020-03-02] MEDS: traMADol 50 MG TAB PO PRN (14:54)
[2020-03-02] MEDS: PANTOPRAZOLE 40MG TAB (PROTONIX) PO SCH (21:12)
[2020-03-02] MEDS: ATORVASTATIN 20 MG TAB PO SCH (21:12)
[2020-03-02] MEDS: traZODone 50 MG TAB PO PRN (21:13)
[2020-03-02] MEDS: PILL CUTTER 1 EACH XX PRN (21:13)
[2020-03-03] MEDS: ASPIRIN 81 MG ENTERIC TAB PO SCH (07:53)
[2020-03-03] MEDS: TIOTROPIUM INHALER/CAPSULE (SPIRIVA) INH SCH (07:53)
[2020-03-03] MEDS: FOLIC ACID 1 MG TAB PO SCH (07:53)
[2020-03-03] MEDS: amLODIPine 5 MG TAB PO SCH ×2 (07:54→21:15)
[2020-03-03] MEDS: levETIRAcetam 250MG TABLET (KEPPRA) PO SCH ×2 (07:54→21:16)
[2020-03-03] MEDS: FLUoxetine 10 MG CAP PO SCH (07:54)
[2020-03-03] MEDS: SUCRALFATE 1 GM TAB PO SCH ×3 (07:54→17:13)
[2020-03-03] MEDS: ACETAMINOPHEN TAB 650MG DOSE (2X325MG) PO PRN ×2 (07:54→14:05)
[2020-03-03] MEDS: oxyBUTYnin 5 MG TAB PO SCH ×2 (07:55→22:43)
[2020-03-03] MEDS: traMADol 50 MG TAB PO PRN ×2 (07:55→17:42)
[2020-03-03] MEDS: CARVedilol 6.25 MG TAB PO SCH ×2 (07:55→21:16)
[2020-03-03] MEDS: haloperidoL 1 MG TAB PO SCH ×2 (07:56→21:14)
[2020-03-03] MEDS: CETIRIZINE (ZyrTEC) 10 MG TAB PO SCH (07:56)
--- NOTE | 2020-03-03 08:55 | MHIPNPDOC ---
[facility] Progress Note Progress Note DATE OF SERVICE: 03/03/20 HPI: Niko was attempted to meet with, however, she declined again. She has notably been unusual and somewhat psychotic. Although she does not appear confu sed, she appears to be quite paranoid of others and does not like anyone to interact with her for any length of time. Objective Appearance: Appears to be stated age. Well groomed. Well nourished. Mood: Patient is sitting in a chair and says no to wanting to meet. Speech: Simply stopped speaking. Motor: No gross motor abnormalities. Judgement: Poor. Insight: Poor. 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 Will likely increase if she tolerates it well. Continue Prozac. Patient does have a history of depression, could be schizoaffective disorder, unclear at this time. Will pursue [facility] referral at this time for long-term treatment. Vital Signs Vital Signs Date Time Temp Pulse Resp B/P (MAP) Pulse Ox O2 Delivery O2 Flow Rate FiO2 03/03/20 07:55 18 03/03/20 07:54 67 149/81 02/29/20 18:39 97.4 100 Room Air Current Medications Current Medications Medications (Trade) Dose Ordered Sig/Sonia Route PRN Reason Start Time Stop Time Status Last Admin Dose Admin Acetaminophen (Tylenol Tab) 650 mg Q6HP PRN PO HEADACHE or DISCOMFORT 02/24/20 20:15 03/03/20 07:54 Al Hydrox/Mg Hydrox/Simethicone (Mylanta) 30 ml Q4HP PRN PO HEARTBURN/INDIGESTION 02/24/20 20:15 Amlodipine Besylate (Norvasc) 5 mg BID PO 02/24/20 21:00 03/03/20 07:54 Amlodipine Besylate (Norvasc) 5 mg BID PO 02/24/20 21:00 UNV Aripiprazole (AbiLIFY) 5 mg QHS PO 03/01/20 21:00 03/01/20 08:23 DC Aspirin (Ecotrin) 81 mg DAILY PO 02/25/20 09:00 03/03/20 07:53 Aspirin (Ecotrin) 81 mg DAILY PO 02/25/20 09:00 UNV Atorvastatin Calcium (Lipitor) 20 mg QHS PO 02/25/20 21:00 03/02/20 21:12 Carvedilol (COReg) 6.25 mg BID PO 02/24/20 21:00 03/03/20 07:55 Carvedilol (COReg) 6.25 mg BID PO 02/24/20 21:00 UNV Cetirizine HCl (ZyrTEC) 10 mg DAILY PO 02/25/20 09:00 03/03/20 07:56 Fluoxetine HCl (PROzac) 10 mg DAILY PO 02/26/20 09:00 03/03/20 07:54 Folic Acid (Folic Acid) 1 mg DAILY PO 02/26/20 09:00 03/03/20 07:53 Haloperidol (Haldol) 2.5 mg BID PO 03/01/20 09:00 03/03/20 07:56 Haloperidol (Haldol) 5 mg STAT STAT IM 02/27/20 21:36 02/27/20 21:38 DC 02/27/20 21:51 Home Med (Med Rec Complete!) ASDIRECTED XX 02/24/20 19:30 02/24/20 19:21 DC Levetiracetam (Keppra) 500 mg BID PO 02/25/20 21:00 03/03/20 07:54 Lorazepam (Ativan) 2 mg STAT STAT IM 02/27/20 21:36 02/27/20 21:38 DC 02/27/20 21:51 Magnesium Hydroxide (Milk Of Magnesia) 30 ml DAILYPRN PRN PO CONSTIPATION 02/24/20 20:15 Oxybutynin Chloride (Ditropan) 5 mg BID PO 02/25/20 21:00 03/03/20 07:55 Pantoprazole Sodium (Protonix) 40 mg QHS PO 02/25/20 21:00 03/02/20 21:12 Sucralfate (Carafate) 1 gm AC PO 02/25/20 12:00 03/03/20 07:54 Tiotropium [place] (Spiriva Handihaler) 1 inhalation DAILY@08 INH 02/25/20 08:00 03/03/20 07:53 Tramadol HCl (Ultram) 25 mg TIDP PRN PO PAIN 03/01/20 22:00 03/03/20 07:55 Trazodone HCl (Desyrel) 50 mg QHSP PRN PO INSOMNIA 02/24/20 20:15 03/02/20 21:13 Allergies Coded Allergies: Sulfa (Sulfonamide Antibiotics) (Verified Allergy, Severe, ANAPYLAXIS, 01/20/20) Quinolones (Verified Allergy, Intermediate, HIVES, 01/20/20) cephalexin (Verified Allergy, Mild, HIVES, 11/02/19) amoxicillin (Verified Allergy, Unknown, unknown, 01/10/19) clavulanic acid (Verified Allergy, Unknown, unknown, 01/10/19) moxifloxacin (Verified Allergy, Unknown, unknown, 01/10/19) nitrofurantoin (Verified Allergy, Unknown, unknown, 01/10/19) oxycodone (Verified Adverse Reaction, Intermediate, AMS, 01/20/20) prednisolone (Verified Adverse Reaction, Mild, flippy feeling, 01/20/20) BROCK WOLF DO Mar 03, 2020 08:55
[2020-03-03 18:00] VITALS: BP 124/60
[2020-03-03] MEDS: ATORVASTATIN 20 MG TAB PO SCH (21:14)
[2020-03-03] MEDS: PANTOPRAZOLE 40MG TAB (PROTONIX) PO SCH (21:15)
[2020-03-04 06:47] VITALS: BP 120/58
[2020-03-04] MEDS: TIOTROPIUM INHALER/CAPSULE (SPIRIVA) INH SCH (08:03)
[2020-03-04] MEDS: SUCRALFATE 1 GM TAB PO SCH ×3 (08:03→17:36)
--- NOTE | 2020-03-04 08:15 | MHIPNPDOC ---
[facility] Progress Note Progress Note DATE OF SERVICE: 03/04/20 Subjective HPI: Attempted to meet with patient today, however, she declined. She did not even speak to me walking right past me. When asked if she would like to meet on an observation, she appeared to be primarily engaged in watching TV and drinking coffee with no aggressive episode. She was tried briefly on a one-to-one sitter and did not appear to engage in any aggressive behavior. She primarily keeps to herself, isolative, and bizarre. Objective Appearance: Appears to be stated age. Well groomed. Well nourished. Behavior: Refuses to speak. Walks past me. Ambulating appears to be without any assistance. No signs of tremors. Speech: Not present, but does not appear to be overtly mute. Only saying yes or no answers to staff. Judgement: Poor. Insight: Poor. 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 Still concerned for falls given her age, however, she will be pursued for long- term treatment as it appears that shes likely suffering from a relapse of psychotic disorder. She does have a vague history of schizophrenia in the past, however, she could very well have schizoaffective disorder as mood component does not appear to be present on this admission. She does not appear to be overtly depressed, and she is eating and engaging in basic hygiene, suggesting against ultra severe depression with psychotic features. Well likely discontinue Prozac as it does not appear to be helpful, however, well need to monitor closely as if it is a schizoaffective depressed type, theoretically, she would benefit from it and this would explain her depressed mood episode and now, several weeks later, separate psychotic episode. Her delirium likely was from a UTI, which is now treated, revealing underlying psychosis (e.g. unlikely to be gained due to patients non-compliance). Vital Signs Vital Signs Date Time Temp Pulse Resp B/P (MAP) Pulse Ox O2 Delivery O2 Flow Rate FiO2 03/04/20 06:47 98.3 58 15 120/58 (78) 94 Room Air Current Medications Current Medications Medications (Trade) Dose Ordered Sig/Sonia Route PRN Reason Start Time Stop Time Status Last Admin Dose Admin Acetaminophen (Tylenol Tab) 650 mg Q6HP PRN PO HEADACHE or DISCOMFORT 02/24/20 20:15 03/03/20 14:05 Al Hydrox/Mg Hydrox/Simethicone (Mylanta) 30 ml Q4HP PRN PO HEARTBURN/INDIGESTION 02/24/20 20:15 Amlodipine Besylate (Norvasc) 5 mg BID PO 02/24/20 21:00 03/03/20 21:15 Amlodipine Besylate (Norvasc) 5 mg BID PO 02/24/20 21:00 UNV Aripiprazole (AbiLIFY) 5 mg QHS PO 03/01/20 21:00 03/01/20 08:23 DC Aspirin (Ecotrin) 81 mg DAILY PO 02/25/20 09:00 03/03/20 07:53 Aspirin (Ecotrin) 81 mg DAILY PO 02/25/20 09:00 UNV Atorvastatin Calcium (Lipitor) 20 mg QHS PO 02/25/20 21:00 03/03/20 21:14 Carvedilol (COReg) 6.25 mg BID PO 02/24/20 21:00 03/03/20 21:16 Carvedilol (COReg) 6.25 mg BID PO 02/24/20 21:00 UNV Cetirizine HCl (ZyrTEC) 10 mg DAILY PO 02/25/20 09:00 03/03/20 07:56 Fluoxetine HCl (PROzac) 10 mg DAILY PO 02/26/20 09:00 03/03/20 07:54 Folic Acid (Folic Acid) 1 mg DAILY PO 02/26/20 09:00 03/03/20 07:53 Haloperidol (Haldol) 2.5 mg BID PO 03/01/20 09:00 03/03/20 21:14 Haloperidol (Haldol) 5 mg STAT STAT IM 02/27/20 21:36 02/27/20 21:38 DC 02/27/20 21:51 Home Med (Med Rec Complete!) ASDIRECTED XX 02/24/20 19:30 02/24/20 19:21 DC Levetiracetam (Keppra) 500 mg BID PO 02/25/20 21:00 03/03/20 21:16 Lorazepam (Ativan) 2 mg STAT STAT IM 02/27/20 21:36 02/27/20 21:38 DC 02/27/20 21:51 Magnesium Hydroxide (Milk Of Magnesia) 30 ml DAILYPRN PRN PO CONSTIPATION 02/24/20 20:15 Oxybutynin Chloride (Ditropan) 5 mg BID PO 02/25/20 21:00 03/03/20 22:43 Pantoprazole Sodium (Protonix) 40 mg QHS PO 02/25/20 21:00 03/03/20 21:15 Sucralfate (Carafate) 1 gm AC PO 02/25/20 12:00 03/04/20 08:03 Tiotropium [place] (Spiriva Handihaler) 1 inhalation DAILY@08 INH 02/25/20 08:00 03/04/20 08:03 Tramadol HCl (Ultram) 25 mg TIDP PRN PO PAIN 03/01/20 22:00 03/03/20 17:42 Trazodone HCl (Desyrel) 50 mg QHSP PRN PO INSOMNIA 02/24/20 20:15 03/02/20 21:13 Allergies Coded Allergies: Sulfa (Sulfonamide Antibiotics) (Verified Allergy, Severe, ANAPYLAXIS, 01/20/20) Quinolones (Verified Allergy, Intermediate, HIVES, 01/20/20) cephalexin (Verified Allergy, Mild, HIVES, 11/02/19) amoxicillin (Verified Allergy, Unknown, unknown, 01/10/19) clavulanic acid (Verified Allergy, Unknown, unknown, 01/10/19) moxifloxacin (Verified Allergy, Unknown, unknown, 01/10/19) nitrofurantoin (Verified Allergy, Unknown, unknown, 01/10/19) oxycodone (Verified Adverse Reaction, Intermediate, AMS, 01/20/20) prednisolone (Verified Adverse Reaction, Mild, flippy feeling, 01/20/20) BROCK WOLF DO Mar 04, 2020 08:15
[2020-03-04] MEDS: haloperidoL 1 MG TAB PO SCH ×2 (08:41→21:06)
[2020-03-04] MEDS: CARVedilol 6.25 MG TAB PO SCH ×2 (08:42→21:05)
[2020-03-04] MEDS: ASPIRIN 81 MG ENTERIC TAB PO SCH (08:43)
[2020-03-04] MEDS: levETIRAcetam 250MG TABLET (KEPPRA) PO SCH ×2 (08:43→21:04)
[2020-03-04] MEDS: oxyBUTYnin 5 MG TAB PO SCH ×2 (08:43→21:06)
[2020-03-04] MEDS: CETIRIZINE (ZyrTEC) 10 MG TAB PO SCH (08:43)
[2020-03-04] MEDS: FOLIC ACID 1 MG TAB PO SCH (08:43)
[2020-03-04] MEDS: amLODIPine 5 MG TAB PO SCH ×2 (08:44→21:07)
[2020-03-04] MEDS: FLUoxetine 10 MG CAP PO SCH (08:44)
[2020-03-04] MEDS: ACETAMINOPHEN TAB 650MG DOSE (2X325MG) PO PRN (11:55)
[2020-03-04] MEDS: traMADol 50 MG TAB PO PRN (11:56)
[2020-03-04 16:54] VITALS: BP 127/60
[2020-03-04] MEDS: PILL CUTTER 1 EACH XX PRN (21:06)
[2020-03-04] MEDS: PANTOPRAZOLE 40MG TAB (PROTONIX) PO SCH (21:06)
[2020-03-04] MEDS: ATORVASTATIN 20 MG TAB PO SCH (21:07)
[2020-03-05 06:43] VITALS: BP 157/74
[2020-03-05] MEDS: oxyBUTYnin 5 MG TAB PO SCH ×2 (09:48→21:46)
[2020-03-05] MEDS: CETIRIZINE (ZyrTEC) 10 MG TAB PO SCH (09:48)
[2020-03-05] MEDS: ASPIRIN 81 MG ENTERIC TAB PO SCH (09:48)
[2020-03-05] MEDS: TIOTROPIUM INHALER/CAPSULE (SPIRIVA) INH SCH (09:48)
[2020-03-05] MEDS: FOLIC ACID 1 MG TAB PO SCH (09:48)
[2020-03-05] MEDS: SUCRALFATE 1 GM TAB PO SCH ×3 (09:49→17:03)
[2020-03-05] MEDS: CARVedilol 6.25 MG TAB PO SCH ×2 (09:49→21:49)
[2020-03-05] MEDS: FLUoxetine 10 MG CAP PO SCH (09:49)
[2020-03-05] MEDS: levETIRAcetam 250MG TABLET (KEPPRA) PO SCH ×2 (09:49→21:46)
[2020-03-05] MEDS: PILL CUTTER 1 EACH XX PRN (09:50)
[2020-03-05] MEDS: ACETAMINOPHEN TAB 650MG DOSE (2X325MG) PO PRN (09:52)
[2020-03-05] MEDS: haloperidoL 1 MG TAB PO SCH (09:53)
[2020-03-05] MEDS: amLODIPine 5 MG TAB PO SCH ×2 (09:53→21:49)
[2020-03-05] MEDS: haloperidoL 5 MG TAB PO SCH (21:46)
[2020-03-05] MEDS: PANTOPRAZOLE 40MG TAB (PROTONIX) PO SCH (21:47)
[2020-03-05] MEDS: ATORVASTATIN 20 MG TAB PO SCH (21:47)
[2020-03-06] MEDS: SUCRALFATE 1 GM TAB PO SCH ×3 (06:33→18:30)
[2020-03-06] MEDS: TIOTROPIUM INHALER/CAPSULE (SPIRIVA) INH SCH (08:00)
[2020-03-06] MEDS: CARVedilol 6.25 MG TAB PO SCH ×2 (10:50→22:04)
[2020-03-06] MEDS: oxyBUTYnin 5 MG TAB PO SCH ×2 (10:50→22:05)
[2020-03-06] MEDS: haloperidoL 5 MG TAB PO SCH ×2 (10:51→22:05)
[2020-03-06] MEDS: levETIRAcetam 250MG TABLET (KEPPRA) PO SCH ×2 (10:51→22:05)
[2020-03-06] MEDS: CETIRIZINE (ZyrTEC) 10 MG TAB PO SCH (10:51)
[2020-03-06] MEDS: FOLIC ACID 1 MG TAB PO SCH (10:52)
[2020-03-06] MEDS: amLODIPine 5 MG TAB PO SCH ×2 (10:52→22:05)
[2020-03-06] MEDS: FLUoxetine 10 MG CAP PO SCH (10:52)
[2020-03-06] MEDS: ASPIRIN 81 MG ENTERIC TAB PO SCH (10:53)
[2020-03-06] MEDS: ACETAMINOPHEN TAB 650MG DOSE (2X325MG) PO PRN (15:27)
[2020-03-06] MEDS: ATORVASTATIN 20 MG TAB PO SCH (22:05)
[2020-03-06] MEDS: PANTOPRAZOLE 40MG TAB (PROTONIX) PO SCH (22:05)
[2020-03-06] MEDS: traZODone 50 MG TAB PO PRN (22:05)
[2020-03-07] MEDS: SUCRALFATE 1 GM TAB PO SCH ×3 (07:30→18:04)
[2020-03-07] MEDS: TIOTROPIUM INHALER/CAPSULE (SPIRIVA) INH SCH (08:00)
[2020-03-07] MEDS: CETIRIZINE (ZyrTEC) 10 MG TAB PO SCH (10:10)
[2020-03-07] MEDS: oxyBUTYnin 5 MG TAB PO SCH ×2 (10:10→22:00)
[2020-03-07] MEDS: CARVedilol 6.25 MG TAB PO SCH ×2 (10:10→21:58)
[2020-03-07] MEDS: haloperidoL 5 MG TAB PO SCH ×2 (10:11→22:00)
[2020-03-07] MEDS: levETIRAcetam 250MG TABLET (KEPPRA) PO SCH ×2 (10:11→21:58)
[2020-03-07] MEDS: amLODIPine 5 MG TAB PO SCH ×2 (10:12→22:00)
[2020-03-07] MEDS: ASPIRIN 81 MG ENTERIC TAB PO SCH (10:12)
[2020-03-07] MEDS: FOLIC ACID 1 MG TAB PO SCH (10:12)
[2020-03-07] MEDS: FLUoxetine 10 MG CAP PO SCH (10:12)
[2020-03-07 18:55] VITALS: BP 130/80
[2020-03-07] MEDS: ATORVASTATIN 20 MG TAB PO SCH (22:00)
[2020-03-07] MEDS: PANTOPRAZOLE 40MG TAB (PROTONIX) PO SCH (22:00)
[2020-03-07] MEDS: traZODone 50 MG TAB PO PRN (22:00)
[2020-03-08 06:38] VITALS: BP 144/65
[2020-03-08] MEDS: SUCRALFATE 1 GM TAB PO SCH ×3 (09:32→16:37)
[2020-03-08] MEDS: levETIRAcetam 250MG TABLET (KEPPRA) PO SCH ×2 (09:32→20:48)
[2020-03-08] MEDS: CARVedilol 6.25 MG TAB PO SCH ×2 (09:32→20:49)
[2020-03-08] MEDS: FLUoxetine 10 MG CAP PO SCH (09:33)
[2020-03-08] MEDS: oxyBUTYnin 5 MG TAB PO SCH ×2 (09:33→20:50)
[2020-03-08] MEDS: FOLIC ACID 1 MG TAB PO SCH (09:33)
[2020-03-08] MEDS: CETIRIZINE (ZyrTEC) 10 MG TAB PO SCH (09:33)
[2020-03-08] MEDS: ASPIRIN 81 MG ENTERIC TAB PO SCH (09:33)
[2020-03-08] MEDS: amLODIPine 5 MG TAB PO SCH ×2 (09:33→20:49)
[2020-03-08] MEDS: TIOTROPIUM INHALER/CAPSULE (SPIRIVA) INH SCH (09:33)
[2020-03-08] MEDS: haloperidoL 5 MG TAB PO SCH ×2 (09:33→20:48)
[2020-03-08] MEDS: ACETAMINOPHEN TAB 650MG DOSE (2X325MG) PO PRN ×2 (09:33→16:37)
[2020-03-08] MEDS: traMADol 50 MG TAB PO PRN (13:07)
[2020-03-08 17:57] VITALS: BP 161/70
[2020-03-08] MEDS: PANTOPRAZOLE 40MG TAB (PROTONIX) PO SCH (20:50)
[2020-03-08] MEDS: ATORVASTATIN 20 MG TAB PO SCH (20:50)
[2020-03-08] MEDS: traZODone 50 MG TAB PO PRN (20:50)
[2020-03-09 06:42] VITALS: BP 133/74
[2020-03-09] MEDS: SUCRALFATE 1 GM TAB PO SCH ×3 (07:30→17:01)
[2020-03-09] MEDS: FLUoxetine 10 MG CAP PO SCH (09:00)
[2020-03-09] MEDS: CETIRIZINE (ZyrTEC) 10 MG TAB PO SCH (09:00)
--- NOTE | 2020-03-09 09:54 | MHIPNPDOC ---
[facility] Progress Note Progress Note DATE OF SERVICE: 03/09/20 Subjective HPI: Patient I attempted to meet with today. However she is still somewhat tired and responds sometimes asking about going home. Shes much more conversant and engaged although she has some bizarre behavior. She is generally obstinate. Objective Appearance: Hygiene improved. Speech: More fluid although still quite mute. Cognition: Alert, Attentive, and Oriented to person, place, time. Thought Form: More linear. Thought Content: No evidence of suicidal ideation. No thoughts of self harm. No evidence of aggressive or homicidal ideation. No evidence of delusions. Judgement: Intact as evidenced by decision making in the recent past. Insight: Good insight into symptoms and treatment options. Assessment F25.1 Schizoaffective disorder, depressive type F05 Delirium due to known physiological condition Plan Continue Haldol and likely increase to 10 mg BID as it appears that the separation of mood and psychotic episodes with superimposed delirium likely explains her diagnosis. Previously spoke to daughter last week to update on treatment. Patient making progress, and well still pursue treatment at [place] as she may take some time to resolve and may need ECT. Vital Signs Vital Signs Date Time Temp Pulse Resp B/P (MAP) Pulse Ox O2 Delivery O2 Flow Rate FiO2 03/09/20 06:42 97.6 64 15 133/74 (93) 96 Room Air Current Medications Current Medications Medications (Trade) Dose Ordered Sig/Sonia Route PRN Reason Start Time Stop Time Status Last Admin Dose Admin Acetaminophen (Tylenol Tab) 650 mg Q6HP PRN PO HEADACHE or DISCOMFORT 02/24/20 20:15 03/08/20 16:37 Al Hydrox/Mg Hydrox/Simethicone (Mylanta) 30 ml Q4HP PRN PO HEARTBURN/INDIGESTION 02/24/20 20:15 Amlodipine Besylate (Norvasc) 5 mg BID PO 02/24/20 21:00 03/08/20 20:49 Amlodipine Besylate (Norvasc) 5 mg BID PO 02/24/20 21:00 UNV Aripiprazole (AbiLIFY) 5 mg QHS PO 03/01/20 21:00 03/01/20 08:23 DC Aspirin (Ecotrin) 81 mg DAILY PO 02/25/20 09:00 03/08/20 09:33 Aspirin (Ecotrin) 81 mg DAILY PO 02/25/20 09:00 UNV Atorvastatin Calcium (Lipitor) 20 mg QHS PO 02/25/20 21:00 03/08/20 20:50 Carvedilol (COReg) 6.25 mg BID PO 02/24/20 21:00 03/08/20 20:49 Carvedilol (COReg) 6.25 mg BID PO 02/24/20 21:00 UNV Cetirizine HCl (ZyrTEC) 10 mg DAILY PO 02/25/20 09:00 03/08/20 09:33 Fluoxetine HCl (PROzac) 10 mg DAILY PO 02/26/20 09:00 03/08/20 09:33 Folic Acid (Folic Acid) 1 mg DAILY PO 02/26/20 09:00 03/08/20 09:33 Haloperidol (Haldol) 2.5 mg BID PO 03/01/20 09:00 03/05/20 11:28 DC 03/05/20 09:53 Haloperidol (Haldol) 5 mg BID PO 03/05/20 21:00 03/08/20 20:48 Haloperidol (Haldol) 5 mg STAT STAT IM 02/27/20 21:36 02/27/20 21:38 DC 02/27/20 21:51 Home Med (Med Rec Complete!) ASDIRECTED XX 02/24/20 19:30 02/24/20 19:21 DC Levetiracetam (Keppra) 500 mg BID PO 02/25/20 21:00 03/08/20 20:48 Lorazepam (Ativan) 2 mg STAT STAT IM 02/27/20 21:36 02/27/20 21:38 DC 02/27/20 21:51 Magnesium Hydroxide (Milk Of Magnesia) 30 ml DAILYPRN PRN PO CONSTIPATION 02/24/20 20:15 Miscellaneous (Unresolved Clarification Entry) SEE LABEL COMMENTS DAILY XX 03/08/20 09:00 03/08/20 11:25 DC Oxybutynin Chloride (Ditropan) 5 mg BID PO 02/25/20 21:00 03/08/20 20:50 Pantoprazole Sodium (Protonix) 40 mg QHS PO 02/25/20 21:00 03/08/20 20:50 Sucralfate (Carafate) 1 gm AC PO 02/25/20 12:00 03/08/20 16:37 Tiotropium [place] (Spiriva Handihaler) 1 inhalation DAILY@08 INH 02/25/20 08:00 03/08/20 09:33 Tramadol HCl (Ultram) 25 mg TIDP PRN PO PAIN 03/01/20 22:00 03/08/20 13:07 Trazodone HCl (Desyrel) 50 mg QHSP PRN PO INSOMNIA 02/24/20 20:15 03/08/20 20:50 Allergies Coded Allergies: Sulfa (Sulfonamide Antibiotics) (Verified Allergy, Severe, ANAPYLAXIS, 01/20/20) Quinolones (Verified Allergy, Intermediate, HIVES, 01/20/20) cephalexin (Verified Allergy, Mild, HIVES, 11/02/19) amoxicillin (Verified Allergy, Unknown, unknown, 01/10/19) clavulanic acid (Verified Allergy, Unknown, unknown, 01/10/19) moxifloxacin (Verified Allergy, Unknown, unknown, 01/10/19) nitrofurantoin (Verified Allergy, Unknown, unknown, 01/10/19) oxycodone (Verified Adverse Reaction, Intermediate, AMS, 01/20/20) prednisolone (Verified Adverse Reaction, Mild, flippy feeling, 01/20/20) BROCK WOLF DO Mar 09, 2020 09:54
[2020-03-09] MEDS: TIOTROPIUM INHALER/CAPSULE (SPIRIVA) INH SCH (11:34)
[2020-03-09] MEDS: levETIRAcetam 250MG TABLET (KEPPRA) PO SCH ×2 (11:36→20:21)
[2020-03-09] MEDS: CARVedilol 6.25 MG TAB PO SCH ×2 (11:36→20:21)
[2020-03-09] MEDS: FOLIC ACID 1 MG TAB PO SCH (11:36)
[2020-03-09] MEDS: amLODIPine 5 MG TAB PO SCH ×2 (11:37→20:21)
[2020-03-09] MEDS: haloperidoL 5 MG TAB PO SCH ×2 (11:38→20:20)
[2020-03-09] MEDS: oxyBUTYnin 5 MG TAB PO SCH ×2 (11:38→20:20)
[2020-03-09] MEDS: ASPIRIN 81 MG ENTERIC TAB PO SCH (11:38)
[2020-03-09 18:00] VITALS: BP 103/52
[2020-03-09] MEDS: ATORVASTATIN 20 MG TAB PO SCH (20:20)
[2020-03-09] MEDS: PANTOPRAZOLE 40MG TAB (PROTONIX) PO SCH (20:20)
[2020-03-09] MEDS: traMADol 50 MG TAB PO PRN (20:21)
[2020-03-10 05:26] VITALS: BP 101/51
[2020-03-10] MEDS: SUCRALFATE 1 GM TAB PO SCH ×3 (07:30→16:22)
--- NOTE | 2020-03-10 08:55 | MHIPNPDOC ---
[facility] Progress Note Progress Note DATE OF SERVICE: 03/10/20 Subjective HPI: Patient attempted to be met today. However, she refused to meet with this provider, She shook her head no. Patient later came up to window and asked about seeing the provider and possibly returning home. However, she did not appear to recognize this provider having spoken to him roughly 10 minutes prior. She is notably been less agitated and has been more cooperative coming out of her room on her own. Objective Appearance: Appears to be stated age. Fair. Behavior: Engaged. Patient shakes head no. Arms crossed. Cooperative with good eye contact. Pleasant. Mood: Euthymic. Generally good. Appropriately reactive. Speech: Normal rate. Normal volume. Spontaneous and Fluid. Motor: No gross motor abnormalities. Cognition: Alert, Attentive, and Oriented to person, place, time. Thought Form: Linear and goal directed. Thought Content: No evidence of aggressive or homicidal ideation. No evidence of suicidal ideation. No thoughts of self harm. No evidence of delusions. Judgement: Poor. Insight: Poor. Assessment F25.1 Schizoaffective disorder, depressive type F05 Delirium due to known physiological condition Plan Continued Haldol and Prozac 10 mg likely to increase, will need to consider augmentations as it appears that her separate mood and psychotic episodes do appear to a schizoaffective diagnosis. May need to go to residential depending on her improvement prognosis. Vital Signs Vital Signs Date Time Temp Pulse Resp B/P (MAP) Pulse Ox O2 Delivery O2 Flow Rate FiO2 03/10/20 05:26 99.2 58 16 101/51 (68) Room Air 03/09/20 06:42 96 Current Medications Current Medications Medications (Trade) Dose Ordered Sig/Sonia Route PRN Reason Start Time Stop Time Status Last Admin Dose Admin Acetaminophen (Tylenol Tab) 650 mg Q6HP PRN PO HEADACHE or DISCOMFORT 02/24/20 20:15 03/08/20 16:37 Al Hydrox/Mg Hydrox/Simethicone (Mylanta) 30 ml Q4HP PRN PO HEARTBURN/INDIGESTION 02/24/20 20:15 Amlodipine Besylate (Norvasc) 5 mg BID PO 02/24/20 21:00 03/09/20 20:21 Amlodipine Besylate (Norvasc) 5 mg BID PO 02/24/20 21:00 UNV Aripiprazole (AbiLIFY) 5 mg QHS PO 03/01/20 21:00 03/01/20 08:23 DC Aspirin (Ecotrin) 81 mg DAILY PO 02/25/20 09:00 03/09/20 11:38 Aspirin (Ecotrin) 81 mg DAILY PO 02/25/20 09:00 UNV Atorvastatin Calcium (Lipitor) 20 mg QHS PO 02/25/20 21:00 03/09/20 20:20 Carvedilol (COReg) 6.25 mg BID PO 02/24/20 21:00 03/09/20 20:21 Carvedilol (COReg) 6.25 mg BID PO 02/24/20 21:00 UNV Cetirizine HCl (ZyrTEC) 10 mg DAILY PO 02/25/20 09:00 03/09/20 09:00 Fluoxetine HCl (PROzac) 10 mg DAILY PO 02/26/20 09:00 03/09/20 09:00 Folic Acid (Folic Acid) 1 mg DAILY PO 02/26/20 09:00 03/09/20 11:36 Haloperidol (Haldol) 2.5 mg BID PO 03/01/20 09:00 03/05/20 11:28 DC 03/05/20 09:53 Haloperidol (Haldol) 5 mg BID PO 03/05/20 21:00 03/09/20 10:52 DC 03/08/20 20:48 Haloperidol (Haldol) 5 mg STAT STAT IM 02/27/20 21:36 02/27/20 21:38 DC 02/27/20 21:51 Haloperidol (Haldol) 10 mg BID PO 03/09/20 09:00 03/09/20 20:20 Home Med (Med Rec Complete!) ASDIRECTED XX 02/24/20 19:30 02/24/20 19:21 DC Levetiracetam (Keppra) 500 mg BID PO 02/25/20 21:00 03/09/20 20:21 Lorazepam (Ativan) 2 mg STAT STAT IM 02/27/20 21:36 02/27/20 21:38 DC 02/27/20 21:51 Magnesium Hydroxide (Milk Of Magnesia) 30 ml DAILYPRN PRN PO CONSTIPATION 02/24/20 20:15 Miscellaneous (Unresolved Clarification Entry) SEE LABEL COMMENTS DAILY XX 03/08/20 09:00 03/08/20 11:25 DC Oxybutynin Chloride (Ditropan) 5 mg BID PO 02/25/20 21:00 03/09/20 20:20 Pantoprazole Sodium (Protonix) 40 mg QHS PO 02/25/20 21:00 03/09/20 20:20 Sucralfate (Carafate) 1 gm AC PO 02/25/20 12:00 03/09/20 17:01 Tiotropium [place] (Spiriva Handihaler) 1 inhalation DAILY@08 INH 02/25/20 08:00 03/09/20 11:34 Tramadol HCl (Ultram) 25 mg TIDP PRN PO PAIN 03/01/20 22:00 03/09/20 20:21 Trazodone HCl (Desyrel) 50 mg QHSP PRN PO INSOMNIA 02/24/20 20:15 03/08/20 20:50 Allergies Coded Allergies: Sulfa (Sulfonamide Antibiotics) (Verified Allergy, Severe, ANAPYLAXIS, 01/20/20) Quinolones (Verified Allergy, Intermediate, HIVES, 01/20/20) cephalexin (Verified Allergy, Mild, HIVES, 11/02/19) amoxicillin (Verified Allergy, Unknown, unknown, 01/10/19) clavulanic acid (Verified Allergy, Unknown, unknown, 01/10/19) moxifloxacin (Verified Allergy, Unknown, unknown, 01/10/19) nitrofurantoin (Verified Allergy, Unknown, unknown, 01/10/19) oxycodone (Verified Adverse Reaction, Intermediate, AMS, 01/20/20) prednisolone (Verified Adverse Reaction, Mild, flippy feeling, 01/20/20) BROCK WOLF DO Mar 10, 2020 08:55
[2020-03-10] MEDS: haloperidoL 5 MG TAB PO SCH ×2 (09:52→21:55)
[2020-03-10] MEDS: FOLIC ACID 1 MG TAB PO SCH (09:52)
[2020-03-10] MEDS: levETIRAcetam 250MG TABLET (KEPPRA) PO SCH ×2 (09:52→21:56)
[2020-03-10] MEDS: ASPIRIN 81 MG ENTERIC TAB PO SCH (09:52)
[2020-03-10] MEDS: CETIRIZINE (ZyrTEC) 10 MG TAB PO SCH (09:52)
[2020-03-10] MEDS: oxyBUTYnin 5 MG TAB PO SCH ×2 (09:52→21:54)
[2020-03-10] MEDS: FLUoxetine 10 MG CAP PO SCH (09:52)
[2020-03-10] MEDS: TIOTROPIUM INHALER/CAPSULE (SPIRIVA) INH SCH (09:52)
[2020-03-10] MEDS: CARVedilol 6.25 MG TAB PO SCH ×2 (09:54→21:54)
[2020-03-10] MEDS: amLODIPine 5 MG TAB PO SCH ×2 (09:54→21:55)
[2020-03-10 18:42] VITALS: BP 131/71
[2020-03-10] MEDS: PANTOPRAZOLE 40MG TAB (PROTONIX) PO SCH (21:55)
[2020-03-10] MEDS: ATORVASTATIN 20 MG TAB PO SCH (21:55)
[2020-03-11 06:46] VITALS: BP 136/81
[2020-03-11] MEDS: SUCRALFATE 1 GM TAB PO SCH ×3 (07:30→17:05)
--- NOTE | 2020-03-11 07:50 | MHIPNPDOC ---
[facility] Progress Note Progress Note DATE OF SERVICE: 03/11/20 Subjective HPI: Pamela presents today for concerns regarding her schizoaffective disorder. She notes feeling good and that she is alright with the medicine. Pamela reports todays date as 02/06/2010. She denies voices talking to her. She has not talked to her daughter today, but admits they talk about her going home. Objective Appearance: Hygiene is fair. Appears tired at times. Behavior: More linear. More talkative. Speech: More fluid than previous. Motor: No oral facial movements. Cognition: Somewhat impaired, a baseline, thinks that its January 2010. Judgement: Mild improvements. Insight: Mild improvements. Assessment F25.1 Schizoaffective disorder, depressive type Plan Continue Prozac 10 mg and Haldol 10 mg BID. Making some improvements but could end up needing long-term. Vital Signs Vital Signs Date Time Temp Pulse Resp B/P (MAP) Pulse Ox O2 Delivery O2 Flow Rate FiO2 03/11/20 06:46 97.3 79 14 136/81 (99) Room Air 03/09/20 06:42 96 Current Medications Current Medications Medications (Trade) Dose Ordered Sig/Sonia Route PRN Reason Start Time Stop Time Status Last Admin Dose Admin Acetaminophen (Tylenol Tab) 650 mg Q6HP PRN PO HEADACHE or DISCOMFORT 02/24/20 20:15 03/08/20 16:37 Al Hydrox/Mg Hydrox/Simethicone (Mylanta) 30 ml Q4HP PRN PO HEARTBURN/INDIGESTION 02/24/20 20:15 Amlodipine Besylate (Norvasc) 5 mg BID PO 02/24/20 21:00 03/10/20 21:55 Amlodipine Besylate (Norvasc) 5 mg BID PO 02/24/20 21:00 UNV Aripiprazole (AbiLIFY) 5 mg QHS PO 03/01/20 21:00 03/01/20 08:23 DC Aspirin (Ecotrin) 81 mg DAILY PO 02/25/20 09:00 03/10/20 09:52 Aspirin (Ecotrin) 81 mg DAILY PO 02/25/20 09:00 UNV Atorvastatin Calcium (Lipitor) 20 mg QHS PO 02/25/20 21:00 03/10/20 21:55 Carvedilol (COReg) 6.25 mg BID PO 02/24/20 21:00 03/10/20 21:54 Carvedilol (COReg) 6.25 mg BID PO 02/24/20 21:00 UNV Cetirizine HCl (ZyrTEC) 10 mg DAILY PO 02/25/20 09:00 03/10/20 09:52 Fluoxetine HCl (PROzac) 10 mg DAILY PO 02/26/20 09:00 03/10/20 09:52 Folic Acid (Folic Acid) 1 mg DAILY PO 02/26/20 09:00 03/10/20 09:52 Haloperidol (Haldol) 2.5 mg BID PO 03/01/20 09:00 03/05/20 11:28 DC 03/05/20 09:53 Haloperidol (Haldol) 5 mg BID PO 03/05/20 21:00 03/09/20 10:52 DC 03/08/20 20:48 Haloperidol (Haldol) 5 mg STAT STAT IM 02/27/20 21:36 02/27/20 21:38 DC 02/27/20 21:51 Haloperidol (Haldol) 10 mg BID PO 03/09/20 09:00 03/10/20 21:55 Home Med (Med Rec Complete!) ASDIRECTED XX 02/24/20 19:30 02/24/20 19:21 DC Levetiracetam (Keppra) 500 mg BID PO 02/25/20 21:00 03/10/20 21:56 Lorazepam (Ativan) 2 mg STAT STAT IM 02/27/20 21:36 02/27/20 21:38 DC 02/27/20 21:51 Magnesium Hydroxide (Milk Of Magnesia) 30 ml DAILYPRN PRN PO CONSTIPATION 02/24/20 20:15 Miscellaneous (Unresolved Clarification Entry) SEE LABEL COMMENTS DAILY XX 03/08/20 09:00 03/08/20 11:25 DC Oxybutynin Chloride (Ditropan) 5 mg BID PO 02/25/20 21:00 03/10/20 21:54 Pantoprazole Sodium (Protonix) 40 mg QHS PO 02/25/20 21:00 03/10/20 21:55 Sucralfate (Carafate) 1 gm AC PO 02/25/20 12:00 03/10/20 16:22 Tiotropium [place] (Spiriva Handihaler) 1 inhalation DAILY@08 INH 02/25/20 08:00 03/10/20 09:52 Tramadol HCl (Ultram) 25 mg TIDP PRN PO PAIN 03/01/20 22:00 03/09/20 20:21 Trazodone HCl (Desyrel) 50 mg QHSP PRN PO INSOMNIA 02/24/20 20:15 03/08/20 20:50 Allergies Coded Allergies: Sulfa (Sulfonamide Antibiotics) (Verified Allergy, Severe, ANAPYLAXIS, 01/20/20) Quinolones (Verified Allergy, Intermediate, HIVES, 01/20/20) cephalexin (Verified Allergy, Mild, HIVES, 11/02/19) amoxicillin (Verified Allergy, Unknown, unknown, 01/10/19) clavulanic acid (Verified Allergy, Unknown, unknown, 01/10/19) moxifloxacin (Verified Allergy, Unknown, unknown, 01/10/19) nitrofurantoin (Verified Allergy, Unknown, unknown, 01/10/19) oxycodone (Verified Adverse Reaction, Intermediate, AMS, 01/20/20) prednisolone (Verified Adverse Reaction, Mild, flippy feeling, 01/20/20) BROCK WOLF DO Mar 11, 2020 07:50
[2020-03-11] MEDS: FOLIC ACID 1 MG TAB PO SCH (09:59)
[2020-03-11] MEDS: ASPIRIN 81 MG ENTERIC TAB PO SCH (09:59)
[2020-03-11] MEDS: levETIRAcetam 250MG TABLET (KEPPRA) PO SCH ×2 (10:00→22:00)
[2020-03-11] MEDS: oxyBUTYnin 5 MG TAB PO SCH ×2 (10:00→21:59)
[2020-03-11] MEDS: haloperidoL 5 MG TAB PO SCH ×2 (10:00→22:00)
[2020-03-11] MEDS: FLUoxetine 10 MG CAP PO SCH (10:00)
[2020-03-11] MEDS: CARVedilol 6.25 MG TAB PO SCH ×2 (10:00→22:00)
[2020-03-11] MEDS: TIOTROPIUM INHALER/CAPSULE (SPIRIVA) INH SCH (10:00)
[2020-03-11] MEDS: amLODIPine 5 MG TAB PO SCH ×2 (10:00→22:00)
[2020-03-11] MEDS: CETIRIZINE (ZyrTEC) 10 MG TAB PO SCH (10:01)
[2020-03-11 16:08] VITALS: BP 121/81
[2020-03-11] MEDS: PANTOPRAZOLE 40MG TAB (PROTONIX) PO SCH (21:59)
[2020-03-11] MEDS: ATORVASTATIN 20 MG TAB PO SCH (21:59)
[2020-03-12 07:03] VITALS: BP 139/81
[2020-03-12] MEDS ORDERED: FLUoxetine 20 MG CAP PO SCH (09:00)
[2020-03-12] MEDS: haloperidoL 5 MG TAB PO SCH ×2 (09:04→21:58)
[2020-03-12] MEDS: ASPIRIN 81 MG ENTERIC TAB PO SCH (09:04)
[2020-03-12] MEDS: levETIRAcetam 250MG TABLET (KEPPRA) PO SCH ×2 (09:04→21:58)
[2020-03-12] MEDS: amLODIPine 5 MG TAB PO SCH ×2 (09:04→21:59)
[2020-03-12] MEDS: TIOTROPIUM INHALER/CAPSULE (SPIRIVA) INH SCH (09:05)
[2020-03-12] MEDS: FOLIC ACID 1 MG TAB PO SCH (09:05)
[2020-03-12] MEDS: CETIRIZINE (ZyrTEC) 10 MG TAB PO SCH (09:05)
[2020-03-12] MEDS: FLUoxetine 10 MG CAP PO SCH (09:05)
[2020-03-12] MEDS: SUCRALFATE 1 GM TAB PO SCH ×3 (09:05→16:30)
[2020-03-12] MEDS: ACETAMINOPHEN TAB 650MG DOSE (2X325MG) PO PRN (09:06)
[2020-03-12] MEDS: traMADol 50 MG TAB PO PRN (09:06)
[2020-03-12] MEDS: CARVedilol 6.25 MG TAB PO SCH ×2 (09:07→22:00)
[2020-03-12] MEDS: oxyBUTYnin 5 MG TAB PO SCH ×2 (09:07→21:58)
--- NOTE | 2020-03-12 10:43 | MHIPNPDOC ---
[facility] Progress Note Progress Note DATE OF SERVICE: 03/12/20 Subjective HPI: patient presents today for concerns regarding a follow up. She denies any suicidal, homicidal thoughts, or auditory hallucinations. When she came to the hospital, she was very confused at the time. MEDICATIONS: She states that the medication is working fine. Objective Appearance: Good hygiene. Well nourished. Appears to be stated age. Well groomed. Speech: More fluid, generally linear at times. Normal rate. Normal volume. Spontaneous and Fluid. Thought Form: Generally more linear, more talkative today. Still thinks its February 08, 2010. . Thought Content: No evidence of aggressive or homicidal ideation. No evidence of delusions. Doesnt appear to be responding to internal stimuli. Appears somewhat slowed. Doesnt engage with any good eye contact. No thoughts of self harm. No evidence of suicidal ideation. Judgement: Improving. Insight: Improving. Assessment F25.1 Schizoaffective disorder, depressive type Plan She is meeting with me more frequently. Continue Haldol and Prozac at this time. Potential discharge home on Sunday if she makes good improvement. Otherwise, she would like she need jail. Vital Signs Vital Signs Date Time Temp Pulse Resp B/P (MAP) Pulse Ox O2 Delivery O2 Flow Rate FiO2 03/12/20 09:06 18 03/12/20 09:04 83 139/81 03/12/20 07:03 98.1 Room Air 03/09/20 06:42 96 Current Medications Current Medications Medications (Trade) Dose Ordered Sig/Sonia Route PRN Reason Start Time Stop Time Status Last Admin Dose Admin Acetaminophen (Tylenol Tab) 650 mg Q6HP PRN PO HEADACHE or DISCOMFORT 02/24/20 20:15 03/12/20 09:06 Al Hydrox/Mg Hydrox/Simethicone (Mylanta) 30 ml Q4HP PRN PO HEARTBURN/INDIGESTION 02/24/20 20:15 Amlodipine Besylate (Norvasc) 5 mg BID PO 02/24/20 21:00 03/12/20 09:04 Amlodipine Besylate (Norvasc) 5 mg BID PO 02/24/20 21:00 UNV Aripiprazole (AbiLIFY) 5 mg QHS PO 03/01/20 21:00 03/01/20 08:23 DC Aspirin (Ecotrin) 81 mg DAILY PO 02/25/20 09:00 03/12/20 09:04 Aspirin (Ecotrin) 81 mg DAILY PO 02/25/20 09:00 UNV Atorvastatin Calcium (Lipitor) 20 mg QHS PO 02/25/20 21:00 03/11/20 21:59 Carvedilol (COReg) 6.25 mg BID PO 02/24/20 21:00 03/12/20 09:07 Carvedilol (COReg) 6.25 mg BID PO 02/24/20 21:00 UNV Cetirizine HCl (ZyrTEC) 10 mg DAILY PO 02/25/20 09:00 03/12/20 09:05 Fluoxetine HCl (PROzac) 10 mg DAILY PO 02/26/20 09:00 03/11/20 15:56 DC 03/11/20 10:00 Fluoxetine HCl (PROzac) 10 mg DAILY PO 03/12/20 09:00 03/12/20 09:05 Fluoxetine HCl (PROzac) 20 mg DAILY PO 03/12/20 09:00 03/11/20 15:58 DC Folic Acid (Folic Acid) 1 mg DAILY PO 02/26/20 09:00 03/12/20 09:05 Haloperidol (Haldol) 2.5 mg BID PO 03/01/20 09:00 03/05/20 11:28 DC 03/05/20 09:53 Haloperidol (Haldol) 5 mg BID PO 03/05/20 21:00 03/09/20 10:52 DC 03/08/20 20:48 Haloperidol (Haldol) 5 mg STAT STAT IM 02/27/20 21:36 02/27/20 21:38 DC 02/27/20 21:51 Haloperidol (Haldol) 10 mg BID PO 03/09/20 09:00 03/12/20 09:04 Home Med (Med Rec Complete!) ASDIRECTED XX 02/24/20 19:30 02/24/20 19:21 DC Levetiracetam (Keppra) 500 mg BID PO 02/25/20 21:00 03/12/20 09:04 Lorazepam (Ativan) 2 mg STAT STAT IM 02/27/20 21:36 02/27/20 21:38 DC 02/27/20 21:51 Magnesium Hydroxide (Milk Of Magnesia) 30 ml DAILYPRN PRN PO CONSTIPATION 02/24/20 20:15 Miscellaneous (Unresolved Clarification Entry) SEE LABEL COMMENTS DAILY XX 03/08/20 09:00 03/08/20 11:25 DC Oxybutynin Chloride (Ditropan) 5 mg BID PO 02/25/20 21:00 03/12/20 09:07 Pantoprazole Sodium (Protonix) 40 mg QHS PO 02/25/20 21:00 03/11/20 21:59 Sucralfate (Carafate) 1 gm AC PO 02/25/20 12:00 03/12/20 09:05 Tiotropium [place] (Spiriva Handihaler) 1 inhalation DAILY@08 INH 02/25/20 08:00 03/12/20 09:05 Tramadol HCl (Ultram) 25 mg TIDP PRN PO PAIN 03/01/20 22:00 03/12/20 09:06 Trazodone HCl (Desyrel) 50 mg QHSP PRN PO INSOMNIA 02/24/20 20:15 03/08/20 20:50 Allergies Coded Allergies: Sulfa (Sulfonamide Antibiotics) (Verified Allergy, Severe, ANAPYLAXIS, 01/20/20) Quinolones (Verified Allergy, Intermediate, HIVES, 01/20/20) cephalexin (Verified Allergy, Mild, HIVES, 11/02/19) amoxicillin (Verified Allergy, Unknown, unknown, 01/10/19) clavulanic acid (Verified Allergy, Unknown, unknown, 01/10/19) moxifloxacin (Verified Allergy, Unknown, unknown, 01/10/19) nitrofurantoin (Verified Allergy, Unknown, unknown, 01/10/19) oxycodone (Verified Adverse Reaction, Intermediate, AMS, 01/20/20) prednisolone (Verified Adverse Reaction, Mild, flippy feeling, 01/20/20) BROCK WOLF DO Mar 12, 2020 10:43
[2020-03-12 18:12] VITALS: BP 148/69
[2020-03-12] MEDS: PANTOPRAZOLE 40MG TAB (PROTONIX) PO SCH (21:58)
[2020-03-12] MEDS: ATORVASTATIN 20 MG TAB PO SCH (21:58)
[2020-03-13 07:05] VITALS: BP 133/61
[2020-03-13] MEDS: TIOTROPIUM INHALER/CAPSULE (SPIRIVA) INH SCH (09:54)
[2020-03-13] MEDS: haloperidoL 5 MG TAB PO SCH ×2 (09:55→21:50)
[2020-03-13] MEDS: levETIRAcetam 250MG TABLET (KEPPRA) PO SCH ×2 (09:55→21:49)
[2020-03-13] MEDS: oxyBUTYnin 5 MG TAB PO SCH ×2 (09:55→21:51)
[2020-03-13] MEDS: CETIRIZINE (ZyrTEC) 10 MG TAB PO SCH (09:55)
[2020-03-13] MEDS: SUCRALFATE 1 GM TAB PO SCH ×3 (09:55→17:24)
[2020-03-13] MEDS: FLUoxetine 10 MG CAP PO SCH (09:56)
[2020-03-13] MEDS: amLODIPine 5 MG TAB PO SCH ×2 (09:56→21:57)
[2020-03-13] MEDS: ASPIRIN 81 MG ENTERIC TAB PO SCH (09:56)
[2020-03-13] MEDS: CARVedilol 6.25 MG TAB PO SCH ×2 (09:56→21:58)
[2020-03-13] MEDS: FOLIC ACID 1 MG TAB PO SCH (09:57)
[2020-03-13 18:00] VITALS: BP 178/81
[2020-03-13] MEDS: PANTOPRAZOLE 40MG TAB (PROTONIX) PO SCH (21:50)
[2020-03-13] MEDS: ATORVASTATIN 20 MG TAB PO SCH (21:51)
[2020-03-14] MEDS: SUCRALFATE 1 GM TAB PO SCH ×3 (06:37→17:41)
[2020-03-14 06:44] VITALS: BP 141/67
[2020-03-14] MEDS: TIOTROPIUM INHALER/CAPSULE (SPIRIVA) INH SCH (09:45)
[2020-03-14] MEDS: FLUoxetine 10 MG CAP PO SCH (09:46)
[2020-03-14] MEDS: CARVedilol 6.25 MG TAB PO SCH ×2 (09:46→21:34)
[2020-03-14] MEDS: levETIRAcetam 250MG TABLET (KEPPRA) PO SCH ×2 (09:46→21:34)
[2020-03-14] MEDS: ASPIRIN 81 MG ENTERIC TAB PO SCH (09:46)
[2020-03-14] MEDS: oxyBUTYnin 5 MG TAB PO SCH ×2 (09:47→21:34)
[2020-03-14] MEDS: haloperidoL 5 MG TAB PO SCH ×2 (09:47→21:35)
[2020-03-14] MEDS: FOLIC ACID 1 MG TAB PO SCH (09:47)
[2020-03-14] MEDS: CETIRIZINE (ZyrTEC) 10 MG TAB PO SCH (09:48)
[2020-03-14] MEDS: amLODIPine 5 MG TAB PO SCH ×2 (09:48→21:35)
--- NOTE | 2020-03-14 14:52 | EEG ---
DATE: 02/26/2020 REFERRING PHYSICIAN: Teodoro Nelson DO DIAGNOSIS: Altered mental status. EEG #: [id number] HISTORY: The patient is a 69-year-old woman who was admitted to [facility] due to history of schizophrenia, chest pain. This electroencephalogram (EEG) was done to rule out epileptic potential. She is currently taking aspirin, carvedilol, amlodipine, Lipitor, cetrizine, folic acid, Keppra, oxybutynin, Protonix, sucralfate, fluoxetine, quetiapine, etc. TECHNICAL DESCRIPTION: This basic electroencephalogram (EEG) was recorded by 21-scalp, ear and two electrocardiogram (EKG) electrodes and was reviewed in bipolar and referential montages following reformatting in 10-20 international electrode placement system. INTERPRETATION: The patient was noted to be in awake and drowsy states during this electroencephalogram (EEG). Background rhythm consisted of 8 Hz alpha activity measuring 15-40 microvolts in amplitude, which was symmetric and reactive to eye opening. Attenuation of posterior dominant rhythm was seen during transition to drowsiness. Stage 1, 2 and 3 sleep were reviewed and were symmetric bilaterally. Hyperventilation could not be performed. Photic stimulation remained unremarkable. Electrocardiogram (EKG) revealed normal sinus rhythm. No focal, lateralization or epileptiform abnormalities were seen. No relevant clinical activity was noted. CONCLUSION: This electroencephalogram (EEG) in awake, drowsy states, stage 1 and 2 sleep is within normal limits. MTDD
[2020-03-14 18:00] VITALS: BP 158/71
[2020-03-14] MEDS: PANTOPRAZOLE 40MG TAB (PROTONIX) PO SCH (21:34)
[2020-03-14] MEDS: ATORVASTATIN 20 MG TAB PO SCH (21:35)
[2020-03-14] MEDS: traZODone 50 MG TAB PO PRN (21:35)
[2020-03-15 06:04] VITALS: BP 113/62
[2020-03-15] MEDS: SUCRALFATE 1 GM TAB PO SCH ×3 (06:26→17:15)
[2020-03-15] MEDS: ASPIRIN 81 MG ENTERIC TAB PO SCH (09:07)
[2020-03-15] MEDS: amLODIPine 5 MG TAB PO SCH ×2 (09:08→21:55)
[2020-03-15] MEDS: oxyBUTYnin 5 MG TAB PO SCH ×2 (09:08→21:54)
[2020-03-15] MEDS: levETIRAcetam 250MG TABLET (KEPPRA) PO SCH ×2 (09:08→21:54)
[2020-03-15] MEDS: CETIRIZINE (ZyrTEC) 10 MG TAB PO SCH (09:08)
[2020-03-15] MEDS: FOLIC ACID 1 MG TAB PO SCH (09:08)
[2020-03-15] MEDS: TIOTROPIUM INHALER/CAPSULE (SPIRIVA) INH SCH (09:08)
[2020-03-15] MEDS: CARVedilol 6.25 MG TAB PO SCH ×2 (09:09→21:54)
[2020-03-15] MEDS: FLUoxetine 10 MG CAP PO SCH (09:09)
[2020-03-15] MEDS: haloperidoL 5 MG TAB PO SCH ×2 (09:09→21:55)
--- NOTE | 2020-03-15 10:15 | MHIPNPDOC ---
[facility] Progress Note Progress Note DATE OF SERVICE: 03/15/20 Subjective HPI: Pamela presents today for concerns regarding her schizoaffective disorder. She reports that she has been doing somewhat better. Pamela is a little more conversive and discussing with a little more reactive affect today. She has been having a better weekend and has been able to cope with various things. However, per baseline, she is reportedly far from according to her daughter. Reportedly, she is fully functional at baseline and able to take care of herself; however, she remains fully disturbed and nearly muted at times. She has made improvements and become much less psychotic; she is able to enrich the lives of her grandchildren and aspects of her initial admission. Objective Affect: Affect is less flat and a tiny bit more reactive. Speech: Normal volume. Spontaneous and Fluid. Normal rate. Cognition: Mildly improved. Thought Form: Linear and goal directed. Fairly sparse in thought process. Judgement: Improved slightly. Insight: Improved slightly. Assessment F25.1 Schizoaffective disorder, depressive type Plan Continue Haldol, 10 mg BID. Increase Prozac to 20 mg daily to help improve for potential cognitive problems. Shell likely need long-term treatment as shes still very far from baseline. At this time, she lives independently and at this time she is not able to participate at that level of care. Vital Signs Vital Signs Date Time Temp Pulse Resp B/P (MAP) Pulse Ox O2 Delivery O2 Flow Rate FiO2 03/15/20 09:09 60 123/62 03/15/20 06:04 98.9 16 100 Room Air Current Medications Current Medications Medications (Trade) Dose Ordered Sig/Sonia Route PRN Reason Start Time Stop Time Status Last Admin Dose Admin Acetaminophen (Tylenol Tab) 650 mg Q6HP PRN PO HEADACHE or DISCOMFORT 02/24/20 20:15 03/12/20 09:06 Al Hydrox/Mg Hydrox/Simethicone (Mylanta) 30 ml Q4HP PRN PO HEARTBURN/INDIGESTION 02/24/20 20:15 Amlodipine Besylate (Norvasc) 5 mg BID PO 02/24/20 21:00 03/15/20 09:08 Amlodipine Besylate (Norvasc) 5 mg BID PO 02/24/20 21:00 UNV Aripiprazole (AbiLIFY) 5 mg QHS PO 03/01/20 21:00 03/01/20 08:23 DC Aspirin (Ecotrin) 81 mg DAILY PO 02/25/20 09:00 03/15/20 09:07 Aspirin (Ecotrin) 81 mg DAILY PO 02/25/20 09:00 UNV Atorvastatin Calcium (Lipitor) 20 mg QHS PO 02/25/20 21:00 03/14/20 21:35 Carvedilol (COReg) 6.25 mg BID PO 02/24/20 21:00 03/15/20 09:09 Carvedilol (COReg) 6.25 mg BID PO 02/24/20 21:00 UNV Cetirizine HCl (ZyrTEC) 10 mg DAILY PO 02/25/20 09:00 03/15/20 09:08 Fluoxetine HCl (PROzac) 10 mg DAILY PO 02/26/20 09:00 03/11/20 15:56 DC 03/11/20 10:00 Fluoxetine HCl (PROzac) 10 mg DAILY PO 03/12/20 09:00 03/15/20 09:09 Fluoxetine HCl (PROzac) 20 mg DAILY PO 03/12/20 09:00 03/11/20 15:58 DC Folic Acid (Folic Acid) 1 mg DAILY PO 02/26/20 09:00 03/15/20 09:08 Haloperidol (Haldol) 2.5 mg BID PO 03/01/20 09:00 03/05/20 11:28 DC 03/05/20 09:53 Haloperidol (Haldol) 5 mg BID PO 03/05/20 21:00 03/09/20 10:52 DC 03/08/20 20:48 Haloperidol (Haldol) 5 mg STAT STAT IM 02/27/20 21:36 02/27/20 21:38 DC 02/27/20 21:51 Haloperidol (Haldol) 10 mg BID PO 03/09/20 09:00 03/15/20 09:09 Home Med (Med Rec Complete!) ASDIRECTED XX 02/24/20 19:30 02/24/20 19:21 DC Levetiracetam (Keppra) 500 mg BID PO 02/25/20 21:00 03/15/20 09:08 Lorazepam (Ativan) 2 mg STAT STAT IM 02/27/20 21:36 02/27/20 21:38 DC 02/27/20 21:51 Magnesium Hydroxide (Milk Of Magnesia) 30 ml DAILYPRN PRN PO CONSTIPATION 02/24/20 20:15 Miscellaneous (Unresolved Clarification Entry) SEE LABEL COMMENTS DAILY XX 03/08/20 09:00 03/08/20 11:25 DC Oxybutynin Chloride (Ditropan) 5 mg BID PO 02/25/20 21:00 03/15/20 09:08 Pantoprazole Sodium (Protonix) 40 mg QHS PO 02/25/20 21:00 03/14/20 21:34 Sucralfate (Carafate) 1 gm AC PO 02/25/20 12:00 03/15/20 06:26 Tiotropium [place] (Spiriva Handihaler) 1 inhalation DAILY@08 INH 02/25/20 08:00 03/15/20 09:08 Tramadol HCl (Ultram) 25 mg TIDP PRN PO PAIN 03/01/20 22:00 03/12/20 09:06 Trazodone HCl (Desyrel) 50 mg QHSP PRN PO INSOMNIA 02/24/20 20:15 03/14/20 21:35 Allergies Coded Allergies: Sulfa (Sulfonamide Antibiotics) (Verified Allergy, Severe, ANAPYLAXIS, 01/20/20) Quinolones (Verified Allergy, Intermediate, HIVES, 01/20/20) cephalexin (Verified Allergy, Mild, HIVES, 11/02/19) amoxicillin (Verified Allergy, Unknown, unknown, 01/10/19) clavulanic acid (Verified Allergy, Unknown, unknown, 01/10/19) moxifloxacin (Verified Allergy, Unknown, unknown, 01/10/19) nitrofurantoin (Verified Allergy, Unknown, unknown, 01/10/19) oxycodone (Verified Adverse Reaction, Intermediate, AMS, 01/20/20) prednisolone (Verified Adverse Reaction, Mild, flippy feeling, 01/20/20) BROCK WOLF DO Mar 15, 2020 10:14
[2020-03-15 16:49] VITALS: BP 121/54
[2020-03-15] MEDS: ATORVASTATIN 20 MG TAB PO SCH (21:55)
[2020-03-15] MEDS: traZODone 50 MG TAB PO PRN (21:56)
[2020-03-15] MEDS: PANTOPRAZOLE 40MG TAB (PROTONIX) PO SCH (21:56)
[2020-03-16 06:37] VITALS: BP 126/55
[2020-03-16] MEDS: SUCRALFATE 1 GM TAB PO SCH ×3 (06:49→18:02)
[2020-03-16] MEDS: TIOTROPIUM INHALER/CAPSULE (SPIRIVA) INH SCH (07:25)
[2020-03-16] MEDS: FLUoxetine 20 MG CAP PO SCH (09:23)
[2020-03-16] MEDS: FOLIC ACID 1 MG TAB PO SCH (09:23)
[2020-03-16] MEDS: levETIRAcetam 250MG TABLET (KEPPRA) PO SCH ×2 (09:23→20:57)
[2020-03-16] MEDS: haloperidoL 5 MG TAB PO SCH ×2 (09:23→20:58)
[2020-03-16] MEDS: oxyBUTYnin 5 MG TAB PO SCH ×2 (09:23→20:57)
[2020-03-16] MEDS: CARVedilol 6.25 MG TAB PO SCH ×2 (09:23→20:58)
[2020-03-16] MEDS: ASPIRIN 81 MG ENTERIC TAB PO SCH (09:23)
[2020-03-16] MEDS: CETIRIZINE (ZyrTEC) 10 MG TAB PO SCH (09:24)
[2020-03-16] MEDS: amLODIPine 5 MG TAB PO SCH ×2 (09:24→20:58)
--- NOTE | 2020-03-16 14:50 | MHIPNPDOC ---
[facility] Progress Note Progress Note DATE OF SERVICE: 03/16/20 Subjective HPI: Pamela presents today for her mental health. Patient reports feeling the same on the new medicine. She was confused and refuse to communicate as well as rolling around the floor at first when she admitted psych unit, which she only remembers part of it. She wants to take care of homes and visit her children as well as pets when she can return homePatient reports having shower, getting around, and taking care of pets are her morning routine. She also denies having suicidal thought, homicidal thoughts, or hallucinations. Schizoaffective disorder or depression episode may contribute to these symptoms. SOCIAL HISTORY - LIVING SITUATION: Patient is living with her grandson. Objective Appearance: Well nourished. Well groomed. Appears to be stated age. Affect: less flat. Full range. Appropriate to context. Speech: Normal rate. Normal volume. Spontaneous and Fluid. Cognition: Appears to be more intact. Thought Form: Linear and goal directed. Judgement: Intact as evidenced by decision making in the recent past. Insight: Improving. Assessment F25.1 Schizoaffective disorder, depressive type Plan Continue Prozac 20 mg and Haldol 10 mg. Potential discharge early this week. Vital Signs Vital Signs Date Time Temp Pulse Resp B/P (MAP) Pulse Ox O2 Delivery O2 Flow Rate FiO2 03/16/20 09:24 65 03/16/20 09:23 128/64 03/16/20 06:37 98.2 18 03/15/20 06:04 100 Room Air Current Medications Current Medications Medications (Trade) Dose Ordered Sig/Sonia Route PRN Reason Start Time Stop Time Status Last Admin Dose Admin Acetaminophen (Tylenol Tab) 650 mg Q6HP PRN PO HEADACHE or DISCOMFORT 02/24/20 20:15 03/12/20 09:06 Al Hydrox/Mg Hydrox/Simethicone (Mylanta) 30 ml Q4HP PRN PO HEARTBURN/INDIGESTION 02/24/20 20:15 Amlodipine Besylate (Norvasc) 5 mg BID PO 02/24/20 21:00 03/16/20 09:24 Amlodipine Besylate (Norvasc) 5 mg BID PO 02/24/20 21:00 UNV Aripiprazole (AbiLIFY) 5 mg QHS PO 03/01/20 21:00 03/01/20 08:23 DC Aspirin (Ecotrin) 81 mg DAILY PO 02/25/20 09:00 03/16/20 09:23 Aspirin (Ecotrin) 81 mg DAILY PO 02/25/20 09:00 UNV Atorvastatin Calcium (Lipitor) 20 mg QHS PO 02/25/20 21:00 03/15/20 21:55 Carvedilol (COReg) 6.25 mg BID PO 02/24/20 21:00 03/16/20 09:23 Carvedilol (COReg) 6.25 mg BID PO 02/24/20 21:00 UNV Cetirizine HCl (ZyrTEC) 10 mg DAILY PO 02/25/20 09:00 03/16/20 09:24 Fluoxetine HCl (PROzac) 10 mg DAILY PO 02/26/20 09:00 03/11/20 15:56 DC 03/11/20 10:00 Fluoxetine HCl (PROzac) 10 mg DAILY PO 03/12/20 09:00 03/15/20 10:20 DC 03/15/20 09:09 Fluoxetine HCl (PROzac) 20 mg DAILY PO 03/12/20 09:00 03/11/20 15:58 DC Fluoxetine HCl (PROzac) 20 mg DAILY PO 03/16/20 09:00 03/16/20 09:23 Folic Acid (Folic Acid) 1 mg DAILY PO 02/26/20 09:00 03/16/20 09:23 Haloperidol (Haldol) 2.5 mg BID PO 03/01/20 09:00 03/05/20 11:28 DC 03/05/20 09:53 Haloperidol (Haldol) 5 mg BID PO 03/05/20 21:00 03/09/20 10:52 DC 03/08/20 20:48 Haloperidol (Haldol) 5 mg STAT STAT IM 02/27/20 21:36 02/27/20 21:38 DC 02/27/20 21:51 Haloperidol (Haldol) 10 mg BID PO 03/09/20 09:00 03/16/20 09:23 Home Med (Med Rec Complete!) ASDIRECTED XX 02/24/20 19:30 02/24/20 19:21 DC Levetiracetam (Keppra) 500 mg BID PO 02/25/20 21:00 03/16/20 09:23 Lorazepam (Ativan) 2 mg STAT STAT IM 02/27/20 21:36 02/27/20 21:38 DC 02/27/20 21:51 Magnesium Hydroxide (Milk Of Magnesia) 30 ml DAILYPRN PRN PO CONSTIPATION 02/24/20 20:15 Miscellaneous (Unresolved Clarification Entry) SEE LABEL COMMENTS DAILY XX 03/08/20 09:00 03/08/20 11:25 DC Oxybutynin Chloride (Ditropan) 5 mg BID PO 02/25/20 21:00 03/16/20 09:23 Pantoprazole Sodium (Protonix) 40 mg QHS PO 02/25/20 21:00 03/15/20 21:56 Sucralfate (Carafate) 1 gm AC PO 02/25/20 12:00 03/16/20 11:53 Tiotropium [place] (Spiriva Handihaler) 1 inhalation DAILY@08 INH 02/25/20 08:00 03/16/20 07:25 Tramadol HCl (Ultram) 25 mg TIDP PRN PO PAIN 03/01/20 22:00 03/15/20 10:50 DC 03/12/20 09:06 Trazodone HCl (Desyrel) 50 mg QHSP PRN PO INSOMNIA 02/24/20 20:15 03/15/20 21:56 Allergies Coded Allergies: Sulfa (Sulfonamide Antibiotics) (Verified Allergy, Severe, ANAPYLAXIS, 01/20/20) Quinolones (Verified Allergy, Intermediate, HIVES, 01/20/20) cephalexin (Verified Allergy, Mild, HIVES, 11/02/19) amoxicillin (Verified Allergy, Unknown, unknown, 01/10/19) clavulanic acid (Verified Allergy, Unknown, unknown, 01/10/19) moxifloxacin (Verified Allergy, Unknown, unknown, 01/10/19) nitrofurantoin (Verified Allergy, Unknown, unknown, 01/10/19) oxycodone (Verified Adverse Reaction, Intermediate, AMS, 01/20/20) prednisolone (Verified Adverse Reaction, Mild, flippy feeling, 01/20/20) BROCK WOLF DO Mar 16, 2020 14:50
[2020-03-16 16:26] VITALS: BP 121/59
[2020-03-16] MEDS: ATORVASTATIN 20 MG TAB PO SCH (20:58)
[2020-03-16] MEDS: PANTOPRAZOLE 40MG TAB (PROTONIX) PO SCH (20:58)
[2020-03-16] MEDS: traZODone 50 MG TAB PO PRN (20:59)
[2020-03-17 06:20] VITALS: BP 140/65
[2020-03-17] MEDS: SUCRALFATE 1 GM TAB PO SCH ×3 (06:49→17:17)
[2020-03-17] MEDS: TIOTROPIUM INHALER/CAPSULE (SPIRIVA) INH SCH (07:50)
[2020-03-17] MEDS: FOLIC ACID 1 MG TAB PO SCH (08:52)
[2020-03-17] MEDS: ASPIRIN 81 MG ENTERIC TAB PO SCH (08:52)
[2020-03-17] MEDS: amLODIPine 5 MG TAB PO SCH ×2 (08:52→22:11)
[2020-03-17] MEDS: oxyBUTYnin 5 MG TAB PO SCH ×2 (08:52→22:09)
[2020-03-17] MEDS: CETIRIZINE (ZyrTEC) 10 MG TAB PO SCH (08:53)
[2020-03-17] MEDS: CARVedilol 6.25 MG TAB PO SCH ×2 (08:53→22:11)
[2020-03-17] MEDS: levETIRAcetam 250MG TABLET (KEPPRA) PO SCH ×2 (08:53→22:10)
[2020-03-17] MEDS: FLUoxetine 20 MG CAP PO SCH (08:53)
[2020-03-17] MEDS: haloperidoL 5 MG TAB PO SCH ×2 (08:53→22:10)
--- NOTE | 2020-03-17 09:49 | MHIPNPDOC ---
[facility] Progress Note Progress Note DATE OF SERVICE: 03/17/20 Subjective HPI: The patient was taken to court where he was held on a further retention today. When attempted to meet with him later, the patient continued to be quite obstinate, generally not recognizing any kind of mental health problems and declined my offer to try any medication or attempt to negotiate some sort of amenable treatment option so that he might be able to avoid having to go for treatment over objection. However, the patient politely declined, reported that we had a case of mistaken identity, and stormed off. Objective Appearance: Well nourished. Appears to be stated age. Well groomed. Behavior: Pleasant. Engaged. Cooperative with good eye contact. Mood: Tangential. Irritable. Generally vile. Speech: Normal rate. Normal volume. Hyper-verbal. Spontaneous and Fluid. Cognition: Impaired secondary though process. Judgement: Poor. Insight: Poor. Assessment F20.9 Schizophrenia, unspecified Plan Plan is to now reconsider and redo treatment over objection as the original order has . Retention has been gained. Will continue to attempt to see if there is a mutually amenable option or frankly any medicine he will try. Vital Signs Vital Signs Date Time Temp Pulse Resp B/P (MAP) Pulse Ox O2 Delivery O2 Flow Rate FiO2 03/17/20 08:53 68 03/17/20 08:52 136/70 03/17/20 06:20 98.4 18 03/15/20 06:04 100 Room Air Current Medications Current Medications Medications (Trade) Dose Ordered Sig/Sonia Route PRN Reason Start Time Stop Time Status Last Admin Dose Admin Acetaminophen (Tylenol Tab) 650 mg Q6HP PRN PO HEADACHE or DISCOMFORT 02/24/20 20:15 03/12/20 09:06 Al Hydrox/Mg Hydrox/Simethicone (Mylanta) 30 ml Q4HP PRN PO HEARTBURN/INDIGESTION 02/24/20 20:15 Amlodipine Besylate (Norvasc) 5 mg BID PO 02/24/20 21:00 03/17/20 08:52 Amlodipine Besylate (Norvasc) 5 mg BID PO 02/24/20 21:00 UNV Aripiprazole (AbiLIFY) 5 mg QHS PO 03/01/20 21:00 03/01/20 08:23 DC Aspirin (Ecotrin) 81 mg DAILY PO 8/26/20 09:00 03/17/20 08:52 Aspirin (Ecotrin) 81 mg DAILY PO 02/25/20 09:00 UNV Atorvastatin Calcium (Lipitor) 20 mg QHS PO 02/25/20 21:00 03/16/20 20:58 Carvedilol (COReg) 6.25 mg BID PO 02/24/20 21:00 03/17/20 08:53 Carvedilol (COReg) 6.25 mg BID PO 02/24/20 21:00 UNV Cetirizine HCl (ZyrTEC) 10 mg DAILY PO 02/25/20 09:00 03/17/20 08:53 Fluoxetine HCl (PROzac) 10 mg DAILY PO 02/26/20 09:00 03/11/20 15:56 DC 03/11/20 10:00 Fluoxetine HCl (PROzac) 10 mg DAILY PO 03/12/20 09:00 03/15/20 10:20 DC 03/15/20 09:09 Fluoxetine HCl (PROzac) 20 mg DAILY PO 03/12/20 09:00 03/11/20 15:58 DC Fluoxetine HCl (PROzac) 20 mg DAILY PO 03/16/20 09:00 03/17/20 08:53 Folic Acid (Folic Acid) 1 mg DAILY PO 02/26/20 09:00 03/17/20 08:52 Haloperidol (Haldol) 2.5 mg BID PO 03/01/20 09:00 03/05/20 11:28 DC 03/05/20 09:53 Haloperidol (Haldol) 5 mg BID PO 03/05/20 21:00 03/09/20 10:52 DC 03/08/20 20:48 Haloperidol (Haldol) 5 mg STAT STAT IM 02/27/20 21:36 02/27/20 21:38 DC 02/27/20 21:51 Haloperidol (Haldol) 10 mg BID PO 03/09/20 09:00 03/17/20 08:53 Home Med (Med Rec Complete!) ASDIRECTED XX 02/24/20 19:30 02/24/20 19:21 DC Levetiracetam (Keppra) 500 mg BID PO 02/25/20 21:00 03/17/20 08:53 Lorazepam (Ativan) 2 mg STAT STAT IM 02/27/20 21:36 02/27/20 21:38 DC 02/27/20 21:51 Magnesium Hydroxide (Milk Of Magnesia) 30 ml DAILYPRN PRN PO CONSTIPATION 02/24/20 20:15 Miscellaneous (Unresolved Clarification Entry) SEE LABEL COMMENTS DAILY XX 03/08/20 09:00 03/08/20 11:25 DC Oxybutynin Chloride (Ditropan) 5 mg BID PO 02/25/20 21:00 03/17/20 08:52 Pantoprazole Sodium (Protonix) 40 mg QHS PO 02/25/20 21:00 03/16/20 20:58 Sucralfate (Carafate) 1 gm AC PO 02/25/20 12:00 03/17/20 06:49 Tiotropium [place] (Spiriva Handihaler) 1 inhalation DAILY@08 INH 02/25/20 08:00 03/17/20 07:50 Tramadol HCl (Ultram) 25 mg TIDP PRN PO PAIN 03/01/20 22:00 03/15/20 10:50 DC 03/12/20 09:06 Trazodone HCl (Desyrel) 50 mg QHSP PRN PO INSOMNIA 02/24/20 20:15 03/16/20 20:59 Allergies Coded Allergies: Sulfa (Sulfonamide Antibiotics) (Verified Allergy, Severe, ANAPYLAXIS, 01/20/20) Quinolones (Verified Allergy, Intermediate, HIVES, 01/20/20) cephalexin (Verified Allergy, Mild, HIVES, 11/02/19) amoxicillin (Verified Allergy, Unknown, unknown, 01/10/19) clavulanic acid (Verified Allergy, Unknown, unknown, 01/10/19) moxifloxacin (Verified Allergy, Unknown, unknown, 01/10/19) nitrofurantoin (Verified Allergy, Unknown, unknown, 01/10/19) oxycodone (Verified Adverse Reaction, Intermediate, AMS, 01/20/20) prednisolone (Verified Adverse Reaction, Mild, flippy feeling, 01/20/20) BROCK WOLF DO Mar 17, 2020 09:49
[2020-03-17 16:04] VITALS: BP 142/65
[2020-03-17] MEDS: ATORVASTATIN 20 MG TAB PO SCH (22:09)
[2020-03-17] MEDS: PANTOPRAZOLE 40MG TAB (PROTONIX) PO SCH (22:10)
[2020-03-18 06:05] VITALS: BP 134/63
[2020-03-18] MEDS: SUCRALFATE 1 GM TAB PO SCH ×2 (08:12→12:00)
--- NOTE | 2020-03-18 09:31 | MHDSPDOC ---
[facility] Discharge Summary Discharge Summary DATE OF ADMISSION: Feb 24, 2020 at 18:30 DATE OF DISCHARGE: Mar 18, 2020 at 16:30 DISCHARGE DIAGNOSES: F25.1 Schizoaffective disorder, depressive type F05 Delirium due to known physiological condition CONSULTANTS INVOLVED: as below REASON FOR ADMISSION & TREATMENT AND PROGRESS ON THE UNIT : The patient was admitted to the inpatient mental health unit after demonstrating increased psychotic behavior. She had recently left prior for a depressive episode with some psychotic features. However, she presented with a fairly complex course. After some time, she was quite confused and became overtly delirious. Eventually, after negotiations, she was taken to . She was started on a short antibiotic course for UTI that cleared up her thinking process. After quite a bit of time back and forth, the patient then demonstrated psychotic thinking processes, reportedly was delusional, and felt that her was still alive and that she was asking for him to come pick her up. She reportedly has a history of schizophrenia. She was then treated, after initially being tried (prior to the confusion episode) with some Ativan, to rule out catatonia, which it had. She was then started on Prozac 10 milligrams due to the history of depression. This didn't make any improvements. Started on Haldol, as it would reduce the risk of falls; it was increased to 10 milligrams BID with positive effects. Prozac was increased to 20 milligrams daily with positive effects. She became more euthymic, and her ideation became much more focused and less aggressive. The patient needed to be on a one-to-one during the majority of first stay, due to both, falls and confusion. After her confusion was treated, which appeared to be related to delirium, the patient was somewhat aggressive and would hit some individuals. However, after this resolve shows off a one-to-one for some time. Initially triaged for long-term care, she was eventually no longer in need of that, as she improved. She was able to describe her routine and what she would do at home. She engaged well and generally did not meet involuntary criteria. Although she was not at a hundred percent of her previous baseline, she was attending to her own needs, and was no longer violent, homicidal, or suicidal. She engaged and had no psychotic thought processes, was tolerating well, and was cooperative. in order to help triage patient back to outpatient, as well as suggest various outpatient services to help reduce her chance of readmission and improve our outcomes. We additionally suggest neurocognitive work up when patient leaves, especially neuropsychological program, as there have been some concerns about underlying dementia that had precipitated into delirium. Especially given her advanced age, it would be prudent to understand if there are underlying processes that could be interfering with the diagnosis and treatment. DISCHARGE ASSESSMENT[improved] Legal status considerations: As above MENTAL STATUS EXAMINATION ON DISCHARGE: Appearance: Hygiene is fair. Affect: Euthymic. Speech: Normal rate. Spontaneous and Fluid. Normal volume. Cognition: Alert, Attentive, and Oriented to person, place, time. Thought Form: Linear and goal directed. Thought Content: No evidence of aggressive or homicidal ideation. No evidence of suicidal ideation. No thoughts of self harm. No evidence of delusions. Perception: She does not seem to be responding to foreign stimuli. Denies auditory or visual hallucination. Judgement: Improved. PLAN/FOLLOWUP ARRANGEMENTS: Follow up appointments made (PCP and MH in 5 days of D/C date) and safety plan completed. Safety Planning aspects completed prior to discharge [Medication supplies limited to 7 days with 4 refills to prevent accumulation to OD] [Family contact completed, educated on safe practices, instructed on removal and mitigation of dangerous means] [RN reviewed crisis hotline information and other aspects to empower patient to access care in interim before next appointment.] The amount of time spent in the coordination of care for this patient was approximately 30 minutes. Vital Signs/I&Os Vital Signs Date Time Temp Pulse Resp B/P (MAP) Pulse Ox O2 Delivery O2 Flow Rate FiO2 03/18/20 06:05 98.5 63 14 134/63 (86) 98 Room Air Medications Scheduled Acetaminophen (Acetaminophen) 500 Mg Tablet, 1,000 MG PO BID, #30 Amantadine HCl (Amantadine) 100 Mg Tablet, 100 MG PO BID for . , (Reported) Amlodipine Besylate (Amlodipine Besylate) 5 Mg Tablet, 5 MG PO BID for . , (Reported) Aspirin (Aspirin EC) 81 Mg Tablet.dr, 81 MG PO DAILY for . , (Reported) Atorvastatin Calcium (Atorvastatin Calcium) 20 Mg Tablet, 20 MG PO DAILY for . , (Reported) Carvedilol (Carvedilol) 6.25 Mg Tablet, 6.25 MG PO BID for . , (Reported) Cetirizine HCl (Cetirizine HCl) 10 Mg Tablet, 10 MG PO DAILY for . , (Reported) Cyanocobalamin (Vitamin B-12) (Vitamin B-12) 1,000 Mcg Tablet, 1,000 MCG PO DAILY for . , (Reported) Fluoxetine Hcl (Fluoxetine HCl) 20 Mg Capsule, 20 MG PO DAILY for mood for 7 Days, #7 Folic Acid (Folic Acid) 1 Mg Tablet, 1 MG PO DAILY for . , (Reported) Haloperidol (Haloperidol) 10 Mg Tablet, 1 TAB PO BID for nausea/vomiting for 7 Days, #14 Levetiracetam (Keppra) 250 Mg Tablet, 500 MG PO BID for sz for 7 Days, #14 Omeprazole (Omeprazole) 40 Mg Capsule.dr, 40 MG PO DAILY for . , (Reported) Oxybutynin Chloride (Oxybutynin Chloride) 5 Mg Tablet, 5 MG PO BID, #30 Potassium Chloride (Potassium Chloride) 10 Meq Capsule.er, 10 MEQ PO DAILY for . , (Reported) Sucralfate (Sucralfate) 1 Gm Tablet, 1 GM PO AC for stomach for 30 Days, #30 Tiotropium [place] (Spiriva Respimat) 4 Gm Mist.inhal, 2 PUFF INH DAILY for . , (Reported) Allergies Coded Allergies: Sulfa (Sulfonamide Antibiotics) (Verified Allergy, Severe, ANAPYLAXIS, 01/20/20) Quinolones (Verified Allergy, Intermediate, HIVES, 01/20/20) cephalexin (Verified Allergy, Mild, HIVES, 11/02/19) amoxicillin (Verified Allergy, Unknown, unknown, 01/10/19) clavulanic acid (Verified Allergy, Unknown, unknown, 01/10/19) moxifloxacin (Verified Allergy, Unknown, unknown, 01/10/19) nitrofurantoin (Verified Allergy, Unknown, unknown, 01/10/19) oxycodone (Verified Adverse Reaction, Intermediate, AMS, 01/20/20) prednisolone (Verified Adverse Reaction, Mild, flippy feeling, 01/20/20) BROCK WOLF DO Mar 18, 2020 09:31
[2020-03-18] MEDS: oxyBUTYnin 5 MG TAB PO SCH (09:35)
[2020-03-18] MEDS: CARVedilol 6.25 MG TAB PO SCH (09:35)
[2020-03-18] MEDS: haloperidoL 5 MG TAB PO SCH (09:36)
[2020-03-18] MEDS: levETIRAcetam 250MG TABLET (KEPPRA) PO SCH (09:36)
[2020-03-18] MEDS: CETIRIZINE (ZyrTEC) 10 MG TAB PO SCH (09:36)
[2020-03-18 09:38] VITALS: BP 134/63
[2020-03-18] MEDS: FLUoxetine 20 MG CAP PO SCH (09:38)
[2020-03-18] MEDS: TIOTROPIUM INHALER/CAPSULE (SPIRIVA) INH SCH (09:38)
[2020-03-18] MEDS: ASPIRIN 81 MG ENTERIC TAB PO SCH (09:38)
[2020-03-18] MEDS: FOLIC ACID 1 MG TAB PO SCH (09:38)
[2020-03-18] MEDS: amLODIPine 5 MG TAB PO SCH (09:38)
[2020-03-18] MEDS ORDERED: FLUO20CA22 PO (10:12)
[2020-03-18] MEDS ORDERED: HALO10TA20 PO (10:12)
[2020-03-18] MEDS ORDERED: SUCR1TA PO (10:12)
[2020-03-18] MEDS ORDERED: KEPP250T5 PO (10:12)
--- NOTE | 2020-03-18 13:12 | IPNPDOC ---
Date Seen The patient was seen on 03/18/20. Progress Note SUBJECTIVE: patient was seen and examined at bedside. Was called to assess patient for "puff face". Per staff, noted issue with L eyelid, specifically p ossible swelling/ptosis. patient denies vision changes, diplopia, blurred vision, headache, falls, seizure, or focal weakness. OBJECTIVE PHYSICAL EXAMINATION: VITAL SIGNS: Please see below. GENERAL: comfortable HEENT: pupils equal and reactive, normal extraocular eye movements, clear conjunctiva, no scleral icterus. Noted redundant skin on eyelids. No discrete area of erythema, masses on eyelids. No bruising. CARDIOVASCULAR: not examined. RESPIRATORY: not examined. ABDOMINAL: soft, non tender EXTREMITIES: normal ROM, no joint deformity NEUROLOGICAL: AAO x 3. CN2-12 intact. 5/5 strength in all 4 extremities PSYCHOLOGICAL: calm, cooperative LABORATORY DATA, IMAGING STUDIES, MICROBIOLOGY: Please see below. ASSESSMENT AND PLAN: 69 yo F with a hx of schizophrenia, CAD, HTN, COPD, admitted for [facility] with a prolonged course, and readmission to medicine numerous times for ACS workup due to chronic chest pain, as well as dehydration secondary to reduced PO intake. Assessed patient for L eyelid ptosis, with an otherwise normal eye and neuro exam. PROBLEMS: 1. L ptosis: neuro exam intact. no vision changes. no obvious trauma or infectious process. Most likely ptosis due to excess redundant skin (dermatochalasis) vs weakness or loss of insertion of the levator aponeurosis. Chronicity of issue is unclear. No acute findings seen. Would recommend outpatient ophthalmology referral. VS, I&O, 24H, Fishbone Vital Signs/I&O Vital Signs Date Time Temp Pulse Resp B/P (MAP) Pulse Ox O2 Delivery O2 Flow Rate FiO2 03/18/20 09:38 63 134/63 03/18/20 06:05 98.5 14 98 Room Air XEINA HAAS MD Mar 18, 2020 13:12
--- NOTE | 2020-03-19 08:40 | MHIPN ---
DATE: 02/29/2020 SUBJECTIVE: The patient continues to be very confused with delusional thinking. Basically she mumbled. I could not understand answers to my questions. At one point she started to yell at the staff. MENTAL STATUS EXAM: Unable to complete. DIAGNOSIS: Unspecified psychotic disorder. 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 DANNA
--- NOTE | 2020-03-23 11:57 | ECGEPIP ---
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 SEE SCANNED DOWNTIME REPORT
--- NOTE | 2020-03-25 14:03 | ECGEPIP ---
[facility] Test Date: 2020-02-13 Pat Name: CK BYRD Department: Room: [place] [address] Gender: Female Review Trainer: SPIKE : 1950 Requested By: BROCK WOLF Order Number: [id number] Reading MD: Joni Dm Measurements Intervals [place] Rate: 50 P: 55 SC: 222 QRS: 20 QRSD: 153 T: 67 QT: 540 QTc: 494 Interpretive Statements SINUS BRADYCARDIA WITH FIRST DEGREE AV BLOCK LEFT BUNDLE BRANCH BLOCK INTERPRETATION BASED ON A DEFAULT AGE OF 40 YEARS SEE SCANNED DOWNTIME REPORT
--- NOTE | 2020-04-30 14:24 | MHIPNPDOC ---
[facility] Progress Note Progress Note DATE OF SERVICE: 03/05/20 Subjective HPI: Refuses to meet to any extent, appears to be confused and states that she wants to leave. Objective Appearance: Appears to be stated age. Well groomed. Well nourished. Behavior: Refuses to speak. Walks past me. Ambulating appears to be without any assistance. No signs of tremors. Speech: Not present, but does not appear to be overtly mute. Only saying yes or no answers to staff. Judgement: Poor. Insight: Poor. Assessment F29 Unspecified psychosis not due to a substance or known physiological condition Plan Continue haldol, monitor closely, confusion vs delirium still being ascertained. Current Medications Current Medications Medications (Trade) Dose Ordered Sig/Sonia Route PRN Reason Start Time Stop Time Status Last Admin Dose Admin Acetaminophen (Tylenol Tab) 650 mg Q6HP PRN PO HEADACHE or DISCOMFORT 02/24/20 20:15 03/18/20 16:47 DC 03/12/20 09:06 Al Hydrox/Mg Hydrox/Simethicone (Mylanta) 30 ml Q4HP PRN PO HEARTBURN/INDIGESTION 02/24/20 20:15 03/18/20 16:47 DC Amlodipine Besylate (Norvasc) 5 mg BID PO 02/24/20 21:00 03/18/20 16:47 DC 03/18/20 09:38 Amlodipine Besylate (Norvasc) 5 mg BID PO 02/24/20 21:00 UNV Aripiprazole (AbiLIFY) 5 mg QHS PO 03/01/20 21:00 03/01/20 08:23 DC Aspirin (Ecotrin) 81 mg DAILY PO 02/25/20 09:00 03/18/20 16:47 DC 03/18/20 09:38 Aspirin (Ecotrin) 81 mg DAILY PO 02/25/20 09:00 UNV Atorvastatin Calcium (Lipitor) 20 mg QHS PO 02/25/20 21:00 03/18/20 16:47 DC 03/17/20 22:09 Carvedilol (COReg) 6.25 mg BID PO 02/24/20 21:00 03/18/20 16:47 DC 03/18/20 09:35 Carvedilol (COReg) 6.25 mg BID PO 02/24/20 21:00 UNV Cetirizine HCl (ZyrTEC) 10 mg DAILY PO 02/25/20 09:00 03/18/20 16:47 DC 03/18/20 09:36 Fluoxetine HCl (PROzac) 10 mg DAILY PO 02/26/20 09:00 03/11/20 15:56 DC 03/11/20 10:00 Fluoxetine HCl (PROzac) 10 mg DAILY PO 03/12/20 09:00 03/15/20 10:20 DC 03/15/20 09:09 Fluoxetine HCl (PROzac) 20 mg DAILY PO 03/12/20 09:00 03/11/20 15:58 DC Fluoxetine HCl (PROzac) 20 mg DAILY PO 03/16/20 09:00 03/18/20 16:47 DC 03/18/20 09:38 Folic Acid (Folic Acid) 1 mg DAILY PO 02/26/20 09:00 03/18/20 16:47 DC 03/18/20 09:38 Haloperidol (Haldol) 2.5 mg BID PO 03/01/20 09:00 03/05/20 11:28 DC 03/05/20 09:53 Haloperidol (Haldol) 5 mg BID PO 03/05/20 21:00 03/09/20 10:52 DC 03/08/20 20:48 Haloperidol (Haldol) 5 mg STAT STAT IM 02/27/20 21:36 02/27/20 21:38 DC 02/27/20 21:51 Haloperidol (Haldol) 10 mg BID PO 03/09/20 09:00 03/18/20 16:47 DC 03/18/20 09:36 Home Med (Med Rec Complete!) ASDIRECTED XX 02/24/20 19:30 02/24/20 19:21 DC Levetiracetam (Keppra) 500 mg BID PO 02/25/20 21:00 03/18/20 16:47 DC 03/18/20 09:36 Lorazepam (Ativan) 2 mg STAT STAT IM 02/27/20 21:36 02/27/20 21:38 DC 02/27/20 21:51 Magnesium Hydroxide (Milk Of Magnesia) 30 ml DAILYPRN PRN PO CONSTIPATION 02/24/20 20:15 03/18/20 16:47 DC Miscellaneous (Unresolved Clarification Entry) SEE LABEL COMMENTS DAILY XX 03/08/20 09:00 03/08/20 11:25 DC Oxybutynin Chloride (Ditropan) 5 mg BID PO 02/25/20 21:00 03/18/20 16:47 DC 03/18/20 09:35 Pantoprazole Sodium (Protonix) 40 mg QHS PO 02/25/20 21:00 03/18/20 16:47 DC 03/17/20 22:10 Sucralfate (Carafate) 1 gm AC PO 02/25/20 12:00 03/18/20 16:47 DC 03/18/20 08:12 Tiotropium Meno (Spiriva Handihaler) 1 inhalation DAILY@08 INH 02/25/20 08:00 03/18/20 16:47 DC 03/18/20 09:38 Tramadol HCl (Ultram) 25 mg TIDP PRN PO PAIN 03/01/20 22:00 03/15/20 10:50 DC 03/12/20 09:06 Trazodone HCl (Desyrel) 50 mg QHSP PRN PO INSOMNIA 02/24/20 20:15 03/18/20 16:47 DC 03/16/20 20:59 Allergies Coded Allergies: Sulfa (Sulfonamide Antibiotics) (Verified Allergy, Severe, ANAPYLAXIS, 01/20/20) Quinolones (Verified Allergy, Intermediate, HIVES, 01/20/20) cephalexin (Verified Allergy, Mild, HIVES, 11/02/19) amoxicillin (Verified Allergy, Unknown, unknown, 01/10/19) clavulanic acid (Verified Allergy, Unknown, unknown, 01/10/19) moxifloxacin (Verified Allergy, Unknown, unknown, 01/10/19) nitrofurantoin (Verified Allergy, Unknown, unknown, 01/10/19) oxycodone (Verified Adverse Reaction, Intermediate, AMS, 01/20/20) prednisolone (Verified Adverse Reaction, Mild, flippy feeling, 01/20/20) BROCK WOLF DO Apr 30, 2020 14:24
== END 2020-03-18 16:30 | disposition home or self-care (01) | DRG 885 ==
LOC: M PSY 18:30
PROVIDERS: ADMIT Psychiatry & Neurology Addiction Medicine; ATTEND Psychiatry & Neurology Addiction Medicine
DX: F25.1 Schizoaffective disorder, depressive type (principal); F05 Delirium due to known physiological condition; F33.9 Major depressive disorder, recurrent, unspecified; E22.2 Syndrome of inappropriate secretion of antidiuretic hormone; G40.909 Epilepsy, unspecified, not intractable, without status epilepticus; G24.01 Drug induced subacute dyskinesia; I25.10 Atherosclerotic heart disease of native coronary artery without angina pectoris; I25.2 Old myocardial infarction; E78.5 Hyperlipidemia, unspecified; H02.402 Unspecified ptosis of left eyelid; I10 Essential (primary) hypertension; J44.9 Chronic obstructive pulmonary disease, unspecified; R07.89 Other chest pain; N32.81 Overactive bladder; Z79.82 Long term (current) use of aspirin; Z79.899 Other long term (current) drug therapy; Z88.0 Allergy status to penicillin; Z88.1 Allergy status to other antibiotic agents; Z88.2 Allergy status to sulfonamides; Z88.8 Allergy status to other drugs, medicaments and biological substances; Z88.5 Allergy status to narcotic agent; Z90.49 Acquired absence of other specified parts of digestive tract

== ENCOUNTER → 2020-06-07 | Outpatient (CLI) | payer OTHER, MEDICARE, MEDICAID ==
[~2020-06-07] MED LIST changes: +HALO10TA20 PO; +SUCR1TA PO
--- NOTE | 2020-06-09 00:56 | ECWPNPC ---
PATIENT NAME: CK BYRD : 1950 GENDER: FEMALE VISIT DATE: 06/07/2020 DISCHARGE DATE: 06/07/20 1015 VISIT LOCKED DATE TIME: PHYSICIAN: WILLAM FALL PHYSICIAN PAGER NO: ACTIVE RESOURCE: WILLAM FALL REASON FOR APPOINTMENT 1. LUMBAR- DAUGHTER WILL BE WITH HER HISTORY OF PRESENT ILLNESS DEPRESSION SCREENING: PHQ-9 LITTLE INTEREST OR PLEASURE IN DOING THINGSNOT AT ALL FEELING DOWN, DEPRESSED, OR HOPELESSMORE THAN HALF THE DAYS TROUBLE FALLING OR STAYING ASLEEP, OR SLEEPING TOO MUCHNEARLY EVERY DAY FEELING TIRED OR HAVING LITTLE ENERGYNEARLY EVERY DAY POOR APPETITE OR OVEREATING NEARLY EVERY DAY FEELING BAD ABOUT YOURSELF-OR THAT YOU ARE A FAILURE OR HAVE LET YOURSELF OR YOUR FAMILY DOWN NEARLY EVERY DAY TROUBLE CONCENTRATING ON THINGS, SUCH READING THE NEWSPAPER OR WATCHING TELEVISION NEARLY EVERY DAY MOVING OR SPEAKING SO SLOWLY THAT OTHER PEOPLE COULD HAVE NOTICED. OR THE OPPOSITE- BEING SO FIDGETY OR RESTLESS THAT YOU HAVE BEEN MOVING AROUND A LOT MORE THAN USUALNEARLY EVERY DAY THOUGHTS THAT YOU WOULD BE BETTER OFF , OR OF HURTING YOURSELF IN SOME WAY?NOT AT ALL TOTAL SCORE:20 INTERPRETATIONSEVERE DEPRESSION PHQ-2 (2015 EDITION) LITTLE INTEREST OR PLEASURE IN DOING THINGS?NOT AT ALL FEELING DOWN, DEPRESSED, OR HOPELESS?NEARLY EVERY DAY TOTAL SCORE3 69-YEAR-OLD FEMALE IN FOR INITIAL PAIN CONSULT REGARDING HER LOW BACK. PATIENT ADMITS TO A HISTORY OF SPINAL SURGERIES. SHE HAS LONG-STANDING HISTORY OF LOW BACK PAIN WHICH IS EXACERBATED IN STATUS POST FALL. SHE RATES HER PAIN CURRENTLY AT A 9 OUT OF 10 AND DESCRIBES IT SHARP. GENERAL: - - -. FALL RISK SCREENING: SCREENING :ONE FALL WITHOUT INJURY IN THE PAST YEAR PAIN SCREENING: PATIENT HAS A COMPLAINT OF ACUTE OR CHRONIC PAIN :YES LOCATION OF PAIN:LOW BACK, LEG(S) INTENSITY OF PAIN (SCALE OF 1 TO 10):9 WHAT DOES YOUR PAIN FEEL LIKE:SHARP DURATION:CONTINOUS, CONSTANT PAIN IS INCREASED BY:ACTIVITIES PAIN IS DECREASED BY:OTHERS NOTHING TREATMENT/MEDICATIONS USED TO MANAGE PAIN:OTC PAIN RELIEVERS LEVEL OF RELIEF FROM PAIN TREATMENTS IN THE PAST:0% PAIN HAS INTERFERED WITH THE FOLLOWING:BATHING/DRESSING, MOOD, WALKING ABILITY, HOUSEWORK, SLEEP, TRANSPORTATION, TOILETING NURSING NOTE: DISCUSS PAIN, PT WANTS PAIN TO STOP. PAIN CENTER INTAKE QUESTIONS: DO YOU HAVE A HISTORY OF MRSA? :NO DO YOU TAKE A BLOOD THINNERS? :NO DO YOU HAVE ANY BLEEDING DISORDERS? :NO ANY NEW NUMBNESS OR WEAKNESS IN YOUR LEGS OR ARMS? :YES ALL LIMBS ANY PACEMAKER,DEFIBRILLATOR, OR DORSAL COLUMN STIMULATOR? :NO DO YOU HAVE ANY RASHES OR OPEN SORES? :NO ARE YOU ALLERGIC TO IV DYE? :NO ARE YOU DIABETIC? :NO ANY NEW PROBLEMS WITH YOUR MEDICATIONS? :NO HAVE YOU RECEIVED A VACCINE IN THE PAST 30 DAYS? :NO NOT SURE DO YOU PLAN TO RECEIVE A VACCINE IN THE NEXT 21 DAYS? :NO DO YOU NEED ANY PRESCRIPTION? :NO DO YOU TAKE ANY IMMUNOSUPPRESSIVE MEDICATIONS? :NO CURRENT MEDICATIONS TAKING BREO ELLIPTA 100-25 MCG/INH AEROSOL POWDER BREATH ACTIVATED 1 PUFF INHALATION ONCE A DAY TAKING PROAIR HFA 108 (90 BASE) MCG/ACT AEROSOL SOLUTION 2 PUFFS NEEDED INHALATION EVERY 6 HRS TAKING ATORVASTATIN CALCIUM 40 MG TABLET 1 TABLET ORALLY ONCE A DAY TAKING INCRUSE ELLIPTA 62.5 MCG/INH AEROSOL POWDER BREATH ACTIVATED 1 PUFF INHALATION ONCE A DAY TAKING BLOOD PRESS MONITOR/M-L CUFF - MISCELLANEOUS DIRECTED I110 DAILY TAKING DEMECLOCYCLINE HCL 150 MG TABLET TAKE TWO TABLETS BY MOUTH AFTER BREAKFAST AND LUNCH AND THREE TABLETS BY MOUTH WITH EVENING MEAL ORALLY TID NOTED ABOVE TAKING ALBUTEROL SULFATE (2.5 MG/3ML) 0.083% NEBULIZATION SOLUTION 1 VIAL INHALATION TWICE A DAY PRN TAKING CETIRIZINE HCL 10 MG TABLET TAKE ONE TABLET BY MOUTH EVERY DAY AT BEDTIME ORALLY DAILY TAKING FLUOXETINE HCL (PMDD) 20 MG TABLET 1 TABLET ORALLY ONCE A DAY TAKING AMANTADINE HCL 100 MG CAPSULE 1 CAPSULE ORALLY ONCE A DAY TAKING HALOPERIDOL 5 MG TABLET 1 TABLET ORALLY ONCE A DAY TAKING KEPPRA 500 MG TABLET 1 TABLET ORALLY EVERY 12 HRS TAKING VITAMIN B12 500 MCG TABLET 1 TABLET ORALLY ONCE A DAY TAKING SENNA 8.6 MG TABLET 2 TABLETS AT BEDTIME NEEDED ORALLY ONCE A DAY TAKING DITROPAN XL 5 MG TABLET EXTENDED RELEASE 24 HOUR 1 TABLET ORALLY ONCE A DAY TAKING SODIUM CHLORIDE 1 GM TABLET DIRECTED ORALLY TAKING FOLIC ACID 1 MG TABLET 1 TABLET ORALLY ONCE A DAY TAKING CARAFATE 1 GM TABLET 1 TABLET ON AN EMPTY STOMACH ORALLY TWICE A DAY TAKING AMLODIPINE BESYLATE 5 MG TABLET 1 TABLET ORALLY ONCE A DAY TAKING TYLENOL 8 HOUR 650 MG TABLET EXTENDED RELEASE 2 TABLETS NEEDED ORALLY EVERY 8 HRS TAKING DRISTAN SPRAY 0.05 % SOLUTION 2 SPRAYS IN EACH NOSTRIL NEEDED NASALLY TWICE A DAY TAKING VOLTAREN 1 % GEL DIRECTED EXTERNALLY TAKING MIRALAX 17 GM PACKET 1 PACKET MIXED WITH 8 OUNCES OF FLUID ORALLY ONCE A DAY NOT-TAKING TOLTERODINE TARTRATE 2 MG TABLET 1 TABLET ORALLY TWICE A DAY NOT-TAKING NITROSTAT 0.4 MG TABLET SUBLINGUAL SUBLINGUAL NOT-TAKING ASPIRIN ADULT LOW DOSE 81 MG TABLET DELAYED RELEASE 1 TABLET ORALLY ONCE A DAY NOT-TAKING SERTRALINE HCL 100 MG TABLET 1 1/2 TABLET ORALLY ONCE A DAY NOT-TAKING DIVALPROEX SODIUM ER 500 MG TABLET EXTENDED RELEASE 24 HOUR 1 TAB ORALLY TWICE DAILY NOT-TAKING GEODON 20 MG CAPSULE PSULE IN THE MORNING THEN 40MG QT NIGHT ORALLY 1 TAB IN AM AND 1 TAB IN PM NOT-TAKING ZOLOFT 100 MG - 1 AND 1/2 TABLETS ORAL DAILY NOT-TAKING LOSARTAN POTASSIUM 50 MG TABLET 1 TABLET ORALLY BID NOT-TAKING AMLODIPINE BESYLATE 10 MG TABLET 1 TABLET ORALLY ONCE A DAY NOT-TAKING METOPROLOL SUCCINATE ER 25 MG TABLET EXTENDED RELEASE 24 HOUR 1 TABLET ORALLY BID NOT-TAKING SPIRIVA HANDIHALER 18 MCG CAPSULE 1 CAPSULE INHALATION ONCE A DAY NOT-TAKING CELEBREX 100 MG CAPSULE 1 CAPSULE WITH FOOD ORALLY TWICE A DAY NOT-TAKING TIZANIDINE HCL 4 MG TABLET 1 TABLET NEEDED ORALLY BEFORE BEDTIME NOT-TAKING SPIRONOLACTONE 25 MG TABLET 1 TABLET ORALLY ONCE A DAY NOT-TAKING ACETAMINOPHEN 500 MG CAPSULE 2 CAPSULES NEEDED ORALLY EVERY 6 HRS NOT-TAKING POLYETHYLENE GLYCOL - POWDER 1 TAB ORALLY NEEDED NOT-TAKING LIDOCAINE VISCOUS 2 % SOLUTION 80ML VISICOUS LIDO. 2% C 80-ML DIPHENHYDRAMINE 12.5MG/5ML ELIXIR MOUTH/THROAT 5ML EVERY 6 HRS NEEDED NOT-TAKING OXYBUTYNIN CHLORIDE 5 MG TABLET 1 TABLET ORALLY TWICE A DAY NOT-TAKING LASIX 40 MG TABLET 1 TABLET ORALLY ONCE A DAY PRN EDEMA NOT-TAKING PROTONIX 40 MG TABLET DELAYED RELEASE 1 TABLET ORALLY ONCE A DAY NOT-TAKING MAGNESIUM 400 MG CAPSULE 2 CAPSULES AT BEDTIME NEEDED ORALLY DAILY NOT-TAKING HIBICLENS 4 % LIQUID DIRECTED EXTERNALLY DAILY FOR 5 DAYS BEFORE INJECTIONS NOT-TAKING VENTOLIN HFA 108 (90 BASE) MCG/ACT AEROSOL SOLUTION INHALE ONE PUFF BY MOUTH EVERY 6 HOURS NEEDED MEDICATION LIST REVIEWED AND RECONCILED WITH THE PATIENT PAST MEDICAL HISTORY LBBB, 1AVB IFG COPD GERD MIXED URINARY INCONTINENCE ANEMIA 2 FE DEFICIENCY CHRONIC CONSTIPATION ALLERGIC RHINITIS CERVICAL/LUMBAR DJD-ML SPONDYLOSIS C C5-7 BULGES S SC COMPRESSION BY 07/2016 MRI//L3-S1 BULGES, L5/S1 LITHESIS C L L4 NF, B L5 NF COMPRESSION BY 05/2016 MRI MYRA, MILD 09/2017 HST C BABS 7, SAO2 TO 91% MIXED HYERLIPIDEMIA HYPERTENSION-LVEF 65%, MARGINAL , MILD LAE, GARDE 1 DIASTOLIC DYSFUNCTION, BORDERLINE PHTN BY 12/2015 TTE-VALENZUELA//NORMAL CORONARIES ARTERIES BY 04/2014 CATH-[place], [place] NICOTINE USE DISORDER MILD /VOLUME LOSS BY 07/2017 MRI BRAIN S CONTRAST, SIMILARTO 01/2007 B CAROTID ARTERY DISEASE 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 2 SON(S) , 1 DAUGHTER(S) - HEALTHY. FATHER OF CEREBRAL HEMORRHAGEMOTHER'S RELATED TO CROHN'SBRO. AGE 43 OF MISISTER AGE 58 OF COMPLICATION OF COLOSTOMY REVERSAL SURGERYSISTER C T2DM, 1BRO. C [id number], BROTHERS C HTN, CAD. SOCIAL HISTORY GENERAL: TOBACCO USE ARE YOU A:CURRENT SMOKER 1 PPD X 50 YEARS ARE YOU INTERESTED IN QUITTING?NOT READY TO QUIT COUNSELED THE PATIENT ON SMOKING EFFECTS, EDUCATION [id number]/07/2020 SMOKING CESSATION INFORMATION GIVEN11/06/2017 [employer] LATEX QUESTIONNAIRE LATEX ALLERGY : HAVE YOU EVER DEVELOPED ANY TYPE OF REACTION AFTER HANDLING LATEX PRODUCTS SUCH RUBBER GLOVES, CONDOMS, DIAPHRAGMS, BALLOONS, SOCKS, OR UNDERWEAR?NO LATEX ALLERGY : HAVE YOU EVER DEVELOPED ANY TYPE OF REACTION DURING OR AFTER DENTAL APPOINTMENT, VAGINAL/RECTAL EXAMINATION, SURGICAL PROCEDURE, OR ANY OTHER EXPOSURE?NO LATEX RISK : HAVE YOU EVER HAD ANY DIFFICULTY BREATHING OR HIVES AFTER EATING OR HANDLING ANY FRUITS, OR VEGETABLES; SUCH KIWI, BANANAS, STONE FRUITS, OR CHESTNUTSNO LATEX RISK : DO YOU HAVE A PREVIOUS PERSONAL HISTORY OF MORE THAN NINE SURGERIES, SPINA BIFIDA, OR REPEATED CATHERIZATIONS? NO LATEX RISK : ARE YOU FREQUENTLY EXPOSED TO LATEX PRODUCTS IN YOUR OCCUPATION?NO DATE ASKED : 06/07/2020 BMI CARE GOAL FOLLOW-UP ABOVE NORMAL BMI FOLLOW-UPGIVING ENCOURAGEMENT TO EXERCISE ALCOHOL SCREENING DID YOU HAVE A DRINK CONTAINING ALCOHOL IN THE PAST YEAR?NO POINTS0 INTERPRETATIONNEGATIVE RECREATIONAL DRUG USE DRUG USE?NO CAFFEINE CAFFEINE USE?YES 2-3CUPS/DAY SEXUAL HX HAD SEX IN THE LAST 12 MONTHS (VAGINAL, ORAL, OR ANAL)?NO HAVE YOU EVER HAD AN STD?NO HIV / HEP-C SCREENING HIV TEST OFFERED TO PATIENT:YES DATE OFFERED:11/08/2016 TEST ACCEPTED:NO HEP-C TEST OFFERED TO PATIENT:YES DATE OFFERED:11/08/2016 REASON:PATIENT DECLINED TEST ACCEPTED:NO REASON:PATIENT DECLINED [employer] [id number] LANGUAGE LANGUAGES SPOKEN:CZECH EDUCATION LEVEL OF EDUCATION:NOT FINISHED HIGH SCHOOL LEARNING BARRIERS / SPECIAL NEEDS CHANGE FROM LAST VISIT?YES CAH ER F/U BARRIERS TO LEARNING?NO HEARING IMPAIRED?NO VISION IMPAIRED?YES COGNITIVELY IMPAIRED?NO :CORRECTIVE LENSES READINESS TO LEARN?YES LEARNING PREFERENCES?NO LEARNING CAPABILITIES PRESENT?YES EMOTIONAL BARRIERS?NO SPECIAL DEVICES?NO DESIGN ENGINEER MARINE EQUIPMENT NEEDED?NO DOMESTIC VIOLENCE DO YOU FEEL SAFE IN YOUR ENVIRONMENT?YES OCCUPATION: YEARS AGO @ [employer] @ [employer]. DIET: REGULAR. EXERCISE: NO REGULAR EXERCISE. MARITAL STATUS: [id number].. OTHERS AT HOME: SPOUSE. PAIN CLINIC PFS, CLERGY, PUBLIC HEALTH REFERRALS WAS THE PROVIDER NOTIFIED OF ANY PERTINENT INFO?YES HAS THE PATIENT BEEN EDUCATED REGARDING HIS/HER PLAN OF CARE?YES HAS THE PATIENT BEEN EDUCATED REGARDING PAIN, THE RISK FOR PAIN, THE IMPORTANCE OF EFFECTIVE PAIN MANAGEMENT, AND THE PAIN ASSESSMENT PROCESS?YES ADVANCE DIRECTIVE ADVANCE DIRECTIVE DISCUSSED WITH PATIENT:YES HCP IS DAUGHTER JONE [phone] HOSPITALIZATION/MAJOR DIAGNOSTIC PROCEDURE HYPONATREMIA/SIADH 2014 2014 CHEST PAIN- [facility] 06/2016 CORONARY ANGIOGRAM 06/2017 COPD EXACERBATION-[facility] 05/14- PSYCHIATRIC ADMISSION INPATIENT AT [facility] REVIEW OF SYSTEMS CONSTITUTIONAL: ANY RECENT FEVER NO . CHILLS NO . WEIGHT CHANGE OF UNKNOWN REASONS NO . MUSCULOSKELETAL: ANY UNUSUAL JOINT PAIN OR SWELLING NOT MENTIONED NO . SYSTEMIC LUPUS NO . ANY NEUROMUSCULAR DISORDER NOT MENTIONED NO . LYME DISEASE NO . GASTROENTEROLOGY: ANY NEW CHANGE IN BOWEL CONTROL? NO . HISTORY OF LIVER DISORDER NOT MENTIONED NO . HISTORY OF UNUSUAL ABDOMINAL PAIN OR CRAMPING NOT MENTIONED NO . NO CONSTIPATION. GENITOURINARY: ANY NEW CHANGE IN BLADDER CONTROL? NO . ANY RENAL/KIDNEY CONDITON NOT MENTIONED NO . NEUROLOGY: HISTORY OF TBI NOT MENTIONED NO . OTHER NEW NUMBNESS OR PAIN PATTERNS NOT MENTIONED NO . NEW ONSET DIZZINESS OR NEUROLOGICAL CHANGES NOT MENTIONED NO . HISTORY OF SEVERE HEADACHES NOT MENTIONED NO . HISTORY OF STROKE OR NEUROLOGICAL DISORDER NOT MENTIONED NO . CARDIOLOGY: HEART SURGERY NO . CONGESTIVE HEART FAILURE/FLUID OVERLOAD NOT MENTIONED NO . HISTORY OF CHEST PAIN,IRREGULAR HEART BEAT NOT MENTIONED NO . RESPIRATORY: SHORTNESS OF BREATH ON EXERTION, WHEEZES, UNUSUAL COUGH NOT MENTIONED NO . ENDOCRINOLOGY: ADRENAL GLAND OR THYROID DISORDERS NOT MENTIONED NO . UNUSUAL URINATION, DIZZINESS OR LETHARGY NOT MENTIONED NO . VITAL SIGNS WT 123.4 LBS, HT 61 IN, BMI 23.31 INDEX, BP 130/72 MM HG, HR 93 /MIN, RR 18 /MIN, TEMP 97.0 F, OXYGEN SAT % 100%, SAFE IN ENV? (Y/N) Y, NA INITIALS SD 08:46, REVIEWED BY: EVE. EXAMINATION GENERAL EXAMINATION: GENERALNO ACUTE DISTRESS, WELL NOURISHED AND HYDRATED. PSYCHAPPROPRIATE MOOD AND AFFECT . LUNGS:CLEAR TO AUSCULTATION BILATERALLY, NO WHEEZES, RHONCHI, RALES. HEART:NO MURMURS, REGULAR RATE AND RHYTHM. BACK:POINT TENDER LEFT LUMBAR SPINE, SURROUNDING SKIN SHOWS NO ERYTHEMA, ECCHYMOSIS, INCREASED WARMTH, AND/OR SKIN ERUPTIONS NOTED. POSITIVE MODIFIED SLR LEFT SIDE . MUSCULOSKELETAL:NOTABLE WEAKNESS OF THE LEFT LOWER EXTREMITY . ASSESSMENTS SPONDYLOSIS OF LUMBOSACRAL REGION WITHOUT MYELOPATHY OR RADICULOPATHY - M47.817 (PRIMARY) TREATMENT SPONDYLOSIS OF LUMBOSACRAL REGION WITHOUT MYELOPATHY OR RADICULOPATHY START TRAMADOL HCL TABLET, 50 MG, 1 TABLET NEEDED, ORALLY, ONCE A DAY PRN PAIN, 30 DAYS, 30 START BACLOFEN TABLET, 5 MG, 1 TABLET NEEDED, ORALLY, ONCE A DAY PRN, 30 DAY(S), 30 LAB: BLOOD UREA NITROGEN (BUN) LAB: CREATININE [facility] MRI LS SPINE W/O AND WITH [id number] NOTES: 69-YEAR-OLD FEMALE IN FOR INITIAL PAIN CONSULT. GIVEN PRESENTING SYMPTOMS AND RESULTS OF PHYSICAL EXAMINATION RECOMMENDED GETTING AN MRI FOR FURTHER EVALUATION WITH FOLLOW-UP THEREAFTER. FURTHER RECOMMENDED STARTING BACLOFEN 5 MG 2 TIMES A DAY AND TRAMADOL 50 MG DAILY NEEDED FOR PAIN. PATIENT AND HER DAUGHTER HAVE EXPRESSED UNDERSTANDING OF AND WERE IN AGREEMENT WITH TREATMENT PLAN. GIVEN TIME TO ASK QUESTIONS AND EXPRESS CONCERNS. , ISTOP REGISTRY REVIEWED AND DEMONSTRATES COMPLLIANCE. (REF # [id number] ) BRINGS IN MEDICATIONS WHICH IS APPROPRIATE FOR WHAT WAS DISPENSED. RECENT URINE TOXICOLOGY REVIEWED. NO UNAUTHORIZED MEDICATIONS. NO ILLICIT SUBSTANCES AND PRESCRIBED MEDICATIONS WERE PRESENT. , RISKS OF NARCOTIC/OPIOD MEDICATIONS INCLUDES BUT IS NOT LIMITED TO RISK OF DEPENDANCE/DEVELOPMENT OF ADDICTION, MOOD DISTURBANCE AND DEPRESSION, OSTEOPOROSIS, HORMONAL AND LABIDAL CHANGES, RESPIRATORY DEPRESSION AND . PATIENT IS ADVISED NOT TO DRIVE OR DRINK ALCOHOL WHILE ON THESE MEDICATIONS. PROCEDURE CODES FA211 ESTABILISHED PATIENT [facility] FACILITY CHARGE DISPOSITION & COMMUNICATION FOLLOW UP POST IMAGING (REASON: LUMBAR MRI) ELECTRONICALLY SIGNED BY JAYNA FERGUSON ON 06/08/2020 AT 09:04 AM EST DISCLAIMER : THIS IS A VISIT SUMMARY EXTRACTED FROM THE [employer] CHART. IT IS NOT A COPY OF THE [employer] PROGRESS NOTE. DANNA
== END ==
LOC: M PAIN 08:30
PROVIDERS: ATTEND Family Medicine
DX: M47.817 Spondylosis without myelopathy or radiculopathy, lumbosacral region (principal); J44.9 Chronic obstructive pulmonary disease, unspecified; K21.9 Gastro-esophageal reflux disease without esophagitis; D50.9 Iron deficiency anemia, unspecified; K59.09 Other constipation; E78.2 Mixed hyperlipidemia; G47.33 Obstructive sleep apnea (adult) (pediatric); I10 Essential (primary) hypertension; F20.9 Schizophrenia, unspecified; F17.210 Nicotine dependence, cigarettes, uncomplicated; N39.46 Mixed incontinence; Z79.899 Other long term (current) drug therapy; Z88.1 Allergy status to other antibiotic agents; Z88.5 Allergy status to narcotic agent; Z88.8 Allergy status to other drugs, medicaments and biological substances; E22.2 Syndrome of inappropriate secretion of antidiuretic hormone

== ENCOUNTER → 2020-07-14 | Outpatient (CLI) | payer OTHER, MEDICARE, MEDICAID ==
[~2020-07-14] MED LIST changes: +GABA-282 PO; -GABA-843 PO
--- NOTE | 2020-07-16 00:53 | ECWPNPC ---
PATIENT NAME: CK BYRD : 1950 GENDER: FEMALE VISIT DATE: 07/14/2020 DISCHARGE DATE: 07/14/20 1143 VISIT LOCKED DATE TIME: PHYSICIAN: WILLAM FALL PHYSICIAN PAGER NO: ACTIVE RESOURCE: WILLAM FALL REASON FOR APPOINTMENT 1. MRI RESULTS HISTORY OF PRESENT ILLNESS DEPRESSION SCREENING: PHQ-9 LITTLE INTEREST OR PLEASURE IN DOING THINGSNEARLY EVERY DAY FEELING DOWN, DEPRESSED, OR HOPELESSSEVERAL DAYS TROUBLE FALLING OR STAYING ASLEEP, OR SLEEPING TOO MUCHNEARLY EVERY DAY FEELING TIRED OR HAVING LITTLE ENERGYMORE THAN HALF THE DAYS POOR APPETITE OR OVEREATING NEARLY EVERY DAY FEELING BAD ABOUT YOURSELF-OR THAT YOU ARE A FAILURE OR HAVE LET YOURSELF OR YOUR FAMILY DOWN MORE THAN HALF THE DAYS TROUBLE CONCENTRATING ON THINGS, SUCH READING THE NEWSPAPER OR WATCHING TELEVISION MORE THAN HALF THE DAYS MOVING OR SPEAKING SO SLOWLY THAT OTHER PEOPLE COULD HAVE NOTICED. OR THE OPPOSITE- BEING SO FIDGETY OR RESTLESS THAT YOU HAVE BEEN MOVING AROUND A LOT MORE THAN USUALMORE THAN HALF THE DAYS THOUGHTS THAT YOU WOULD BE BETTER OFF , OR OF HURTING YOURSELF IN SOME WAY?NOT AT ALL TOTAL SCORE:18 INTERPRETATIONMODERATELY SEVERE DEPRESSION PHQ-2 (2015 EDITION) LITTLE INTEREST OR PLEASURE IN DOING THINGS?NEARLY EVERY DAY FEELING DOWN, DEPRESSED, OR HOPELESS?SEVERAL DAYS TOTAL SCORE4 69-YEAR-OLD FEMALE IN FOR CHRONIC PAIN FOLLOW-UP. PATIENT WAS STARTED ON TRAMADOL LAST CLINIC VISIT AND SHE ADMITS TODAY THAT SHE HAS NOT FOUND THIS TO BE BENEFICIAL. PATIENT HAD RECENT MRI WHICH WILL BE REVIEWED WITH PATIENT TODAY. SHE RATES HER PAIN CURRENTLY AT A 9 OUT OF 10 AND DESCRIBES IT ACHING AND BURNING. GENERAL: -. FALL RISK SCREENING: SCREENING :NO FALLS REPORTED IN THE LAST YEAR PAIN SCREENING: PATIENT HAS A COMPLAINT OF ACUTE OR CHRONIC PAIN :YES LOCATION OF PAIN:LOW BACK INTENSITY OF PAIN (SCALE OF 1 TO 10):9 WHAT DOES YOUR PAIN FEEL LIKE:ACHING, BURNING DURATION:CONTINOUS, CONSTANT, ALL DAY PAIN IS INCREASED BY:ACTIVITIES, PROLONGED STANDING PAIN IS DECREASED BY:OTHERS HEAT AND ICE NURSING NOTE: -. PAIN CENTER INTAKE QUESTIONS: DO YOU HAVE A HISTORY OF MRSA? :NO DO YOU TAKE A BLOOD THINNERS? :NO DO YOU HAVE ANY BLEEDING DISORDERS? :NO ANY NEW NUMBNESS OR WEAKNESS IN YOUR LEGS OR ARMS? :YES ANY PACEMAKER,DEFIBRILLATOR, OR DORSAL COLUMN STIMULATOR? :NO DO YOU HAVE ANY RASHES OR OPEN SORES? :NO ARE YOU ALLERGIC TO IV DYE? :NO ARE YOU DIABETIC? :NO ANY NEW PROBLEMS WITH YOUR MEDICATIONS? :NO HAVE YOU RECEIVED A VACCINE IN THE PAST 30 DAYS? :NO DO YOU PLAN TO RECEIVE A VACCINE IN THE NEXT 21 DAYS? :NO DO YOU NEED ANY PRESCRIPTION? :NO DO YOU TAKE ANY IMMUNOSUPPRESSIVE MEDICATIONS? :NO IS THERE A CHANCE YOU COULD BE ? :NO ARE YOU BREAST FEEDING? :NO CURRENT MEDICATIONS TAKING BREO ELLIPTA 100-25 MCG/INH AEROSOL POWDER BREATH ACTIVATED 1 PUFF INHALATION ONCE A DAY TAKING PROAIR HFA 108 (90 BASE) MCG/ACT AEROSOL SOLUTION 2 PUFFS NEEDED INHALATION EVERY 6 HRS TAKING ATORVASTATIN CALCIUM 40 MG TABLET 1 TABLET ORALLY ONCE A DAY TAKING INCRUSE ELLIPTA 62.5 MCG/INH AEROSOL POWDER BREATH ACTIVATED 1 PUFF INHALATION ONCE A DAY TAKING BLOOD PRESS MONITOR/M-L CUFF - MISCELLANEOUS DIRECTED I110 DAILY TAKING DEMECLOCYCLINE HCL 150 MG TABLET TAKE TWO TABLETS BY MOUTH AFTER BREAKFAST AND LUNCH AND THREE TABLETS BY MOUTH WITH EVENING MEAL ORALLY TID NOTED ABOVE TAKING ALBUTEROL SULFATE (2.5 MG/3ML) 0.083% NEBULIZATION SOLUTION 1 VIAL INHALATION TWICE A DAY PRN TAKING CETIRIZINE HCL 10 MG TABLET TAKE ONE TABLET BY MOUTH EVERY DAY AT BEDTIME ORALLY DAILY TAKING FLUOXETINE HCL (PMDD) 20 MG TABLET 1 TABLET ORALLY ONCE A DAY TAKING AMANTADINE HCL 100 MG CAPSULE 1 CAPSULE ORALLY ONCE A DAY TAKING HALOPERIDOL 5 MG TABLET 1 TABLET ORALLY ONCE A DAY TAKING KEPPRA 500 MG TABLET 1 TABLET ORALLY EVERY 12 HRS TAKING VITAMIN B12 500 MCG TABLET 1 TABLET ORALLY ONCE A DAY TAKING SENNA 8.6 MG TABLET 2 TABLETS AT BEDTIME NEEDED ORALLY ONCE A DAY TAKING DITROPAN XL 5 MG TABLET EXTENDED RELEASE 24 HOUR 1 TABLET ORALLY ONCE A DAY TAKING SODIUM CHLORIDE 1 GM TABLET DIRECTED ORALLY TAKING FOLIC ACID 1 MG TABLET 1 TABLET ORALLY ONCE A DAY TAKING CARAFATE 1 GM TABLET 1 TABLET ON AN EMPTY STOMACH ORALLY TWICE A DAY TAKING AMLODIPINE BESYLATE 5 MG TABLET 1 TABLET ORALLY ONCE A DAY TAKING TYLENOL 8 HOUR 650 MG TABLET EXTENDED RELEASE 2 TABLETS NEEDED ORALLY EVERY 8 HRS TAKING DRISTAN SPRAY 0.05 % SOLUTION 2 SPRAYS IN EACH NOSTRIL NEEDED NASALLY TWICE A DAY TAKING VOLTAREN 1 % GEL DIRECTED EXTERNALLY TAKING MIRALAX 17 GM PACKET 1 PACKET MIXED WITH 8 OUNCES OF FLUID ORALLY ONCE A DAY TAKING BACLOFEN 5 MG TABLET 1 TABLET NEEDED ORALLY ONCE A DAY PRN TAKING TRAMADOL HCL 50 MG TABLET 1 TABLET NEEDED ORALLY ONCE A DAY PRN PAIN TAKING DEMECLOCYCLINE HCL 150 MG TABLET 1 TABLET 1 HOUR BEFORE OR 2 HOURS AFTER MEALS ORALLY EVERY 6 HRS TAKING SUCRALFATE 1 GM/10ML SUSPENSION 10 ML ON AN EMPTY STOMACH ORALLY TWICE A DAY TAKING ACETAMINOPHEN 500 MG CAPSULE 1 CAPSULE NEEDED ORALLY EVERY 6 HRS TAKING OXYMETAZOLINE HCL 0.05 % SOLUTION 2 SPRAYS IN EACH NOSTRIL NEEDED NASALLY TWICE A DAY NOT-TAKING TOLTERODINE TARTRATE 2 MG TABLET 1 TABLET ORALLY TWICE A DAY NOT-TAKING NITROSTAT 0.4 MG TABLET SUBLINGUAL SUBLINGUAL NOT-TAKING ASPIRIN ADULT LOW DOSE 81 MG TABLET DELAYED RELEASE 1 TABLET ORALLY ONCE A DAY NOT-TAKING SERTRALINE HCL 100 MG TABLET 1 1/2 TABLET ORALLY ONCE A DAY NOT-TAKING DIVALPROEX SODIUM ER 500 MG TABLET EXTENDED RELEASE 24 HOUR 1 TAB ORALLY TWICE DAILY NOT-TAKING GEODON 20 MG CAPSULE PSULE IN THE MORNING THEN 40MG QT NIGHT ORALLY 1 TAB IN AM AND 1 TAB IN PM NOT-TAKING ZOLOFT 100 MG - 1 AND 1/2 TABLETS ORAL DAILY NOT-TAKING LOSARTAN POTASSIUM 50 MG TABLET 1 TABLET ORALLY BID NOT-TAKING AMLODIPINE BESYLATE 10 MG TABLET 1 TABLET ORALLY ONCE A DAY NOT-TAKING METOPROLOL SUCCINATE ER 25 MG TABLET EXTENDED RELEASE 24 HOUR 1 TABLET ORALLY BID NOT-TAKING SPIRIVA HANDIHALER 18 MCG CAPSULE 1 CAPSULE INHALATION ONCE A DAY NOT-TAKING CELEBREX 100 MG CAPSULE 1 CAPSULE WITH FOOD ORALLY TWICE A DAY NOT-TAKING TIZANIDINE HCL 4 MG TABLET 1 TABLET NEEDED ORALLY BEFORE BEDTIME NOT-TAKING SPIRONOLACTONE 25 MG TABLET 1 TABLET ORALLY ONCE A DAY NOT-TAKING ACETAMINOPHEN 500 MG CAPSULE 2 CAPSULES NEEDED ORALLY EVERY 6 HRS NOT-TAKING POLYETHYLENE GLYCOL - POWDER 1 TAB ORALLY NEEDED NOT-TAKING LIDOCAINE VISCOUS 2 % SOLUTION 80ML VISICOUS LIDO. 2% C 80-ML DIPHENHYDRAMINE 12.5MG/5ML ELIXIR MOUTH/THROAT 5ML EVERY 6 HRS NEEDED NOT-TAKING OXYBUTYNIN CHLORIDE 5 MG TABLET 1 TABLET ORALLY TWICE A DAY NOT-TAKING LASIX 40 MG TABLET 1 TABLET ORALLY ONCE A DAY PRN EDEMA NOT-TAKING PROTONIX 40 MG TABLET DELAYED RELEASE 1 TABLET ORALLY ONCE A DAY NOT-TAKING MAGNESIUM 400 MG CAPSULE 2 CAPSULES AT BEDTIME NEEDED ORALLY DAILY NOT-TAKING HIBICLENS 4 % LIQUID DIRECTED EXTERNALLY DAILY FOR 5 DAYS BEFORE INJECTIONS NOT-TAKING VENTOLIN HFA 108 (90 BASE) MCG/ACT AEROSOL SOLUTION INHALE ONE PUFF BY MOUTH EVERY 6 HOURS NEEDED MEDICATION LIST REVIEWED AND RECONCILED WITH THE PATIENT PAST MEDICAL HISTORY LBBB, 1AVB IFG COPD GERD MIXED URINARY INCONTINENCE ANEMIA 2 FE DEFICIENCY CHRONIC CONSTIPATION ALLERGIC RHINITIS CERVICAL/LUMBAR DJD-ML SPONDYLOSIS C C5-7 BULGES S SC COMPRESSION BY 07/2016 MRI//L3-S1 BULGES, L5/S1 LITHESIS C L L4 NF, B L5 NF COMPRESSION BY 05/2016 MRI MYRA, MILD 09/2017 HST C BABS 7, SAO2 TO 91% MIXED HYERLIPIDEMIA HYPERTENSION-LVEF 65%, MARGINAL , MILD LAE, GARDE 1 DIASTOLIC DYSFUNCTION, BORDERLINE PHTN BY 12/2015 [facility]//NORMAL CORONARIES ARTERIES BY 04/2014 [facility], [place] NICOTINE USE DISORDER MILD /VOLUME LOSS BY 07/2017 MRI BRAIN S CONTRAST, SIMILARTO 01/2007 B CAROTID ARTERY DISEASE 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 2 SON(S) , 1 DAUGHTER(S) - HEALTHY. FATHER OF CEREBRAL HEMORRHAGEMOTHER'S RELATED TO CROHN'SBRO. AGE 43 OF MISISTER AGE 58 OF COMPLICATION OF COLOSTOMY REVERSAL SURGERYSISTER C T2DM, 1BRO. C [id number], BROTHERS C HTN, CAD. SOCIAL HISTORY GENERAL: TOBACCO USE ARE YOU A:CURRENT SMOKER 1 PPD X 50 YEARS ARE YOU INTERESTED IN QUITTING?NOT READY TO QUIT COUNSELED THE PATIENT ON SMOKING EFFECTS, EDUCATION ISINTXDJ18/13/2021 SMOKING CESSATION INFORMATION GIVEN11/06/2017 [facility] LATEX QUESTIONNAIRE LATEX ALLERGY : HAVE YOU EVER DEVELOPED ANY TYPE OF REACTION AFTER HANDLING LATEX PRODUCTS SUCH RUBBER GLOVES, CONDOMS, DIAPHRAGMS, BALLOONS, SOCKS, OR UNDERWEAR?NO LATEX ALLERGY : HAVE YOU EVER DEVELOPED ANY TYPE OF REACTION DURING OR AFTER DENTAL APPOINTMENT, VAGINAL/RECTAL EXAMINATION, SURGICAL PROCEDURE, OR ANY OTHER EXPOSURE?NO LATEX RISK : HAVE YOU EVER HAD ANY DIFFICULTY BREATHING OR HIVES AFTER EATING OR HANDLING ANY FRUITS, OR VEGETABLES; SUCH KIWI, BANANAS, STONE FRUITS, OR CHESTNUTSNO LATEX RISK : DO YOU HAVE A PREVIOUS PERSONAL HISTORY OF MORE THAN NINE SURGERIES, SPINA BIFIDA, OR REPEATED CATHERIZATIONS? NO LATEX RISK : ARE YOU FREQUENTLY EXPOSED TO LATEX PRODUCTS IN YOUR OCCUPATION?NO DATE ASKED : 07/14/2020 BMI CARE GOAL FOLLOW-UP ABOVE NORMAL BMI FOLLOW-UPGIVING ENCOURAGEMENT TO EXERCISE ALCOHOL SCREENING DID YOU HAVE A DRINK CONTAINING ALCOHOL IN THE PAST YEAR?NO POINTS0 INTERPRETATIONNEGATIVE RECREATIONAL DRUG USE DRUG USE?NO CAFFEINE CAFFEINE USE?YES 2-3CUPS/DAY SEXUAL HX HAD SEX IN THE LAST 12 MONTHS (VAGINAL, ORAL, OR ANAL)?NO HAVE YOU EVER HAD AN STD?NO HIV / HEP-C SCREENING HIV TEST OFFERED TO PATIENT:YES DATE OFFERED:11/08/2016 TEST ACCEPTED:NO HEP-C TEST OFFERED TO PATIENT:YES DATE OFFERED:11/08/2016 REASON:PATIENT DECLINED TEST ACCEPTED:NO REASON:PATIENT DECLINED PRESYBETERIAN [id number] YAZIDI LANGUAGE LANGUAGES SPOKEN:TRISTANIAN EDUCATION LEVEL OF EDUCATION:NOT FINISHED HIGH SCHOOL LEARNING BARRIERS / SPECIAL NEEDS CHANGE FROM LAST VISIT?YES [facility] ER F/U BARRIERS TO LEARNING?NO HEARING IMPAIRED?NO VISION IMPAIRED?YES COGNITIVELY IMPAIRED?NO :CORRECTIVE LENSES READINESS TO LEARN?YES LEARNING PREFERENCES?NO LEARNING CAPABILITIES PRESENT?YES EMOTIONAL BARRIERS?NO SPECIAL DEVICES?NO VTC TECHNICIAN NEEDED?NO DOMESTIC VIOLENCE DO YOU FEEL SAFE IN YOUR ENVIRONMENT?YES OCCUPATION: YEARS AGO @ [email or web address] @ [employer]. DIET: REGULAR. EXERCISE: NO REGULAR EXERCISE. MARITAL STATUS: [id number].. OTHERS AT HOME: SPOUSE. PAIN CLINIC PFS, CLERGY, PUBLIC HEALTH REFERRALS WAS THE PROVIDER NOTIFIED OF ANY PERTINENT INFO?YES HAS THE PATIENT BEEN EDUCATED REGARDING HIS/HER PLAN OF CARE?YES HAS THE PATIENT BEEN EDUCATED REGARDING PAIN, THE RISK FOR PAIN, THE IMPORTANCE OF EFFECTIVE PAIN MANAGEMENT, AND THE PAIN ASSESSMENT PROCESS?YES ADVANCE DIRECTIVE ADVANCE DIRECTIVE DISCUSSED WITH PATIENT:YES HCP IS DAUGHTER JONE [phone] HOSPITALIZATION/MAJOR DIAGNOSTIC PROCEDURE HYPONATREMIA/SIADH 2014 2014 CHEST PAIN- [facility] 06/2016 CORONARY ANGIOGRAM 06/2017 COPD EXACERBATION-[facility] 05/14- PSYCHIATRIC ADMISSION INPATIENT AT [facility] REVIEW OF SYSTEMS CONSTITUTIONAL: ANY RECENT FEVER NO . CHILLS NO . WEIGHT CHANGE OF UNKNOWN REASONS NO . GASTROENTEROLOGY: NEW UNEXPLAINABLE CHANGES IN BOWEL CONTROL NO . CONSTIPATION NO . GENITOURINARY: ANY NEW CHANGE IN BLADDER CONTROL? NO . NEUROLOGY: NEW ONSET DIZZINESS OR NEUROLOGICAL CHANGES NOT MENTIONED NO . NEW NUMBNESS OR PAIN PATTERNS NOT MENTIONED AND PERTINENT TO TODAY'S VISIT NO . CARDIOLOGY: NEW CHEST PRESSURE NO . NEW CHEST PAIN NO . RESPIRATORY: UNEXPLAINABLE COUGH NO . NEW SHORTNESS OF BREATH NO . VITAL SIGNS WT 118.4 LBS, HT 61 IN, BMI 22.37 INDEX, BP 139/79 MM HG, HR 87 /MIN, RR 18 /MIN, TEMP 97.8 F, OXYGEN SAT % 100%Angel LUCIO RN. EXAMINATION GENERAL EXAMINATION: GENERALNO ACUTE DISTRESS, WELL NOURISHED AND HYDRATED. PSYCHAPPROPRIATE MOOD AND AFFECT . LUNGS:CLEAR TO AUSCULTATION BILATERALLY, NO WHEEZES, RHONCHI, RALES. HEART:NO MURMURS, REGULAR RATE AND RHYTHM. BACK: POINT TENDER ALONG LUMBAR SPINE, SURROUNDING SKIN SHOWS NO ERYTHEMA, ECCHYMOSIS, INCREASED WARMTH, AND/OR SKIN ERUPTIONS NOTED. + MODIFIED SLR BILATERALLY. MUSCULOSKELETAL: BILATERAL WEAKNESS OF THE LOWER EXTREMITIES. ASSESSMENTS INTERVERTEBRAL DISC DISORDERS WITH RADICULOPATHY, LUMBOSACRAL REGION - M51.17 (PRIMARY) TREATMENT OTHERS STOP TRAMADOL HCL TABLET, 50 MG, 1 TABLET NEEDED, ORALLY, ONCE A DAY PRN PAIN START NORCO TABLET, 5-325 MG, 1 TABLET NEEDED, ORALLY, DAILY PRN PAIN, 30 DAY(S), 30 REFILL BACLOFEN TABLET, 5 MG, 1 TABLET NEEDED, ORALLY, ONCE A DAY PRN, 30 DAY(S), 30 NOTES: 69 YEAR OLD FEMALE IN FOR CHRONIC PAIN FOLLOW UP. MRI WAS REVIEWED WITH PATIENT. GIVEN PRESENTING SYMPTOMS AND RESULTS OF PHYSICAL EXAMINATION RECOMMEND STOPPING TRAMADOL AND STARTING NORCO. FURTHER RECOMMEND CAUDAL EPIDURAL STEROID INJECTION WITH POST PROCEDURAL FOLLOW UP. PATIENT HAS EXPRESSED UNDERSTANDING OF AND WAS IN AGREEMENT WITH TREATMENT PLAN. GIVEN TIME TO ASK QUESTIONS AND EXPRESS CONCERNS. , ISTOP REGISTRY REVIEWED AND DEMONSTRATES COMPLLIANCE. (REF # [id number] ) PRINTED AND REVIEWD INFORMATION ON CAUDAL EPIDURAL STEIOD INJECTION AND GIVE POST PROCEDURAL FOLLOW UP YUDITH DEVINE. PROCEDURE CODES FA211 ESTABILISHED PATIENT [facility] CHARGE DISPOSITION & COMMUNICATION FOLLOW UP POST PROCEDURE (REASON: CAUDAL EPIDURAL STERIOD INJECTION ) ELECTRONICALLY SIGNED BY JAYNA FERGUSON ON 07/15/2020 AT 01:55 PM EST DISCLAIMER : THIS IS A VISIT SUMMARY EXTRACTED FROM THE [employer] CHART. IT IS NOT A COPY OF THE [employer] PROGRESS NOTE. MTDD
== END ==
LOC: M PAIN 10:30
PROVIDERS: ATTEND Family Medicine
DX: M51.17 Intervertebral disc disorders with radiculopathy, lumbosacral region (principal); G89.29 Other chronic pain; R73.01 Impaired fasting glucose; J44.9 Chronic obstructive pulmonary disease, unspecified; G47.33 Obstructive sleep apnea (adult) (pediatric); F17.210 Nicotine dependence, cigarettes, uncomplicated; Z86.59 Personal history of other mental and behavioral disorders; Z88.1 Allergy status to other antibiotic agents; Z88.5 Allergy status to narcotic agent; Z88.8 Allergy status to other drugs, medicaments and biological substances; Z79.51 Long term (current) use of inhaled steroids; Z79.899 Other long term (current) drug therapy

== ENCOUNTER → 2020-07-23 | Outpatient (CLI) | payer OTHER, MEDICARE, MEDICAID ==
[~2020-07-23] MED LIST changes: +ISOS1TAB36 PO; -ISOS60TA2 PO; -LISI-542 PO; +LISI-898 PO; -QUET1TAB10 PO; +QUET300T2 PO
== END ==
LOC: M LABSMTC 09:57
PROVIDERS: ATTEND Anesthesiology
DX: Z20.822 Contact with and (suspected) exposure to COVID-19 (principal)

== ENCOUNTER → 2020-07-28 | Outpatient (CLI) | payer OTHER, MEDICARE, MEDICAID ==
[~2020-07-28] MED LIST changes: -ISOS1TAB36 PO; +ISOS60TA2 PO; +ISOVUE-M 300 61% 15ML VIAL As Ordered ONE; +LIDOCAINE 1% SDV 30ML VIAL As Ordered ONE; +LISI-542 PO; -LISI-898 PO; +QUET1TAB10 PO; -QUET300T2 PO; +methylPREDNISolone SUSP 40MG/ML 1ML VIAL (DEPO MEDROL) As Ordered ONE
--- NOTE | 2020-07-28 18:23 | REP ---
INDICATION: CAUDAL EPIDURAL STEROID INJECTION. COMPARISON: None. TECHNIQUE: Three views. 27.1 seconds of fluoroscopy time is reported. FINDINGS: A sequence of 3 last image hold fluoroscopically obtained spot radiograph(s) of the sacrum and coccyx document(s) needle position(s) and contrast injection associated with injection procedure. IMPRESSION: Procedural imaging. <Electronically signed by Fernando Graham > 07/28/20 [id number]
--- NOTE | 2020-07-30 01:21 | ECWPNPC ---
PATIENT NAME: CK BYRD : 1950 GENDER: FEMALE VISIT DATE: 07/28/2020 DISCHARGE DATE: 07/28/20 1604 VISIT LOCKED DATE TIME: PHYSICIAN: BECKI ARROYO MD PHYSICIAN PAGER NO: ACTIVE RESOURCE: BECKI ARROYO MD REASON FOR APPOINTMENT 1. CAUDAL EPIDURAL STERIOD INJECTION HISTORY OF PRESENT ILLNESS GENERAL: -. FALL RISK SCREENING: SCREENING :NO FALLS REPORTED IN THE LAST YEAR PAIN SCREENING: PATIENT HAS A COMPLAINT OF ACUTE OR CHRONIC PAIN :YES LOCATION OF PAIN:LOW BACK INTENSITY OF PAIN (SCALE OF 1 TO 10):8 WHAT DOES YOUR PAIN FEEL LIKE:SHARP, STABBING DURATION:CONTINOUS, CONSTANT, ALL DAY, AWAKENS FROM SLEEP PAIN IS INCREASED BY:ACTIVITIES, PROLONGED STANDING PAIN IS DECREASED BY:OTHERS PAIN POCEDURES PAIN HAS INTERFERED WITH THE FOLLOWING:BATHING/DRESSING, MOOD, WALKING ABILITY, HOUSEWORK, SLEEP PLAN/GOALS/TREATMENT/INTERVENTION/FOLLOW UP:SEE PLAN PAIN CENTER INTAKE QUESTIONS: DO YOU HAVE A HISTORY OF MRSA? :NO DO YOU TAKE A BLOOD THINNERS? :NO DO YOU HAVE ANY BLEEDING DISORDERS? :NO ANY NEW NUMBNESS OR WEAKNESS IN YOUR LEGS OR ARMS? :NO ANY PACEMAKER,DEFIBRILLATOR, OR DORSAL COLUMN STIMULATOR? :NO DO YOU HAVE ANY RASHES OR OPEN SORES? :NO ARE YOU ALLERGIC TO IV DYE? :NO ARE YOU DIABETIC? :NO ANY NEW PROBLEMS WITH YOUR MEDICATIONS? :NO HAVE YOU RECEIVED A VACCINE IN THE PAST 30 DAYS? :NO DO YOU PLAN TO RECEIVE A VACCINE IN THE NEXT 21 DAYS? :NO DO YOU NEED ANY PRESCRIPTION? :NO DO YOU TAKE ANY IMMUNOSUPPRESSIVE MEDICATIONS? :NO ANY HISTORY OF SEIZURES? :YES LIZBET (PER DAUGHTER RECENT ADMISSION DIDNT SHOW ANY SEIZURE ACTIVITY) ANY HISTORY OF CARDIAC ISSUES OR EVENTS? :NO DO YOU HAVE SLEEP APNEA? :YES DO YOU WEAR A CPAP?NO ANY RECENT HEAD INJURY? :NO DO YOU HAVE ANY NEW INFECTIONS? :NO IS THERE A CHANCE YOU COULD BE ? :NO ARE YOU BREAST FEEDING? :NO WHEN DID YOU LAST EAT? : ----07/27/2020 1900 WHEN DID YOU LAST DRINK? : ----07/28/2020 0900 WHAT DID YOU LAST DRINK? : ----GARY CARLIN NAME OF PERSON DRIVING YOU HOME? : JONE DO YOU HAVE ANY OTHER QUESTIONS OR CONCERNS? : NO NURSING NOTE: DAUGHTER JONE TO ACCOMPANY PATIENT DUE TO MEMORY ISSUES. CURRENT MEDICATIONS TAKING BREO ELLIPTA 100-25 MCG/INH AEROSOL POWDER BREATH ACTIVATED 1 PUFF INHALATION ONCE A DAY TAKING PROAIR HFA 108 (90 BASE) MCG/ACT AEROSOL SOLUTION 2 PUFFS NEEDED INHALATION EVERY 6 HRS TAKING ATORVASTATIN CALCIUM 40 MG TABLET 1 TABLET ORALLY ONCE A DAY TAKING INCRUSE ELLIPTA 62.5 MCG/INH AEROSOL POWDER BREATH ACTIVATED 1 PUFF INHALATION ONCE A DAY TAKING BLOOD PRESS MONITOR/M-L CUFF - MISCELLANEOUS DIRECTED I110 DAILY TAKING DEMECLOCYCLINE HCL 150 MG TABLET TAKE TWO TABLETS BY MOUTH AFTER BREAKFAST AND LUNCH AND THREE TABLETS BY MOUTH WITH EVENING MEAL ORALLY TID NOTED ABOVE TAKING ALBUTEROL SULFATE (2.5 MG/3ML) 0.083% NEBULIZATION SOLUTION 1 VIAL INHALATION TWICE A DAY PRN TAKING CETIRIZINE HCL 10 MG TABLET TAKE ONE TABLET BY MOUTH EVERY DAY AT BEDTIME ORALLY DAILY TAKING FLUOXETINE HCL (PMDD) 20 MG TABLET 1 TABLET ORALLY ONCE A DAY TAKING AMANTADINE HCL 100 MG CAPSULE 1 CAPSULE ORALLY ONCE A DAY TAKING HALOPERIDOL 5 MG TABLET 1 TABLET ORALLY ONCE A DAY TAKING KEPPRA 500 MG TABLET 1 TABLET ORALLY EVERY 12 HRS TAKING VITAMIN B12 500 MCG TABLET 1 TABLET ORALLY ONCE A DAY TAKING SENNA 8.6 MG TABLET 2 TABLETS AT BEDTIME NEEDED ORALLY ONCE A DAY TAKING DITROPAN XL 5 MG TABLET EXTENDED RELEASE 24 HOUR 1 TABLET ORALLY ONCE A DAY TAKING SODIUM CHLORIDE 1 GM TABLET DIRECTED ORALLY TAKING FOLIC ACID 1 MG TABLET 1 TABLET ORALLY ONCE A DAY TAKING CARAFATE 1 GM TABLET 1 TABLET ON AN EMPTY STOMACH ORALLY TWICE A DAY TAKING AMLODIPINE BESYLATE 5 MG TABLET 1 TABLET ORALLY ONCE A DAY, NOTES: 07/27/2020 1900 TAKING DRISTAN SPRAY 0.05 % SOLUTION 2 SPRAYS IN EACH NOSTRIL NEEDED NASALLY TWICE A DAY TAKING VOLTAREN 1 % GEL DIRECTED EXTERNALLY TAKING MIRALAX 17 GM PACKET 1 PACKET MIXED WITH 8 OUNCES OF FLUID ORALLY ONCE A DAY TAKING DEMECLOCYCLINE HCL 150 MG TABLET 1 TABLET 1 HOUR BEFORE OR 2 HOURS AFTER MEALS ORALLY EVERY 6 HRS TAKING SUCRALFATE 1 GM/10ML SUSPENSION 10 ML ON AN EMPTY STOMACH ORALLY TWICE A DAY TAKING NORCO 5-325 MG TABLET 1 TABLET NEEDED ORALLY DAILY PRN PAIN, NOTES: 07/27/2020 0800 TAKING BACLOFEN 5 MG TABLET 1 TABLET NEEDED ORALLY ONCE A DAY PRN NOT-TAKING TYLENOL 8 HOUR 650 MG TABLET EXTENDED RELEASE 2 TABLETS NEEDED ORALLY EVERY 8 HRS NOT-TAKING ACETAMINOPHEN 500 MG CAPSULE 1 CAPSULE NEEDED ORALLY EVERY 6 HRS NOT-TAKING OXYMETAZOLINE HCL 0.05 % SOLUTION 2 SPRAYS IN EACH NOSTRIL NEEDED NASALLY TWICE A DAY NOT-TAKING TOLTERODINE TARTRATE 2 MG TABLET 1 TABLET ORALLY TWICE A DAY NOT-TAKING NITROSTAT 0.4 MG TABLET SUBLINGUAL SUBLINGUAL NOT-TAKING ASPIRIN ADULT LOW DOSE 81 MG TABLET DELAYED RELEASE 1 TABLET ORALLY ONCE A DAY NOT-TAKING SERTRALINE HCL 100 MG TABLET 1 1/2 TABLET ORALLY ONCE A DAY NOT-TAKING DIVALPROEX SODIUM ER 500 MG TABLET EXTENDED RELEASE 24 HOUR 1 TAB ORALLY TWICE DAILY NOT-TAKING GEODON 20 MG CAPSULE PSULE IN THE MORNING THEN 40MG QT NIGHT ORALLY 1 TAB IN AM AND 1 TAB IN PM NOT-TAKING ZOLOFT 100 MG - 1 AND 1/2 TABLETS ORAL DAILY NOT-TAKING LOSARTAN POTASSIUM 50 MG TABLET 1 TABLET ORALLY BID NOT-TAKING AMLODIPINE BESYLATE 10 MG TABLET 1 TABLET ORALLY ONCE A DAY NOT-TAKING METOPROLOL SUCCINATE ER 25 MG TABLET EXTENDED RELEASE 24 HOUR 1 TABLET ORALLY BID NOT-TAKING SPIRIVA HANDIHALER 18 MCG CAPSULE 1 CAPSULE INHALATION ONCE A DAY NOT-TAKING CELEBREX 100 MG CAPSULE 1 CAPSULE WITH FOOD ORALLY TWICE A DAY NOT-TAKING TIZANIDINE HCL 4 MG TABLET 1 TABLET NEEDED ORALLY BEFORE BEDTIME NOT-TAKING SPIRONOLACTONE 25 MG TABLET 1 TABLET ORALLY ONCE A DAY NOT-TAKING ACETAMINOPHEN 500 MG CAPSULE 2 CAPSULES NEEDED ORALLY EVERY 6 HRS NOT-TAKING POLYETHYLENE GLYCOL - POWDER 1 TAB ORALLY NEEDED NOT-TAKING LIDOCAINE VISCOUS 2 % SOLUTION 80ML VISICOUS LIDO. 2% C 80-ML DIPHENHYDRAMINE 12.5MG/5ML ELIXIR MOUTH/THROAT 5ML EVERY 6 HRS NEEDED NOT-TAKING OXYBUTYNIN CHLORIDE 5 MG TABLET 1 TABLET ORALLY TWICE A DAY NOT-TAKING LASIX 40 MG TABLET 1 TABLET ORALLY ONCE A DAY PRN EDEMA NOT-TAKING PROTONIX 40 MG TABLET DELAYED RELEASE 1 TABLET ORALLY ONCE A DAY NOT-TAKING MAGNESIUM 400 MG CAPSULE 2 CAPSULES AT BEDTIME NEEDED ORALLY DAILY NOT-TAKING HIBICLENS 4 % LIQUID DIRECTED EXTERNALLY DAILY FOR 5 DAYS BEFORE INJECTIONS NOT-TAKING VENTOLIN HFA 108 (90 BASE) MCG/ACT AEROSOL SOLUTION INHALE ONE PUFF BY MOUTH EVERY 6 HOURS NEEDED MEDICATION LIST REVIEWED AND RECONCILED WITH THE PATIENT PAST MEDICAL HISTORY LBBB, 1AVB IFG COPD GERD MIXED URINARY INCONTINENCE ANEMIA 2 FE DEFICIENCY CHRONIC CONSTIPATION ALLERGIC RHINITIS CERVICAL/LUMBAR DJD-ML SPONDYLOSIS C C5-7 BULGES S SC COMPRESSION BY 07/2016 MRI//L3-S1 BULGES, L5/S1 LITHESIS C L L4 NF, B L5 NF COMPRESSION BY 05/2016 MRI MYRA, MILD 09/2017 HST C BABS 7, SAO2 TO 91% MIXED HYERLIPIDEMIA HYPERTENSION-LVEF 65%, MARGINAL , MILD LAE, GARDE 1 DIASTOLIC DYSFUNCTION, BORDERLINE PHTN BY 12/2015 [facility]//NORMAL CORONARIES ARTERIES BY 04/2014 [facility] NICOTINE USE DISORDER MILD /VOLUME LOSS BY 07/2017 MRI BRAIN S CONTRAST, SIMILARTO 01/2007 B CAROTID ARTERY DISEASE 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)+/- DIURETIC USE HYPERTENSION CHRONIC SCHIZOPHRENIA ASSERTIVE SCHIZO AFFECTIVE DISORDER ALLERGIES PREDNISONE: CONFUSION AUGMENTIN: HIVES NITROFURANTOIN: HIVES QUINOLONE: HIVES AVELOX: UNKNOWN PERCOCET: CONFUSION SOCIAL HISTORY GENERAL: TOBACCO USE ARE YOU A:CURRENT SMOKER 1 PPD X 50 YEARS ARE YOU INTERESTED IN QUITTING?NOT READY TO QUIT COUNSELED THE PATIENT ON SMOKING EFFECTS, EDUCATION [id number]/26/2021 SMOKING CESSATION INFORMATION GIVEN07/27/2020 [facility] LATEX QUESTIONNAIRE LATEX ALLERGY : HAVE YOU EVER DEVELOPED ANY TYPE OF REACTION AFTER HANDLING LATEX PRODUCTS SUCH RUBBER GLOVES, CONDOMS, DIAPHRAGMS, BALLOONS, SOCKS, OR UNDERWEAR?NO LATEX ALLERGY : HAVE YOU EVER DEVELOPED ANY TYPE OF REACTION DURING OR AFTER DENTAL APPOINTMENT, VAGINAL/RECTAL EXAMINATION, SURGICAL PROCEDURE, OR ANY OTHER EXPOSURE?NO DATE ASKED : 07/14/2020 LATEX RISK : HAVE YOU EVER HAD ANY DIFFICULTY BREATHING OR HIVES AFTER EATING OR HANDLING ANY FRUITS, OR VEGETABLES; SUCH KIWI, BANANAS, STONE FRUITS, OR CHESTNUTSNO LATEX RISK : DO YOU HAVE A PREVIOUS PERSONAL HISTORY OF MORE THAN NINE SURGERIES, SPINA BIFIDA, OR REPEATED CATHERIZATIONS? NO LATEX RISK : ARE YOU FREQUENTLY EXPOSED TO LATEX PRODUCTS IN YOUR OCCUPATION?NO ALCOHOL USE: NO. BMI CARE GOAL FOLLOW-UP ABOVE NORMAL BMI FOLLOW-UPGIVING ENCOURAGEMENT TO EXERCISE ALCOHOL SCREENING DID YOU HAVE A DRINK CONTAINING ALCOHOL IN THE PAST YEAR?NO POINTS0 INTERPRETATIONNEGATIVE RECREATIONAL DRUG USE DRUG USE?NO CAFFEINE CAFFEINE USE?YES 2-3CUPS/DAY SEXUAL HX HAD SEX IN THE LAST 12 MONTHS (VAGINAL, ORAL, OR ANAL)?NO HAVE YOU EVER HAD AN STD?NO HIV / HEP-C SCREENING HIV TEST OFFERED TO PATIENT:YES DATE OFFERED:11/08/2016 TEST ACCEPTED:NO HEP-C TEST OFFERED TO PATIENT:YES DATE OFFERED:11/08/2016 REASON:PATIENT DECLINED TEST ACCEPTED:NO REASON:PATIENT DECLINED LUTHERAN [id number] [employer] LANGUAGE LANGUAGES SPOKEN:[place]ER[place] LEONEAN EDUCATION LEVEL OF EDUCATION:NOT FINISHED HIGH SCHOOL LEARNING BARRIERS / SPECIAL NEEDS CHANGE FROM LAST VISIT?NO BARRIERS TO LEARNING?NO HEARING IMPAIRED?NO VISION IMPAIRED?YES :CORRECTIVE LENSES COGNITIVELY IMPAIRED?NO READINESS TO LEARN?YES LEARNING PREFERENCES?NO LEARNING CAPABILITIES PRESENT?YES EMOTIONAL BARRIERS?YES SCHIZOPHRENIA/SCHIZOAFFECTRIVE DISORDER SPECIAL DEVICES?NO BEVELLER OPERATOR NEEDED?NO DOMESTIC VIOLENCE DO YOU FEEL SAFE IN YOUR ENVIRONMENT?YES 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 DIET: REGULAR. EXERCISE: NO REGULAR EXERCISE. MARITAL STATUS: [id number].. OTHERS AT HOME: SPOUSE. - WAS THE PROVIDER NOTIFIED OF ANY PERTINENT INFO?YES HAS THE PATIENT BEEN EDUCATED REGARDING HIS/HER PLAN OF CARE?YES HAS THE PATIENT BEEN EDUCATED REGARDING PAIN, THE RISK FOR PAIN, THE IMPORTANCE OF EFFECTIVE PAIN MANAGEMENT, AND THE PAIN ASSESSMENT PROCESS?YES ADVANCE DIRECTIVE ADVANCE DIRECTIVE DISCUSSED WITH PATIENT:YES HCP IS DAUGHTER JONE [phone] VITAL SIGNS WT 117.4 LBS, HT 61 IN, BMI 22.18 INDEX, BP 138/79 MM HG, HR 108 /MIN, RR 18 /MIN, TEMP 97.0 F, OXYGEN SAT % 100%, SAFE IN ENV? (Y/N) YES, NA INITIALS AW 1358, REVIEWED BY: ASHLEY. EXAMINATION GENERAL EXAMINATION: THE PATIENT IS ALERT, ORIENTED TIMES THREE AND COOPERATIVE. LUNGS ARE CLEAR TO AUSCULTATION. HEART SHOWS REGULAR RHYTHM, NO MURMURS AND NO GALLOPS. ASSESSMENTS LUMBAR POST-LAMINECTOMY SYNDROME - M96.1 (PRIMARY) TREATMENT LUMBAR POST-LAMINECTOMY SYNDROME [facility] FLUORO GUIDE SPINE INJECTION (PAIN)[id number] SALINE LOCKBRAKEIYASMEEN 07/28/2020 4:04:18 PM > 20G SALINE LOCK IN RAC ON SECOND ATTEMPT BY ASHLEY COMPLETION OF PROCEDURAL VISIT WHEN MEETS CRITERIA OTHERS NOTES: 07/27/20 1805 PAT INITIATED WITH PATIENT, WHEN REVIEWING MEDICATION HISTORY PATIENT ASKED CALL CENTER NURSE TO CALL DAUGHTER WHO IS POA/HCP. [place] METEOROLOGY TEACHER. PROCEDURES PAIN NURSING RECORD PROCEDURE IN ROOM 1505, PHYSICIAN IN ROOM 1527, START 1530, FINISH 1537, PHYSICIAN OUT OF ROOM 1542, OUT OF ROOM 1543, ECG OTHER NSR WITH OCCASIONAL PVC'S, PATIENT SHIELDED YES, SAFETY STRAP YES, PREP BETADINE BY ASHLEY, DRESSING TEGADERM PLACED BY DR ARROYO LOC: YASMEEN CHRISTIANSON 07/28/2020 3:33:50 PM > , 1. ALERT, ORIENTED RESP: 1533-1. REGULAR, NO DYSPNEA COLOR: 1533 -1. PINK SKIN: 1533 - 1. WARM, DRY POSITION: [id number]. PRONE VITALS: 1508 - 86, 183/99, 110% 18 1512 - 80, 182/103, 100% 16 1517 - 80, 144/100, 100% 16 1530 - 88, 167/100, 100% 16 1600 - EXIT VITALS 60, 132/84, 96%, 16 NOTES Sheldon CHRISTIANSON RN COMPLETION OF PROCEDURE APPOINTMENT: POST PAIN 4, DRESSING SITE DRY AND INTACT, IV DISCONTINUED, SITE CLEAR, CATHETER INTACT, GAIT STEADY, TEACHING COMPLETED, PATIENT ACKNOWLEDGES UNDERSTANDING YES EXIT TEACHING DONE WITH DAUGHTER, PROCEDURE APPOINTMENT COMPLETED AT 1605 BY: Sheldon CHRISTIANSON RN PN CAUDAL EPIDURALS PRE PROCEDURE DIAGNOSIS LUMBAR POST LAMINECTOMY PAIN SYNDROME POST PROCEDURE DIAGNOSIS LUMBAR POST LAMINECTOMY PAIN SYNDROME PROCEDURE CAUDAL EPIDURAL STEROID INJECTION SURGEON DR. BECKI ARROYO PUBLIC SAFETY DIRECTOR NONE ANESTHESIA LOCAL PRE PROCEDURE NOTE THE PATIENT HAS HISTORY OF CHRONIC LOW BACK PAIN. I EVALUATED THE PATIENT AND REVIEWED THE CHART. I WENT OVER THE RISKS, ALTERNATIVES, AND BENEFITS ASSOCIATED WITH THIS PROCEDURE. THE PATIENT WOULD LIKE TO PROCEED AND GIVE CONSENT TO PERFORMED THE PROCEDURE. THE PATIENT DENIES UNEXPLAINABLE WEIGHT LOSS, FEVER, CHILLS, OR NEW CHANGES IN URINARY OR BOWEL CONTROL. THE PATIENT IS COVID-19 NEGATIVE DESCRIPTION OF PROCEDURE THE PATIENT WAS BROUGHT TO THE PROCEDURE ROOM AND PLACED IN THE PRONE POSITION. THE LUMBOSACRAL AREA WAS CLEANED WITH BETADINE SOLUTION AND DRAPED ASEPTICALLY. THE PROCEDURE WAS DONE UNDER STERILE CONDITIONS. A TIMEOUT WAS PERFORMED WHERE THE CONSENTED SITE WAS VERIFIED WITH EVERYONE IN THE ROOM. UNDER FLUOROSCOPIC GUIDANCE, THE TARGET POINT WAS SELECTED AT THE EPIDURAL SPACE BELOW THE SACROCOCCYGEAL LIGAMENT. I CONFIRMED AGAIN THE SITE OF THE TARGET. LIDOCAINE 0.5% WAS USE TO NUMB THE SKIN AND THE SUBCUTANEOUS TISSUE BELOW IT. AN EPIDURAL TUOHY NEEDLE, 17-GAUGE, WAS ADVANCED UNDER FLUOROSCOPIC GUIDANCE AND FOLLOWING PATIENT FEEDBACK UNTIL THE EPIDURAL SPACE WAS REACHED BY THE LOSS OF RESISTANCE TECHNIQUE. ISOVUE M DYE 30%, 0.25 ML, WAS INJECTED SHOWING ADEQUATE SPREAD OF THE DYE. THEN, A SOLUTION OF 6 ML OF NORMAL SALINE WITH DEPO-MEDROL 40 MG WAS INJECTED SLOWLY FOLLOWING THE PATIENT FEEDBACK. THERE WAS NO EVIDENCE OF BLOOD, PARESTHESIA OR CEREBROSPINAL FLUID DURING THE PROCEDURE. THE PATIENT WAS SENT TO THE RECOVERY ROOM. THE PATIENT WAS MOVING THE EXTREMITIES AND DOING WELL. THERE WAS NO COMPLICATION DURING THE PROCEDURE. ESTIMATED BLOOD LOSS LESS THAN 5 ML. FLUOROSCOPY TIME WAS 27 SECONDS POST PROCEDURE NOTE I CHECKED THE PATIENT UNDER X-RAY, UNFORTUNATELY, WITH HER HARDWARE, SHE IS NOT A CANDIDATE FOR A TRANSFORAMINAL EPIDURAL. IF THE PAIN PERSISTS AFTER THIS INJECTION, I WOULD ADVISE TRYING THIS PROCEDURE AGAIN WITH A 22-GAUGE SPINAL NEEDLE AND SEE HOW SHE DOES THAT WAY. SHE ALSO IS A CANDIDATE FOR A DORSAL COLUMN STIMULATOR TRIAL. SHE IS NOT A CANDIDATE FOR A TRANSFORAMINAL EPIDURAL DUE TO THE HARDWARE. I AM LOOKING FOR LONG LASTING PAIN RELIEF. THE PATIENT WILL BE SEEN IN A FOLLOW UP IN THE NEXT FEW WEEKS. I AM LOOKING FOR LONG LASTING RELIEF FOR THE PATIENT WITH THIS INTERVENTION. INSTRUCTIONS WERE GIVEN, QUESTIONS WERE ANSWERED, AND THE PATIENT EXPRESSED UNDERSTANDING AND AGREES WITH THE PLAN. I, MADELEINE OLIVEIRA, DOCUMENTED THE ABOVE INFORMATION ACTING A SCRIBE FOR DR. ARROYO. I HAVE REVIEWED THE ABOVE DOCUMENT, WRITTEN BY MADELEINE OLIVEIRA, AUTOMOTIVE SERVICE ASSISTANT, AND I VERIFY THAT IT IS ACCURATE PROCEDURE CODES 33070 LUMBAR/SACRAL W/ IMAGING DISPOSITION & COMMUNICATION FOLLOW UP FOLLOW UP WITH RESTAURANT CULINARY MANAGER (REASON: POST CAUDAL EPIDURAL STEROID INJECTION) ELECTRONICALLY SIGNED BY BECKI ARROYO MD, MD ON 07/29/2020 AT 04:21 PM EST DISCLAIMER : THIS IS A VISIT SUMMARY EXTRACTED FROM THE [facility] CHART. IT IS NOT A COPY OF THE [facility] PROGRESS NOTE. MTDD
== END ==
LOC: M PAIN 14:00
PROVIDERS: ATTEND Anesthesiology
DX: M96.1 Postlaminectomy syndrome, not elsewhere classified (principal); R73.01 Impaired fasting glucose; J44.9 Chronic obstructive pulmonary disease, unspecified; K21.9 Gastro-esophageal reflux disease without esophagitis; D50.9 Iron deficiency anemia, unspecified; K59.09 Other constipation; J30.9 Allergic rhinitis, unspecified; G47.33 Obstructive sleep apnea (adult) (pediatric); E78.2 Mixed hyperlipidemia; I10 Essential (primary) hypertension; F20.9 Schizophrenia, unspecified; F17.210 Nicotine dependence, cigarettes, uncomplicated; Z79.891 Long term (current) use of opiate analgesic; Z79.899 Other long term (current) drug therapy; Z88.5 Allergy status to narcotic agent; Z88.1 Allergy status to other antibiotic agents; Z88.8 Allergy status to other drugs, medicaments and biological substances; Z88.0 Allergy status to penicillin
CPT/HCPCS: 62323; J1030; Q9967

== ENCOUNTER → 2020-08-19 | Outpatient (CLI) | payer OTHER, MEDICARE, MEDICAID ==
[~2020-08-19] MED LIST changes: +ISOS1TAB36 PO; -ISOS60TA2 PO; -ISOVUE-M 300 61% 15ML VIAL As Ordered ONE; -LIDOCAINE 1% SDV 30ML VIAL As Ordered ONE; -LISI-542 PO; +LISI-898 PO; -QUET1TAB10 PO; +QUET300T2 PO; -methylPREDNISolone SUSP 40MG/ML 1ML VIAL (DEPO MEDROL) As Ordered ONE
--- NOTE | 2020-08-27 01:52 | ECWPNPC ---
PATIENT NAME: CK BYRD : 1950 GENDER: FEMALE VISIT DATE: 08/19/2020 DISCHARGE DATE: 08/19/20 1502 VISIT LOCKED DATE TIME: PHYSICIAN: AMNIA GARCIA PHYSICIAN PAGER NO: ACTIVE RESOURCE: AMINA GARCIA REASON FOR APPOINTMENT 1. INCREASED PAIN/POST CAUDAL EPIDURAL STERIOD INJECTION HISTORY OF PRESENT ILLNESS GENERAL: HERE FOR POST PROCEDURE FOLLOW-UP. ACCOMPANIED IN EXAM ROOM WITH HER GRANDDAUGHTER. PATIENT IS POOR HISTORIAN. GRANDDAUGHTER DOES NOT KNOW HER HISTORY. PATIENT STATES INJECTION DID NOT HELP. COMPLAINING OF AN INCREASE IN LEFT SIDED LOW BACK PAIN. -. FALL RISK SCREENING: SCREENING :NO FALLS REPORTED IN THE LAST YEAR PAIN SCREENING: PATIENT HAS A COMPLAINT OF ACUTE OR CHRONIC PAIN :YES LOCATION OF PAIN:CHEST, NECK, LOW BACK INTENSITY OF PAIN (SCALE OF 1 TO 10): PATIENT UNABLE TO RATE PAIN. WHAT DOES YOUR PAIN FEEL LIKE:INTERMITTENT DURATION:INTERMITTENT PAIN IS INCREASED BY:ACTIVITIES, PROLONGED STANDING PAIN IS DECREASED BY:USE OF PAIN MEDICATIONS NURSING NOTE: -. PAIN CENTER INTAKE QUESTIONS: DO YOU HAVE A HISTORY OF MRSA? :NO DO YOU TAKE A BLOOD THINNERS? :NO DO YOU HAVE ANY BLEEDING DISORDERS? :NO ANY NEW NUMBNESS OR WEAKNESS IN YOUR LEGS OR ARMS? :NO ANY PACEMAKER,DEFIBRILLATOR, OR DORSAL COLUMN STIMULATOR? :NO DO YOU HAVE ANY RASHES OR OPEN SORES? :NO ARE YOU ALLERGIC TO IV DYE? :NO ARE YOU DIABETIC? :NO ANY NEW PROBLEMS WITH YOUR MEDICATIONS? :NO HAVE YOU RECEIVED A VACCINE IN THE PAST 30 DAYS? :NO DO YOU PLAN TO RECEIVE A VACCINE IN THE NEXT 21 DAYS? :NO DO YOU NEED ANY PRESCRIPTION? :NO DO YOU TAKE ANY IMMUNOSUPPRESSIVE MEDICATIONS? :NO IS THERE A CHANCE YOU COULD BE ? :NO ARE YOU BREAST FEEDING? :NO CURRENT MEDICATIONS TAKING BREO ELLIPTA 100-25 MCG/INH AEROSOL POWDER BREATH ACTIVATED 1 PUFF INHALATION ONCE A DAY TAKING PROAIR HFA 108 (90 BASE) MCG/ACT AEROSOL SOLUTION 2 PUFFS NEEDED INHALATION EVERY 6 HRS TAKING ATORVASTATIN CALCIUM 40 MG TABLET 1 TABLET ORALLY ONCE A DAY TAKING INCRUSE ELLIPTA 62.5 MCG/INH AEROSOL POWDER BREATH ACTIVATED 1 PUFF INHALATION ONCE A DAY TAKING BLOOD PRESS MONITOR/M-L CUFF - MISCELLANEOUS DIRECTED I110 DAILY TAKING DEMECLOCYCLINE HCL 150 MG TABLET TAKE TWO TABLETS BY MOUTH AFTER BREAKFAST AND LUNCH AND THREE TABLETS BY MOUTH WITH EVENING MEAL ORALLY TID NOTED ABOVE TAKING ALBUTEROL SULFATE (2.5 MG/3ML) 0.083% NEBULIZATION SOLUTION 1 VIAL INHALATION TWICE A DAY PRN TAKING CETIRIZINE HCL 10 MG TABLET TAKE ONE TABLET BY MOUTH EVERY DAY AT BEDTIME ORALLY DAILY TAKING FLUOXETINE HCL (PMDD) 20 MG TABLET 1 TABLET ORALLY ONCE A DAY TAKING AMANTADINE HCL 100 MG CAPSULE 1 CAPSULE ORALLY ONCE A DAY TAKING HALOPERIDOL 5 MG TABLET 1 TABLET ORALLY ONCE A DAY TAKING KEPPRA 500 MG TABLET 1 TABLET ORALLY EVERY 12 HRS TAKING VITAMIN B12 500 MCG TABLET 1 TABLET ORALLY ONCE A DAY TAKING SENNA 8.6 MG TABLET 2 TABLETS AT BEDTIME NEEDED ORALLY ONCE A DAY TAKING DITROPAN XL 5 MG TABLET EXTENDED RELEASE 24 HOUR 1 TABLET ORALLY ONCE A DAY TAKING SODIUM CHLORIDE 1 GM TABLET DIRECTED ORALLY TAKING FOLIC ACID 1 MG TABLET 1 TABLET ORALLY ONCE A DAY TAKING CARAFATE 1 GM TABLET 1 TABLET ON AN EMPTY STOMACH ORALLY TWICE A DAY TAKING AMLODIPINE BESYLATE 5 MG TABLET 1 TABLET ORALLY ONCE A DAY, NOTES: 07/27/2020 1900 TAKING DRISTAN SPRAY 0.05 % SOLUTION 2 SPRAYS IN EACH NOSTRIL NEEDED NASALLY TWICE A DAY TAKING VOLTAREN 1 % GEL DIRECTED EXTERNALLY TAKING MIRALAX 17 GM PACKET 1 PACKET MIXED WITH 8 OUNCES OF FLUID ORALLY ONCE A DAY TAKING DEMECLOCYCLINE HCL 150 MG TABLET 1 TABLET 1 HOUR BEFORE OR 2 HOURS AFTER MEALS ORALLY EVERY 6 HRS TAKING SUCRALFATE 1 GM/10ML SUSPENSION 10 ML ON AN EMPTY STOMACH ORALLY TWICE A DAY TAKING NORCO 5-325 MG TABLET 1 TABLET NEEDED ORALLY DAILY PRN PAIN, NOTES: 07/27/2020 0800 TAKING BACLOFEN 5 MG TABLET 1 TABLET NEEDED ORALLY ONCE A DAY PRN TAKING TYLENOL 8 HOUR 650 MG TABLET EXTENDED RELEASE 2 TABLETS NEEDED ORALLY EVERY 8 HRS TAKING ACETAMINOPHEN 500 MG CAPSULE 1 CAPSULE NEEDED ORALLY EVERY 6 HRS TAKING OXYMETAZOLINE HCL 0.05 % SOLUTION 2 SPRAYS IN EACH NOSTRIL NEEDED NASALLY TWICE A DAY TAKING TOLTERODINE TARTRATE 2 MG TABLET 1 TABLET ORALLY TWICE A DAY TAKING NITROSTAT 0.4 MG TABLET SUBLINGUAL SUBLINGUAL TAKING ASPIRIN ADULT LOW DOSE 81 MG TABLET DELAYED RELEASE 1 TABLET ORALLY ONCE A DAY TAKING SERTRALINE HCL 100 MG TABLET 1 1/2 TABLET ORALLY ONCE A DAY TAKING DIVALPROEX SODIUM ER 500 MG TABLET EXTENDED RELEASE 24 HOUR 1 TAB ORALLY TWICE DAILY TAKING GEODON 20 MG CAPSULE PSULE IN THE MORNING THEN 40MG QT NIGHT ORALLY 1 TAB IN AM AND 1 TAB IN PM TAKING ZOLOFT 100 MG - 1 AND 1/2 TABLETS ORAL DAILY TAKING LOSARTAN POTASSIUM 50 MG TABLET 1 TABLET ORALLY BID TAKING AMLODIPINE BESYLATE 10 MG TABLET 1 TABLET ORALLY ONCE A DAY TAKING METOPROLOL SUCCINATE ER 25 MG TABLET EXTENDED RELEASE 24 HOUR 1 TABLET ORALLY BID TAKING SPIRIVA HANDIHALER 18 MCG CAPSULE 1 CAPSULE INHALATION ONCE A DAY TAKING CELEBREX 100 MG CAPSULE 1 CAPSULE WITH FOOD ORALLY TWICE A DAY TAKING TIZANIDINE HCL 4 MG TABLET 1 TABLET NEEDED ORALLY BEFORE BEDTIME TAKING SPIRONOLACTONE 25 MG TABLET 1 TABLET ORALLY ONCE A DAY TAKING ACETAMINOPHEN 500 MG CAPSULE 2 CAPSULES NEEDED ORALLY EVERY 6 HRS TAKING POLYETHYLENE GLYCOL - POWDER 1 TAB ORALLY NEEDED TAKING LIDOCAINE VISCOUS 2 % SOLUTION 80ML VISICOUS LIDO. 2% C 80-ML DIPHENHYDRAMINE 12.5MG/5ML ELIXIR MOUTH/THROAT 5ML EVERY 6 HRS NEEDED TAKING OXYBUTYNIN CHLORIDE 5 MG TABLET 1 TABLET ORALLY TWICE A DAY TAKING LASIX 40 MG TABLET 1 TABLET ORALLY ONCE A DAY PRN EDEMA TAKING PROTONIX 40 MG TABLET DELAYED RELEASE 1 TABLET ORALLY ONCE A DAY TAKING MAGNESIUM 400 MG CAPSULE 2 CAPSULES AT BEDTIME NEEDED ORALLY DAILY TAKING HIBICLENS 4 % LIQUID DIRECTED EXTERNALLY DAILY FOR 5 DAYS BEFORE INJECTIONS TAKING VENTOLIN HFA 108 (90 BASE) MCG/ACT AEROSOL SOLUTION INHALE ONE PUFF BY MOUTH EVERY 6 HOURS NEEDED MEDICATION LIST REVIEWED AND RECONCILED WITH THE PATIENT PAST MEDICAL HISTORY LBBB, 1AVB IFG COPD GERD MIXED URINARY INCONTINENCE ANEMIA 2 FE DEFICIENCY CHRONIC CONSTIPATION ALLERGIC RHINITIS CERVICAL/LUMBAR DJD-ML SPONDYLOSIS C C5-7 BULGES S SC COMPRESSION BY 07/2016 MRI//L3-S1 BULGES, L5/S1 LITHESIS C L L4 NF, B L5 NF COMPRESSION BY 05/2016 MRI MYRA, MILD 09/2017 HST C BABS 7, SAO2 TO 91% MIXED HYERLIPIDEMIA HYPERTENSION-LVEF 65%, MARGINAL , MILD LAE, GARDE 1 DIASTOLIC DYSFUNCTION, BORDERLINE PHTN BY 12/2015 TTE-VALENZU[facility]//NORMAL CORONARIES ARTERIES BY 04/2014 [facility]-[place], [place] NICOTINE USE DISORDER MILD /VOLUME LOSS BY 07/2017 MRI BRAIN S CONTRAST, SIMILARTO 01/2007 B CAROTID ARTERY DISEASE 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 2 SON(S) , 1 DAUGHTER(S) - HEALTHY. FATHER OF CEREBRAL HEMORRHAGEMOTHER'S RELATED TO CROHN'SBRO. AGE 43 OF MISISTER AGE 58 OF COMPLICATION OF COLOSTOMY REVERSAL SURGERYSISTER C T2DM, 1BRO. C [id number], BROTHERS C HTN, CAD. SOCIAL HISTORY GENERAL: TOBACCO USE ARE YOU A:CURRENT SMOKER 1 PPD X 50 YEARS ARE YOU INTERESTED IN QUITTING?NOT READY TO QUIT COUNSELED THE PATIENT ON SMOKING EFFECTS, EDUCATION [id number]/26/2021 DiarizeS SMOKING CESSATION INFORMATION GIVEN07/27/2020 LATEX QUESTIONNAIRE LATEX ALLERGY : HAVE YOU EVER DEVELOPED ANY TYPE OF REACTION AFTER HANDLING LATEX PRODUCTS SUCH RUBBER GLOVES, CONDOMS, DIAPHRAGMS, BALLOONS, SOCKS, OR UNDERWEAR?NO LATEX ALLERGY : HAVE YOU EVER DEVELOPED ANY TYPE OF REACTION DURING OR AFTER DENTAL APPOINTMENT, VAGINAL/RECTAL EXAMINATION, SURGICAL PROCEDURE, OR ANY OTHER EXPOSURE?NO LATEX RISK : HAVE YOU EVER HAD ANY DIFFICULTY BREATHING OR HIVES AFTER EATING OR HANDLING ANY FRUITS, OR VEGETABLES; SUCH KIWI, BANANAS, STONE FRUITS, OR CHESTNUTSNO LATEX RISK : DO YOU HAVE A PREVIOUS PERSONAL HISTORY OF MORE THAN NINE SURGERIES, SPINA BIFIDA, OR REPEATED CATHERIZATIONS? NO LATEX RISK : ARE YOU FREQUENTLY EXPOSED TO LATEX PRODUCTS IN YOUR OCCUPATION?NO DATE ASKED : 08/19/2020 ALCOHOL USE: NO. BMI CARE GOAL FOLLOW-UP ABOVE NORMAL BMI FOLLOW-UPGIVING ENCOURAGEMENT TO EXERCISE ALCOHOL SCREENING DID YOU HAVE A DRINK CONTAINING ALCOHOL IN THE PAST YEAR?NO POINTS0 INTERPRETATIONNEGATIVE RECREATIONAL DRUG USE DRUG USE?NO CAFFEINE CAFFEINE USE?YES 2-3CUPS/DAY SEXUAL HX HAD SEX IN THE LAST 12 MONTHS (VAGINAL, ORAL, OR ANAL)?NO HAVE YOU EVER HAD AN STD?NO HIV / HEP-C SCREENING HIV TEST OFFERED TO PATIENT:YES DATE OFFERED:11/08/2016 TEST ACCEPTED:NO HEP-C TEST OFFERED TO PATIENT:YES DATE OFFERED:11/08/2016 REASON:PATIENT DECLINED TEST ACCEPTED:NO REASON:PATIENT DECLINED [employer] [id number] CHRISTIAN LANGUAGE LANGUAGES SPOKEN:HEBREW EDUCATION LEVEL OF EDUCATION:NOT FINISHED HIGH SCHOOL LEARNING BARRIERS / SPECIAL NEEDS CHANGE FROM LAST VISIT?NO BARRIERS TO LEARNING?NO HEARING IMPAIRED?NO VISION IMPAIRED?YES :CORRECTIVE LENSES COGNITIVELY IMPAIRED?NO READINESS TO LEARN?YES LEARNING PREFERENCES?NO LEARNING CAPABILITIES PRESENT?YES EMOTIONAL BARRIERS?YES SCHIZOPHRENIA/SCHIZOAFFECTRIVE DISORDER SPECIAL DEVICES?YES :WALKER DIRECTOR NON PROFIT NEEDED?NO DOMESTIC VIOLENCE DO YOU FEEL SAFE IN YOUR ENVIRONMENT?YES 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 DIET: REGULAR. EXERCISE: NO REGULAR EXERCISE. MARITAL STATUS: [id number].. OTHERS AT HOME: SPOUSE. - WAS THE PROVIDER NOTIFIED OF ANY PERTINENT INFO?YES HAS THE PATIENT BEEN EDUCATED REGARDING HIS/HER PLAN OF CARE?YES HAS THE PATIENT BEEN EDUCATED REGARDING PAIN, THE RISK FOR PAIN, THE IMPORTANCE OF EFFECTIVE PAIN MANAGEMENT, AND THE PAIN ASSESSMENT PROCESS?YES ADVANCE DIRECTIVE ADVANCE DIRECTIVE DISCUSSED WITH PATIENT:YES HCP IS DAUGHTER JONE [phone] HOSPITALIZATION/MAJOR DIAGNOSTIC PROCEDURE HYPONATREMIA/SIADH 2014 2014 CHEST PAIN- [facility] 06/2016 CORONARY ANGIOGRAM 06/2017 COPD EX[facility]ERBATION-[facility] 05/14- PSYCHIATRIC ADMISSION INPATIENT AT [facility] TO [facility] D/T UNREPONSIVENESS 04/20-05/21 COVID 5 DAYS 2019 REVIEW OF SYSTEMS CONSTITUTIONAL: ANY RECENT FEVER NO . CHILLS NO . WEIGHT CHANGE OF UNKNOWN REASONS NO . GASTROENTEROLOGY: NEW UNEXPLAINABLE CHANGES IN BOWEL CONTROL NO . CONSTIPATION NO . GENITOURINARY: ANY NEW CHANGE IN BLADDER CONTROL? NO . NEUROLOGY: NEW ONSET DIZZINESS OR NEUROLOGICAL CHANGES NOT MENTIONED NO . NEW NUMBNESS OR PAIN PATTERNS NOT MENTIONED AND PERTINENT TO TODAY'S VISIT NO . CARDIOLOGY: NEW CHEST PRESSURE NO . NEW CHEST PAIN NO . RESPIRATORY: UNEXPLAINABLE COUGH NO . NEW SHORTNESS OF BREATH NO . VITAL SIGNS WT 115 LBS, HT 61 IN, BMI 21.73 INDEX, BP 160/110 MANUAL, HR 43 /MIN, RR 16 /MIN, TEMP 97.0 F, OXYGEN SAT % 90% RA, SAFE IN ENV? (Y/N) YES, REVIEWED BY: CARMEN MERRILL MA. EXAMINATION GENERAL EXAMINATION: GENERALDISTANT AFFECT . NO ACUTE DISTRESS. . PSYCH AFFECT FLAT. LUNGS:CLEAR TO AUSCULTATION BILATERALLY, NO WHEEZES, RHONCHI, RALES. HEART:NO MURMURS, REGULAR RATE AND RHYTHM. LUMBAR: PALPATION: NEGATIVE FOR PAIN OVER L/S SPINE. NEGATIVE FOR PAIN OVER L/S PARSPINALS. ASSESSMENTS OTHER CHRONIC PAIN - G89.29 (PRIMARY) LUMBAR POST-LAMINECTOMY SYNDROME - M96.1 TREATMENT OTHER CHRONIC PAIN REFILL NORCO TABLET, 5-325 MG, 1 TABLET NEEDED, ORALLY, DAILY PRN PAIN, 30 DAY(S), 30, NOTES: 07/27/2020 0800 INCREASE BACLOFEN TABLET, 5 MG, 1 TABLET NEEDED, ORALLY, EVERY 8 HRS, 30 DAY(S), 90 TABLET, REFILLS 1 PAIN PROCEDURE LOGDATE OF PROCEDURE1PROCEDURE:CAUDAL EPIDURAL STEROID INJECTIONAMOUNT OF PRE SEDATENONERESULT:NNO IMPROVEMENT POST PROCEDURE NOTES: SPOKE WITH PATIENT'S DAUGHTER AND PRIMARY NEWS ANALYST/TYLER BECERRIL AT [phone]. INFORMED HER OF DIFFICULTY IN ASSESSING PATIENT YESTERDAY SHE WAS A VAGUE HISTORIAN AND DAUGHTER WHO ACCOMPANIED HER WAS UNSURE ABOUT HER CONDITION. DAUGHTER STATES PATIENT IS GOING THROUGH A LOT OF PSYCHOLOGICAL MEDICATION CHANGES OF LATE. SHE HAS NOT BEEN HERSELF SINCE GOING THROUGH THESE MEDICATION CHANGES ALTHOUGH DAUGHTER FEELS THAT SHE IS STABLE AND SHE IS TAKING CARE OF HER MOTHER'S MEDICATIONS AND LIVES NEXT DOOR. PATIENT ALSO LIVES WITH A NEPHEW WHO IS THERE EVERY NIGHT. REPORTS THAT HYDROCODONE 5/325 SEEMS TO HELP HER FOR SHORT TIME AFTER SHE TAKES IT. SHE IS UNSURE IF BACLOFEN 5 MG TABLET IS EFFECTIVE. STATES HER MOM HAS NO PROBLEMS SLEEPING AT NIGHT. DR. ARROYO HAD MENTIONED THAT HE COULD USE A DIFFERENT TYPE OF NEEDLE TO REPEAT THIS PROCEDURE IF NO IMPROVEMENT. TODAY I WE WILL INCREASE BACLOFEN 5 MG TABLET TO 3 TIMES DAILY. ADVISED TO CONTINUE HYDROCODONE 5/325 ONE DAILY IF NEEDED FOR SEVERE PAIN EPISODES. PATIENT IS SCHEDULED TO FOLLOW-UP WITH WILLAM DORANTES IN 4-6 WEEKS FOR REEVALUATION. PROCEDURE CODES [id number] ESTABILISHED PATIENT [facility] CHARGE DISPOSITION & COMMUNICATION FOLLOW UP 4-6 WKS Padmini QUARLES (REASON: LOW BACK PAIN) ELECTRONICALLY SIGNED BY JAYNA COLLINS ON 08/26/2020 AT 04:32 PM EST DISCLAIMER : THIS IS A VISIT SUMMARY EXTRACTED FROM THE [employer] CHART. IT IS NOT A COPY OF THE [employer] PROGRESS NOTE. DANNA
== END ==
LOC: M PAIN 14:15
PROVIDERS: ATTEND Nurse Practitioner Family
DX: G89.29 Other chronic pain (principal); M96.1 Postlaminectomy syndrome, not elsewhere classified; R73.01 Impaired fasting glucose; J44.9 Chronic obstructive pulmonary disease, unspecified; K21.9 Gastro-esophageal reflux disease without esophagitis; G47.33 Obstructive sleep apnea (adult) (pediatric); F17.210 Nicotine dependence, cigarettes, uncomplicated; Z86.59 Personal history of other mental and behavioral disorders; Z88.1 Allergy status to other antibiotic agents; Z88.5 Allergy status to narcotic agent; Z88.8 Allergy status to other drugs, medicaments and biological substances; Z79.51 Long term (current) use of inhaled steroids; Z79.82 Long term (current) use of aspirin; Z79.899 Other long term (current) drug therapy

== ENCOUNTER → 2020-09-22 | Outpatient (CLI) | payer OTHER, MEDICARE, MEDICAID ==
[~2020-09-22] MED LIST changes: -PEGPOW PO; +POLY510P14 PO
--- NOTE | 2020-09-25 08:16 | ECWPNPC ---
PATIENT NAME: CK BYRD : 1950 GENDER: FEMALE VISIT DATE: 09/22/2020 DISCHARGE DATE: 09/22/20 1425 VISIT LOCKED DATE TIME: PHYSICIAN: WILLAM FALL PHYSICIAN PAGER NO: ACTIVE RESOURCE: WILLAM FALL REASON FOR APPOINTMENT 1. LOW BACK PAIN-DAUGHTER WITH HER HISTORY OF PRESENT ILLNESS GENERAL: - 70-YEAR-OLD FEMALE IN FOR CHRONIC PAIN FOLLOW-UP. SHE RATES HER PAIN CURRENTLY AT AN 8 OUT OF 10 AND DESCRIBES IT ACHING, BURNING, CONTINUOUS, THROBBING, SORE, AND SHOOTING. AT LAST CLINIC VISIT PATIENT'S BACLOFEN WAS INCREASED AND SHE ADMITS TODAY THAT THIS WAS NOT BENEFICIAL. FALL RISK SCREENING: SCREENING : NO FALLS REPORTED IN THE LAST YEAR. PAIN SCREENING: PATIENT HAS A COMPLAINT OF ACUTE OR CHRONIC PAIN :YES LOCATION OF PAIN:LOW BACK INTENSITY OF PAIN (SCALE OF 1 TO 10):8 WHAT DOES YOUR PAIN FEEL LIKE:ACHING, BURNING, CONTINOUS, THROBBING, SORE, SHOOTING DURATION:CONTINOUS, CONSTANT, AWAKENS FROM SLEEP PAIN IS INCREASED BY:ACTIVITIES, PROLONGED STANDING PAIN IS DECREASED BY:USE OF PAIN MEDICATIONS TYLENOL NURSING NOTE: -. PAIN CENTER INTAKE QUESTIONS: DO YOU HAVE A HISTORY OF MRSA? :NO DO YOU TAKE A BLOOD THINNERS? :NO DO YOU HAVE ANY BLEEDING DISORDERS? :NO ANY NEW NUMBNESS OR WEAKNESS IN YOUR LEGS OR ARMS? :YES WEAKNESS AND NUMBNESS BILATERAL LEGS ANY PACEMAKER,DEFIBRILLATOR, OR DORSAL COLUMN STIMULATOR? :NO DO YOU HAVE ANY RASHES OR OPEN SORES? :NO ARE YOU ALLERGIC TO IV DYE? :NO ARE YOU DIABETIC? :NO ANY NEW PROBLEMS WITH YOUR MEDICATIONS? :NO HAVE YOU RECEIVED A VACCINE IN THE PAST 30 DAYS? :NO DO YOU PLAN TO RECEIVE A VACCINE IN THE NEXT 21 DAYS? :NO DO YOU NEED ANY PRESCRIPTION? :YES WILL DISCUSS WITH PROVIDER DO YOU TAKE ANY IMMUNOSUPPRESSIVE MEDICATIONS? :NO DO YOU HAVE ANY KIDNEY OR LIVER DISEASE? :NO IS THERE A CHANCE YOU COULD BE ? :NO ARE YOU BREAST FEEDING? :NO CURRENT MEDICATIONS TAKING BREO ELLIPTA 100-25 MCG/INH AEROSOL POWDER BREATH ACTIVATED 1 PUFF INHALATION ONCE A DAY TAKING PROAIR HFA 108 (90 BASE) MCG/ACT AEROSOL SOLUTION 2 PUFFS NEEDED INHALATION EVERY 6 HRS TAKING ATORVASTATIN CALCIUM 40 MG TABLET 1 TABLET ORALLY ONCE A DAY TAKING INCRUSE ELLIPTA 62.5 MCG/INH AEROSOL POWDER BREATH ACTIVATED 1 PUFF INHALATION ONCE A DAY TAKING BLOOD PRESS MONITOR/M-L CUFF - MISCELLANEOUS DIRECTED I110 DAILY TAKING DEMECLOCYCLINE HCL 150 MG TABLET TAKE TWO TABLETS BY MOUTH AFTER BREAKFAST AND LUNCH AND THREE TABLETS BY MOUTH WITH EVENING MEAL ORALLY TID NOTED ABOVE TAKING ALBUTEROL SULFATE (2.5 MG/3ML) 0.083% NEBULIZATION SOLUTION 1 VIAL INHALATION TWICE A DAY PRN TAKING CETIRIZINE HCL 10 MG TABLET TAKE ONE TABLET BY MOUTH EVERY DAY AT BEDTIME ORALLY DAILY TAKING FLUOXETINE HCL (PMDD) 20 MG TABLET 1 TABLET ORALLY ONCE A DAY TAKING AMANTADINE HCL 100 MG CAPSULE 1 CAPSULE ORALLY ONCE A DAY TAKING HALOPERIDOL 2 MG TABLET 1 TABLET ORALLY TWICE DAILY TAKING KEPPRA 500 MG TABLET 1 TABLET ORALLY EVERY 12 HRS TAKING VITAMIN B12 1000 MCG TABLET EXTENDED RELEASE 1 TABLET ORALLY ONCE A DAY TAKING SENNA 8.6 MG TABLET 2 TABLETS AT BEDTIME NEEDED ORALLY ONCE A DAY TAKING DITROPAN XL 5 MG TABLET EXTENDED RELEASE 24 HOUR 1 TABLET ORALLY ONCE A DAY TAKING SODIUM CHLORIDE 1 GM TABLET DIRECTED ORALLY TAKING FOLIC ACID 1 MG TABLET 1 TABLET ORALLY ONCE A DAY TAKING CARAFATE 1 GM TABLET 1 TABLET ON AN EMPTY STOMACH ORALLY TWICE A DAY TAKING AMLODIPINE BESYLATE 5 MG TABLET 1 TABLET ORALLY ONCE A DAY, NOTES: 07/27/2020 1900 TAKING MIRALAX 17 GM PACKET 1 PACKET MIXED WITH 8 OUNCES OF FLUID ORALLY ONCE A DAY TAKING DEMECLOCYCLINE HCL 150 MG TABLET 1 TABLET 1 HOUR BEFORE OR 2 HOURS AFTER MEALS ORALLY EVERY 6 HRS TAKING SUCRALFATE 1 GM/10ML SUSPENSION 10 ML ON AN EMPTY STOMACH ORALLY TWICE A DAY TAKING ACETAMINOPHEN 500 MG CAPSULE 1 CAPSULE NEEDED ORALLY EVERY 6 HRS TAKING AMLODIPINE BESYLATE 5 MG TABLET 1 TABLET ORALLY TWICE DAILY TAKING SPIRIVA HANDIHALER 18 MCG CAPSULE 1 CAPSULE INHALATION ONCE A DAY TAKING OXYBUTYNIN CHLORIDE 5 MG TABLET 1 TABLET ORALLY TWICE A DAY TAKING VENTOLIN HFA 108 (90 BASE) MCG/ACT AEROSOL SOLUTION INHALE ONE PUFF BY MOUTH EVERY 6 HOURS NEEDED TAKING BACLOFEN 5 MG TABLET 1 TABLET NEEDED ORALLY TWICE DAILY NOT-TAKING DRISTAN SPRAY 0.05 % SOLUTION 2 SPRAYS IN EACH NOSTRIL NEEDED NASALLY TWICE A DAY NOT-TAKING VOLTAREN 1 % GEL DIRECTED EXTERNALLY NOT-TAKING TYLENOL 8 HOUR 650 MG TABLET EXTENDED RELEASE 2 TABLETS NEEDED ORALLY EVERY 8 HRS NOT-TAKING OXYMETAZOLINE HCL 0.05 % SOLUTION 2 SPRAYS IN EACH NOSTRIL NEEDED NASALLY TWICE A DAY NOT-TAKING TOLTERODINE TARTRATE 2 MG TABLET 1 TABLET ORALLY TWICE A DAY NOT-TAKING NITROSTAT 0.4 MG TABLET SUBLINGUAL SUBLINGUAL NOT-TAKING ASPIRIN ADULT LOW DOSE 81 MG TABLET DELAYED RELEASE 1 TABLET ORALLY ONCE A DAY NOT-TAKING SERTRALINE HCL 100 MG TABLET 1 1/2 TABLET ORALLY ONCE A DAY NOT-TAKING DIVALPROEX SODIUM ER 500 MG TABLET EXTENDED RELEASE 24 HOUR 1 TAB ORALLY TWICE DAILY NOT-TAKING GEODON 20 MG CAPSULE PSULE IN THE MORNING THEN 40MG QT NIGHT ORALLY 1 TAB IN AM AND 1 TAB IN PM NOT-TAKING ZOLOFT 100 MG - 1 AND 1/2 TABLETS ORAL DAILY NOT-TAKING LOSARTAN POTASSIUM 50 MG TABLET 1 TABLET ORALLY BID NOT-TAKING METOPROLOL SUCCINATE ER 25 MG TABLET EXTENDED RELEASE 24 HOUR 1 TABLET ORALLY BID NOT-TAKING CELEBREX 100 MG CAPSULE 1 CAPSULE WITH FOOD ORALLY TWICE A DAY NOT-TAKING TIZANIDINE HCL 4 MG TABLET 1 TABLET NEEDED ORALLY BEFORE BEDTIME NOT-TAKING SPIRONOLACTONE 25 MG TABLET 1 TABLET ORALLY ONCE A DAY NOT-TAKING ACETAMINOPHEN 500 MG CAPSULE 2 CAPSULES NEEDED ORALLY EVERY 6 HRS NOT-TAKING POLYETHYLENE GLYCOL - POWDER 1 TAB ORALLY NEEDED NOT-TAKING LIDOCAINE VISCOUS 2 % SOLUTION 80ML VISICOUS LIDO. 2% C 80-ML DIPHENHYDRAMINE 12.5MG/5ML ELIXIR MOUTH/THROAT 5ML EVERY 6 HRS NEEDED NOT-TAKING LASIX 40 MG TABLET 1 TABLET ORALLY ONCE A DAY PRN EDEMA NOT-TAKING PROTONIX 40 MG TABLET DELAYED RELEASE 1 TABLET ORALLY ONCE A DAY NOT-TAKING MAGNESIUM 400 MG CAPSULE 2 CAPSULES AT BEDTIME NEEDED ORALLY DAILY NOT-TAKING HIBICLENS 4 % LIQUID DIRECTED EXTERNALLY DAILY FOR 5 DAYS BEFORE INJECTIONS NOT-TAKING NORCO 5-325 MG TABLET 1 TABLET NEEDED ORALLY DAILY PRN PAIN, NOTES: 07/27/2020 0800 MEDICATION LIST REVIEWED AND RECONCILED WITH THE PATIENT PAST MEDICAL HISTORY LBBB, 1AVB IFG COPD GERD MIXED URINARY INCONTINENCE ANEMIA 2 FE DEFICIENCY CHRONIC CONSTIPATION ALLERGIC RHINITIS CERVICAL/LUMBAR DJD-ML SPONDYLOSIS C C5-7 BULGES S SC COMPRESSION BY 07/2016 MRI//L3-S1 BULGES, L5/S1 LITHESIS C L L4 NF, B L5 NF COMPRESSION BY 05/2016 MRI MYRA, MILD 09/2017 HST C BABS 7, SAO2 TO 91% MIXED HYERLIPIDEMIA HYPERTENSION-LVEF 65%, MARGINAL , MILD LAE, GARDE 1 DIASTOLIC DYSFUNCTION, BORDERLINE PHTN BY 12/2015 [facility]//NORMAL CORONARIES ARTERIES BY 04/2014 [facility], [place] NICOTINE USE DISORDER MILD /VOLUME LOSS BY 07/2017 MRI BRAIN S CONTRAST, SIMILARTO 01/2007 B CAROTID ARTERY DISEASE 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)+/- DIURETIC USE HYPERTENSION CHRONIC SCHIZOPHRENIA ASSERTIVE SCHIZO AFFECTIVE DISORDER ALLERGIES PREDNISONE: CONFUSION AUGMENTIN: HIVES NITROFURANTOIN: HIVES QUINOLONE: HIVES AVELOX: UNKNOWN PERCOCET: CONFUSION SOCIAL HISTORY GENERAL: TOBACCO USE ARE YOU A:CURRENT SMOKER 1 PPD X 50 YEARS ARE YOU INTERESTED IN QUITTING?NOT READY TO QUIT COUNSELED THE PATIENT ON SMOKING EFFECTS, EDUCATION [id number]/26/2021 VAPORYES SMOKING CESSATION INFORMATION GIVEN07/27/2020 LATEX QUESTIONNAIRE LATEX ALLERGY : HAVE YOU EVER DEVELOPED ANY TYPE OF REACTION AFTER HANDLING LATEX PRODUCTS SUCH RUBBER GLOVES, CONDOMS, DIAPHRAGMS, BALLOONS, SOCKS, OR UNDERWEAR?NO LATEX ALLERGY : HAVE YOU EVER DEVELOPED ANY TYPE OF REACTION DURING OR AFTER DENTAL APPOINTMENT, VAGINAL/RECTAL EXAMINATION, SURGICAL PROCEDURE, OR ANY OTHER EXPOSURE?NO LATEX RISK : HAVE YOU EVER HAD ANY DIFFICULTY BREATHING OR HIVES AFTER EATING OR HANDLING ANY FRUITS, OR VEGETABLES; SUCH KIWI, BANANAS, STONE FRUITS, OR CHESTNUTSNO LATEX RISK : DO YOU HAVE A PREVIOUS PERSONAL HISTORY OF MORE THAN NINE SURGERIES, SPINA BIFIDA, OR REPEATED CATHERIZATIONS? NO LATEX RISK : ARE YOU FREQUENTLY EXPOSED TO LATEX PRODUCTS IN YOUR OCCUPATION?NO DATE ASKED : 09/22/2020 ALCOHOL USE: NO. BMI CARE GOAL FOLLOW-UP ABOVE NORMAL BMI FOLLOW-UPGIVING ENCOURAGEMENT TO EXERCISE ALCOHOL SCREENING DID YOU HAVE A DRINK CONTAINING ALCOHOL IN THE PAST YEAR?NO POINTS0 INTERPRETATIONNEGATIVE RECREATIONAL DRUG USE DRUG USE?NO CAFFEINE CAFFEINE USE?YES 2-3CUPS/DAY SEXUAL HX HAD SEX IN THE LAST 12 MONTHS (VAGINAL, ORAL, OR ANAL)?NO HAVE YOU EVER HAD AN STD?NO HIV / HEP-C SCREENING HIV TEST OFFERED TO PATIENT:YES DATE OFFERED:11/08/2016 TEST ACCEPTED:NO HEP-C TEST OFFERED TO PATIENT:YES DATE OFFERED:11/08/2016 REASON:PATIENT DECLINED TEST ACCEPTED:NO REASON:PATIENT DECLINED ROMAN CATHOLIC [id number] YARSANI LANGUAGE LANGUAGES SPOKEN:BAHAMIAN EDUCATION LEVEL OF EDUCATION:NOT FINISHED HIGH SCHOOL LEARNING BARRIERS / SPECIAL NEEDS CHANGE FROM LAST VISIT?NO BARRIERS TO LEARNING?NO HEARING IMPAIRED?NO VISION IMPAIRED?YES :CORRECTIVE LENSES COGNITIVELY IMPAIRED?NO READINESS TO LEARN?YES LEARNING PREFERENCES?NO LEARNING CAPABILITIES PRESENT?YES EMOTIONAL BARRIERS?YES SCHIZOPHRENIA/SCHIZOAFFECTRIVE DISORDER SPECIAL DEVICES?YES :WALKER LOSS PREVENTION ASSOCIATE NEEDED?NO DOMESTIC VIOLENCE DO YOU FEEL SAFE IN YOUR ENVIRONMENT?YES OCCUPATION: YEARS AGO @ [employer] @ [employer]. DIET: REGULAR. EXERCISE: NO REGULAR EXERCISE. MARITAL STATUS: [id number].. OTHERS AT HOME: SPOUSE. - WAS THE PROVIDER NOTIFIED OF ANY PERTINENT INFO?YES HAS THE PATIENT BEEN EDUCATED REGARDING HIS/HER PLAN OF CARE?YES HAS THE PATIENT BEEN EDUCATED REGARDING PAIN, THE RISK FOR PAIN, THE IMPORTANCE OF EFFECTIVE PAIN MANAGEMENT, AND THE PAIN ASSESSMENT PROCESS?YES ADVANCE DIRECTIVE ADVANCE DIRECTIVE DISCUSSED WITH PATIENT:YES HCP IS DAUGHTER JONE [phone] REVIEW OF SYSTEMS CONSTITUTIONAL: ANY RECENT FEVER NO . CHILLS NO . WEIGHT CHANGE OF UNKNOWN REASONS NO . GASTROENTEROLOGY: NEW UNEXPLAINABLE CHANGES IN BOWEL CONTROL NO . CONSTIPATION NO . GENITOURINARY: ANY NEW CHANGE IN BLADDER CONTROL? NO . NEUROLOGY: NEW ONSET DIZZINESS OR NEUROLOGICAL CHANGES NOT MENTIONED NO . NEW NUMBNESS OR PAIN PATTERNS NOT MENTIONED AND PERTINENT TO TODAY'S VISIT NO . CARDIOLOGY: NEW CHEST PRESSURE NO . PATIENT DENIES NO . RESPIRATORY: UNEXPLAINABLE COUGH NO . NEW SHORTNESS OF BREATH NO . VITAL SIGNS WT 117.2 LBS, HT 61 IN, BMI 22.14 INDEX, BP 134/59 MM HG, HR 91 /MIN, RR 16 /MIN, TEMP 96.1 F, OXYGEN SAT % 100%, SAFE IN ENV? (Y/N) YES, NA INITIALS SC 13:50, REVIEWED BY: CARMEN MERRILL MA. EXAMINATION GENERAL EXAMINATION: GENERALNO ACUTE DISTRESS, WELL NOURISHED AND HYDRATED. PSYCHAPPROPRIATE MOOD AND AFFECT . LUNGS:CLEAR TO AUSCULTATION BILATERALLY, NO WHEEZES, RHONCHI, RALES. HEART:NO MURMURS, REGULAR RATE AND RHYTHM. ASSESSMENTS SPONDYLOSIS OF LUMBAR REGION WITHOUT MYELOPATHY OR RADICULOPATHY - M47.816 (PRIMARY), RISK: (NULL) TREATMENT SPONDYLOSIS OF LUMBAR REGION WITHOUT MYELOPATHY OR RADICULOPATHY INCREASE NORCO TABLET, 5-325 MG, 1 TABLET NEEDED, ORALLY, EVERY 12 HRS PRN PAIN MDD2, 30 DAY(S) DAY(S), 60, NOTES: 07/27/2020 0800 NOTES: 70-YEAR-OLD FEMALE IN FOR CHRONIC PAIN FOLLOW-UP. GIVEN PRESENTING SYMPTOMS RECOMMEND INCREASING HYDROCODONE TO TWICE DAILY DOSING WITH FOLLOW-UP IN ONE MONTH. PATIENT HAS EXPRESSED UNDERSTANDING OF AND WAS IN AGREEMENT WITH TREATMENT PLAN. GIVEN TIME TO ASK QUESTIONS AND EXPRESS CONCERNS. , ISTOP REGISTRY REVIEWED AND DEMONSTRATES COMPLLIANCE. (REF # [id number] ) BRINGS IN MEDICATIONS WHICH IS APPROPRIATE FOR WHAT WAS DISPENSED. RECENT URINE TOXICOLOGY REVIEWED. NO UNAUTHORIZED MEDICATIONS. NO ILLICIT SUBSTANCES AND PRESCRIBED MEDICATIONS WERE PRESENT. PROCEDURE CODES [id number] ESTABILISHED PATIENT [facility] FACILITY CHARGE DISPOSITION & COMMUNICATION FOLLOW UP 4 WEEKS (REASON: MED INCREASE ) ELECTRONICALLY SIGNED BY JAYNA FERGUSON ON 09/24/2020 AT 08:37 AM EDT DISCLAIMER : THIS IS A VISIT SUMMARY EXTRACTED FROM THE [employer] CHART. IT IS NOT A COPY OF THE [employer] PROGRESS NOTE. DANNA
== END ==
LOC: M PAIN 13:45
PROVIDERS: ATTEND Family Medicine
DX: M47.816 Spondylosis without myelopathy or radiculopathy, lumbar region (principal); J44.9 Chronic obstructive pulmonary disease, unspecified; K21.9 Gastro-esophageal reflux disease without esophagitis; D50.9 Iron deficiency anemia, unspecified; K59.09 Other constipation; G47.33 Obstructive sleep apnea (adult) (pediatric); E78.2 Mixed hyperlipidemia; I10 Essential (primary) hypertension; F17.210 Nicotine dependence, cigarettes, uncomplicated; R73.01 Impaired fasting glucose; Z79.899 Other long term (current) drug therapy; Z88.0 Allergy status to penicillin; Z88.5 Allergy status to narcotic agent; Z88.8 Allergy status to other drugs, medicaments and biological substances

== ENCOUNTER → 2020-10-27 | Outpatient (CLI) | payer OTHER, MEDICARE, MEDICAID ==
--- NOTE | 2020-10-30 03:28 | ECWPNPC ---
PATIENT NAME: CK BYRD : 1950 GENDER: FEMALE VISIT DATE: 10/27/2020 DISCHARGE DATE: 10/27/20 1143 VISIT LOCKED DATE TIME: PHYSICIAN: WILLAM FALL PHYSICIAN PAGER NO: ACTIVE RESOURCE: WILLAM FALL REASON FOR APPOINTMENT 1. MED INCREASE HISTORY OF PRESENT ILLNESS GENERAL: -MA DISCUSSED PATIENT'S CARE WITH HER DAUGHTER VIA PHONE. HER DAUGHTER STATES THAT PATIENT HAD BEEN ON GABAPENTIN THAT WAS STOPPED DURING A RECENT HOSPITAL ADMISSION BECUASE OF SOME CONFUSION WITH HER MEDS. PATIENT'S DAUGHTER DID NOT ACCOMPANY HER TO HER VISIT. IT WAS DIFFICULT TO ASCERTAIN EFFECTIVENESS OF MEDICCATION PATIENT'S RESPONSES WERE LIMITED. SHE RATES HER PAIN AT AN 8/10 CURRENTLY AND DESCRIBES IT BURNING, CONTINUOUS, AND SHARP. FALL RISK SCREENING: SCREENING : NO FALLS REPORTED IN THE LAST YEAR. PAIN SCREENING: PATIENT HAS A COMPLAINT OF ACUTE OR CHRONIC PAIN :YES LOCATION OF PAIN:LOW BACK INTENSITY OF PAIN (SCALE OF 1 TO 10):8 WHAT DOES YOUR PAIN FEEL LIKE:BURNING, CONTINOUS, SHARP DURATION:CONTINOUS, AWAKENS FROM SLEEP PAIN IS INCREASED BY:ACTIVITIES, PROLONGED STANDING PAIN IS DECREASED BY:OTHERS PATIENT STATES "NOTHING HELPS THE PAIN." NURSING NOTE: -. PAIN CENTER INTAKE QUESTIONS: DO YOU HAVE A HISTORY OF MRSA? :NO DO YOU TAKE A BLOOD THINNERS? :NO DO YOU HAVE ANY BLEEDING DISORDERS? :NO ANY NEW NUMBNESS OR WEAKNESS IN YOUR LEGS OR ARMS? :NO ANY PACEMAKER,DEFIBRILLATOR, OR DORSAL COLUMN STIMULATOR? :NO DO YOU HAVE ANY RASHES OR OPEN SORES? :NO ARE YOU ALLERGIC TO IV DYE? :NO ARE YOU DIABETIC? :NO ANY NEW PROBLEMS WITH YOUR MEDICATIONS? :NO HAVE YOU RECEIVED A VACCINE IN THE PAST 30 DAYS? :NO DO YOU PLAN TO RECEIVE A VACCINE IN THE NEXT 21 DAYS? :NO DO YOU NEED ANY PRESCRIPTION? :YES HYDROCODONE. BACLOFEN DO YOU TAKE ANY IMMUNOSUPPRESSIVE MEDICATIONS? :NO DO YOU HAVE ANY KIDNEY OR LIVER DISEASE? :NO IS THERE A CHANCE YOU COULD BE ? :NO ARE YOU BREAST FEEDING? :NO CURRENT MEDICATIONS TAKING BREO ELLIPTA 100-25 MCG/INH AEROSOL POWDER BREATH ACTIVATED 1 PUFF INHALATION ONCE A DAY TAKING PROAIR HFA 108 (90 BASE) MCG/ACT AEROSOL SOLUTION 2 PUFFS NEEDED INHALATION EVERY 6 HRS TAKING ATORVASTATIN CALCIUM 40 MG TABLET 1 TABLET ORALLY ONCE A DAY TAKING BLOOD PRESS MONITOR/M-L CUFF - MISCELLANEOUS DIRECTED I110 DAILY TAKING DEMECLOCYCLINE HCL 150 MG TABLET TAKE TWO TABLETS BY MOUTH AFTER BREAKFAST AND LUNCH AND THREE TABLETS BY MOUTH WITH EVENING MEAL ORALLY TID NOTED ABOVE TAKING ALBUTEROL SULFATE (2.5 MG/3ML) 0.083% NEBULIZATION SOLUTION 1 VIAL INHALATION TWICE A DAY PRN TAKING CETIRIZINE HCL 10 MG TABLET TAKE ONE TABLET BY MOUTH EVERY DAY AT BEDTIME ORALLY DAILY TAKING FLUOXETINE HCL (PMDD) 20 MG TABLET 1 TABLET ORALLY ONCE A DAY TAKING AMANTADINE HCL 100 MG CAPSULE 1 CAPSULE ORALLY ONCE A DAY TAKING HALOPERIDOL 2 MG TABLET 1 TABLET ORALLY TWICE DAILY TAKING KEPPRA 500 MG TABLET 1 TABLET ORALLY EVERY 12 HRS TAKING VITAMIN B12 1000 MCG TABLET EXTENDED RELEASE 1 TABLET ORALLY ONCE A DAY TAKING SENNA 8.6 MG TABLET 2 TABLETS AT BEDTIME NEEDED ORALLY ONCE A DAY TAKING DITROPAN XL 5 MG TABLET EXTENDED RELEASE 24 HOUR 1 TABLET ORALLY ONCE A DAY TAKING SODIUM CHLORIDE 1 GM TABLET DIRECTED ORALLY TAKING FOLIC ACID 1 MG TABLET 1 TABLET ORALLY ONCE A DAY TAKING CARAFATE 1 GM TABLET 1 TABLET ON AN EMPTY STOMACH ORALLY TWICE A DAY TAKING AMLODIPINE BESYLATE 5 MG TABLET 1 TABLET ORALLY ONCE A DAY, NOTES: 07/27/2020 1900 TAKING MIRALAX 17 GM PACKET 1 PACKET MIXED WITH 8 OUNCES OF FLUID ORALLY ONCE A DAY TAKING DEMECLOCYCLINE HCL 150 MG TABLET 1 TABLET 1 HOUR BEFORE OR 2 HOURS AFTER MEALS ORALLY EVERY 6 HRS, NOTES: DUPLICATE TAKING SUCRALFATE 1 GM/10ML SUSPENSION 10 ML ON AN EMPTY STOMACH ORALLY TWICE A DAY TAKING AMLODIPINE BESYLATE 5 MG TABLET 1 TABLET ORALLY TWICE DAILY, NOTES: DUPLICATE TAKING SPIRIVA HANDIHALER 18 MCG CAPSULE 1 CAPSULE INHALATION ONCE A DAY TAKING VENTOLIN HFA 108 (90 BASE) MCG/ACT AEROSOL SOLUTION INHALE ONE PUFF BY MOUTH EVERY 6 HOURS NEEDED TAKING HYDROCODONE-ACETAMINOPHEN 5-325 MG TABLET 1 TABLET NEEDED ORALLY EVERY 12 HRS PRN PAIN TAKING BACLOFEN 5 MG TABLET 1 TABLET NEEDED ORALLY TWICE DAILY NOT-TAKING INCRUSE ELLIPTA 62.5 MCG/INH AEROSOL POWDER BREATH ACTIVATED 1 PUFF INHALATION ONCE A DAY NOT-TAKING ACETAMINOPHEN 500 MG CAPSULE 1 CAPSULE NEEDED ORALLY EVERY 6 HRS, NOTES: TAKING HYDROCODONE. PATIENT IS NOT TAKING NOT-TAKING OXYBUTYNIN CHLORIDE 5 MG TABLET 1 TABLET ORALLY TWICE A DAY NOT-TAKING DRISTAN SPRAY 0.05 % SOLUTION 2 SPRAYS IN EACH NOSTRIL NEEDED NASALLY TWICE A DAY NOT-TAKING VOLTAREN 1 % GEL DIRECTED EXTERNALLY NOT-TAKING TYLENOL 8 HOUR 650 MG TABLET EXTENDED RELEASE 2 TABLETS NEEDED ORALLY EVERY 8 HRS NOT-TAKING OXYMETAZOLINE HCL 0.05 % SOLUTION 2 SPRAYS IN EACH NOSTRIL NEEDED NASALLY TWICE A DAY NOT-TAKING TOLTERODINE TARTRATE 2 MG TABLET 1 TABLET ORALLY TWICE A DAY NOT-TAKING NITROSTAT 0.4 MG TABLET SUBLINGUAL SUBLINGUAL NOT-TAKING ASPIRIN ADULT LOW DOSE 81 MG TABLET DELAYED RELEASE 1 TABLET ORALLY ONCE A DAY NOT-TAKING SERTRALINE HCL 100 MG TABLET 1 1/2 TABLET ORALLY ONCE A DAY NOT-TAKING DIVALPROEX SODIUM ER 500 MG TABLET EXTENDED RELEASE 24 HOUR 1 TAB ORALLY TWICE DAILY NOT-TAKING GEODON 20 MG CAPSULE PSULE IN THE MORNING THEN 40MG QT NIGHT ORALLY 1 TAB IN AM AND 1 TAB IN PM NOT-TAKING ZOLOFT 100 MG - 1 AND 1/2 TABLETS ORAL DAILY NOT-TAKING LOSARTAN POTASSIUM 50 MG TABLET 1 TABLET ORALLY BID NOT-TAKING METOPROLOL SUCCINATE ER 25 MG TABLET EXTENDED RELEASE 24 HOUR 1 TABLET ORALLY BID NOT-TAKING CELEBREX 100 MG CAPSULE 1 CAPSULE WITH FOOD ORALLY TWICE A DAY NOT-TAKING TIZANIDINE HCL 4 MG TABLET 1 TABLET NEEDED ORALLY BEFORE BEDTIME NOT-TAKING SPIRONOLACTONE 25 MG TABLET 1 TABLET ORALLY ONCE A DAY NOT-TAKING ACETAMINOPHEN 500 MG CAPSULE 2 CAPSULES NEEDED ORALLY EVERY 6 HRS NOT-TAKING POLYETHYLENE GLYCOL - POWDER 1 TAB ORALLY NEEDED NOT-TAKING LIDOCAINE VISCOUS 2 % SOLUTION 80ML VISICOUS LIDO. 2% C 80-ML DIPHENHYDRAMINE 12.5MG/5ML ELIXIR MOUTH/THROAT 5ML EVERY 6 HRS NEEDED NOT-TAKING LASIX 40 MG TABLET 1 TABLET ORALLY ONCE A DAY PRN EDEMA NOT-TAKING PROTONIX 40 MG TABLET DELAYED RELEASE 1 TABLET ORALLY ONCE A DAY NOT-TAKING MAGNESIUM 400 MG CAPSULE 2 CAPSULES AT BEDTIME NEEDED ORALLY DAILY NOT-TAKING HIBICLENS 4 % LIQUID DIRECTED EXTERNALLY DAILY FOR 5 DAYS BEFORE INJECTIONS MEDICATION LIST REVIEWED AND RECONCILED WITH THE PATIENT PAST MEDICAL HISTORY LBBB, 1AVB IFG COPD GERD MIXED URINARY INCONTINENCE ANEMIA 2 FE DEFICIENCY CHRONIC CONSTIPATION ALLERGIC RHINITIS CERVICAL/LUMBAR DJD-ML SPONDYLOSIS C C5-7 BULGES S SC COMPRESSION BY 07/2016 MRI//L3-S1 BULGES, L5/S1 LITHESIS C L L4 NF, B L5 NF COMPRESSION BY 05/2016 MRI MYRA, MILD 09/2017 HST C BABS 7, SAO2 TO 91% MIXED HYERLIPIDEMIA HYPERTENSION-LVEF 65%, MARGINAL , MILD LAE, GARDE 1 DIASTOLIC DYSFUNCTION, BORDERLINE PHTN BY 12/2015 [facility]//NORMAL CORONARIES ARTERIES BY 04/2014 [facility], [place] NICOTINE USE DISORDER MILD /VOLUME LOSS BY 07/2017 MRI BRAIN S CONTRAST, SIMILARTO 01/2007 B CAROTID ARTERY DISEASE 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)+/- DIURETIC USE HYPERTENSION CHRONIC SCHIZOPHRENIA ASSERTIVE SCHIZO AFFECTIVE DISORDER ALLERGIES PREDNISONE: CONFUSION AUGMENTIN: HIVES NITROFURANTOIN: HIVES QUINOLONE: HIVES AVELOX: UNKNOWN PERCOCET: CONFUSION SOCIAL HISTORY GENERAL: TOBACCO USE ARE YOU A:CURRENT SMOKER 1 PPD X 50 YEARS ARE YOU INTERESTED IN QUITTING?NOT READY TO QUIT COUNSELED THE PATIENT ON SMOKING EFFECTS, EDUCATION [id number]/28/2021 SMOKING CESSATION INFORMATION GIVEN07/27/2020 [employer] LATEX QUESTIONNAIRE LATEX ALLERGY : HAVE YOU EVER DEVELOPED ANY TYPE OF REACTION AFTER HANDLING LATEX PRODUCTS SUCH RUBBER GLOVES, CONDOMS, DIAPHRAGMS, BALLOONS, SOCKS, OR UNDERWEAR?NO LATEX ALLERGY : HAVE YOU EVER DEVELOPED ANY TYPE OF REACTION DURING OR AFTER DENTAL APPOINTMENT, VAGINAL/RECTAL EXAMINATION, SURGICAL PROCEDURE, OR ANY OTHER EXPOSURE?NO DATE ASKED : 09/22/2020 LATEX RISK : HAVE YOU EVER HAD ANY DIFFICULTY BREATHING OR HIVES AFTER EATING OR HANDLING ANY FRUITS, OR VEGETABLES; SUCH KIWI, BANANAS, STONE FRUITS, OR CHESTNUTSNO LATEX RISK : DO YOU HAVE A PREVIOUS PERSONAL HISTORY OF MORE THAN NINE SURGERIES, SPINA BIFIDA, OR REPEATED CATHERIZATIONS? NO LATEX RISK : ARE YOU FREQUENTLY EXPOSED TO LATEX PRODUCTS IN YOUR OCCUPATION?NO ALCOHOL USE: NO. BMI CARE GOAL FOLLOW-UP ABOVE NORMAL BMI FOLLOW-UPGIVING ENCOURAGEMENT TO EXERCISE ALCOHOL SCREENING DID YOU HAVE A DRINK CONTAINING ALCOHOL IN THE PAST YEAR?NO POINTS0 INTERPRETATIONNEGATIVE RECREATIONAL DRUG USE DRUG USE?NO CAFFEINE CAFFEINE USE?YES 2-3CUPS/DAY SEXUAL HX HAD SEX IN THE LAST 12 MONTHS (VAGINAL, ORAL, OR ANAL)?NO HAVE YOU EVER HAD AN STD?NO HIV / HEP-C SCREENING HIV TEST OFFERED TO PATIENT:YES DATE OFFERED:11/08/2016 TEST ACCEPTED:NO HEP-C TEST OFFERED TO PATIENT:YES DATE OFFERED:11/08/2016 REASON:PATIENT DECLINED TEST ACCEPTED:NO REASON:PATIENT DECLINED YARSANISM [id number] [employer]ANG[employer] LANGUAGES SPOKEN:EMIRATI EDUCATION LEVEL OF EDUCATION:NOT FINISHED HIGH SCHOOL LEARNING BARRIERS / SPECIAL NEEDS CHANGE FROM LAST VISIT?NO BARRIERS TO LEARNING?NO HEARING IMPAIRED?NO VISION IMPAIRED?YES :CORRECTIVE LENSES COGNITIVELY IMPAIRED?NO READINESS TO LEARN?YES LEARNING PREFERENCES?NO LEARNING CAPABILITIES PRESENT?YES EMOTIONAL BARRIERS?YES SCHIZOPHRENIA/SCHIZOAFFECTRIVE DISORDER SPECIAL DEVICES?YES :WALKER TOOL TENDER NEEDED?NO DOMESTIC VIOLENCE DO YOU FEEL SAFE IN YOUR ENVIRONMENT?YES 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 DIET: REGULAR. EXERCISE: NO REGULAR EXERCISE. MARITAL STATUS: [id number].. OTHERS AT HOME: SPOUSE. - WAS THE PROVIDER NOTIFIED OF ANY PERTINENT INFO?YES HAS THE PATIENT BEEN EDUCATED REGARDING HIS/HER PLAN OF CARE?YES HAS THE PATIENT BEEN EDUCATED REGARDING PAIN, THE RISK FOR PAIN, THE IMPORTANCE OF EFFECTIVE PAIN MANAGEMENT, AND THE PAIN ASSESSMENT PROCESS?YES ADVANCE DIRECTIVE ADVANCE DIRECTIVE DISCUSSED WITH PATIENT:YES HCP IS DAUGHTER JONE [phone] HOSPITALIZATION/MAJOR DIAGNOSTIC PROCEDURE HYPONATREMIA/SIADH 2014 2014 CHEST PAIN- [facility] 06/2016 CORONARY ANGIOGRAM 06/2017 COPD [facility] 05/14- PSYCHIATRIC ADMISSION INPATIENT AT [facility] TO [facility] D/T UNREPONSIVENESS 04/20-05/21 COVID 5 DAYS 2019 REVIEW OF SYSTEMS CONSTITUTIONAL: ANY RECENT FEVER NO . CHILLS NO . WEIGHT CHANGE OF UNKNOWN REASONS NO . GASTROENTEROLOGY: NEW UNEXPLAINABLE CHANGES IN BOWEL CONTROL NO . CONSTIPATION NO . GENITOURINARY: ANY NEW CHANGE IN BLADDER CONTROL? NO . NEUROLOGY: NEW ONSET DIZZINESS OR NEUROLOGICAL CHANGES NOT MENTIONED NO . NEW NUMBNESS OR PAIN PATTERNS NOT MENTIONED AND PERTINENT TO TODAY'S VISIT NO . CARDIOLOGY: NEW CHEST PRESSURE NO . PATIENT DENIES NO . RESPIRATORY: UNEXPLAINABLE COUGH NO . NEW SHORTNESS OF BREATH NO . VITAL SIGNS WT 129.2 LBS, HT 61 IN, BMI 24.41 INDEX, BP 124/62 MM HG, HR 79 /MIN, RR 16 /MIN, TEMP 97.5 F, OXYGEN SAT % 100%, SAFE IN ENV? (Y/N) YES, REVIEWED BY: CARMEN MERRILL MA. EXAMINATION GENERAL EXAMINATION: GENERALNO ACUTE DISTRESS, WELL NOURISHED AND HYDRATED. PSYCHAPPROPRIATE MOOD AND AFFECT . LUNGS:CLEAR TO AUSCULTATION BILATERALLY, NO WHEEZES, RHONCHI, RALES. HEART:NO MURMURS, REGULAR RATE AND RHYTHM. ASSESSMENTS SPONDYLOSIS OF LUMBAR REGION WITHOUT MYELOPATHY OR RADICULOPATHY - M47.816 (PRIMARY), RISK: (NULL) TREATMENT SPONDYLOSIS OF LUMBAR REGION WITHOUT MYELOPATHY OR RADICULOPATHY REFILL HYDROCODONE-ACETAMINOPHEN TABLET, 5-325 MG, 1 TABLET NEEDED, ORALLY, EVERY 12 HRS PRN PAIN, 30 DAYS, 60 START GABAPENTIN CAPSULE, 100 MG, 1 CAPSULE, ORALLY, THREE TIMES DAILY, 30 DAY(S), 90 NOTES: 70 YEAR OLD FEMALE IN FOR CHRONIC PAIN FOLLOW UP. GIVEN PRESENTING SYMPTOMS RECOMMEND RESTARTING GABAPENTIN PER PATIENT'S DAUGHTERS REPORT THEY FELT IT HELPED WITH HER PAIN. GIVEN TIME TO ASK QUESTIONS AND EXPRESS CONCERNS. , ISTOP REGISTER REVIEWED AND DEMONSTRATES COMPLIANCE. (REF # [id number] ) BRINGS IN MEDIATIONS WHICH IS APPROPRIATE FOR WHAT WAS DISPENSED. RECENT URINE TOXICOLOGY REVIEWED. NO UNAUTHORIZED MEDIATIONS. NO ILLICIT SUBSTANCES AND PRESCRIBED MEDIATIONS WERE PRESENT. DISPOSITION & COMMUNICATION FOLLOW UP 4 WEEKS (REASON: NEW MED ) ELECTRONICALLY SIGNED BY JAYNA FERGUSON ON 10/29/2020 AT 08:26 AM EDT DISCLAIMER : THIS IS A VISIT SUMMARY EXTRACTED FROM THE [employer] CHART. IT IS NOT A COPY OF THE [employer] PROGRESS NOTE. DANNA
== END ==
LOC: M PAIN 11:00
PROVIDERS: ATTEND Family Medicine
DX: M47.816 Spondylosis without myelopathy or radiculopathy, lumbar region (principal); R73.01 Impaired fasting glucose; J44.9 Chronic obstructive pulmonary disease, unspecified; G47.33 Obstructive sleep apnea (adult) (pediatric); F17.210 Nicotine dependence, cigarettes, uncomplicated; Z86.59 Personal history of other mental and behavioral disorders; Z88.1 Allergy status to other antibiotic agents; Z88.5 Allergy status to narcotic agent; Z88.8 Allergy status to other drugs, medicaments and biological substances; Z79.51 Long term (current) use of inhaled steroids; Z79.899 Other long term (current) drug therapy

== ENCOUNTER → 2021-01-12 | Outpatient (CLI) | payer OTHER, MEDICARE, MEDICAID ==
--- NOTE | 2021-01-14 01:11 | ECWPNPC ---
PATIENT NAME: CK BYRD : 1950 GENDER: FEMALE VISIT DATE: 01/12/2021 DISCHARGE DATE: 01/12/21 1218 VISIT LOCKED DATE TIME: PHYSICIAN: WILLAM FALL PHYSICIAN PAGER NO: ACTIVE RESOURCE: WILLAM FALL REASON FOR APPOINTMENT 1. LOW BACK/NEW MED HISTORY OF PRESENT ILLNESS GENERAL: HPI 70-YEAR-OLD FEMALE IN FOR CHRONIC PAIN FOLLOW-UP. AT LAST CLINIC VISIT PATIENT WAS STARTED ON GABAPENTIN AND SHE ADMITS TODAY THAT SHE DOES NOT FEEL THIS WAS BENEFICIAL. SHE RATES HER PAIN CURRENTLY AT AN 8 OUT OF 10 DESCRIBES IT BURNING AND CONTINUOUS.. -. FALL RISK SCREENING: SCREENING : NO FALLS REPORTED IN THE LAST YEAR. PAIN SCREENING: PATIENT HAS A COMPLAINT OF ACUTE OR CHRONIC PAIN :YES LOCATION OF PAIN:LOW BACK INTENSITY OF PAIN (SCALE OF 1 TO 10):8 WHAT DOES YOUR PAIN FEEL LIKE:BURNING, CONTINOUS DURATION:CONTINOUS, CONSTANT, AWAKENS FROM SLEEP PAIN IS INCREASED BY:ACTIVITIES, PROLONGED STANDING PAIN IS DECREASED BY:OTHERS PATIENT STATES "NOTHING HELPS THE PAIN." NURSING NOTE: -. PAIN CENTER INTAKE QUESTIONS: DO YOU HAVE A HISTORY OF MRSA? :NO DO YOU TAKE A BLOOD THINNERS? :NO DO YOU HAVE ANY BLEEDING DISORDERS? :NO ANY NEW NUMBNESS OR WEAKNESS IN YOUR LEGS OR ARMS? :NO ANY PACEMAKER,DEFIBRILLATOR, OR DORSAL COLUMN STIMULATOR? :NO DO YOU HAVE ANY RASHES OR OPEN SORES? :NO ARE YOU ALLERGIC TO IV DYE? :NO ARE YOU DIABETIC? :NO ANY NEW PROBLEMS WITH YOUR MEDICATIONS? :NO HAVE YOU RECEIVED A VACCINE IN THE PAST 30 DAYS? :NO DO YOU PLAN TO RECEIVE A VACCINE IN THE NEXT 21 DAYS? :NO DO YOU NEED ANY PRESCRIPTION? :NO DO YOU TAKE ANY IMMUNOSUPPRESSIVE MEDICATIONS? :NO DO YOU HAVE ANY KIDNEY OR LIVER DISEASE? :NO IS THERE A CHANCE YOU COULD BE ? :NO ARE YOU BREAST FEEDING? :NO CURRENT MEDICATIONS TAKING BREO ELLIPTA 100-25 MCG/INH AEROSOL POWDER BREATH ACTIVATED 1 PUFF INHALATION ONCE A DAY TAKING PROAIR HFA 108 (90 BASE) MCG/ACT AEROSOL SOLUTION 2 PUFFS NEEDED INHALATION EVERY 6 HRS TAKING ATORVASTATIN CALCIUM 40 MG TABLET 1 TABLET ORALLY ONCE A DAY TAKING BLOOD PRESS MONITOR/M-L CUFF - MISCELLANEOUS DIRECTED I110 DAILY TAKING DEMECLOCYCLINE HCL 150 MG TABLET TAKE TWO TABLETS BY MOUTH AFTER BREAKFAST AND LUNCH AND THREE TABLETS BY MOUTH WITH EVENING MEAL ORALLY TID NOTED ABOVE TAKING ALBUTEROL SULFATE (2.5 MG/3ML) 0.083% NEBULIZATION SOLUTION 1 VIAL INHALATION TWICE A DAY PRN TAKING CETIRIZINE HCL 10 MG TABLET TAKE ONE TABLET BY MOUTH EVERY DAY AT BEDTIME ORALLY DAILY TAKING FLUOXETINE HCL (PMDD) 20 MG TABLET 1 TABLET ORALLY ONCE A DAY TAKING AMANTADINE HCL 100 MG CAPSULE 1 CAPSULE ORALLY ONCE A DAY TAKING HALOPERIDOL 2 MG TABLET 1 TABLET ORALLY TWICE DAILY TAKING KEPPRA 500 MG TABLET 1 TABLET ORALLY EVERY 12 HRS TAKING VITAMIN B12 1000 MCG TABLET EXTENDED RELEASE 1 TABLET ORALLY ONCE A DAY TAKING SENNA 8.6 MG TABLET 2 TABLETS AT BEDTIME NEEDED ORALLY ONCE A DAY TAKING DITROPAN XL 5 MG TABLET EXTENDED RELEASE 24 HOUR 1 TABLET ORALLY ONCE A DAY TAKING SODIUM CHLORIDE 1 GM TABLET DIRECTED ORALLY TAKING FOLIC ACID 1 MG TABLET 1 TABLET ORALLY ONCE A DAY TAKING CARAFATE 1 GM TABLET 1 TABLET ON AN EMPTY STOMACH ORALLY TWICE A DAY TAKING AMLODIPINE BESYLATE 5 MG TABLET 1 TABLET ORALLY ONCE A DAY, NOTES: 07/27/2020 1900 TAKING MIRALAX 17 GM PACKET 1 PACKET MIXED WITH 8 OUNCES OF FLUID ORALLY ONCE A DAY TAKING DEMECLOCYCLINE HCL 150 MG TABLET 1 TABLET 1 HOUR BEFORE OR 2 HOURS AFTER MEALS ORALLY EVERY 6 HRS, NOTES: DUPLICATE TAKING SUCRALFATE 1 GM/10ML SUSPENSION 10 ML ON AN EMPTY STOMACH ORALLY TWICE A DAY TAKING AMLODIPINE BESYLATE 5 MG TABLET 1 TABLET ORALLY TWICE DAILY, NOTES: DUPLICATE TAKING SPIRIVA HANDIHALER 18 MCG CAPSULE 1 CAPSULE INHALATION ONCE A DAY TAKING VENTOLIN HFA 108 (90 BASE) MCG/ACT AEROSOL SOLUTION INHALE ONE PUFF BY MOUTH EVERY 6 HOURS NEEDED TAKING BACLOFEN 5 MG TABLET 1 TABLET NEEDED ORALLY TWICE DAILY TAKING HYDROCODONE-ACETAMINOPHEN 5-325 MG TABLET 1 TABLET NEEDED ORALLY EVERY 12 HRS PRN PAIN TAKING GABAPENTIN 100 MG CAPSULE 1 CAPSULE ORALLY THREE TIMES DAILY TAKING INCRUSE ELLIPTA 62.5 MCG/INH AEROSOL POWDER BREATH ACTIVATED 1 PUFF INHALATION ONCE A DAY TAKING ACETAMINOPHEN 500 MG CAPSULE 1 CAPSULE NEEDED ORALLY EVERY 6 HRS, NOTES: TAKING HYDROCODONE. PATIENT IS NOT TAKING TAKING OXYBUTYNIN CHLORIDE 5 MG TABLET 1 TABLET ORALLY TWICE A DAY TAKING DRISTAN SPRAY 0.05 % SOLUTION 2 SPRAYS IN EACH NOSTRIL NEEDED NASALLY TWICE A DAY TAKING VOLTAREN 1 % GEL DIRECTED EXTERNALLY TAKING TYLENOL 8 HOUR 650 MG TABLET EXTENDED RELEASE 2 TABLETS NEEDED ORALLY EVERY 8 HRS TAKING OXYMETAZOLINE HCL 0.05 % SOLUTION 2 SPRAYS IN EACH NOSTRIL NEEDED NASALLY TWICE A DAY TAKING TOLTERODINE TARTRATE 2 MG TABLET 1 TABLET ORALLY TWICE A DAY TAKING NITROSTAT 0.4 MG TABLET SUBLINGUAL SUBLINGUAL TAKING ASPIRIN ADULT LOW DOSE 81 MG TABLET DELAYED RELEASE 1 TABLET ORALLY ONCE A DAY TAKING SERTRALINE HCL 100 MG TABLET 1 1/2 TABLET ORALLY ONCE A DAY TAKING DIVALPROEX SODIUM ER 500 MG TABLET EXTENDED RELEASE 24 HOUR 1 TAB ORALLY TWICE DAILY TAKING GEODON 20 MG CAPSULE PSULE IN THE MORNING THEN 40MG QT NIGHT ORALLY 1 TAB IN AM AND 1 TAB IN PM TAKING ZOLOFT 100 MG - 1 AND 1/2 TABLETS ORAL DAILY TAKING LOSARTAN POTASSIUM 50 MG TABLET 1 TABLET ORALLY BID TAKING METOPROLOL SUCCINATE ER 25 MG TABLET EXTENDED RELEASE 24 HOUR 1 TABLET ORALLY BID TAKING CELEBREX 100 MG CAPSULE 1 CAPSULE WITH FOOD ORALLY TWICE A DAY TAKING TIZANIDINE HCL 4 MG TABLET 1 TABLET NEEDED ORALLY BEFORE BEDTIME TAKING SPIRONOLACTONE 25 MG TABLET 1 TABLET ORALLY ONCE A DAY TAKING ACETAMINOPHEN 500 MG CAPSULE 2 CAPSULES NEEDED ORALLY EVERY 6 HRS TAKING HIBICLENS 4 % LIQUID DIRECTED EXTERNALLY DAILY FOR 5 DAYS BEFORE INJECTIONS NOT-TAKING POLYETHYLENE GLYCOL - POWDER 1 TAB ORALLY NEEDED NOT-TAKING LIDOCAINE VISCOUS 2 % SOLUTION 80ML VISICOUS LIDO. 2% C 80-ML DIPHENHYDRAMINE 12.5MG/5ML ELIXIR MOUTH/THROAT 5ML EVERY 6 HRS NEEDED NOT-TAKING LASIX 40 MG TABLET 1 TABLET ORALLY ONCE A DAY PRN EDEMA NOT-TAKING PROTONIX 40 MG TABLET DELAYED RELEASE 1 TABLET ORALLY ONCE A DAY NOT-TAKING MAGNESIUM 400 MG CAPSULE 2 CAPSULES AT BEDTIME NEEDED ORALLY DAILY MEDICATION LIST REVIEWED AND RECONCILED WITH THE PATIENT PAST MEDICAL HISTORY LBBB, 1AVB IFG COPD GERD MIXED URINARY INCONTINENCE ANEMIA 2 FE DEFICIENCY CHRONIC CONSTIPATION ALLERGIC RHINITIS CERVICAL/LUMBAR DJD-ML SPONDYLOSIS C C5-7 BULGES S SC COMPRESSION BY 07/2016 MRI//L3-S1 BULGES, L5/S1 LITHESIS C L L4 NF, B L5 NF COMPRESSION BY 05/2016 MRI MYRA, MILD 09/2017 [facility]ST C BABS 7, SAO2 TO 91% MIXED HYERLIPIDEMIA HYPERTENSION-LVEF 65%, MARGINAL , MILD LAE, GARDE 1 DIASTOLIC DYSFUNCTION, BORDERLINE PHTN BY 12/2015 [facility]//NORMAL CORONARIES ARTERIES BY 04/2014 [facility] [place] NICOTINE USE DISORDER MILD /VOLUME LOSS BY 07/2017 MRI BRAIN S CONTRAST, SIMILARTO 01/2007 B CAROTID ARTERY DISEASE 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)+/- DIURETIC USE HYPERTENSION CHRONIC SCHIZOPHRENIA ASSERTIVE SCHIZO AFFECTIVE DISORDER ALLERGIES PREDNISONE: CONFUSION AUGMENTIN: HIVES NITROFURANTOIN: HIVES QUINOLONE: HIVES AVELOX: UNKNOWN PERCOCET: CONFUSION SOCIAL HISTORY GENERAL: TOBACCO USE ARE YOU A:CURRENT SMOKER 1 PPD X 50 YEARS ARE YOU INTERESTED IN QUITTING?NOT READY TO QUIT COUNSELED THE PATIENT ON SMOKING EFFECTS, EDUCATION [id number]/14/2021 PATIENT COUNSELED ON THE DANGERS OF TOBACCO USE AND URGED TO QUIT:01/12/2021 SMOKING CESSATION INFORMATION GIVEN07/27/2020 [employer] LATEX QUESTIONNAIRE LATEX ALLERGY : HAVE YOU EVER DEVELOPED ANY TYPE OF REACTION AFTER HANDLING LATEX PRODUCTS SUCH RUBBER GLOVES, CONDOMS, DIAPHRAGMS, BALLOONS, SOCKS, OR UNDERWEAR?NO LATEX ALLERGY : HAVE YOU EVER DEVELOPED ANY TYPE OF REACTION DURING OR AFTER DENTAL APPOINTMENT, VAGINAL/RECTAL EXAMINATION, SURGICAL PROCEDURE, OR ANY OTHER EXPOSURE?NO LATEX RISK : HAVE YOU EVER HAD ANY DIFFICULTY BREATHING OR HIVES AFTER EATING OR HANDLING ANY FRUITS, OR VEGETABLES; SUCH KIWI, BANANAS, STONE FRUITS, OR CHESTNUTSNO LATEX RISK : DO YOU HAVE A PREVIOUS PERSONAL HISTORY OF MORE THAN NINE SURGERIES, SPINA BIFIDA, OR REPEATED CATHERIZATIONS? NO LATEX RISK : ARE YOU FREQUENTLY EXPOSED TO LATEX PRODUCTS IN YOUR OCCUPATION?NO DATE ASKED : 01/12/2021 ALCOHOL USE: NO. BMI CARE GOAL FOLLOW-UP ABOVE NORMAL BMI FOLLOW-UPGIVING ENCOURAGEMENT TO EXERCISE ALCOHOL SCREENING DID YOU HAVE A DRINK CONTAINING ALCOHOL IN THE PAST YEAR?NO POINTS0 INTERPRETATIONNEGATIVE RECREATIONAL DRUG USE DRUG USE?NO CAFFEINE CAFFEINE USE?YES 2-3CUPS/DAY SEXUAL HX HAD SEX IN THE LAST 12 MONTHS (VAGINAL, ORAL, OR ANAL)?NO HAVE YOU EVER HAD AN STD?NO HIV / HEP-C SCREENING HIV TEST OFFERED TO PATIENT:YES DATE OFFERED:11/08/2016 TEST ACCEPTED:NO HEP-C TEST OFFERED TO PATIENT:YES DATE OFFERED:11/08/2016 REASON:PATIENT DECLINED TEST ACCEPTED:NO REASON:PATIENT DECLINED CONGREGATION [id number] JEW LANGUAGE LANGUAGES SPOKEN:BELARUSIAN EDUCATION LEVEL OF EDUCATION:NOT FINISHED HIGH SCHOOL LEARNING BARRIERS / SPECIAL NEEDS CHANGE FROM LAST VISIT?NO BARRIERS TO LEARNING?NO HEARING IMPAIRED?NO VISION IMPAIRED?YES :CORRECTIVE LENSES COGNITIVELY IMPAIRED?NO READINESS TO LEARN?YES LEARNING PREFERENCES?NO LEARNING CAPABILITIES PRESENT?YES EMOTIONAL BARRIERS?YES SCHIZOPHRENIA/SCHIZOAFFECTRIVE DISORDER SPECIAL DEVICES?YES :WALKER 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 DIET: REGULAR. EXERCISE: NO REGULAR EXERCISE. MARITAL STATUS: [id number].. OTHERS AT HOME: SPOUSE. - WAS THE PROVIDER NOTIFIED OF ANY PERTINENT INFO?YES HAS THE PATIENT BEEN EDUCATED REGARDING HIS/HER PLAN OF CARE?YES HAS THE PATIENT BEEN EDUCATED REGARDING PAIN, THE RISK FOR PAIN, THE IMPORTANCE OF EFFECTIVE PAIN MANAGEMENT, AND THE PAIN ASSESSMENT PROCESS?YES ADVANCE DIRECTIVE ADVANCE DIRECTIVE DISCUSSED WITH PATIENT:YES HCP IS DAUGHTER JONE [phone] REVIEW OF SYSTEMS CONSTITUTIONAL: ANY RECENT FEVER NO . CHILLS NO . WEIGHT CHANGE OF UNKNOWN REASONS NO . GASTROENTEROLOGY: NEW UNEXPLAINABLE CHANGES IN BOWEL CONTROL NO . CONSTIPATION NO . GENITOURINARY: ANY NEW CHANGE IN BLADDER CONTROL? NO . NEUROLOGY: NEW ONSET DIZZINESS OR NEUROLOGICAL CHANGES NOT MENTIONED NO . NEW NUMBNESS OR PAIN PATTERNS NOT MENTIONED AND PERTINENT TO TODAY'S VISIT NO . CARDIOLOGY: NEW CHEST PRESSURE NO . PATIENT DENIES NO . RESPIRATORY: UNEXPLAINABLE COUGH NO . NEW SHORTNESS OF BREATH NO . VITAL SIGNS WT 139.6 LBS, HT 61 IN, BMI 26.37 INDEX, BP 130/60 MM HG, HR 68 /MIN, RR 16 /MIN, TEMP 97.7 F, OXYGEN SAT % 99%, SAFE IN ENV? (Y/N) YES, REVIEWED BY: CARMEN MERRILL MA. EXAMINATION GENERAL EXAMINATION: GENERALNO ACUTE DISTRESS, WELL NOURISHED AND HYDRATED. PSYCHAPPROPRIATE MOOD AND AFFECT . LUNGS:CLEAR TO AUSCULTATION BILATERALLY, NO WHEEZES, RHONCHI, RALES. HEART:NO MURMURS, REGULAR RATE AND RHYTHM. ASSESSMENTS SPONDYLOSIS OF LUMBAR REGION WITHOUT MYELOPATHY OR RADICULOPATHY - M47.816 (PRIMARY) CHRONIC PRESCRIPTION OPIATE USE - Z79.891 TREATMENT SPONDYLOSIS OF LUMBAR REGION WITHOUT MYELOPATHY OR RADICULOPATHY INCREASE BACLOFEN TABLET, 10 MG, 1 TABLET NEEDED, ORALLY, TWICE DAILY, 30 DAYS, 60, REFILLS 1 NOTES: 70-YEAR-OLD FEMALE IN FOR CHRONIC PAIN FOLLOW-UP. GIVEN PRESENTING SYMPTOMS RECOMMEND INCREASING BACLOFEN TO 10 MG TWICE DAILY WITH FOLLOW-UP IN 2 MONTHS TO DETERMINE EFFICACY OF TREATMENT. PATIENT HAS EXPRESSED UNDERSTANDING OF AND WAS IN AGREEMENT WITH TREATMENT PLAN. GIVEN TIME TO ASK QUESTIONS AND EXPRESS CONCERNS. [employer] REGISTRY REVIEWED AND DEMONSTRATES COMPLLIANCE. (REF # [id number] ) BRINGS IN MEDICATIONS WHICH IS APPROPRIATE FOR WHAT WAS DISPENSED. RECENT URINE TOXICOLOGY REVIEWED. NO UNAUTHORIZED MEDICATIONS. NO ILLICIT SUBSTANCES AND PRESCRIBED MEDICATIONS WERE PRESENT. CHRONIC PRESCRIPTION OPIATE USE LAB: ORAL FLUID TEST GROUP [facility]SY [facility] 01/12/2021 12:10:25 PM > LAST DOSE: GABAPENTIN 01/12/2021, HYDROCODONE 01/12/2021 PROCEDURE CODES [id number] ESTABILISHED PATIENT [facility] CHARGE DISPOSITION & COMMUNICATION FOLLOW UP 2 MONTHS (REASON: MED INCREASE) ELECTRONICALLY SIGNED BY JAYNA FERGUSON ON 01/13/2021 AT 09:40 AM EDT DISCLAIMER : THIS IS A VISIT SUMMARY EXTRACTED FROM THE [employer] CHART. IT IS NOT A COPY OF THE [employer] PROGRESS NOTE. DANNA
== END ==
LOC: M PAIN 11:15
PROVIDERS: ATTEND Family Medicine
DX: M47.816 Spondylosis without myelopathy or radiculopathy, lumbar region (principal); G89.29 Other chronic pain; R73.01 Impaired fasting glucose; J44.9 Chronic obstructive pulmonary disease, unspecified; G47.33 Obstructive sleep apnea (adult) (pediatric); F17.210 Nicotine dependence, cigarettes, uncomplicated; Z86.59 Personal history of other mental and behavioral disorders; Z88.1 Allergy status to other antibiotic agents; Z88.5 Allergy status to narcotic agent; Z88.8 Allergy status to other drugs, medicaments and biological substances; Z79.51 Long term (current) use of inhaled steroids; Z79.82 Long term (current) use of aspirin; Z79.899 Other long term (current) drug therapy

== ENCOUNTER → 2021-06-09 | Outpatient (CLI) | payer OTHER, MEDICARE, MEDICAID ==
[~2021-06-09] MED LIST changes: -LISI-898 PO; -LISI2.5T2 PO; +LISI2.5T9 PO; +LISI5TAB11 PO; -OMEP-221 PO; +OMEP40CA5 PO
== END ==
LOC: M PAIN 14:15
PROVIDERS: ATTEND Anesthesiology
DX: M96.1 Postlaminectomy syndrome, not elsewhere classified (principal); E11.9 Type 2 diabetes mellitus without complications; J44.9 Chronic obstructive pulmonary disease, unspecified; G47.33 Obstructive sleep apnea (adult) (pediatric); Z86.59 Personal history of other mental and behavioral disorders; Z87.891 Personal history of nicotine dependence; Z88.1 Allergy status to other antibiotic agents; Z88.5 Allergy status to narcotic agent; Z88.8 Allergy status to other drugs, medicaments and biological substances; Z79.51 Long term (current) use of inhaled steroids; Z79.82 Long term (current) use of aspirin; Z79.899 Other long term (current) drug therapy

== ENCOUNTER → 2021-07-28 | Outpatient (CLI) | payer OTHER, MEDICARE, MEDICAID | LOC: M LABSMTC 10:44 | PROVIDERS: ATTEND Anesthesiology | DX: Z01.812 Encounter for preprocedural laboratory examination (principal); Z20.822 Contact with and (suspected) exposure to COVID-19 ==

== ENCOUNTER → 2021-08-02 | Outpatient (CLI) | payer OTHER, MEDICAID ==
[~2021-08-02] MED LIST changes: +BUPIVACAINE HCL 0.25% 30ML VIAL As Ordered ONE; +ISOVUE-M 300 61% 15ML VIAL As Ordered ONE; +LIDOCAINE 1% SDV 30ML VIAL As Ordered ONE; +NORCO, ANEXSIA 5/325MG TABLET (HYDROcodone/ACETAMINOPHEN) As Ordered ONE; +dexameTHASONE 10MG/1ML VIAL PRES.FREE (J1100 PER 1MG) As Ordered ONE; +diazePAM 2 MG TAB As Ordered ONE
== END ==
LOC: M PAIN 09:00
PROVIDERS: ATTEND Anesthesiology
DX: M51.16 Intervertebral disc disorders with radiculopathy, lumbar region (principal); G47.33 Obstructive sleep apnea (adult) (pediatric); J44.9 Chronic obstructive pulmonary disease, unspecified; K21.9 Gastro-esophageal reflux disease without esophagitis; Z86.59 Personal history of other mental and behavioral disorders; Z87.891 Personal history of nicotine dependence; Z88.1 Allergy status to other antibiotic agents; Z88.5 Allergy status to narcotic agent; Z88.8 Allergy status to other drugs, medicaments and biological substances; Z79.51 Long term (current) use of inhaled steroids; Z79.899 Other long term (current) drug therapy
CPT/HCPCS: 64483; 64484; J1100; Q9967

== ENCOUNTER → 2021-09-09 | Outpatient (CLI) | payer OTHER, MEDICARE, MEDICAID ==
[~2021-09-09] MED LIST changes: -BUPIVACAINE HCL 0.25% 30ML VIAL As Ordered ONE; -ISOVUE-M 300 61% 15ML VIAL As Ordered ONE; -LIDOCAINE 1% SDV 30ML VIAL As Ordered ONE; -NORCO, ANEXSIA 5/325MG TABLET (HYDROcodone/ACETAMINOPHEN) As Ordered ONE; -dexameTHASONE 10MG/1ML VIAL PRES.FREE (J1100 PER 1MG) As Ordered ONE; -diazePAM 2 MG TAB As Ordered ONE
== END ==
LOC: M PAIN 09:30
PROVIDERS: ATTEND Nurse Practitioner Family
DX: M96.1 Postlaminectomy syndrome, not elsewhere classified (principal); M51.16 Intervertebral disc disorders with radiculopathy, lumbar region; G89.29 Other chronic pain; G47.33 Obstructive sleep apnea (adult) (pediatric); J44.9 Chronic obstructive pulmonary disease, unspecified; K21.9 Gastro-esophageal reflux disease without esophagitis; Z86.59 Personal history of other mental and behavioral disorders; Z87.891 Personal history of nicotine dependence; Z88.1 Allergy status to other antibiotic agents; Z88.5 Allergy status to narcotic agent; Z88.8 Allergy status to other drugs, medicaments and biological substances; Z79.51 Long term (current) use of inhaled steroids; Z79.899 Other long term (current) drug therapy

== ENCOUNTER → 2021-09-17 | Outpatient (CLI) | payer OTHER, MEDICARE, MEDICAID ==
[~2021-09-17] MED LIST changes: +BACL10TA2 PO; +DEME1TAB2 PO; +GABA-1171 PO; +HALO1TAB19 PO; +MM S100C PO; +NAPR-885 PO; +SENN-85 PO
== END ==
LOC: M LABSMTC 10:39
PROVIDERS: ATTEND Anesthesiology
DX: Z01.818 Encounter for other preprocedural examination (principal); Z20.822 Contact with and (suspected) exposure to COVID-19

== ENCOUNTER 2021-09-22 06:53 | Day surgery (SDC) | payer OTHER, MEDICAID ==
[~2021-09-22] VITALS: Ht 157.5 cm; Wt 68.5 kg
[~2021-09-22 06:53] MED LIST changes: +NS 1,000 ML IV ONE
[2021-09-22] MEDS ORDERED: propofoL 500 MG/50 ML VIAL As Ordered ONE (07:04)
[2021-09-22] MEDS ORDERED: LIDOCAINE 2% 100MG/5ML SDV (FOR ANES.) As Ordered ONE (07:04)
[2021-09-22] MEDS ORDERED: fentaNYL 100 MCG/2 ML INJECTION As Ordered ONE (07:04)
[2021-09-22 09:10] VITALS: BP 143/80
== END 2021-09-22 09:22 | disposition home or self-care (01) ==
LOC: M OPP 06:53
PROVIDERS: ATTEND Internal Medicine Gastroenterology
DX: D12.6 Benign neoplasm of colon, unspecified (principal); Z12.11 Encounter for screening for malignant neoplasm of colon; K20.90 Esophagitis, unspecified without bleeding; K64.8 Other hemorrhoids; K63.89 Other specified diseases of intestine; K57.30 Diverticulosis of large intestine without perforation or abscess without bleeding; B37.81 Candidal esophagitis; K22.89 Other specified disease of esophagus; K29.70 Gastritis, unspecified, without bleeding; D50.9 Iron deficiency anemia, unspecified; R63.4 Abnormal weight loss; I10 Essential (primary) hypertension; I25.10 Atherosclerotic heart disease of native coronary artery without angina pectoris; R56.9 Unspecified convulsions; Z78.0 Asymptomatic menopausal state; F32.A Depression, unspecified; F41.9 Anxiety disorder, unspecified; G47.30 Sleep apnea, unspecified; Z88.1 Allergy status to other antibiotic agents; Z88.6 Allergy status to analgesic agent; Z88.8 Allergy status to other drugs, medicaments and biological substances; Z79.899 Other long term (current) drug therapy
CPT/HCPCS: 43239; 45385; 88108; 88305; J3010

== ENCOUNTER → 2022-01-29 | Outpatient (CLI) | payer OTHER, MEDICAID ==
[~2022-01-29] MED LIST changes: +ALBU2.5V10 INH; -ALBU83IN INH; -NS 1,000 ML IV ONE
== END ==
LOC: M LABSMTC 09:53
PROVIDERS: ATTEND Anesthesiology
DX: Z01.812 Encounter for preprocedural laboratory examination (principal); Z20.822 Contact with and (suspected) exposure to COVID-19

== ENCOUNTER → 2022-01-31 | Outpatient (CLI) | payer OTHER, MEDICARE, MEDICAID ==
[~2022-01-31] MED LIST changes: +ISOVUE-M 300 61% 15ML VIAL As Ordered ONE; +LIDOCAINE 1% SDV 30ML VIAL As Ordered ONE; +methylPREDNISolone SUSP 40MG/ML 1ML VIAL (DEPO MEDROL) As Ordered ONE
== END ==
LOC: M PAIN 14:30
PROVIDERS: ATTEND Anesthesiology
DX: M96.1 Postlaminectomy syndrome, not elsewhere classified (principal); G89.29 Other chronic pain; G47.33 Obstructive sleep apnea (adult) (pediatric); R73.01 Impaired fasting glucose; J44.9 Chronic obstructive pulmonary disease, unspecified; K21.9 Gastro-esophageal reflux disease without esophagitis; Z86.59 Personal history of other mental and behavioral disorders; Z87.891 Personal history of nicotine dependence; Z88.1 Allergy status to other antibiotic agents; Z88.5 Allergy status to narcotic agent; Z88.8 Allergy status to other drugs, medicaments and biological substances; Z79.51 Long term (current) use of inhaled steroids; Z79.899 Other long term (current) drug therapy
CPT/HCPCS: 62323; J1030; Q9967

== ENCOUNTER → 2022-03-16 | Outpatient (CLI) | payer OTHER, MEDICARE, MEDICAID ==
[~2022-03-16] MED LIST changes: -ISOVUE-M 300 61% 15ML VIAL As Ordered ONE; -LIDOCAINE 1% SDV 30ML VIAL As Ordered ONE; -methylPREDNISolone SUSP 40MG/ML 1ML VIAL (DEPO MEDROL) As Ordered ONE
== END ==
LOC: M PAIN 14:00
PROVIDERS: ATTEND Nurse Practitioner Family
DX: M79.10 Myalgia, unspecified site (principal); M96.1 Postlaminectomy syndrome, not elsewhere classified; G89.29 Other chronic pain; G47.33 Obstructive sleep apnea (adult) (pediatric); J44.9 Chronic obstructive pulmonary disease, unspecified; K21.9 Gastro-esophageal reflux disease without esophagitis; I10 Essential (primary) hypertension; Z86.59 Personal history of other mental and behavioral disorders; Z87.891 Personal history of nicotine dependence; Z88.1 Allergy status to other antibiotic agents; Z88.5 Allergy status to narcotic agent; Z88.8 Allergy status to other drugs, medicaments and biological substances; Z79.51 Long term (current) use of inhaled steroids; Z79.899 Other long term (current) drug therapy

== ENCOUNTER → 2022-04-17 | Outpatient (CLI) | payer OTHER, MEDICARE, MEDICAID | LOC: M PAIN 14:45 | PROVIDERS: ATTEND Nurse Practitioner Family | DX: M96.1 Postlaminectomy syndrome, not elsewhere classified (principal); J44.9 Chronic obstructive pulmonary disease, unspecified; K21.9 Gastro-esophageal reflux disease without esophagitis; G47.33 Obstructive sleep apnea (adult) (pediatric); I10 Essential (primary) hypertension; Z86.59 Personal history of other mental and behavioral disorders; Z87.891 Personal history of nicotine dependence; Z88.1 Allergy status to other antibiotic agents; Z88.5 Allergy status to narcotic agent; Z88.8 Allergy status to other drugs, medicaments and biological substances; Z79.51 Long term (current) use of inhaled steroids; Z79.899 Other long term (current) drug therapy ==